=== PATIENT | female | born 1955 ===

== ENCOUNTER 2021-12-07 13:49 | Inpatient (IN) | payer MEDICARE ==
[2021-12-07] MEDS ORDERED: LORazepam 2 MG/ML VIAL ONE (14:16)
[2021-12-07] MEDS ORDERED: SODIUM CHLORIDE 0.9% 1000 ML 1,000 ML IV ONE (14:20)
[2021-12-07] MEDS ORDERED: LORazepam 2 MG/ML VIAL IV ONE (14:22)
--- NOTE | 2021-12-07 14:26 | Emergency Department Report ---
ED Altered Mental Status HPI - General Chief Complaint: Altered Mental Status Stated Complaint: AMS Time Seen by Provider: 12/07/21 14:20 Source: EMS Mode of arrival: Stretcher Limitations: Altered Mental Status - History of Present Illness Initial Comments: Patient is a 65-year-old female brought in from home by EMS for altered mental status. She was apparently found by family members. Last known well time was Saturday. On arrival patient is breathing heavily and not responsive. - Related Data Home Medications Medication Instructions Recorded Confirmed Last Taken AtorvaSTATin [Lipitor] 10 mg PO QHS 12/07/21 12/07/21 Unknown Furosemide [Lasix] 40 mg PO BID 12/07/21 12/07/21 Unknown Gabapentin [Neurontin] 300 mg PO BID 12/07/21 12/07/21 Unknown Loratadine 10 mg PO QDAY 12/07/21 12/07/21 Unknown Omeprazole 20 mg PO QDAY 12/07/21 12/07/21 Unknown PARoxetine [Paxil] 20 mg PO DAILY 12/07/21 12/07/21 Unknown Sitagliptin Phosphate [Januvia] 50 mg PO QDAY 12/07/21 12/07/21 Unknown amLODIPine [Norvasc] 10 mg PO DAILY 12/07/21 12/07/21 Unknown hydrALAZINE [Apresoline TAB] 100 mg PO TID 12/07/21 12/07/21 Unknown lisinopriL [Zestril TAB] 40 mg PO QDAY 12/07/21 12/07/21 Unknown Allergies Allergy/AdvReac Type Severity Reaction Status Date / Time No Known Allergies Allergy Verified 12/07/21 15:05 ED Review of Systems ROS: Stated complaint: AMS Other details as noted in HPI Comment: Unobtainable due to pts medical conditions ED Past Medical Hx - Past Medical History Previous Medical History?: Yes Hx Hypertension: Yes Hx Diabetes: Yes Hx Arthritis: Yes Hx Psychiatric Treatment: (DEPRESSION) Additional medical history: IRON DEFICIENCY - Medications Home Medications: Home Medications Medication Instructions Recorded Confirmed Last Taken Type AtorvaSTATin [Lipitor] 10 mg PO QHS 12/07/21 12/07/21 Unknown History Furosemide [Lasix] 40 mg PO BID 12/07/21 12/07/21 Unknown History Gabapentin [Neurontin] 300 mg PO BID 12/07/21 12/07/21 Unknown History Loratadine 10 mg PO QDAY 12/07/21 12/07/21 Unknown History Omeprazole 20 mg PO QDAY 12/07/21 12/07/21 Unknown History PARoxetine [Paxil] 20 mg PO DAILY 12/07/21 12/07/21 Unknown History Sitagliptin Phosphate [Januvia] 50 mg PO QDAY 12/07/21 12/07/21 Unknown History amLODIPine [Norvasc] 10 mg PO DAILY 12/07/21 12/07/21 Unknown History hydrALAZINE [Apresoline TAB] 100 mg PO TID 12/07/21 12/07/21 Unknown History lisinopriL [Zestril TAB] 40 mg PO QDAY 12/07/21 12/07/21 Unknown History ED Physical Exam - General Limitations: Altered Mental Status General appearance: obtunded - Head Head exam: Present: atraumatic, normocephalic - Eye Eye exam: Present: other (Eyes deviated to the right) - Respiratory Respiratory exam: Present: respiratory distress, accessory muscle use - Cardiovascular Cardiovascular Exam: Present: normal rhythm, tachycardia, normal heart sounds - GI/Abdominal GI/Abdominal exam: Present: soft. Absent: distended - Rectal Rectal exam: Present: deferred - Neurological Exam Neurological exam: Present: altered - Skin Skin exam: Present: warm, dry, intact, normal color ED Course Vital Signs 12/07/21 12/07/21 12/07/21 13:50 14:20 14:31 Temperature 98.2 F Pulse Rate 119 H 116 H Respiratory 19 26 H Rate Blood Pressure 184/86 Blood Pressure 166/93 [Left] O2 Sat by Pulse 100 100 100 Oximetry 12/07/21 12/07/21 12/07/21 14:45 15:16 15:30 Temperature Pulse Rate 124 H 128 H 119 H Respiratory 15 16 Rate Blood Pressure 175/85 192/103 168/87 Blood Pressure [Left] O2 Sat by Pulse 100 100 100 Oximetry 12/07/21 12/07/21 12/07/21 15:31 15:45 16:00 Temperature Pulse Rate 118 H 117 H 122 H Respiratory 16 16 16 Rate Blood Pressure 176/96 183/95 182/93 Blood Pressure [Left] O2 Sat by Pulse 100 100 98 Oximetry 12/07/21 12/07/21 12/07/21 16:15 16:31 16:45 Temperature Pulse Rate 120 H 118 H 115 H Respiratory 16 17 26 H Rate Blood Pressure 168/88 162/88 161/85 Blood Pressure [Left] O2 Sat by Pulse 97 96 95 Oximetry 12/07/21 12/07/21 12/07/21 17:01 17:15 17:24 Temperature Pulse Rate 116 H 113 H Respiratory 21 25 H Rate Blood Pressure 174/88 176/88 Blood Pressure [Left] O2 Sat by Pulse 93 97 96 Oximetry 12/07/21 12/07/21 12/07/21 17:31 17:45 18:01 Temperature Pulse Rate 113 H 116 H 115 H Respiratory 27 H 29 H 29 H Rate Blood Pressure 161/80 158/81 136/46 Blood Pressure [Left] O2 Sat by Pulse 97 97 97 Oximetry 12/07/21 12/07/21 12/07/21 18:15 18:31 18:45 Temperature Pulse Rate 115 H 109 H 110 H Respiratory 29 H 25 H 24 Rate Blood Pressure 137/77 127/75 122/71 Blood Pressure [Left] O2 Sat by Pulse 97 97 98 Oximetry - Lab Data Result diagrams: 12/07/21 15:55 12/07/21 15:55 Lab Results 12/07/21 12/07/21 12/07/21 Range/Units 14:21 15:55 15:55 WBC 16.9 H (4.5-11.0) K/mm3 RBC 5.04 H (3.65-5.03) M/mm3 Hgb 14.0 (10.1-14.3) gm/dl Hct 43.8 H (30.3-42.9) % MCV 87 (79-97) fl MCH 28 (28-32) pg MCHC 32 (30-34) % RDW 14.9 (13.2-15.2) % Plt Count 459 H (140-440) K/mm3 Lymph % (Auto) 9.3 L (13.4-35.0) % [place] % (Auto) 5.6 (0.0-7.3) % Eos % (Auto) 0.0 (0.0-4.3) % Baso % (Auto) 0.5 (0.0-1.8) % Lymph # (Auto) 1.6 (1.2-5.4) K/mm3 [place] # (Auto) 0.9 H (0.0-0.8) K/mm3 Eos # (Auto) 0.0 (0.0-0.4) K/mm3 Baso # (Auto) 0.1 (0.0-0.1) K/mm3 Seg Neutrophils % 84.6 H (40.0-70.0) % Seg Neutrophils # 14.3 H (1.8-7.7) K/mm3 ABG pH (7.350-7.450) pH Units ABG pCO2 mm Hg ABG pO2 (80.0-90.0) mm Hg ABG HCO3 (20.0-26.0) mmol/L ABG O2 Saturation (95.0-99.0) % ABG O2 Content (0.0-44) ABG Base Excess (-2.0-3.0) mmol/L ABG Hemoglobin (12.0-16.0) gm/dl ABG Carboxyhemoglobin (0.0-5.0) % ABG Methemoglobin (0.0-1.5) % Oxyhemoglobin (95.0-99.0) % FiO2 % Sodium 143 (137-145) mmol/L Potassium 4.9 (3.6-5.0) mmol/L Chloride 107.2 H (98-107) mmol/L Carbon Dioxide 18 L (22-30) mmol/L Anion Gap 23 mmol/L BUN 34 H (7-17) mg/dL Creatinine 1.7 H (0.6-1.2) mg/dL Estimated GFR 30 ml/min BUN/Creatinine Ratio 20 % Glucose 224 H (65-100) mg/dL POC Glucose 174 H (70-105) mg/dL Lactic Acid (0.7-2.0) mmol/L Calcium 10.0 (8.4-10.2) mg/dL Total Bilirubin 0.50 (0.1-1.2) mg/dL AST 30 (5-40) units/L ALT 13 (7-56) units/L Alkaline Phosphatase 98 (35-129) units/L Ammonia (25-60) umol/L Total Creatine Kinase (30-135) units/L Total Protein 8.0 (6.3-8.2) g/dL Albumin 4.4 (3.9-5) g/dL Albumin/Globulin Ratio 1.2 % 12/07/21 12/07/21 12/07/21 Range/Units 15:55 15:55 15:55 WBC (4.5-11.0) K/mm3 RBC (3.65-5.03) M/mm3 Hgb (10.1-14.3) gm/dl Hct (30.3-42.9) % MCV (79-97) fl MCH (28-32) pg MCHC (30-34) % RDW (13.2-15.2) % Plt Count (140-440) K/mm3 Lymph % (Auto) (13.4-35.0) % [place] % (Auto) (0.0-7.3) % Eos % (Auto) (0.0-4.3) % Baso % (Auto) (0.0-1.8) % Lymph # (Auto) (1.2-5.4) K/mm3 [place] # (Auto) (0.0-0.8) K/mm3 Eos # (Auto) (0.0-0.4) K/mm3 Baso # (Auto) (0.0-0.1) K/mm3 Seg Neutrophils % (40.0-70.0) % Seg Neutrophils # (1.8-7.7) K/mm3 ABG pH 7.260 L (7.350-7.450) pH Units ABG pCO2 45.1 mm Hg ABG pO2 229.7 H (80.0-90.0) mm Hg ABG HCO3 19.8 L (20.0-26.0) mmol/L ABG O2 Saturation 99.3 H (95.0-99.0) % ABG O2 Content 19.3 (0.0-44) ABG Base Excess -7.1 L (-2.0-3.0) mmol/L ABG Hemoglobin 13.7 (12.0-16.0) gm/dl ABG Carboxyhemoglobin 1.1 (0.0-5.0) % ABG Methemoglobin 0.7 (0.0-1.5) % Oxyhemoglobin 97.6 (95.0-99.0) % FiO2 100 % Sodium (137-145) mmol/L Potassium (3.6-5.0) mmol/L Chloride (98-107) mmol/L Carbon Dioxide (22-30) mmol/L Anion Gap mmol/L BUN (7-17) mg/dL Creatinine (0.6-1.2) mg/dL Estimated GFR ml/min BUN/Creatinine Ratio % Glucose (65-100) mg/dL POC Glucose (70-105) mg/dL Lactic Acid 1.70 (0.7-2.0) mmol/L Calcium (8.4-10.2) mg/dL Total Bilirubin (0.1-1.2) mg/dL AST (5-40) units/L ALT (7-56) units/L Alkaline Phosphatase (35-129) units/L Ammonia 23.0 L (25-60) umol/L Total Creatine Kinase (30-135) units/L Total Protein (6.3-8.2) g/dL Albumin (3.9-5) g/dL Albumin/Globulin Ratio % 12/07/21 Range/Units 15:55 WBC (4.5-11.0) K/mm3 RBC (3.65-5.03) M/mm3 Hgb (10.1-14.3) gm/dl Hct (30.3-42.9) % MCV (79-97) fl MCH (28-32) pg MCHC (30-34) % RDW (13.2-15.2) % Plt Count (140-440) K/mm3 Lymph % (Auto) (13.4-35.0) % [place] % (Auto) (0.0-7.3) % Eos % (Auto) (0.0-4.3) % Baso % (Auto) (0.0-1.8) % Lymph # (Auto) (1.2-5.4) K/mm3 [place] # (Auto) (0.0-0.8) K/mm3 Eos # (Auto) (0.0-0.4) K/mm3 Baso # (Auto) (0.0-0.1) K/mm3 Seg Neutrophils % (40.0-70.0) % Seg Neutrophils # (1.8-7.7) K/mm3 ABG pH (7.350-7.450) pH Units ABG pCO2 mm Hg ABG pO2 (80.0-90.0) mm Hg ABG HCO3 (20.0-26.0) mmol/L ABG O2 Saturation (95.0-99.0) % ABG O2 Content (0.0-44) ABG Base Excess (-2.0-3.0) mmol/L ABG Hemoglobin (12.0-16.0) gm/dl ABG Carboxyhemoglobin (0.0-5.0) % ABG Methemoglobin (0.0-1.5) % Oxyhemoglobin (95.0-99.0) % FiO2 % Sodium (137-145) mmol/L Potassium (3.6-5.0) mmol/L Chloride (98-107) mmol/L Carbon Dioxide (22-30) mmol/L Anion Gap mmol/L BUN (7-17) mg/dL Creatinine (0.6-1.2) mg/dL Estimated GFR ml/min BUN/Creatinine Ratio % Glucose (65-100) mg/dL POC Glucose (70-105) mg/dL Lactic Acid (0.7-2.0) mmol/L Calcium (8.4-10.2) mg/dL Total Bilirubin (0.1-1.2) mg/dL AST (5-40) units/L ALT (7-56) units/L Alkaline Phosphatase (35-129) units/L Ammonia (25-60) umol/L Total Creatine Kinase 498 H (30-135) units/L Total Protein (6.3-8.2) g/dL Albumin (3.9-5) g/dL Albumin/Globulin Ratio % - Medical Decision Making Patient brought in by EMS for altered mental status. Last known well time was several days ago. On arrival she is on a nonrebreather and minimally responsive to sternal rub. On examination rightward gaze noted along with foaming at the mouth. She was given 2 mg of IV Ativan with no real response. Decision was made to intubate due to GCS below 8. CT head was performed and was unremarkable. Leukocytosis present however patient was afebrile. CMP reveals mild MAYRA with creatinine of 1.7. Ammonia unremarkable. CK 498. Urinalysis pending. Discussed with Drs. Salcido and Clair. Will admit to ICU. Critical Care Time: Yes Critical care time in (mins) excluding proc time.: 60 Critical care attestation.: If time is entered above; I have spent that time in minutes in the direct care of this critically ill patient, excluding procedure time. ED Disposition Clinical Impression: Altered mental status, Acute respiratory failure Disposition: ADMITTED INPATIENT Is pt being admited?: Yes Condition: Fair
[2021-12-07] MEDS ORDERED: ETOMIDATE 20 MG/10 ML INJ IV ONE ×2 (14:31→22:30)
[2021-12-07] MEDS ORDERED: ROCURONIUM 50 MG/5 ML INJ IV ONE ×2 (14:31→22:30)
--- NOTE | 2021-12-07 15:23 | XRay Report ---
CHEST 1 VIEW 12/07/2021 2:59 PM INDICATION / CLINICAL INFORMATION: AMS. COMPARISON: None FINDINGS: SUPPORT DEVICES: The endotracheal tube terminates within 1 cm of the betito. Recommend retraction by 3 cm. The nasogastric tube is followed to the mid to distal stomach. HEART / MEDIASTINUM: Borderline heart size. LUNGS / PLEURA: There is ill-defined infiltration in the left suprahilar region which could represent an infiltrate or atelectatic changes. Otherwise the lungs are generally clear. No pneumothorax. ADDITIONAL FINDINGS: No significant additional findings. IMPRESSION: 1. Recommend retraction of the endotracheal tube as described. 2. Left suprahilar infiltration. Correlate for pneumonia. If no fever is present, consider CT chest. Signer Name: Jun Alaniz Jr, MD Signed: 12/07/2021 3:19 PM Workstation Name: [id number]
--- NOTE | 2021-12-07 15:38 | Cat Scan Report ---
CT BRAIN: 12/07/2021 INDICATION / CLINICAL INFORMATION: Altered Mental Status. COMPARISON: None available. FINDINGS: BRAIN/INTRACRANIAL STRUCTURES: Unenhanced CT images of the brain demonstrate no evidence of acute abn ormality. Ventricles and sulci are within normal limits of size and shape for a patient of this age. There is no evidence of hemorrhage or mass. There are no abnormal extra-axial fluid collections. EXTRACRANIAL STRUCTURES: Incidental note is made of an air-fluid level in the right maxillary sinus. There is complete occlusion of the nasal cavity and upper nasal pharynx. The appearance of the consumer affairs director image that the patient has an endotracheal tube in place. There is evidence of prior right ocular surgery. IMPRESSION: No significant abnormality. All CT scans at this location are performed using dose reduction to ALARA by means of automated expos ure control. Signer Name: Andriy Duran MD Signed: 12/07/2021 3:34 PM Workstation Name: [id number]
[2021-12-07 16:20] LABS: ABG Base Excess -7.1 mmol/L (-2.0-3.0); ABG HCO3 19.8 mmol/L (20.0-26.0); ABG Methemoglobin 0.7 % (0.0-1.5); ABG Oxygen Saturation 99.3 % (95.0-99.0); ABG PCO2 45.1 mm Hg; ABG PH 7.26 pH Units (7.350-7.450); ABG PO2 229.7 mm Hg (80.0-90.0)
[2021-12-07 16:42] LABS: Basophils # (Auto) 0.1 K/mm3 (0.0-0.1); Basophils % (Auto) 0.5 % (0.0-1.8); Hematocrit 43.8 % (30.3-42.9); Lymphocytes # (Auto) 1.6 K/mm3 (1.2-5.4); Lymphocytes % (Auto) 9.3 % (13.4-35.0); Mean Corpuscular HGB Conc 32 % (30-34); Mean Corpuscular Volume 87 fl (79-97); Monocytes # (Auto) 0.9 K/mm3 (0.0-0.8); Monocytes % (Auto) 5.6 % (0.0-7.3); Platelet Count 459 K/mm3 (140-440); Red Blood Count 5.04 M/mm3 (3.65-5.03); Red Cell Distribution Width 14.9 % (13.2-15.2)
[2021-12-07 17:23] LABS: Albumin 4.4 g/dL (3.9-5)
--- NOTE | 2021-12-07 19:12 | History and Physical Report ---
History of Present Illness Chief complaint: Unresponsive History of present illness: 65 YO Female with Obesity Hypoventilation Syndrome, HTN, DM complicated by Neuropathy, GERD, MDD, Iron Deficiency Anemia, HLD, CHF presents to ED for evaluation. Patient is intubated and on ventilatory support at time of evaluation and is unable to provide history. Patient history taken EMS staff, ED staff, as well as patient family was. As per family the patient was in her usual state of health 2 days ago. Patient was found down and unresponsive in her home. EMS was notified and upon arrival the patient was found to be in distress and subsequently transported to [facility] for further care and evaluation of the aforementioned symptoms. The patient was seen and evaluated in the emergency department. All lab and imaging studies reviewed. Chest x-ray revealed pneumonia complicated by sepsis and acute hypoxemic respiratory f ailure. Patient also found to have acidosis, toxic metabolic encephalopathy, rhabdomyolysis, and acute kidney injury. Patient mated to ICU due to increased risk of worsening symptoms and for medical stabilization. Patient initiated on sepsis protocol as well as pneumonia protocol. Critical care team consulted in ED. No reports of fever, chills, chest pain, palpitation, productive cough, skin rash, recent contact, known exposure to COVID-19. No additional history obtainable. No prior admission for review. All medication listed at time of admission has been reconciled. Past History Past Medical History: diabetes, GERD, heart failure, hypertension, hyperlipidemia Past Surgical History: No surgical history, Other (Reviewed) Social history: single. denies: smoking, alcohol abuse, prescription drug abuse Family history: diabetes, hypertension Medications and Allergies Allergies Allergy/AdvReac Type Severity Reaction Status Date / Time No Known Allergies Allergy Verified 12/07/21 15:05 Home Medications Medication Instructions Recorded Confirmed Last Taken Type AtorvaSTATin [Lipitor] 10 mg PO QHS 12/07/21 12/07/21 Unknown History Furosemide [Lasix] 40 mg PO BID 12/07/21 12/07/21 Unknown History Gabapentin [Neurontin] 300 mg PO BID 12/07/21 12/07/21 Unknown History Loratadine 10 mg PO QDAY 12/07/21 12/07/21 Unknown History Omeprazole 20 mg PO QDAY 12/07/21 12/07/21 Unknown History PARoxetine [Paxil] 20 mg PO DAILY 12/07/21 12/07/21 Unknown History Sitagliptin Phosphate [Januvia] 50 mg PO QDAY 12/07/21 12/07/21 Unknown History amLODIPine [Norvasc] 10 mg PO DAILY 12/07/21 12/07/21 Unknown History hydrALAZINE [Apresoline TAB] 100 mg PO TID 12/07/21 12/07/21 Unknown History lisinopriL [Zestril TAB] 40 mg PO QDAY 12/07/21 12/07/21 Unknown History Review of Systems ROS unobtainable: due to endotracheal tube, due to mental status Exam - Constitutional Vitals: Temp Pulse Resp BP Pulse Ox 98.2 F 110 H 24 122/71 98 12/07/21 13:50 12/07/21 18:45 12/07/21 18:45 12/07/21 18:45 12/07/21 18:45 General appearance: Present: severe distress - EENT Eyes: Present: miosis ENT: hearing decreased - Neck Neck: Present: supple, normal ROM - Respiratory Respiratory effort: labored, accessory muscle use Respiratory: bilateral: diminished, rhonchi - Cardiovascular Heart Sounds: Present: S1 & S2. Absent: rub, click - Extremities Extremity abnormal: edema Peripheral Pulses: abnormal (Capillary refill greater than 3.5 seconds) - Abdominal General gastrointestinal: Present: soft, non-tender, non-distended, normal bowel sounds Female genitourinary: Present: normal - Integumentary Integumentary: Present: dry, clammy, decreased turgor - Musculoskeletal Musculoskeletal: generalized weakness - Psychiatric Psychiatric: no appropriate mood/affect, no intact judgment & insight, no memory intact - Neurologic Neurologic: CNII-XII intact, no focal deficits, moves all extremities, no gait normal Results - Labs CBC & Chem 7: 12/07/21 15:55 12/07/21 15:55 Labs: Abnormal lab results 12/07/21 12/07/21 12/07/21 Range/Units 14:21 15:55 15:55 WBC 16.9 H (4.5-11.0) K/mm3 RBC 5.04 H (3.65-5.03) M/mm3 Hct 43.8 H (30.3-42.9) % Plt Count 459 H (140-440) K/mm3 Lymph % (Auto) 9.3 L (13.4-35.0) % [place] # (Auto) 0.9 H (0.0-0.8) K/mm3 Seg Neutrophils % 84.6 H (40.0-70.0) % Seg Neutrophils # 14.3 H (1.8-7.7) K/mm3 ABG pH (7.350-7.450) pH Units ABG pO2 (80.0-90.0) mm Hg ABG HCO3 (20.0-26.0) mmol/L ABG O2 Saturation (95.0-99.0) % ABG Base Excess (-2.0-3.0) mmol/L Chloride 107.2 H (98-107) mmol/L Carbon Dioxide 18 L (22-30) mmol/L BUN 34 H (7-17) mg/dL Creatinine 1.7 H (0.6-1.2) mg/dL Glucose 224 H (65-100) mg/dL POC Glucose 174 H (70-105) mg/dL Ammonia (25-60) umol/L Total Creatine Kinase (30-135) units/L 12/07/21 12/07/21 12/07/21 Range/Units 15:55 15:55 15:55 WBC (4.5-11.0) K/mm3 RBC (3.65-5.03) M/mm3 Hct (30.3-42.9) % Plt Count (140-440) K/mm3 Lymph % (Auto) (13.4-35.0) % [place] # (Auto) (0.0-0.8) K/mm3 Seg Neutrophils % (40.0-70.0) % Seg Neutrophils # (1.8-7.7) K/mm3 ABG pH 7.260 L (7.350-7.450) pH Units ABG pO2 229.7 H (80.0-90.0) mm Hg ABG HCO3 19.8 L (20.0-26.0) mmol/L ABG O2 Saturation 99.3 H (95.0-99.0) % ABG Base Excess -7.1 L (-2.0-3.0) mmol/L Chloride (98-107) mmol/L Carbon Dioxide (22-30) mmol/L BUN (7-17) mg/dL Creatinine (0.6-1.2) mg/dL Glucose (65-100) mg/dL POC Glucose (70-105) mg/dL Ammonia 23.0 L (25-60) umol/L Total Creatine Kinase 498 H (30-135) units/L Assessment and Plan - Patient Problems (1) Sepsis Current Visit: Yes Status: Acute Qualifiers: Severe sepsis acute organ dysfunction type: acute respiratory failure Plan to address problem: Sepsis protocol: CBC, CMP, chest x-ray, urinalysis, IV antibiotic therapy, IV fluid resuscitation therapy, maintain mean arterial pressure greater than equal 65, IV pressor support as clinically indicated, serial lactic acid level, monitor fluid balance, monitor urine output every shift, The high probability of a clinically significant, sudden or life threatening d eterioration of the [cardiac, pulmonary, renal, infectious disease] system(s) required my full and direct attention, intervention and personal management. The aggregate critical care time was [95] minutes. This time is in addition to time spent performing reported procedures but includes the following: [x] Data Review and interpretation [x] Patient assessment and monitoring of vital signs [x] Documentation [x] Medication orders and management (2) Acute hypoxemic respiratory failure Current Visit: Yes Status: Acute Plan to address problem: Critical care team consulted. Wean vent as tolerated, daily spontaneous breathing trial, sedation holiday daily, arterial blood gas daily, chest x-ray as clinically indicated, (3) Toxic metabolic encephalopathy Current Visit: Yes Status: Acute Plan to address problem: CT scan head, treat sepsis, supportive care. (4) Rhabdomyolysis Current Visit: Yes Status: Acute Qualifiers: Encounter type: initial encounter Plan to address problem: IV antibiotic therapy, BMP, CK level, repeat CK level in AM. Monitor urine output every shift, monitor fluid balance. (5) Metabolic acidosis Current Visit: Yes Status: Acute Plan to address problem: IV fluid resuscitation therapy, IV bicarbonate therapy. (6) Pneumonia Current Visit: Yes Status: Acute Plan to address problem: Pneumonia protocol: Chest x-ray, CBC, CMP, supplemental oxygen, pulse oximetry, nebulizer therapy, pulmonary toilet. IV antibiotic therapy. (7) Acute kidney injury (MAYRA) with acute tubular necrosis (ATN) Current Visit: Yes Status: Acute Plan to address problem: IV fluid resuscitation therapy, monitor urine output every shift, monitor fluid balance, BMP, repeat BMP in a.m. to monitor serum creatinine as well as GFR. (8) Diabetes Current Visit: Yes Status: Acute Plan to address problem: Consistent carbohydrate diet, Accu-Chek, insulin protocol, hypoglycemia protocol (9) Hyperlipidemia Current Visit: Yes Status: Acute Qualifiers: Hyperlipidemia type: mixed hyperlipidemia Qualified Code(s): E78.2 - Mixed hyperlipidemia Plan to address problem: Statin therapy as clinically indicated, supportive care. (10) Obesity hypoventilation syndrome Current Visit: Yes Status: Acute Plan to address problem: Balanced diet, increase physical activity discharge, outpatient pulmonary follow-up for sleep study. (11) Metabolic syndrome Current Visit: Yes Status: Acute Plan to address problem: Low-cholesterol diet, weight reduction, glucose control, risk factor reduction. (12) DVT prophylaxis Current Visit: Yes Status: Acute Plan to address problem: SCD to bilateral lower extremities while in bed, prophylactic anticoagulation. (13) Advance care planning Current Visit: Yes Status: Acute Plan to address problem: Disease education done, care plan discussed, diagnoses discussed, prognosis discussed, patient is full code. Patient family knowledges understanding agreement with care plan, +30 minutes. (14) Preventative health care Current Visit: Yes Status: Acute Plan to address problem: Patient family counseled regarding risk factor reduction, outpatient follow-up with primary care physician for all age and risk factor appropriate screening test. +30 minutes.
[2021-12-07] MEDS ORDERED: SODIUM CHLORIDE 0.9% 1000 ML IV SOLN IV ONE (19:13)
[2021-12-07] MEDS ORDERED: MORPHINE 2 MG/1 ML INJ IV PRN (19:13)
[2021-12-07] MEDS ORDERED: ACETAMINOPHEN 650 MG RECT SUPP PR PRN (19:13)
[2021-12-07] MEDS ORDERED: HYDROmorphone 0.5 MG/0.5 ML INJ IV PRN ×2 (19:13→19:17)
[2021-12-07] MEDS ORDERED: oxyCODONE /ACETAMINOPHEN 5-325MG TAB PO PRN (19:17)
[2021-12-07] MEDS ORDERED: ACETAMINOPHEN 325 MG TAB PO PRN (19:17)
--- NOTE | 2021-12-07 19:51 | Procedure Note ---
Date of procedure: 12/07/21 Pre-op diagnosis: Sepsis Post-op diagnosis: same Procedure: Right internal jugular vein central line catheter placement under ultrasound guidance The patient was prepped and draped in the usual sterile fashion. A timeout was taken with the patient's nurse at bedside to verify the correct patient, the correct procedure, and the correct operative site. Local anesthesia obtained with 1% lidocaine. The Seldinger technique was utilized under ultrasound g uidance to insert a seeker needle into the right internal jugular vein without difficulty. A guidewire is advanced via the seeker needle into the right internal jugular vein and the seeker needle subsequently removed. A scalpel was used to incise the skin at the insertion site. A dilator was then passed over the guidewire into the right internal jugular vein and subsequently removed. A preflush triple-lumen catheter was then advanced to the right internal jugular vein and the guidewire subsequently removed. All 3 ports flush and drawl with ease. 3-0 silk suture was utilized to secure the triple-lumen catheter in place. A Biopatch was placed at the insertion site. Postoperative chest x-ray revealed right internal jugular vein triple-lumen catheter in the expected position. Estimated blood loss minimal. Specimens none, complications none. Anesthesia: local Surgeon: BERTA BROWN Estimated blood loss: minimal Pathology: none Condition: critical Disposition: ICU
[2021-12-07] MEDS ORDERED: DEXTROSE 50% IN WATER (25GM) 50 ML SYRINGE IV PRN (19:55)
[2021-12-07] MEDS ORDERED: cefTRIAXone/NS 2 GM/100 ML 2 GM/100 ML BAG IV SCH (20:00)
[2021-12-07 20:15] LABS: Hyaline Casts,Urine 4 /LPF; Mucus,Urine FEW /HPF
[2021-12-07] MEDS ORDERED: SODIUM BICARB 8.4% 50 MEQ/50 ML SYRINGE IV ONE (20:17)
[2021-12-07 20:24] LABS: Color,Urine Yellow (Yellow)
[2021-12-07 20:25] LABS: Bilirubin,Urine Moderate (Negative); Blood,Urine Negative (Negative)
--- NOTE | 2021-12-07 20:28 | XRay Report ---
CHEST 1 VIEW 12/07/2021 7:04 PM INDICATION / CLINICAL INFORMATION: central line placement. COMPARISON: None available. FINDINGS: SUPPORT DEVICES: Endotracheal tube terminates partially 1.0 cm from the betito. Right IJ central veno us catheter terminates in the upper SVC. Enteric tube terminates distal to the field of view and belo w the diaphragm. HEART / MEDIASTINUM: Stable. LUNGS / PLEURA: Redemonstrated left suprahilar consolidation/mass. No pneumothorax. ADDITIONAL FINDINGS: No significant additional findings. IMPRESSION: 1. 100 and tubes as above, no pneumothorax. 2. Redemonstrated left suprahilar consolidation/mass. In the absence of the clinical findings of pneu monia a chest CT is recommended to exclude lung mass. Signer Name: Masoud Ball DO Signed: 12/07/2021 8:24 PM Workstation Name: [id number]
[2021-12-07 20:33] LABS: Ictotest,Urine Negative (Negative)
[2021-12-07] MEDS: AZITHROMYCIN/NS 500 MG/250 ML 500 MG/250 ML BAG IV SCH (21:07)
[2021-12-07] MEDS: ALBUTEROL 2.5 MG/3 ML NEBU IH PRN (21:35)
[2021-12-07 21:55] LABS: ABG Base Excess -5.5 mmol/L (-2.0-3.0); ABG HCO3 18.8 mmol/L (20.0-26.0); ABG Methemoglobin 0.6 % (0.0-1.5); ABG Oxygen Saturation 99.1 % (95.0-99.0); ABG PCO2 32.6 mm Hg; ABG PH 7.377 pH Units (7.350-7.450); ABG PO2 170.3 mm Hg (80.0-90.0)
[2021-12-07] MEDS ORDERED: GABAPENTIN 300 MG CAP PO SCH (22:00)
[2021-12-08 04:18] LABS: Hematocrit 37.4 % (30.3-42.9); Mean Corpuscular HGB Conc 32 % (30-34); Mean Corpuscular Volume 86 fl (79-97); Platelet Count 402 K/mm3 (140-440); Red Blood Count 4.36 M/mm3 (3.65-5.03)
[2021-12-08] MEDS: ALBUTEROL 2.5 MG/3 ML NEBU IH PRN (04:32)
[2021-12-08 04:37] LABS: Albumin 3.5 g/dL (3.9-5); Calcium 9.2 mg/dL (8.4-10.2)
[2021-12-08 04:43] LABS: ABG Base Excess -5.4 mmol/L (-2.0-3.0); ABG HCO3 17.6 mmol/L (20.0-26.0); ABG Methemoglobin 0.6 % (0.0-1.5); ABG Oxygen Saturation 94.5 % (95.0-99.0); ABG PCO2 27.6 mm Hg; ABG PH 7.423 pH Units (7.350-7.450); ABG PO2 65.1 mm Hg (80.0-90.0)
[2021-12-08 05:13] LABS: Total Cells Counted 100
[2021-12-08 05:14] LABS: Eosinophils % (Manual) 0 % (0.0-4.3); Platelet Estimate Consistent w Auto; RBC Morphology Normal
[2021-12-08] MEDS: INSULIN REGULAR, HUMAN 100 UNITS/1 ML SUB-Q SCH ×5 (07:46→15:55)
[2021-12-08] MEDS ORDERED: D5W/0.45% NACL 1,000 ML IV SCH (09:00)
[2021-12-08] MEDS ORDERED: INSULIN GLARGINE 100 UNITS/ML SUB-Q ONE (09:00)
[2021-12-08] MEDS: hydrALAZINE 100 MG TAB PO SCH ×2 (09:05→14:44)
[2021-12-08] MEDS: SODIUM CHLORIDE 0.45% 1000 ML 1,000 ML IV SCH ×2 (09:33→21:46)
[2021-12-08] MEDS: LANSOPRAZOLE 30 MG SOLUTAB FEEDTUBE SCH (09:33)
[2021-12-08] MEDS: SENNOSIDES/DOCUSATE SODIUM 8.6/50 MG TAB FEEDTUBE SCH ×2 (09:34→21:45)
--- NOTE | 2021-12-08 09:58 | Consultation ---
History of Present Illness - Reason for Consult Consult date: 12/08/21 acute renal failure - History of Present Illness The patient is a 65 YO female with history notable for Morbid Obesity, HTN, HLD, DM complicated by Neuropathy, GERD, MDD, Iron Deficiency Anemia and CHF who was brought to [facility] ED 12/07/21 after she was found down and unresponsive in her home. Patient was intubated and on ventilatory support at time of evaluation and is unable to provide history. Patient history taken EMS staff, ED staff, as well as patient family was. As per family the patient was in her usual state of health 2 days ago. Chest x-ray revealed pneumonia. Patient was admitted with PNA, sepsis, acute hypoxemic respiratory failure, MAYRA and toxic metabolic encephalopathy. Patient admitted to ICU and initiated on sepsis protocol as well as pneumonia protocol. Labs notable for Creat 1.7, BUN 34 and bocarb 18. Nephrology consulted for further evaluation and treatment of MAYRA. Past History Past Medical History: diabetes, GERD, heart failure, hypertension, hyp erlipidemia Past Surgical History: No surgical history, Other (Reviewed) Social history: single. denies: smoking, alcohol abuse, prescription drug abuse Family history: diabetes, hypertension Medications and Allergies Allergies Allergy/AdvReac Type Severity Reaction Status Date / Time No Known Allergies Allergy Verified 12/07/21 15:05 Home Medications Medication Instructions Recorded Confirmed Last Taken Type AtorvaSTATin [Lipitor] 10 mg PO QHS 12/07/21 12/07/21 Unknown History Furosemide [Lasix] 40 mg PO BID 12/07/21 12/07/21 Unknown History Gabapentin [Neurontin] 300 mg PO BID 12/07/21 12/07/21 Unknown History Loratadine 10 mg PO QDAY 12/07/21 12/07/21 Unknown History Omeprazole 20 mg PO QDAY 12/07/21 12/07/21 Unknown History PARoxetine [Paxil] 20 mg PO DAILY 12/07/21 12/07/21 Unknown History Sitagliptin Phosphate [Januvia] 50 mg PO QDAY 12/07/21 12/07/21 Unknown History amLODIPine [Norvasc] 10 mg PO DAILY 12/07/21 12/07/21 Unknown History hydrALAZINE [Apresoline TAB] 100 mg PO TID 12/07/21 12/07/21 Unknown History lisinopriL [Zestril TAB] 40 mg PO QDAY 12/07/21 12/07/21 Unknown History Active Meds: Active Medications Acetaminophen (Acetaminophen 650 Mg Rect Supp) 650 mg KS Q6H PRN PRN Reason: Pain MILD(1-3)/Fever >100.5/[place] Acetaminophen (Acetaminophen 325 Mg Tab) 650 mg PO Q6H PRN PRN Reason: Pain MILD(1-3)/Fever >100.5/[place] Albuterol (Albuterol 2.5 Mg/3 Ml Nebu) 2.5 mg IH Q3HRT PRN PRN Reason: Shortness Of Breath Last Admin: 12/08/21 04:32 Dose: 2.5 mg Amlodipine Besylate (Amlodipine 10 Mg Tab) 10 mg PO DAILY [place] Last Admin: 12/08/21 09:34 Dose: 10 mg Atorvastatin Calcium (Atorvastatin 10 Mg Tab) 10 mg PO QHS [place] Dextrose (Dextrose 50% In Water (25gm) 50 Ml Syringe) 0 ml IV Q30MIN PRN; Protocol PRN Reason: Hypoglycemia Gabapentin (Gabapentin 300 Mg Cap) 300 mg PO BID [place] Last Admin: 12/08/21 09:33 Dose: 300 mg Heparin Sodium (Porcine) (Heparin 5,000 Unit/1 Ml Vial) 5,000 unit SUB-Q Q8HR [place] Hydralazine HCl (Hydralazine 100 Mg Tab) 100 mg PO TID [place] Last Admin: 12/08/21 09:05 Dose: Not Given Hydrophilic Ointment (Lip Therapy Vaseline) 1 applic TP Q2HR PRN PRN Reason: Dry Lips Ceftriaxone Sodium (Rocephin/Ns 2 Gm/100 Ml) 2 gm in 100 mls @ 200 mls/hr IV Q24H [place]; Protocol Last Admin: 12/07/21 20:19 Dose: 200 mls/hr Azithromycin (Zithromax/Ns) 500 mg in 250 mls @ 250 mls/hr IV Q24H [place]; Protocol Last Admin: 12/07/21 21:07 Dose: 250 mls/hr Sodium Chloride (Nacl 0.45% 1000 Ml) 1,000 mls @ 100 mls/hr IV DIRECT [place] Stop: 12/09/21 18:59 Last Admin: 12/08/21 09:33 Dose: 100 mls/hr Insulin Human Regular (Insulin Regular, Human 100 Units/1 Ml) 0 units SUB-Q ACHS [place]; Protocol Last Admin: 12/08/21 07:46 Dose: 6 units Lansoprazole (Lansoprazole 30 Mg Solutab) 30 mg FEEDTUBE QDAY [facility] Last Admin: 12/08/21 09:33 Dose: 30 mg Lisinopril (Lisinopril 40 Mg Tab) 40 mg PO QDAY [facility] Last Admin: 12/08/21 09:33 Dose: 40 mg Morphine Sulfate (Morphine 2 Mg/1 Ml Inj) 2 mg IV Q8H PRN PRN Reason: Pain, Moderate (4-6) Multi-Ingred Cream/Lotion/Oil/Oint (Mineral Oil/Petrolatum, White Ophth Oint 3.5 Gm) 1 applic OU Q4HR PRN PRN Reason: Dry Eye(s) Oxycodone/Acetaminophen (Oxycodone /Acetaminophen 5-325mg Tab) 1 tab PO Q6H PRN PRN Reason: Pain, Moderate (4-6) Paroxetine HCl (Paroxetine 20 Mg Tab) 20 mg PO DAILY [facility] Senna/Docusate Sodium (Sennosides/Docusate Sodium 8.6/50 Mg Tab) 1 tab FEEDTUBE BID [facility] Last Admin: 12/08/21 09:34 Dose: 1 tab Sodium Chloride (Sodium Chloride 0.9% 10 Ml Flush Syringe) 10 ml IV BID [facility] Last Admin: 12/08/21 09:38 Dose: 10 ml Sodium Chloride (Sodium Chloride 0.9% 10 Ml Flush Syringe) 10 ml IV BID [facility] Last Admin: 12/08/21 09:38 Dose: 10 ml Sodium Chloride (Sodium Chloride 0.9% 10 Ml Flush Syringe) 10 ml IV PRN PRN PRN Reason: LINE FLUSH Review of Systems ROS unobtainable: due to endotracheal tube, due to mental status Exam - Vital Signs Vital signs: Vital Signs Temp Pulse Resp BP Pulse Ox 98.2 F 119 H 19 166/93 100 12/07/21 13:50 12/07/21 13:50 12/07/21 13:50 12/07/21 13:50 12/07/21 13:50 Results - Lab Results 12/10/21 05:49 12/10/21 06:03 Most recent lab results ABG pH 7.423 pH Units (7.350-7.450) 12/08/21 04:10 ABG pCO2 27.6 mm Hg 12/08/21 04:10 ABG pO2 65.1 mm Hg (80.0-90.0) L 12/08/21 04:10 ABG HCO3 17.6 mmol/L (20.0-26.0) L 12/08/21 04:10 ABG O2 Saturation 94.5 % (95.0-99.0) L 12/08/21 04:10 Calcium 9.2 mg/dL (8.4-10.2) 12/08/21 04:00 Assessment and Plan 1. Acute kidney injury: Likley vasomotor MAYRA in the setting of shock. ATN. Baseline renal function unknown. Urine studies and Renal US ordered. Patient has austin catheter. Monitor renal function. Avoid nephrotoxic agents. Meds dosage based on GFR. 2. FEN: Anion-gap metabolic acdosis, 2/2 MAYRA, IV fluids, monitor. Replete lytes as needed. Monitor lytes and volume status. 4. Acute Hypoxemic Respiratory Failure / CAP: CXR reveals left suprahilar infiltration. Intubated in the ED on 12/07. Abx. Monitor. 5. Sepsis: Likley 2/2 CAP. Covid negative. Abx. Monitor. 6. Acute Metabolic Encephalopathy: Monitor. 7. Type 2 Diabetes Mellitus with Hyperglycemia: SSI and Lantus. MOnitor. 8. Hypertension: Monitor BP. Adjust meds as needed. D/w ICU team. Subjective: Patient was seen and examined at the bedside. Examination: General appearance: well-developed, appears stated age, no distress, intubated, on vent HEENT: ATNC, no icterus Neck: trachea midline Respiratory: decreased breath sounds bilaterally Cardiology: regular, S1S2, no murmur Gastrointestinal: soft, normoactive bowel sounds, not tender Integumentary: no obvious rash Neurologic: not responding Ext: no edema : austin catheter
[2021-12-08] MEDS ORDERED: amLODIPine 10 MG TAB PO SCH (10:00)
[2021-12-08] MEDS ORDERED: PANTOPRAZOLE 20 MG TAB PO SCH (10:00)
[2021-12-08] MEDS ORDERED: LIP THERAPY VASELINE TP PRN (10:00)
[2021-12-08] MEDS ORDERED: PARoxetine 20 MG TAB PO SCH (10:00)
[2021-12-08] MEDS ORDERED: NON-FORMULARY EACH (Omeprazole [Omeprazole] 20 MG Capsule.Dr) PO SCH (10:00)
[2021-12-08] MEDS ORDERED: LISINOPRIL 40 MG TAB PO SCH (10:00)
[2021-12-08 10:03] LABS: C-Reactive Protein 6.2 mg/dL (0.00-1.30)
--- NOTE | 2021-12-08 10:04 | XRay Report ---
CHEST - 1 VIEW 0844 hours INDICATION: Respiratory Failure COMPARISON: Yesterday FINDINGS: Support devices: The endotracheal tube has been retracted and now terminates 4 cm superior to the ca benito. Right IJ venous catheter and nasogastric tube remain in good position. Heart: Stable cardiomediastinal silhouette. Lungs/pleura: Left lung opacities have resolved. The lungs are generally clear. No pleural effusion or pneumothorax. Additional findings: None. IMPRESSION: No acute process Signer Name: Jun Alaniz Jr, MD Signed: 12/08/2021 10:00 AM Workstation Name: [id number]
--- NOTE | 2021-12-08 10:28 | Progress Note ---
<JAMES NICOLE - Last Filed: 12/08/21 17:27> Assessment and Plan Assessment and plan: This is a 65-year-old female with known past medical history of obesity, HTN, DM complicated by neuropathy, GERD, MDD, iron deficiency anemia, and HLD admitted for acute hypoxic respiratory failure 2/2 pneumonia requiring ventilatory s upport. Hospital Course to Date: 12/08: Intubated and unresponsive, not on any sedation. Patient remains febrile with worsen leukocytosis this am, repeat CXR noted with significant improvement. COVID PCR and cultures pending, continue current epiric IV Abx, ID consulted. Co ntinue gentle IVF hydration for MAYRA and Nephro is consulted. SSI adjusted and Lantus added for hyperglycemia. #Acute Hypoxic Respiratory Failure #Community Acquied Pneumonia(CAP) - CXR reveals left suprahilar consolidation/mass. suspected PNA. see report for full detail - Intubated in the ED on 12/07 - Vent setting: PRVC-45%,6,16,450 - Repeat CXR this am with significant improvement - AM ABG noted - CCM consulted, appreciate recommendations - Continue IV Abx and Nebs per CCM - VAP bundle addressed - Aspiration precaution HOB above 30 - Daily ABG and CXR - Continue SPO2 monitoring for SPO2 goal above 92% #Sepsis #Community Acquied Pneumonia(CAP) #Leukocytosis - CXR reveals left suprahilar consolidation/mass. suspected PNA. see report for full detail - Febrile with worsen leukocytosis - COVID PCR and cultures pending - Continue current empiric IV Abx- Azithro and Rocephin - ID consulted - F/U on cultures - Daily CBC monitor #Acute Metabolic Encephalopathy - Found unresponsive at home - Probably secondary to infectious process - Currently intubated, remains unresponsive, not on any sedations - CT head/brain noted with no significant abnormality - Avoid sedative agents - PRN Analgesia for pain CPOT greater than 3 - Maintenance of sleep-wake cycle #Acute kidney injury (MAYRA) probably Vasomotor Nephropathy #Hypernatremia - probably due to dehydration - Baseline creatine is unknown, currently 1.9 - Nephrology on consult, appreciated recommendation - Strict intake and output - Avoid nephrotoxic medications; Renally dose medications - Marcelino in place - Continue IVF for now - Monitor and replace electrolytes as needed #Hypertension #Hyperlipidemia - BP stable this morning - Home meds resumed - Continue blood pressure monitor per protocol - Maintain MAP above 65 and SBP less than 160 #Type 2 Diabetes Mellitus with Hyperglycemia - BG in the 300s this am - SSI adjusted and Lantus added - Continue BG check Q6hs - While critically ill target blood glucose of 140-180 #GI/DVT Prophylaxis - PPI- Lansoprazole - Heparin SubQ - SCD to bilateral lower extremities while in bed #Advance Care Planning - Disease education data, care plan, diagnoses, and prognosis were discussed with patient's son via phone. Patient is full code. Patient family acknowledged understanding and agreement with current care plan. The high probability of a clinically significant, sudden or life threatening deterioration of the [multiple] system(s) required my full and direct attention, intervention and personal management. The aggregate critical care time was [60] minutes. This time is in addition to time spent performing reported procedures but includes the following: [x] Data Review and interpretation [x] Patient assessment and monitoring of vital signs [x] Documentation [x] Medication orders and management Disposition Plan: ICU Total Time Spent with Patient (Minutes): 60 History Interval history: Patient seen and examined at the bedside. Intubated and unresponsive, not on any sedation. Pupils are round and reactive with +gag/cough. SR to ST on the monitor, VSS. Hospitalist Physical - Constitutional Vitals: Temp Pulse Resp BP Pulse Ox 100.3 F H 110 H 24 135/66 99 12/08/21 07:11 12/08/21 09:34 12/08/21 08:00 12/08/21 09:34 12/08/21 08:00 General appearance: Present: no acute distress, obese, other (Intubated and unresponsive, not on any sedation) - EENT Eyes: Present: PERRL - Respiratory Respiratory effort: normal Respiratory: bilateral: rhonchi - Cardiovascular Rhythm: regular Heart Sounds: Present: S1 & S2 - Extremities Extremities: no ischemia, pulses intact, pulses symmetrical Extremity abnormal: edema - Peripheral Assessment Generalized Edema Type: Non-pitting Edema Degree: 1+ Capillary Refill: < 3 seconds Skin Temperature: Warm Peripheral Pulses: within normal limits - Abdominal General gastrointestinal: soft, non-distended, normal bowel sounds - Integumentary Integumentary: Present: warm, dry - Psychiatric Psychiatric: other (Intubated and unresponsive, not on any sedation) - Neurologic Neurologic: other (Intubated and unresponsive, not on any sedation. Pupils are reactive with +gag/cough) - Allied Health Allied health notes reviewed: nursing Results - Labs CBC & Chem 7: 12/08/21 04:00 12/08/21 04:00 Labs: Laboratory Last Values WBC 20.4 K/mm3 (4.5-11.0) H 12/08/21 04:00 RBC 4.36 M/mm3 (3.65-5.03) 12/08/21 04:00 Hgb 12.0 gm/dl (10.1-14.3) 12/08/21 04:00 Hct 37.4 % (30.3-42.9) D 12/08/21 04:00 MCV 86 fl (79-97) 12/08/21 04:00 MCH 28 pg (28-32) 12/08/21 04:00 MCHC 32 % (30-34) 12/08/21 04:00 RDW 15.0 % (13.2-15.2) 12/08/21 04:00 Plt Count 402 K/mm3 (140-440) 12/08/21 04:00 Lymph % (Auto) 9.3 % (13.4-35.0) L 12/07/21 15:55 [place] % (Auto) 5.6 % (0.0-7.3) 12/07/21 15:55 Eos % (Auto) 0.0 % (0.0-4.3) 12/07/21 15:55 Baso % (Auto) 0.5 % (0.0-1.8) 12/07/21 15:55 Lymph # (Auto) 1.6 K/mm3 (1.2-5.4) 12/07/21 15:55 [place] # (Auto) 0.9 K/mm3 (0.0-0.8) H 12/07/21 15:55 Eos # (Auto) 0.0 K/mm3 (0.0-0.4) 12/07/21 15:55 Baso # (Auto) 0.1 K/mm3 (0.0-0.1) 12/07/21 15:55 Add Manual Diff Complete 12/08/21 04:00 Total Counted 100 12/08/21 04:00 Seg Neutrophils % Arch Pad Cementer 12/08/21 04:00 Seg Neuts % (Manual) 92.0 % (40.0-70.0) H 12/08/21 04:00 Band Neutrophils % 0 % 12/08/21 04:00 Lymphocytes % (Manual) 1.0 % (13.4-35.0) L 12/08/21 04:00 Reactive Lymphs % (Man) 0 % 12/08/21 04:00 Monocytes % (Manual) 5.0 % (0.0-7.3) 12/08/21 04:00 Eosinophils % (Manual) 0 % (0.0-4.3) 12/08/21 04:00 Basophils % (Manual) 2.0 % (0.0-1.8) H 12/08/21 04:00 Metamyelocytes % 0 % 12/08/21 04:00 Myelocytes % 0 % 12/08/21 04:00 Promyelocytes % 0 % 12/08/21 04:00 Blast Cells % 0 % 12/08/21 04:00 Nucleated RBC % Not Reportable 12/08/21 04:00 Seg Neutrophils # 14.3 K/mm3 (1.8-7.7) H 12/07/21 15:55 Seg Neutrophils # Man 18.8 K/mm3 (1.8-7.7) H 12/08/21 04:00 Band Neutrophils # 0.0 K/mm3 12/08/21 04:00 Lymphocytes # (Manual) 0.2 K/mm3 (1.2-5.4) L 12/08/21 04:00 Abs React Lymphs (Man) 0.0 K/mm3 12/08/21 04:00 Monocytes # (Manual) 1.0 K/mm3 (0.0-0.8) H 12/08/21 04:00 Eosinophils # (Manual) 0.0 K/mm3 (0.0-0.4) 12/08/21 04:00 Basophils # (Manual) 0.4 K/mm3 (0.0-0.1) H 12/08/21 04:00 Metamyelocytes # 0.0 K/mm3 12/08/21 04:00 Myelocytes # 0.0 K/mm3 12/08/21 04:00 Promyelocytes # 0.0 K/mm3 12/08/21 04:00 Blast Cells # 0.0 K/mm3 12/08/21 04:00 WBC Morphology Not Reportable 12/08/21 04:00 Hypersegmented Neuts Not Reportable 12/08/21 04:00 Hyposegmented Neuts Not Reportable 12/08/21 04:00 Hypogranular Neuts Not Reportable 12/08/21 04:00 Smudge Cells Not Reportable 12/08/21 04:00 Toxic Granulation Not Reportable 12/08/21 04:00 Toxic Vacuolation Not Reportable 12/08/21 04:00 Dohle Bodies Not Reportable 12/08/21 04:00 Pelger-Huet Anomaly Not Reportable 12/08/21 04:00 Ulises Rods Not Reportable 12/08/21 04:00 Platelet Estimate Consistent w auto 12/08/21 04:00 Clumped Platelets Not Reportable 12/08/21 04:00 Plt Clumps, EDTA Not Reportable 12/08/21 04:00 Large Platelets Not Reportable 12/08/21 04:00 Giant Platelets Not Reportable 12/08/21 04:00 Platelet Satelliting Not Reportable 12/08/21 04:00 Plt Morphology Comment Not Reportable 12/08/21 04:00 RBC Morphology Normal 12/08/21 04:00 Dimorphic RBCs Not Reportable 12/08/21 04:00 Polychromasia Not Reportable 12/08/21 04:00 Hypochromasia Not Reportable 12/08/21 04:00 Poikilocytosis Not Reportable 12/08/21 04:00 Anisocytosis Not Reportable 12/08/21 04:00 Microcytosis Not Reportable 12/08/21 04:00 Macrocytosis Not Reportable 12/08/21 04:00 Spherocytes Not Reportable 12/08/21 04:00 Pappenheimer Bodies Not Reportable 12/08/21 04:00 Sickle Cells Not Reportable 12/08/21 04:00 Target Cells Not Reportable 12/08/21 04:00 Tear Drop Cells Not Reportable 12/08/21 04:00 Ovalocytes Not Reportable 12/08/21 04:00 Helmet Cells Not Reportable 12/08/21 04:00 Parker-Hilda Bodies Not Reportable 12/08/21 04:00 [place] Rings Not Reportable 12/08/21 04:00 Clemons Cells Not Reportable 12/08/21 04:00 Bite Cells Not Reportable 12/08/21 04:00 Crenated Cell Not Reportable 12/08/21 04:00 Elliptocytes Not Reportable 12/08/21 04:00 Acanthocytes (Spur) Not Reportable 12/08/21 04:00 Rouleaux Not Reportable 12/08/21 04:00 Hemoglobin C Crystals Not Reportable 12/08/21 04:00 Schistocytes Not Reportable 12/08/21 04:00 Malaria parasites Not Reportable 12/08/21 04:00 Frederick Bodies Not Reportable 12/08/21 04:00 Hem Pathologist Commnt No 12/08/21 04:00 D-Dimer 3277.12 ng/mlDDU (0-234) H 12/08/21 08:21 ABG pH 7.423 pH Units (7.350-7.450) 12/08/21 04:10 ABG pCO2 27.6 mm Hg 12/08/21 04:10 ABG pO2 65.1 mm Hg (80.0-90.0) L 12/08/21 04:10 ABG HCO3 17.6 mmol/L (20.0-26.0) L 12/08/21 04:10 ABG O2 Saturation 94.5 % (95.0-99.0) L 12/08/21 04:10 ABG O2 Content 16.2 (0.0-44) 12/08/21 04:10 ABG Base Excess -5.4 mmol/L (-2.0-3.0) L 12/08/21 04:10 ABG Hemoglobin 12.4 gm/dl (12.0-16.0) 12/08/21 04:10 ABG Carboxyhemoglobin 1.1 % (0.0-5.0) 12/08/21 04:10 ABG Methemoglobin 0.6 % (0.0-1.5) 12/08/21 04:10 Oxyhemoglobin 92.9 % (95.0-99.0) L 12/08/21 04:10 FiO2 45 % 12/08/21 04:10 Sodium 146 mmol/L (137-145) H 12/08/21 04:00 Potassium 4.4 mmol/L (3.6-5.0) 12/08/21 04:00 Chloride 112.2 mmol/L (98-107) H 12/08/21 04:00 Carbon Dioxide 17 mmol/L (22-30) L 12/08/21 04:00 Anion Gap 21 mmol/L 12/08/21 04:00 BUN 38 mg/dL (7-17) H 12/08/21 04:00 Creatinine 1.8 mg/dL (0.6-1.2) H 12/08/21 04:00 Estimated GFR 28 ml/min 12/08/21 04:00 BUN/Creatinine Ratio 21 % 12/08/21 04:00 Glucose 329 mg/dL (65-100) H 12/08/21 04:00 POC Glucose 330 mg/dL (70-105) H 12/08/21 07:29 Lactic Acid 1.70 mmol/L (0.7-2.0) 12/08/21 Unknown Calcium 9.2 mg/dL (8.4-10.2) 12/08/21 04:00 Ferritin 162.1 ng/mL (10.0-200.0) 12/08/21 08:21 Total Bilirubin 0.40 mg/dL (0.1-1.2) 12/08/21 04:00 AST 21 units/L (5-40) 12/08/21 04:00 ALT 11 units/L (7-56) 12/08/21 04:00 Alkaline Phosphatase 76 units/L (35-129) 12/08/21 04:00 Ammonia 23.0 umol/L (25-60) L 12/07/21 15:55 Lactate Dehydrogenase 129 units/L (91-180) 12/08/21 08:21 Total Creatine Kinase 287 units/L (30-135) H 12/08/21 04:00 C-Reactive Protein 6.20 mg/dL (0.00-1.30) H 12/08/21 08:21 Total Protein 7.1 g/dL (6.3-8.2) 12/08/21 04:00 Albumin 3.5 g/dL (3.9-5) L 12/08/21 04:00 Albumin/Globulin Ratio 1.0 % 12/08/21 04:00 Urine Color Yellow (Yellow) 12/07/21 17:21 Urine Turbidity Clear (Clear) 12/07/21 17:21 Urine pH 6.0 (5.0-7.0) 12/07/21 17:21 Ur Specific Unity 1.015 (1.003-1.030) 12/07/21 17:21 Urine Protein 30 mg/dl mg/dL (Negative) 12/07/21 17:21 Urine Glucose (UA) Negative mg/dL (Negative) 12/07/21 17:21 Urine Ketones 40 mg/dL (Negative) 12/07/21 17:21 Urine Blood Negative (Negative) 12/07/21 17:21 Urine Nitrite Negative (Negative) 12/07/21 17:21 Ur Reducing Substances Not Reportable 12/07/21 17:21 Urine Bilirubin Moderate (Negative) 12/07/21 17:21 Urine Ictotest Negative (Negative) 12/07/21 17:21 Urine Urobilinogen 0.0 mg/dL (<2.0) 12/07/21 17:21 Ur Leukocyte Esterase Negative (Negative) 12/07/21 17:21 Urine WBC (Auto) 1.0 /HPF (0.0-6.0) 12/07/21 17:21 Urine RBC (Auto) 1.0 /HPF (0.0-6.0) 12/07/21 17:21 U Epithel Cells (Auto) 4.0 /HPF (0-13.0) 12/07/21 17:21 Hyaline Casts 4 /LPF 12/07/21 17:21 Urine Mucus Few /HPF 12/07/21 17:21 Plasma/Serum Alcohol < 0.01 % (0-0.07) 12/07/21 19:03 Blood Type AB POSITIVE 12/07/21 22:45 Antibody Screen Negative 12/07/21 22:45 Microbiology: Microbiology 12/07/21 22:45 Peripheral/Venous Blood Culture - Preliminary Culture in Progress 12/07/21 22:45 Peripheral/Venous Blood Culture - Preliminary Culture in Progress Marcelino/IV: Voiding Method Indwelling Catheter Active Medications - Current Medications Current Medications: Generic Name Dose Route Start Last Admin Trade Name Freq PRN Reason Stop Dose Admin Acetaminophen 650 mg 12/07/21 19:13 Acetaminophen 650 Mg Rect Supp DE Q6H PRN Pain MILD(1-3)/Fever >100.5/COT[place] Acetaminophen 650 mg 07/07/22 19:17 Acetaminophen 325 Mg Tab PO Q6H PRN Pain MILD(1-3)/Fever >100.5/C[place] Albuterol 2.5 mg 12/07/21 19:13 12/08/21 04:32 Albuterol 2.5 Mg/3 Ml Nebu IH 2.5 mg Q3HRT PRN Administration Shortness Of Breath Amlodipine Besylate 10 mg 12/08/21 10:00 12/08/21 09:34 Amlodipine 10 Mg Tab PO 10 mg DAILY [place] Administration Atorvastatin Calcium 10 mg 12/07/21 22:00 Atorvastatin 10 Mg Tab PO QHS [place] Dextrose 0 ml 12/07/21 19:55 Dextrose 50% In Water (25gm) 50 Ml Syringe IV Q30MIN PRN Hypoglycemia Protocol Gabapentin 300 mg 12/07/21 22:00 12/08/21 09:33 Gabapentin 300 Mg Cap PO 300 mg BID [place] Administration Heparin Sodium (Porcine) 5,000 unit 12/08/21 14:00 Heparin 5,000 Unit/1 Ml Vial SUB-Q Q8HR [place] Hydralazine HCl 100 mg 12/07/21 20:00 12/08/21 09:05 Hydralazine 100 Mg Tab PO Not Given TID [place] Hydrophilic Ointment 1 applic 12/08/21 10:00 Lip Therapy Vaseline TP Q2HR PRN Dry Lips Ceftriaxone Sodium 2 gm in 100 mls @ 200 mls/hr 12/07/21 20:00 12/07/21 20:19 Rocephin/Ns 2 Gm/100 Ml IV 200 mls/hr Q24H [place] Administration Protocol Azithromycin 500 mg in 250 mls @ 250 mls/hr 12/07/21 20:00 12/07/21 21:07 Zithromax/Ns IV 250 mls/hr Q24H [place] Administration Protocol Sodium Chloride 1,000 mls @ 100 mls/hr 12/08/21 09:00 12/08/21 09:33 Nacl 0.45% 1000 Ml IV 12/09/21 18:59 100 mls/hr DIRECT [place] Administration Insulin Human Regular 0 units 12/07/21 22:00 12/08/21 07:46 Insulin Regular, Human 100 Units/1 Ml SUB-Q 6 units ACHS [place] Administration Protocol Lansoprazole 30 mg 12/08/21 10:00 12/08/21 09:33 Lansoprazole 30 Mg Solutab FEEDTUBE 30 mg QDAY [place] Administration Lisinopril 40 mg 12/08/21 10:00 12/08/21 09:33 Lisinopril 40 Mg Tab PO 40 mg QDAY [place] Administration Morphine Sulfate 2 mg 12/07/21 19:13 Morphine 2 Mg/1 Ml Inj IV Q8H PRN Pain, Moderate (4-6) Multi-Ingred Cream/Lotion/Oil/Oint 1 applic 12/08/21 10:00 Mineral Oil/Petrolatum, White Ophth Oint 3.5 Gm OU Q4HR PRN Dry Eye(s) Oxycodone/Acetaminophen 1 tab 12/07/21 19:17 Oxycodone /Acetaminophen 5-325mg Tab PO Q6H PRN Pain, Moderate (4-6) Paroxetine HCl 20 mg 12/08/21 10:00 Paroxetine 20 Mg Tab PO DAILY [place] Senna/Docusate Sodium 1 tab 12/08/21 10:00 12/08/21 09:34 Sennosides/Docusate Sodium 8.6/50 Mg Tab FEEDTUBE 1 tab BID [place] Administration Sodium Chloride 10 ml 12/07/21 22:00 12/08/21 09:38 Sodium Chloride 0.9% 10 Ml Flush Syringe IV 10 ml BID [place] Administration Sodium Chloride 10 ml 12/07/21 22:00 12/08/21 09:38 Sodium Chloride 0.9% 10 Ml Flush Syringe IV 10 ml BID [place] Administration Sodium Chloride 10 ml 12/07/21 19:17 Sodium Chloride 0.9% 10 Ml Flush Syringe IV PRN PRN LINE FLUSH <DENIS RAMÍREZ - Last Filed: 12/12/21 07:20> Assessment and Plan Assessment and plan: I saw and evaluated the patient. I agree with the findings and the plan of care as documented in the Nurse Practitioner's~note, with the following corrections and additions. Hospitalist Physical - Constitutional Vitals: Temp Pulse Resp BP Pulse Ox 99.1 F 88 19 143/65 99 12/12/21 07:14 12/12/21 07:00 12/12/21 07:00 12/12/21 07:00 12/12/21 07:00 Results - Labs CBC & Chem 7: 12/12/21 05:13 12/12/21 05:13 Labs: Laboratory Last Values WBC 10.1 K/mm3 (4.5-11.0) 12/12/21 05:13 RBC 3.56 M/mm3 (3.65-5.03) L 12/12/21 05:13 Hgb 10.0 gm/dl (10.1-14.3) L 12/12/21 05:13 Hct 30.6 % (30.3-42.9) 12/12/21 05:13 MCV 86 fl (79-97) 12/12/21 05:13 MCH 28 pg (28-32) 12/12/21 05:13 MCHC 33 % (30-34) 12/12/21 05:13 RDW 15.0 % (13.2-15.2) 12/12/21 05:13 Plt Count 282 K/mm3 (140-440) 12/12/21 05:13 Lymph % (Auto) 12.9 % (13.4-35.0) L 12/12/21 05:13 [place] % (Auto) 5.8 % (0.0-7.3) 12/12/21 05:13 Eos % (Auto) 7.9 % (0.0-4.3) H 12/12/21 05:13 Baso % (Auto) 0.7 % (0.0-1.8) 12/12/21 05:13 Lymph # (Auto) 1.3 K/mm3 (1.2-5.4) 12/12/21 05:13 [place] # (Auto) 0.6 K/mm3 (0.0-0.8) 12/12/21 05:13 Eos # (Auto) 0.8 K/mm3 (0.0-0.4) H 12/12/21 05:13 Baso # (Auto) 0.1 K/mm3 (0.0-0.1) 12/12/21 05:13 Add Manual Diff Complete 12/08/21 04:00 Total Counted 100 12/08/21 04:00 Seg Neutrophils % 72.7 % (40.0-70.0) H 12/12/21 05:13 Seg Neuts % (Manual) 92.0 % (40.0-70.0) H 12/08/21 04:00 Band Neutrophils % 0 % 12/08/21 04:00 Lymphocytes % (Manual) 1.0 % (13.4-35.0) L 12/08/21 04:00 Reactive Lymphs % (Man) 0 % 12/08/21 04:00 Monocytes % (Manual) 5.0 % (0.0-7.3) 12/08/21 04:00 Eosinophils % (Manual) 0 % (0.0-4.3) 12/08/21 04:00 Basophils % (Manual) 2.0 % (0.0-1.8) H 12/08/21 04:00 Metamyelocytes % 0 % 12/08/21 04:00 Myelocytes % 0 % 12/08/21 04:00 Promyelocytes % 0 % 12/08/21 04:00 Blast Cells % 0 % 12/08/21 04:00 Nucleated RBC % Not Reportable 12/08/21 04:00 Seg Neutrophils # 7.3 K/mm3 (1.8-7.7) 12/12/21 05:13 Seg Neutrophils # Man 18.8 K/mm3 (1.8-7.7) H 12/08/21 04:00 Band Neutrophils # 0.0 K/mm3 12/08/21 04:00 Lymphocytes # (Manual) 0.2 K/mm3 (1.2-5.4) L 12/08/21 04:00 Abs React Lymphs (Man) 0.0 K/mm3 12/08/21 04:00 Monocytes # (Manual) 1.0 K/mm3 (0.0-0.8) H 12/08/21 04:00 Eosinophils # (Manual) 0.0 K/mm3 (0.0-0.4) 12/08/21 04:00 Basophils # (Manual) 0.4 K/mm3 (0.0-0.1) H 12/08/21 04:00 Metamyelocytes # 0.0 K/mm3 12/08/21 04:00 Myelocytes # 0.0 K/mm3 12/08/21 04:00 Promyelocytes # 0.0 K/mm3 12/08/21 04:00 Blast Cells # 0.0 K/mm3 12/08/21 04:00 WBC Morphology Not Reportable 12/08/21 04:00 Hypersegmented Neuts Not Reportable 12/08/21 04:00 Hyposegmented Neuts Not Reportable 12/08/21 04:00 Hypogranular Neuts Not Reportable 12/08/21 04:00 Smudge Cells Not Reportable 12/08/21 04:00 Toxic Granulation Not Reportable 12/08/21 04:00 Toxic Vacuolation Not Reportable 12/08/21 04:00 Dohle Bodies Not Reportable 12/08/21 04:00 Pelger-Huet Anomaly Not Reportable 12/08/21 04:00 Ulises Rods Not Reportable 12/08/21 04:00 Platelet Estimate Consistent w auto 12/08/21 04:00 Clumped Platelets Not Reportable 12/08/21 04:00 Plt Clumps, EDTA Not Reportable 12/08/21 04:00 Large Platelets Not Reportable 12/08/21 04:00 Giant Platelets Not Reportable 12/08/21 04:00 Platelet Satelliting Not Reportable 12/08/21 04:00 Plt Morphology Comment Not Reportable 12/08/21 04:00 RBC Morphology Normal 12/08/21 04:00 Dimorphic RBCs Not Reportable 12/08/21 04:00 Polychromasia Not Reportable 12/08/21 04:00 Hypochromasia Not Reportable 12/08/21 04:00 Poikilocytosis Not Reportable 12/08/21 04:00 Anisocytosis Not Reportable 12/08/21 04:00 Microcytosis Not Reportable 12/08/21 04:00 Macrocytosis Not Reportable 12/08/21 04:00 Spherocytes Not Reportable 12/08/21 04:00 Pappenheimer Bodies Not Reportable 12/08/21 04:00 Sickle Cells Not Reportable 12/08/21 04:00 Target Cells Not Reportable 12/08/21 04:00 Tear Drop Cells Not Reportable 12/08/21 04:00 Ovalocytes Not Reportable 12/08/21 04:00 Helmet Cells Not Reportable 12/08/21 04:00 Parker-Hilda Bodies Not Reportable 12/08/21 04:00 [place] Rings Not Reportable 12/08/21 04:00 [place] Cells Not Reportable 12/08/21 04:00 Bite Cells Not Reportable 12/08/21 04:00 Crenated Cell Not Reportable 12/08/21 04:00 Elliptocytes Not Reportable 12/08/21 04:00 Acanthocytes (Spur) Not Reportable 12/08/21 04:00 Rouleaux Not Reportable 12/08/21 04:00 Hemoglobin C Crystals Not Reportable 12/08/21 04:00 Schistocytes Not Reportable 12/08/21 04:00 Malaria parasites Not Reportable 12/08/21 04:00 Frederick Bodies Not Reportable 12/08/21 04:00 Hem Pathologist Commnt No 12/08/21 04:00 PT 13.7 Sec. (12.2-14.9) 12/11/21 09:32 INR 0.95 (0.87-1.13) 12/11/21 09:32 D-Dimer 3277.12 ng/mlDDU (0-234) H 12/08/21 08:21 ABG pH 7.432 pH Units (7.350-7.450) 12/12/21 03:40 ABG pCO2 33.0 mm Hg 12/12/21 03:40 ABG pO2 134.8 mm Hg (80.0-90.0) H 12/12/21 03:40 ABG HCO3 21.5 mmol/L (20.0-26.0) 12/12/21 03:40 ABG O2 Saturation 98.7 % (95.0-99.0) 12/12/21 03:40 ABG O2 Content 13.4 (0.0-44) 12/12/21 03:40 ABG Base Excess -2.2 mmol/L (-2.0-3.0) L 12/12/21 03:40 ABG Hemoglobin 9.6 gm/dl (12.0-16.0) L 12/12/21 03:40 ABG Carboxyhemoglobin 0.9 % (0.0-5.0) 12/12/21 03:40 ABG Methemoglobin 0.6 % (0.0-1.5) 12/12/21 03:40 Oxyhemoglobin 97.2 % (95.0-99.0) 12/12/21 03:40 FiO2 25 % 12/12/21 03:40 Sodium 146 mmol/L (137-145) H 12/12/21 05:13 Potassium 4.5 mmol/L (3.6-5.0) 12/12/21 05:13 Chloride 113.9 mmol/L (98-107) H 12/12/21 05:13 Carbon Dioxide 21 mmol/L (22-30) L 12/12/21 05:13 Anion Gap 16 mmol/L 12/12/21 05:13 BUN 27 mg/dL (7-17) H 12/12/21 05:13 Creatinine 1.3 mg/dL (0.6-1.2) H 12/12/21 05:13 Estimated GFR 41 ml/min 12/12/21 05:13 BUN/Creatinine Ratio 21 % 12/12/21 05:13 Glucose 135 mg/dL (65-100) H 12/12/21 05:13 POC Glucose 150 mg/dL (70-105) H 12/11/21 23:46 Hemoglobin A1c 6.2 % (4-6) H 12/09/21 04:32 Lactic Acid 1.70 mmol/L (0.7-2.0) 12/08/21 Unknown Calcium 9.3 mg/dL (8.4-10.2) 12/12/21 05:13 Phosphorus 3.60 mg/dL (2.5-4.5) 12/12/21 05:13 Magnesium 2.30 mg/dL (1.7-2.3) 12/12/21 05:13 Ferritin 162.1 ng/mL (10.0-200.0) 12/08/21 08:21 Total Bilirubin < 0.20 mg/dL (0.1-1.2) 12/12/21 05:13 AST 16 units/L (5-40) 12/12/21 05:13 ALT 9 units/L (7-56) 12/12/21 05:13 Alkaline Phosphatase 69 units/L (35-129) 12/12/21 05:13 Ammonia 23.0 umol/L (25-60) L 12/07/21 15:55 Lactate Dehydrogenase 129 units/L (91-180) 12/08/21 08:21 Total Creatine Kinase 287 units/L (30-135) H 12/08/21 04:00 C-Reactive Protein 6.20 mg/dL (0.00-1.30) H 12/08/21 08:21 Total Protein 6.4 g/dL (6.3-8.2) 12/12/21 05:13 Albumin 2.9 g/dL (3.9-5) L 12/12/21 05:13 Albumin/Globulin Ratio 0.8 % 12/12/21 05:13 Procalcitonin 0.09 ng/mL (<0.15) 12/08/21 08:21 PTH Intact 41.40 pg/mL (15-65) 12/10/21 05:49 Urine Color Yellow (Yellow) 12/07/21 17:21 Urine Turbidity Clear (Clear) 12/07/21 17:21 Urine pH 6.0 (5.0-7.0) 12/07/21 17:21 Ur Specific Unity 1.015 (1.003-1.030) 12/07/21 17:21 Urine Protein 30 mg/dl mg/dL (Negative) 12/07/21 17:21 Urine Glucose (UA) Negative mg/dL (Negative) 12/07/21 17:21 Urine Ketones 40 mg/dL (Negative) 12/07/21 17:21 Urine Blood Negative (Negative) 12/07/21 17:21 Urine Nitrite Negative (Negative) 12/07/21 17:21 Ur Reducing Substances Not Reportable 12/07/21 17:21 Urine Bilirubin Moderate (Negative) 12/07/21 17:21 Urine Ictotest Negative (Negative) 12/07/21 17:21 Urine Urobilinogen 0.0 mg/dL (<2.0) 12/07/21 17:21 Ur Leukocyte Esterase Negative (Negative) 12/07/21 17:21 Urine WBC (Auto) 1.0 /HPF (0.0-6.0) 12/07/21 17:21 Urine RBC (Auto) 1.0 /HPF (0.0-6.0) 12/07/21 17:21 U Epithel Cells (Auto) 4.0 /HPF (0-13.0) 12/07/21 17:21 Hyaline Casts 4 /LPF 12/07/21 17:21 Urine Mucus Few /HPF 12/07/21 17:21 Urine Creatinine 167.0 mg/dL (0.1-20.0) H 12/09/21 Unknown Urine Sodium 10 mmol/L 12/09/21 Unknown CSF Appearance Clear 12/11/21 13:15 CSF Color Colorless 12/11/21 13:15 CSF WBC 0 /mm3 (1-10) 12/11/21 13:15 CSF RBC 98809 /mm3 (0-0) 12/11/21 13:15 CSF Seg Neutrophils Not Reportable 12/11/21 13:15 CSF Lymphocytes % Not Reportable 12/11/21 13:15 CSF Reactive Lymphs Not Reportable 12/11/21 13:15 CSF Monocytes % Not Reportable 12/11/21 13:15 CSF Eosinophils % Not Reportable 12/11/21 13:15 CSF Basophils Not Reportable 12/11/21 13:15 CSF Pathologist Review C 12/11/21 13:15 CSF Glucose 96 mg/dL 12/11/21 13:15 CSF Total Protein 33 mg/dL 12/11/21 13:15 Nasal Screen MRSA (PCR) Positive (Negative) 12/08/21 12:30 Vancomycin Trough 11.4 ug/mL (5.0-20.0) 12/10/21 05:49 Urine Opiates Screen Negative 12/09/21 Unknown Urine Methadone Screen Negative 12/09/21 Unknown Ur Barbiturates Screen Negative 12/09/21 Unknown Ur Phencyclidine Scrn Negative 12/09/21 Unknown Ur Amphetamines Screen Negative 12/09/21 Unknown U Benzodiazepines Scrn Negative 12/09/21 Unknown Urine Cocaine Screen Negative 12/09/21 Unknown U Marijuana (THC) Screen Negative 12/09/21 Unknown Drugs of Abuse Note Disclamer 12/09/21 Unknown Plasma/Serum Alcohol < 0.01 % (0-0.07) 12/07/21 19:03 Coronavirus (PCR) Negative (Negative) 12/08/21 08:11 Blood Type AB POSITIVE 12/07/21 22:45 Antibody Screen Negative 12/07/21 22:45 Microbiology: Microbiology 12/10/21 15:02 Peripheral/Venous Blood Culture - Preliminary NO GROWTH AFTER 24 HOURS 12/10/21 15:02 Peripheral/Venous Blood Culture - Preliminary NO GROWTH AFTER 24 HOURS 12/11/21 13:15 Cerebral Spinal Fluid CSF Culture - Preliminary Marcelino/IV: Voiding Method External Female Catheter Active Medications - Current Medications Current Medications: Generic Name Dose Route Start Last Admin Trade Name Freq PRN Reason Stop Dose Admin Acetaminophen 650 mg 12/07/21 19:17 Acetaminophen 325 Mg Tab PO Q6H PRN Pain MILD(1-3)/Fever >100.5/[place] Albuterol 2.5 mg 12/07/21 19:13 12/10/21 23:44 Albuterol 2.5 Mg/3 Ml Nebu IH 2.5 mg Q3HRT PRN Administration Shortness Of Breath Amlodipine Besylate 5 mg 12/08/21 15:16 12/11/21 09:01 Amlodipine 10 Mg Tab PO 5 mg DAILY [place] Administration Atorvastatin Calcium 10 mg 12/07/21 22:00 12/11/21 21:04 Atorvastatin 10 Mg Tab PO 10 mg QHS [place] Administration Dextrose 0 ml 12/07/21 19:55 Dextrose 50% In Water (25gm) 50 Ml Syringe IV Q30MIN PRN Hypoglycemia Protocol Heparin Sodium (Porcine) 5,000 unit 12/08/21 14:00 12/12/21 06:15 Heparin 5,000 Unit/1 Ml Vial SUB-Q 5,000 unit Q8HR [place] Administration Hydralazine HCl 50 mg 12/10/21 20:00 12/11/21 21:04 Hydralazine 100 Mg Tab PO 50 mg TID [place] Administration Hydrophilic Ointment 1 applic 12/08/21 10:00 Lip Therapy Vaseline TP Q2HR PRN Dry Lips Cefepime HCl 2 gm in 100 mls @ 200 mls/hr 12/08/21 12:00 12/11/21 21:45 Cefepime/Ns 2 Gm/100 Ml IV Infused Q12HR [place] Infusion Protocol Vancomycin HCl 1,250 mg/ 275 mls @ 166.667 mls/hr 12/10/21 12:00 12/11/21 19:00 Sodium Chloride IV Infused Q24H [place] Infusion Levetiracetam 500 mg/ Dextrose 105 mls @ 400 mls/hr 12/10/21 22:00 12/11/21 22:01 IV Infused Q12HR [place] Infusion Dextrose 1,000 mls @ 75 mls/hr 12/11/21 11:00 D5w IV DIRECT [place] Insulin Glargine 20 units 12/10/21 07:52 12/12/21 00:13 Insulin Glargine 100 Units/Ml SUB-Q 20 units QHS [place] Administration Insulin Human Regular 0 units 12/09/21 12:00 12/12/21 06:19 Insulin Regular, Human 100 Units/1 Ml SUB-Q Not Given Q6H COUNTS INCLUDE 234 BEDS AT THE [facility] Protocol Lansoprazole 30 mg 12/08/21 10:00 12/11/21 09:01 Lansoprazole 30 Mg Solutab FEEDTUBE 30 mg QDAY [place] Administration Multi-Ingred Cream/Lotion/Oil/Oint 1 applic 12/08/21 10:00 12/11/21 20:52 Mineral Oil/Petrolatum, White Ophth Oint 3.5 Gm OU 1 applic Q4HR PRN Administration Dry Eye(s) Senna/Docusate Sodium 1 tab 12/08/21 10:00 12/11/21 21:12 Sennosides/Docusate Sodium 8.6/50 Mg Tab FEEDTUBE Not Given BID [place] Sodium Chloride 10 ml 12/07/21 22:00 12/11/21 21:12 Sodium Chloride 0.9% 10 Ml Flush Syringe IV 10 ml BID [place] Administration Sodium Chloride 10 ml 12/07/21 22:00 12/11/21 21:12 Sodium Chloride 0.9% 10 Ml Flush Syringe IV 10 ml BID [place] Administration Sodium Chloride 10 ml 12/07/21 19:17 12/09/21 05:54 Sodium Chloride 0.9% 10 Ml Flush Syringe IV 10 ml PRN PRN Administration LINE FLUSH Nutrition/Malnutrition Assess - Dietary Evaluation Nutrition/Malnutrition Findings: Nutrition Notes Start: 12/08/21 11:03 Freq: Status: Active Protocol: Document 12/11/21 18:01 TUCKER (Rec: 12/11/21 18:04 [facility] [id number]) Nutrition Notes Initial or Follow up Reassessment Current Diagnosis Acute Kidney Injury,Diabetes, Sepsis,Hypertension,Heart Failure,Respiratory Failure, Hyperlipidemia Other Pertinent Diagnosis Pneu, toxic metabolic encephalopathy, rhabdomyolysis , GERD, MDD, anemia Current Diet Glucerna 1.2 at 45ml/hr Labs/Tests Na 148 BUN 34 BG 173 Pertinent Medications D5W at 75ml/hr Height 5 ft 2 in Weight 98.1 kg [place] Body Weight (kg) 50.00 BMI 39.5 Weight Status Obese Subjective/Other Information Observed TF infusing at goal rate. Pt remains on vent support. Percent of energy/protein needs met: 73% energy 100% pro Burn Absent Trauma Absent #1 Nutrition Diagnosis Inadequate oral intake Diagnosis Progress(for reassessment Continues documentation) Is patient on ventilator? Yes Is Patient Ambulatory and/or Out of Bed No REE-([place]-confined to bed) 1786.068 Kcal/Kg value to use for calculation 13 Approximate Energy Requirements Using 1275 kcal/Kg Calculation Used for Recommendations Kcal/kg Additional Notes Pro needs 0.8-1.2g/kg adjBW: 59-89g/day Fluid needs 1ml/kcal Nutrition Intervention Nutrition Support: Glucerna 1.2 at 45ml/hr with 150ml water flush q4h (per MD order). Kcal 1,296 Protein (gm) 65 Carbohydrates (gm) 124 Fat (gm) 65 Fluid (mL) 869 Fiber (gm) 17 Goal #1 TF tolerance Goal #2 TF to meet 65-70% of energy and at least 75% pro needs Follow-Up By: 12/18/21 Additional Comments F/U: stable TF, vent status, Na lab/water flush
[2021-12-08] MEDS ORDERED: VANCOMYCIN 1,500 MG in SODIUM CHLORIDE 0.9% 500 ML 500 ML IV ONE (11:01)
--- NOTE | 2021-12-08 11:03 | Consultation ---
History of Present Illness - Reason for Consult Consult date: 12/08/21 sepsis, pneumonia Requesting physician: JAMES NICOLE - History of Present Illness The patient is a 65-year-old female with morbid obesity, hypertension, diabetes, hyperlipidemia, CHF was brought into the emergency room in an unresponsive state. She was found down in her home. On arrival in the ED, she was on nonrebreather, subsequently intubated. CT head was unremarkable. Chest x-ray revealed pneumonia. Febrile up to 101.2 F. Labs showed significant leukocytosis, thrombocytosis, creatinine 1.7. UA without significant pyuria. Currently on the vent, unable to provide history. Review of Systems: intubated, unable to obtain ROS Past History Past Medical History: diabetes, GERD, heart failure, hypertension, hyperlipidemia Past Surgical History: No surgical history, Other (Reviewed) Social history: single. denies: smoking, alcohol abuse, prescription drug abuse Family history: diabetes, hypertension Medications and Allergies Allergies Allergy/AdvReac Type Severity Reaction Status Date / Time No Known Allergies Allergy Verified 12/07/21 15:05 Home Medications Medication Instructions Recorded Confirmed Last Taken Type AtorvaSTATin [Lipitor] 10 mg PO QHS 12/07/21 12/07/21 Unknown History Furosemide [Lasix] 40 mg PO BID 12/07/21 12/07/21 Unknown History Gabapentin [Neurontin] 300 mg PO BID 12/07/21 12/07/21 Unknown History Loratadine 10 mg PO QDAY 12/07/21 12/07/21 Unknown History Omeprazole 20 mg PO QDAY 12/07/21 12/07/21 Unknown History PARoxetine [Paxil] 20 mg PO DAILY 12/07/21 12/07/21 Unknown History Sitagliptin Phosphate [Januvia] 50 mg PO QDAY 12/07/21 12/07/21 Unknown History amLODIPine [Norvasc] 10 mg PO DAILY 12/07/21 12/07/21 Unknown History hydrALAZINE [Apresoline TAB] 100 mg PO TID 12/07/21 12/07/21 Unknown History lisinopriL [Zestril TAB] 40 mg PO QDAY 12/07/21 12/07/21 Unknown History Active Meds: Active Medications Acetaminophen (Acetaminophen 650 Mg Rect Supp) 650 mg AR Q6H PRN PRN Reason: Pain MILD(1-3)/Fever >100.5/[place] Acetaminophen (Acetaminophen 325 Mg Tab) 650 mg PO Q6H PRN PRN Reason: Pain MILD(1-3)/Fever >100.5/[place] Albuterol (Albuterol 2.5 Mg/3 Ml Nebu) 2.5 mg IH Q3HRT PRN PRN Reason: Shortness Of Breath Last Admin: 12/08/21 04:32 Dose: 2.5 mg Amlodipine Besylate (Amlodipine 10 Mg Tab) 10 mg PO DAILY [place] Last Admin: 12/08/21 09:34 Dose: 10 mg Atorvastatin Calcium (Atorvastatin 10 Mg Tab) 10 mg PO QHS [place] Dextrose (Dextrose 50% In Water (25gm) 50 Ml Syringe) 0 ml IV Q30MIN PRN; Protocol PRN Reason: Hypoglycemia Gabapentin (Gabapentin 300 Mg Cap) 300 mg PO BID [place] Last Admin: 12/08/21 09:33 Dose: 300 mg Heparin Sodium (Porcine) (Heparin 5,000 Unit/1 Ml Vial) 5,000 unit SUB-Q Q8HR [place] Hydralazine HCl (Hydralazine 100 Mg Tab) 100 mg PO TID [place] Last Admin: 12/08/21 09:05 Dose: Not Given Hydrophilic Ointment (Lip Therapy Vaseline) 1 applic TP Q2HR PRN PRN Reason: Dry Lips Azithromycin (Zithromax/Ns) 500 mg in 250 mls @ 250 mls/hr IV Q24H [place]; Protocol Last Admin: 12/07/21 21:07 Dose: 250 mls/hr Sodium Chloride (Nacl 0.45% 1000 Ml) 1,000 mls @ 100 mls/hr IV DIRECT [place] Stop: 12/09/21 18:59 Last Admin: 12/08/21 09:33 Dose: 100 mls/hr Cefepime HCl (Cefepime/Ns 2 Gm/100 Ml) 2 gm in 100 mls @ 200 mls/hr IV Q12HR [place]; Protocol Vancomycin HCl 1,500 mg/ (Sodium Chloride) 530 mls @ 333 mls/hr IV ONCE ONE; Protocol Stop: 12/08/21 12:31 Insulin Human Regular (Insulin Regular, Human 100 Units/1 Ml) 0 units SUB-Q ACHS [place]; Protocol Last Admin: 12/08/21 07:46 Dose: 6 units Lansoprazole (Lansoprazole 30 Mg Solutab) 30 mg FEEDTUBE QDAY [facility] Last Admin: 12/08/21 09:33 Dose: 30 mg Lisinopril (Lisinopril 40 Mg Tab) 40 mg PO QDAY [facility] Last Admin: 12/08/21 09:33 Dose: 40 mg Morphine Sulfate (Morphine 2 Mg/1 Ml Inj) 2 mg IV Q8H PRN PRN Reason: Pain, Moderate (4-6) Multi-Ingred Cream/Lotion/Oil/Oint (Mineral Oil/Petrolatum, White Ophth Oint 3.5 Gm) 1 applic OU Q4HR PRN PRN Reason: Dry Eye(s) Oxycodone/Acetaminophen (Oxycodone /Acetaminophen 5-325mg Tab) 1 tab PO Q6H PRN PRN Reason: Pain, Moderate (4-6) Paroxetine HCl (Paroxetine 20 Mg Tab) 20 mg PO DAILY [facility] Senna/Docusate Sodium (Sennosides/Docusate Sodium 8.6/50 Mg Tab) 1 tab FEEDTUBE BID [facility] Last Admin: 12/08/21 09:34 Dose: 1 tab Sodium Chloride (Sodium Chloride 0.9% 10 Ml Flush Syringe) 10 ml IV BID [facility] Last Admin: 12/08/21 09:38 Dose: 10 ml Sodium Chloride (Sodium Chloride 0.9% 10 Ml Flush Syringe) 10 ml IV BID [facility] Last Admin: 12/08/21 09:38 Dose: 10 ml Sodium Chloride (Sodium Chloride 0.9% 10 Ml Flush Syringe) 10 ml IV PRN PRN PRN Reason: LINE FLUSH Physical Examination - Physical Exam Narrative exam: Physical Exam: Constitutional: sedated, intubated, on the vent. Morbidly obese Head, Ears, Nose: Normocephalic, atraumatic. External ears, nose normal Eyes: Conjunctivae/corneas clear. No icterus. No ptosis. Neck: intubated Oral: intubated Cardiovascular: S1, S2 + Respiratory: AE fair bilaterally and equal GI: Soft, bowel sounds + Musculoskeletal: No pedal edema, no cyanosis. Morbidly obese Skin: No rash or abscess Hem/Lymphatic: No palpable cervical or supraclavicular nodes. No lymphangitis Psych: no agitation Neurological: sedated, intubated, on the vent, exam limited - Constitutional Vitals: Vital Signs Temp Pulse Resp BP Pulse Ox 100.3 F H 110 H 24 135/66 99 12/08/21 07:11 12/08/21 09:34 12/08/21 08:00 12/08/21 09:34 12/08/21 08:00 Temperature -Last 24 Hours Temperature 100.3 F Temperature 99.8 F Temperature 101.2 F Temperature 101.2 F Temperature 98.2 F Results - Labs CBC & Chem 7: 12/08/21 04:00 12/08/21 04:00 Labs: Abnormal lab results 12/07/21 12/07/21 12/07/21 Range/Units 14:21 15:55 15:55 WBC 16.9 H (4.5-11.0) K/mm3 RBC 5.04 H (3.65-5.03) M/mm3 Hct 43.8 H (30.3-42.9) % Plt Count 459 H (140-440) K/mm3 Lymph % (Auto) 9.3 L (13.4-35.0) % [place] # (Auto) 0.9 H (0.0-0.8) K/mm3 Seg Neutrophils % 84.6 H (40.0-70.0) % Seg Neuts % (Manual) (40.0-70.0) % Lymphocytes % (Manual) (13.4-35.0) % Basophils % (Manual) (0.0-1.8) % Seg Neutrophils # 14.3 H (1.8-7.7) K/mm3 Seg Neutrophils # Man (1.8-7.7) K/mm3 Lymphocytes # (Manual) (1.2-5.4) K/mm3 Monocytes # (Manual) (0.0-0.8) K/mm3 Basophils # (Manual) (0.0-0.1) K/mm3 D-Dimer (0-234) ng/mlDDU ABG pH (7.350-7.450) pH Units ABG pO2 (80.0-90.0) mm Hg ABG HCO3 (20.0-26.0) mmol/L ABG O2 Saturation (95.0-99.0) % ABG Base Excess (-2.0-3.0) mmol/L ABG Hemoglobin (12.0-16.0) gm/dl Oxyhemoglobin (95.0-99.0) % Sodium (137-145) mmol/L Chloride 107.2 H (98-107) mmol/L Carbon Dioxide 18 L (22-30) mmol/L BUN 34 H (7-17) mg/dL Creatinine 1.7 H (0.6-1.2) mg/dL Glucose 224 H (65-100) mg/dL POC Glucose 174 H (70-105) mg/dL Ammonia (25-60) umol/L Total Creatine Kinase (30-135) units/L C-Reactive Protein (0.00-1.30) mg/dL Albumin (3.9-5) g/dL 12/07/21 12/07/21 12/07/21 Range/Units 15:55 15:55 15:55 WBC (4.5-11.0) K/mm3 RBC (3.65-5.03) M/mm3 Hct (30.3-42.9) % Plt Count (140-440) K/mm3 Lymph % (Auto) (13.4-35.0) % [place] # (Auto) (0.0-0.8) K/mm3 Seg Neutrophils % (40.0-70.0) % Seg Neuts % (Manual) (40.0-70.0) % Lymphocytes % (Manual) (13.4-35.0) % Basophils % (Manual) (0.0-1.8) % Seg Neutrophils # (1.8-7.7) K/mm3 Seg Neutrophils # Man (1.8-7.7) K/mm3 Lymphocytes # (Manual) (1.2-5.4) K/mm3 Monocytes # (Manual) (0.0-0.8) K/mm3 Basophils # (Manual) (0.0-0.1) K/mm3 D-Dimer (0-234) ng/mlDDU ABG pH 7.260 L (7.350-7.450) pH Units ABG pO2 229.7 H (80.0-90.0) mm Hg ABG HCO3 19.8 L (20.0-26.0) mmol/L ABG O2 Saturation 99.3 H (95.0-99.0) % ABG Base Excess -7.1 L (-2.0-3.0) mmol/L ABG Hemoglobin (12.0-16.0) gm/dl Oxyhemoglobin (95.0-99.0) % Sodium (137-145) mmol/L Chloride (98-107) mmol/L Carbon Dioxide (22-30) mmol/L BUN (7-17) mg/dL Creatinine (0.6-1.2) mg/dL Glucose (65-100) mg/dL POC Glucose (70-105) mg/dL Ammonia 23.0 L (25-60) umol/L Total Creatine Kinase 498 H (30-135) units/L C-Reactive Protein (0.00-1.30) mg/dL Albumin (3.9-5) g/dL 12/07/21 12/08/21 12/08/21 Range/Units 21:45 00:18 04:00 WBC 20.4 H (4.5-11.0) K/mm3 RBC (3.65-5.03) M/mm3 Hct (30.3-42.9) % Plt Count (140-440) K/mm3 Lymph % (Auto) (13.4-35.0) % [place] # (Auto) (0.0-0.8) K/mm3 Seg Neutrophils % (40.0-70.0) % Seg Neuts % (Manual) 92.0 H (40.0-70.0) % Lymphocytes % (Manual) 1.0 L (13.4-35.0) % Basophils % (Manual) 2.0 H (0.0-1.8) % Seg Neutrophils # (1.8-7.7) K/mm3 Seg Neutrophils # Man 18.8 H (1.8-7.7) K/mm3 Lymphocytes # (Manual) 0.2 L (1.2-5.4) K/mm3 Monocytes # (Manual) 1.0 H (0.0-0.8) K/mm3 Basophils # (Manual) 0.4 H (0.0-0.1) K/mm3 D-Dimer (0-234) ng/mlDDU ABG pH (7.350-7.450) pH Units ABG pO2 170.3 H (80.0-90.0) mm Hg ABG HCO3 18.8 L (20.0-26.0) mmol/L ABG O2 Saturation 99.1 H (95.0-99.0) % ABG Base Excess -5.5 L (-2.0-3.0) mmol/L ABG Hemoglobin 11.9 L (12.0-16.0) gm/dl Oxyhemoglobin (95.0-99.0) % Sodium (137-145) mmol/L Chloride (98-107) mmol/L Carbon Dioxide (22-30) mmol/L BUN (7-17) mg/dL Creatinine (0.6-1.2) mg/dL Glucose (65-100) mg/dL POC Glucose 276 H (70-105) mg/dL Ammonia (25-60) umol/L Total Creatine Kinase (30-135) units/L C-Reactive Protein (0.00-1.30) mg/dL Albumin (3.9-5) g/dL 12/08/21 12/08/21 12/08/21 Range/Units 04:00 04:10 05:42 WBC (4.5-11.0) K/mm3 RBC (3.65-5.03) M/mm3 Hct (30.3-42.9) % Plt Count (140-440) K/mm3 Lymph % (Auto) (13.4-35.0) % [place] # (Auto) (0.0-0.8) K/mm3 Seg Neutrophils % (40.0-70.0) % Seg Neuts % (Manual) (40.0-70.0) % Lymphocytes % (Manual) (13.4-35.0) % Basophils % (Manual) (0.0-1.8) % Seg Neutrophils # (1.8-7.7) K/mm3 Seg Neutrophils # Man (1.8-7.7) K/mm3 Lymphocytes # (Manual) (1.2-5.4) K/mm3 Monocytes # (Manual) (0.0-0.8) K/mm3 Basophils # (Manual) (0.0-0.1) K/mm3 D-Dimer (0-234) ng/mlDDU ABG pH (7.350-7.450) pH Units ABG pO2 65.1 L (80.0-90.0) mm Hg ABG HCO3 17.6 L (20.0-26.0) mmol/L ABG O2 Saturation 94.5 L (95.0-99.0) % ABG Base Excess -5.4 L (-2.0-3.0) mmol/L ABG Hemoglobin (12.0-16.0) gm/dl Oxyhemoglobin 92.9 L (95.0-99.0) % Sodium 146 H (137-145) mmol/L Chloride 112.2 H (98-107) mmol/L Carbon Dioxide 17 L (22-30) mmol/L BUN 38 H (7-17) mg/dL Creatinine 1.8 H (0.6-1.2) mg/dL Glucose 329 H (65-100) mg/dL POC Glucose 315 H (70-105) mg/dL Ammonia (25-60) umol/L Total Creatine Kinase 287 H (30-135) units/L C-Reactive Protein (0.00-1.30) mg/dL Albumin 3.5 L (3.9-5) g/dL 12/08/21 12/08/21 12/08/21 Range/Units 07:29 08:21 08:21 WBC (4.5-11.0) K/mm3 RBC (3.65-5.03) M/mm3 Hct (30.3-42.9) % Plt Count (140-440) K/mm3 Lymph % (Auto) (13.4-35.0) % [place] # (Auto) (0.0-0.8) K/mm3 Seg Neutrophils % (40.0-70.0) % Seg Neuts % (Manual) (40.0-70.0) % Lymphocytes % (Manual) (13.4-35.0) % Basophils % (Manual) (0.0-1.8) % Seg Neutrophils # (1.8-7.7) K/mm3 Seg Neutrophils # Man (1.8-7.7) K/mm3 Lymphocytes # (Manual) (1.2-5.4) K/mm3 Monocytes # (Manual) (0.0-0.8) K/mm3 Basophils # (Manual) (0.0-0.1) K/mm3 D-Dimer 3277.12 H (0-234) ng/mlDDU ABG pH (7.350-7.450) pH Units ABG pO2 (80.0-90.0) mm Hg ABG HCO3 (20.0-26.0) mmol/L ABG O2 Saturation (95.0-99.0) % ABG Base Excess (-2.0-3.0) mmol/L ABG Hemoglobin (12.0-16.0) gm/dl Oxyhemoglobin (95.0-99.0) % Sodium (137-145) mmol/L Chloride (98-107) mmol/L Carbon Dioxide (22-30) mmol/L BUN (7-17) mg/dL Creatinine (0.6-1.2) mg/dL Glucose (65-100) mg/dL POC Glucose 330 H (70-105) mg/dL Ammonia (25-60) umol/L Total Creatine Kinase (30-135) units/L C-Reactive Protein 6.20 H (0.00-1.30) mg/dL Albumin (3.9-5) g/dL - Imaging and Cardiology Chest x-ray: report reviewed, image reviewed (ET tube +, post intubation, airspace disease better) Assessment and Plan Cultures: 12/07/2021 blood culture: In process COVID-19 PCR: Pending A/P: 65-year-old female with morbid obesity, hypertension, diabetes, hyperlipidemia, CHF was brought into the emergency room in an unresponsive state: #Severe sepsis, secondary to pneumonia: Follow-up COVID-19 PCR. Given severity, treat with broad-spectrum antibiotics. #Acute hypoxic respiratory failure: on the vent. #MAYRA: Renally adjust antibiotics #Diabetes mellitus #Morbid obesity Recs: -Follow-up blood cultures, respiratory cultures -Continue azithromycin x 5 days -Ceftriaxone switched to IV cefepime and vancomycin -If MRSA nasal PCR is negative, discontinue Vanco -Follow-up COVID-19 PCR, if positive, start Remdesivir and steroids. If creatinine worsens any further, would not start remdesivir D/W EMRE Rodriguez MD, FACP, [facility] ([facility] O: [phone] F: [phone] C: [phone]
--- NOTE | 2021-12-08 11:09 | Consultation ---
History of Present Illness Consult date: 12/08/21 Requesting physician: BERTA BROWN History of present illness: This is a 65-year-old female with known past medical history of obesity, HTN, DM complicated by neuropathy, GERD, MDD, iron deficiency anemia, and HLD admitted for acute encephalopathy , hypoxic respiratory failure 2/2 pneumonia requiring ventilatory support. History per medical records 65 YO Female with Obesity Hypoventilation Syndrome, HTN, DM complicated by Neuropathy, GERD, MDD, Iron Deficiency Anemia, HLD, CHF presents to ED for evaluation. Patient is intubated and on ventilatory support at time of evaluation and is unable to provide history. Patient history taken EMS staff, ED staff, as well as patient family was. As per family the patient was in her usual state of health 2 days ago. Patient was found down and unresponsive in her home. EMS was notified and upon arrival the patient was found to be in distress and subsequently transported to [facility] for further care and evaluation of the aforementioned symptoms. Intubated and unresponsive, not on any sedation. Patient remains febrile with worsen leukocytosis this am, repeat CXR noted with significant improvement. COVID PCR and cultures pending, continue current empiric IV Abx, ID consulted. Continue gentle IVF hydration for MAYRA and Nephro is consulted. SSI adjusted and Lantus added for hyperglycemia. Past History Past Medical History: diabetes, GERD, heart failure, hypertension, hyperlipidemia Past Surgical History: No surgical history, Other (Reviewed) Social history: single. denies: smoking, alcohol abuse, prescription drug abuse Family history: diabetes, hypertension Medications and Allergies Allergies Allergy/AdvReac Type Severity Reaction Status Date / Time No Known Allergies Allergy Verified 12/07/21 15:05 Home Medications Medication Instructions Recorded Confirmed Last Taken Type AtorvaSTATin [Lipitor] 10 mg PO QHS 12/07/21 12/07/21 Unknown History Furosemide [Lasix] 40 mg PO BID 12/07/21 12/07/21 Unknown History Gabapentin [Neurontin] 300 mg PO BID 12/07/21 12/07/21 Unknown History Loratadine 10 mg PO QDAY 12/07/21 12/07/21 Unknown History Omeprazole 20 mg PO QDAY 12/07/21 12/07/21 Unknown History PARoxetine [Paxil] 20 mg PO DAILY 12/07/21 12/07/21 Unknown History Sitagliptin Phosphate [Januvia] 50 mg PO QDAY 12/07/21 12/07/21 Unknown History amLODIPine [Norvasc] 10 mg PO DAILY 12/07/21 12/07/21 Unknown History hydrALAZINE [Apresoline TAB] 100 mg PO TID 12/07/21 12/07/21 Unknown History lisinopriL [Zestril TAB] 40 mg PO QDAY 12/07/21 12/07/21 Unknown History Active Meds: Active Medications Acetaminophen (Acetaminophen 650 Mg Rect Supp) 650 mg IA Q6H PRN PRN Reason: Pain MILD(1-3)/Fever >100.5/[place] Acetaminophen (Acetaminophen 325 Mg Tab) 650 mg PO Q6H PRN PRN Reason: Pain MILD(1-3)/Fever >100.5/[place] Albuterol (Albuterol 2.5 Mg/3 Ml Nebu) 2.5 mg IH Q3HRT PRN PRN Reason: Shortness Of Breath Last Admin: 12/08/21 04:32 Dose: 2.5 mg Amlodipine Besylate (Amlodipine 10 Mg Tab) 10 mg PO DAILY [facility] Last Admin: 12/08/21 09:34 Dose: 10 mg Atorvastatin Calcium (Atorvastatin 10 Mg Tab) 10 mg PO QHS [facility] Dextrose (Dextrose 50% In Water (25gm) 50 Ml Syringe) 0 ml IV Q30MIN PRN; Protocol PRN Reason: Hypoglycemia Gabapentin (Gabapentin 300 Mg Cap) 300 mg PO BID [facility] Last Admin: 12/08/21 09:33 Dose: 300 mg Heparin Sodium (Porcine) (Heparin 5,000 Unit/1 Ml Vial) 5,000 unit SUB-Q Q8HR [facility] Hydralazine HCl (Hydralazine 100 Mg Tab) 100 mg PO TID [facility] Last Admin: 12/08/21 09:05 Dose: Not Given Hydrophilic Ointment (Lip Therapy Vaseline) 1 applic TP Q2HR PRN PRN Reason: Dry Lips Azithromycin (Zithromax/Ns) 500 mg in 250 mls @ 250 mls/hr IV Q24H [facility]; Protocol Last Admin: 12/07/21 21:07 Dose: 250 mls/hr Sodium Chloride (Nacl 0.45% 1000 Ml) 1,000 mls @ 100 mls/hr IV DIRECT [place] Stop: 12/09/21 18:59 Last Admin: 12/08/21 09:33 Dose: 100 mls/hr Cefepime HCl (Cefepime/Ns 2 Gm/100 Ml) 2 gm in 100 mls @ 200 mls/hr IV Q12HR [facility]; Protocol Vancomycin HCl 1,500 mg/ (Sodium Chloride) 530 mls @ 333 mls/hr IV ONCE ONE; Protocol Stop: 12/08/21 12:31 Insulin Human Regular (Insulin Regular, Human 100 Units/1 Ml) 0 units SUB-Q ACHS [facility]; Protocol Last Admin: 12/08/21 07:46 Dose: 6 units Lansoprazole (Lansoprazole 30 Mg Solutab) 30 mg FEEDTUBE QDAY [facility] Last Admin: 12/08/21 09:33 Dose: 30 mg Lisinopril (Lisinopril 40 Mg Tab) 40 mg PO QDAY [facility] Last Admin: 12/08/21 09:33 Dose: 40 mg Morphine Sulfate (Morphine 2 Mg/1 Ml Inj) 2 mg IV Q8H PRN PRN Reason: Pain, Moderate (4-6) Multi-Ingred Cream/Lotion/Oil/Oint (Mineral Oil/Petrolatum, White Ophth Oint 3.5 Gm) 1 applic OU Q4HR PRN PRN Reason: Dry Eye(s) Oxycodone/Acetaminophen (Oxycodone /Acetaminophen 5-325mg Tab) 1 tab PO Q6H PRN PRN Reason: Pain, Moderate (4-6) Paroxetine HCl (Paroxetine 20 Mg Tab) 20 mg PO DAILY [facility] Senna/Docusate Sodium (Sennosides/Docusate Sodium 8.6/50 Mg Tab) 1 tab FEEDTUBE BID [facility] Last Admin: 12/08/21 09:34 Dose: 1 tab Sodium Chloride (Sodium Chloride 0.9% 10 Ml Flush Syringe) 10 ml IV BID [facility] Last Admin: 12/08/21 09:38 Dose: 10 ml Sodium Chloride (Sodium Chloride 0.9% 10 Ml Flush Syringe) 10 ml IV BID [facility] Last Admin: 12/08/21 09:38 Dose: 10 ml Sodium Chloride (Sodium Chloride 0.9% 10 Ml Flush Syringe) 10 ml IV PRN PRN PRN Reason: LINE FLUSH Review of Systems ROS unobtainable: due to endotracheal tube, due to mental status Physical Examination Vital signs: Vital Signs Temp Pulse Resp BP Pulse Ox 98.2 F 119 H 19 166/93 100 07/07/22 13:50 12/07/21 13:50 12/07/21 13:50 12/07/21 13:50 12/07/21 13:50 Vitals reviewed General appearance: Present: no acute distress, obese, other (Intubated and unresponsive, not on any sedation) - EENT Eyes: Present: PERRL - Respiratory Respiratory effort: normal Respiratory: bilateral: rhonchi - Cardiovascular Rhythm: regular Heart Sounds: Present: S1 & S2 - Extremities Extremities: no ischemia, pulses intact, pulses symmetrical Extremity abnormal: edema - Peripheral Assessment Generalized Edema Type: Non-pitting Edema Degree: 1+ Capillary Refill: < 3 seconds Skin Temperature: Warm Peripheral Pulses: within normal limits - Abdominal General gastrointestinal: soft, non-distended, normal bowel sounds - Integumentary Integumentary: Present: warm, dry - Psychiatric Psychiatric: other (Intubated and unresponsive, not on any sedation) - Neurologic Neurologic: other (Intubated and unresponsive, not on any sedation. Pupils are reactive with +gag/cough) Results - Laboratory Findings CBC and BMP: 12/10/21 05:49 12/10/21 06:03 ABG ABG pH 7.423 pH Units (7.350-7.450) 12/08/21 04:10 ABG pCO2 27.6 mm Hg 12/08/21 04:10 ABG pO2 65.1 mm Hg (80.0-90.0) L 12/08/21 04:10 ABG O2 Saturation 94.5 % (95.0-99.0) L 12/08/21 04:10 PT/INR, D-dimer D-Dimer 3277.12 ng/mlDDU (0-234) H 12/08/21 08:21 Abnormal lab findings: Abnormal Labs 12/07/21 12/07/21 12/07/21 14:21 15:55 15:55 WBC 16.9 H RBC 5.04 H Hct 43.8 H Plt Count 459 H Lymph % (Auto) 9.3 L [place] # (Auto) 0.9 H Seg Neutrophils % 84.6 H Seg Neuts % (Manual) Lymphocytes % (Manual) Basophils % (Manual) Seg Neutrophils # 14.3 H Seg Neutrophils # Man Lymphocytes # (Manual) Monocytes # (Manual) Basophils # (Manual) D-Dimer ABG pH ABG pO2 ABG HCO3 ABG O2 Saturation ABG Base Excess ABG Hemoglobin Oxyhemoglobin Sodium Chloride 107.2 H Carbon Dioxide 18 L BUN 34 H Creatinine 1.7 H Glucose 224 H POC Glucose 174 H Ammonia Total Creatine Kinase C-Reactive Protein Albumin 12/07/21 12/07/21 12/07/21 15:55 15:55 15:55 WBC RBC Hct Plt Count Lymph % (Auto) [place] # (Auto) Seg Neutrophils % Seg Neuts % (Manual) Lymphocytes % (Manual) Basophils % (Manual) Seg Neutrophils # Seg Neutrophils # Man Lymphocytes # (Manual) Monocytes # (Manual) Basophils # (Manual) D-Dimer ABG pH 7.260 L ABG pO2 229.7 H ABG HCO3 19.8 L ABG O2 Saturation 99.3 H ABG Base Excess -7.1 L ABG Hemoglobin Oxyhemoglobin Sodium Chloride Carbon Dioxide BUN Creatinine Glucose POC Glucose Ammonia 23.0 L Total Creatine Kinase 498 H C-Reactive Protein Albumin 12/07/21 12/08/21 12/08/21 21:45 00:18 04:00 WBC 20.4 H RBC Hct Plt Count Lymph % (Auto) [place] # (Auto) Seg Neutrophils % Seg Neuts % (Manual) 92.0 H Lymphocytes % (Manual) 1.0 L Basophils % (Manual) 2.0 H Seg Neutrophils # Seg Neutrophils # Man 18.8 H Lymphocytes # (Manual) 0.2 L Monocytes # (Manual) 1.0 H Basophils # (Manual) 0.4 H D-Dimer ABG pH ABG pO2 170.3 H ABG HCO3 18.8 L ABG O2 Saturation 99.1 H ABG Base Excess -5.5 L ABG Hemoglobin 11.9 L Oxyhemoglobin Sodium Chloride Carbon Dioxide BUN Creatinine Glucose POC Glucose 276 H Ammonia Total Creatine Kinase C-Reactive Protein Albumin 12/08/21 12/08/21 12/08/21 04:00 04:10 05:42 WBC RBC Hct Plt Count Lymph % (Auto) [place] # (Auto) Seg Neutrophils % Seg Neuts % (Manual) Lymphocytes % (Manual) Basophils % (Manual) Seg Neutrophils # Seg Neutrophils # Man Lymphocytes # (Manual) Monocytes # (Manual) Basophils # (Manual) D-Dimer ABG pH ABG pO2 65.1 L ABG HCO3 17.6 L ABG O2 Saturation 94.5 L ABG Base Excess -5.4 L ABG Hemoglobin Oxyhemoglobin 92.9 L Sodium 146 H Chloride 112.2 H Carbon Dioxide 17 L BUN 38 H Creatinine 1.8 H Glucose 329 H POC Glucose 315 H Ammonia Total Creatine Kinase 287 H C-Reactive Protein Albumin 3.5 L 12/08/21 12/08/21 12/08/21 07:29 08:21 08:21 WBC RBC Hct Plt Count Lymph % (Auto) [place] # (Auto) Seg Neutrophils % Seg Neuts % (Manual) Lymphocytes % (Manual) Basophils % (Manual) Seg Neutrophils # Seg Neutrophils # Man Lymphocytes # (Manual) Monocytes # (Manual) Basophils # (Manual) D-Dimer 3277.12 H ABG pH ABG pO2 ABG HCO3 ABG O2 Saturation ABG Base Excess ABG Hemoglobin Oxyhemoglobin Sodium Chloride Carbon Dioxide BUN Creatinine Glucose POC Glucose 330 H Ammonia Total Creatine Kinase C-Reactive Protein 6.20 H Albumin - Diagnostic Findings Chest x-ray: image reviewed Assessment and Plan Acute Hypoxic Respiratory Failure on MVS intubated 12/07 Community Acquied Pneumonia(CAP) Sepsis/Leukocytosis Acute Metabolic Encephalopathy Acute kidney injury (MAYRA) probably Vasomotor Nephropathy Hypernatremia h/o Hypertension h/o Hyperlipidemia h/o Type 2 Diabetes Mellitus with Hyperglycemia Patient remains unresponsive and is not waking up. CT head was negative. EEG and Neurology consult pending - Vent setting: PRVC-45%,6,16,450 -Titrate supplemental oxygen to keep SpO2 89-92% -Lung protective strategies -VAP bundle addressed, Aspiration precautions HOB >40 -CXR, ABG as clinically indicated -Daily assessment for readiness to wean. -Not on any sedation and yet remains unresponsive -Monitoring renal function, hemodynamics and electrolyte profile -Avoid nephrotoxins and renally dose all medications -Replete electrolytes as clinically indicated -Empiric antibiotics therapy for CAP -Accuchecks with glycemic control; target blood glucose 140-180 mg/dL. Avoid hypoglycemia -Confirm OGT position and initiate enteric nutritional support -VTE prophylaxis- Heparin -Stress ulcer prophylaxis- famotidine -Mobility, frequent turning, off loading per facility protocol to prevent pressure ulcers -Maintain sleep wake cycle -Limit delirium CONDITION:CRITICAL PROGNOSIS: GUARDED CODE STATUS; FULL CODE The high probability of a clinically significant, sudden or life threatening deterioration of the respiratory, cardiovascular, neurology system required my full and direct attention, intervention and personal management. The aggregate critical care time was [35] minutes. This time is in addition to time spent performing reported procedures but includes the following: [x] Data Review and interpretation [x] Patient assessment and monitoring of vital signs [x] Documentation [x] Medication orders and management
[2021-12-08] MEDS ORDERED: VANCOMYCIN PHARMACY TO DOSE IV SCH (12:00)
[2021-12-08] MEDS: CEFEPIME/NS 2 GM/100 ML 2 GM/100 ML BAG IV SCH ×2 (14:10→21:46)
[2021-12-08] MEDS: HEPARIN 5,000 UNIT/1 ML VIAL SUB-Q SCH ×2 (14:17→21:45)
[2021-12-08] MEDS ORDERED: VANCOMYCIN 2,000 MG in SODIUM CHLORIDE 0.9% 500 ML 500 ML IV ONE (16:00)
--- NOTE | 2021-12-08 17:51 | Electrocardiograph Report ---
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
[2021-12-08] MEDS: AZITHROMYCIN/NS 500 MG/250 ML 500 MG/250 ML BAG IV SCH (21:47)
[2021-12-09 04:49] LABS: ABG Base Excess -5.7 mmol/L (-2.0-3.0); ABG HCO3 18.7 mmol/L (20.0-26.0); ABG Methemoglobin 0.6 % (0.0-1.5); ABG Oxygen Saturation 98.6 % (95.0-99.0); ABG PH 7.371 pH Units (7.350-7.450); ABG PO2 136.8 mm Hg (80.0-90.0)
[2021-12-09] MEDS: INSULIN REGULAR, HUMAN 100 UNITS/1 ML SUB-Q SCH ×4 (05:15→17:37)
[2021-12-09 05:23] LABS: Hematocrit 33.1 % (30.3-42.9); Mean Corpuscular HGB Conc 33 % (30-34); Mean Corpuscular Volume 86 fl (79-97); Platelet Count 307 K/mm3 (140-440); Red Blood Count 3.86 M/mm3 (3.65-5.03); Red Cell Distribution Width 15.1 % (13.2-15.2)
[2021-12-09 05:41] LABS: Albumin 3.3 g/dL (3.9-5); Calcium 9.2 mg/dL (8.4-10.2)
[2021-12-09] MEDS: HEPARIN 5,000 UNIT/1 ML VIAL SUB-Q SCH ×3 (05:53→22:47)
--- NOTE | 2021-12-09 07:41 | Progress Note ---
Assessment and Plan 1. Acute kidney injury: Likley vasomotor MAYRA in the setting of shock. ATN. Baseline renal function unknown. Renal US negative. Patient has austin catheter. Monitor renal function. Creatinine leveled off. Avoid nephrotoxic agents. Meds dosage based on GFR. 2. FEN: Anion-gap metabolic acdosis, 2/ MAYRA, IV fluids, monitor. Mild hypernatremia, on 06/04 NS. Replete lytes as needed. Monitor lytes and volume status. 4. Acute Hypoxemic Respiratory Failure / CAP: CXR reveals left suprahilar infiltration. Intubated in the ED on 12/07. Abx. Monitor. 5. Sepsis: Likley 2/2 CAP. Covid negative. Abx. Monitor. 6. Acute Metabolic Encephalopathy: Monitor. 7. Type 2 Diabetes Mellitus with Hyperglycemia: SSI and Lantus. MOnitor. 8. Hypertension: Monitor BP. Adjust meds as needed. D/w ICU team. Subjective: Patient was seen and examined at the bedside. Examination: General appearance: well-developed, appears stated age, no distress, intubated, on vent HEENT: ATNC, no icterus Neck: trachea midline Respiratory: decreased breath sounds bilaterally Cardiology: regular, S1S2, no murmur Gastrointestinal: soft, normoactive bowel sounds, not tender Integumentary: no obvious rash Neurologic: not responding Ext: no edema : austin catheter Subjective Date of service: 12/09/21 Objective - Vital Signs Vital signs: Vital Signs - 12hr 12/08/21 12/08/21 12/08/21 19:51 20:00 20:11 Temperature Pulse Rate 94 H 92 H 93 H Pulse Rate [ 94 H From Monitor] Respiratory 17 16 16 Rate Blood Pressure 112/50 112/52 112/52 O2 Sat by Pulse 100 100 99 Oximetry 12/08/21 12/08/21 12/08/21 20:21 20:30 20:40 Temperature Pulse Rate 93 H 92 H 90 Pulse Rate [ From Monitor] Respiratory 16 16 16 Rate Blood Pressure 112/52 112/52 O2 Sat by Pulse 99 100 100 Oximetry 12/08/21 12/08/21 12/08/21 20:43 20:51 21:00 Temperature Pulse Rate 96 H 97 H 96 H Pulse Rate [ From Monitor] Respiratory 19 16 Rate Blood Pressure 112/52 112/52 124/54 O2 Sat by Pulse 99 99 99 Oximetry 12/08/21 12/08/21 12/08/21 21:10 21:21 21:31 Temperature Pulse Rate 95 H 93 H 89 Pulse Rate [ From Monitor] Respiratory 16 15 16 Rate Blood Pressure 124/54 124/54 124/54 O2 Sat by Pulse 99 99 99 Oximetry 12/08/21 12/08/21 12/08/21 21:41 21:51 22:00 Temperature Pulse Rate 92 H 92 H 87 Pulse Rate [ From Monitor] Respiratory 16 20 17 Rate Blood Pressure 124/54 124/54 115/65 O2 Sat by Pulse 99 99 100 Oximetry 12/08/21 12/08/21 12/08/21 22:10 22:20 22:31 Temperature Pulse Rate 89 88 84 Pulse Rate [ From Monitor] Respiratory 16 16 16 Rate Blood Pressure 115/65 115/65 115/65 O2 Sat by Pulse 99 99 100 Oximetry 12/08/21 12/08/21 12/08/21 22:41 22:51 23:00 Temperature Pulse Rate 88 82 84 Pulse Rate [ From Monitor] Respiratory 16 16 16 Rate Blood Pressure 115/65 115/65 97/57 O2 Sat by Pulse 100 99 99 Oximetry 12/08/21 12/08/21 12/08/21 23:10 23:20 23:21 Temperature Pulse Rate 84 87 87 Pulse Rate [ From Monitor] Respiratory 16 16 16 Rate Blood Pressure 97/57 97/57 97/57 O2 Sat by Pulse 100 100 100 Oximetry 12/08/21 12/08/21 12/08/21 23:31 23:34 23:41 Temperature Pulse Rate 90 91 H 94 H Pulse Rate [ From Monitor] Respiratory 17 17 21 Rate Blood Pressure 97/57 97/57 97/57 O2 Sat by Pulse 100 100 99 Oximetry 12/08/21 12/08/21 12/08/21 23:44 23:51 23:57 Temperature Pulse Rate 94 H 95 H 94 H Pulse Rate [ From Monitor] Respiratory 20 19 18 Rate Blood Pressure 97/57 97/57 97/57 O2 Sat by Pulse 99 100 99 Oximetry 12/09/21 12/09/21 12/09/21 00:00 00:11 00:21 Temperature 98.1 F Pulse Rate 96 H 94 H 90 Pulse Rate [ 94 H From Monitor] Respiratory 19 17 16 Rate Blood Pressure 130/70 130/70 130/70 O2 Sat by Pulse 99 99 99 Oximetry 12/09/21 12/09/21 12/09/21 00:30 00:40 00:41 Temperature Pulse Rate 82 93 H 97 H Pulse Rate [ From Monitor] Respiratory 16 25 H Rate Blood Pressure 130/70 130/70 130/70 O2 Sat by Pulse 99 98 98 Oximetry 12/09/21 12/09/21 12/09/21 00:51 01:00 01:11 Temperature Pulse Rate 93 H 91 H 84 Pulse Rate [ From Monitor] Respiratory 19 18 16 Rate Blood Pressure 130/70 130/64 130/64 O2 Sat by Pulse 97 99 100 Oximetry 12/09/21 12/09/21 12/09/21 01:21 01:31 01:41 Temperature Pulse Rate 80 82 80 Pulse Rate [ From Monitor] Respiratory 16 15 16 Rate Blood Pressure 130/64 130/64 130/64 O2 Sat by Pulse 98 99 99 Oximetry 12/09/21 12/09/21 12/09/21 01:51 02:00 02:11 Temperature Pulse Rate 83 85 86 Pulse Rate [ From Monitor] Respiratory 16 16 16 Rate Blood Pressure 130/64 113/62 113/62 O2 Sat by Pulse 100 99 99 Oximetry 12/09/21 12/09/21 12/09/21 02:21 02:31 02:41 Temperature Pulse Rate 87 88 89 Pulse Rate [ From Monitor] Respiratory 15 16 17 Rate Blood Pressure 113/62 113/62 113/62 O2 Sat by Pulse 98 100 100 Oximetry 12/09/21 12/09/21 12/09/21 02:51 03:00 03:11 Temperature Pulse Rate 92 H 91 H 91 H Pulse Rate [ From Monitor] Respiratory 17 18 17 Rate Blood Pressure 113/62 136/72 136/72 O2 Sat by Pulse 100 100 99 Oximetry 12/09/21 12/09/21 12/09/21 03:21 03:31 03:41 Temperature Pulse Rate 86 84 87 Pulse Rate [ From Monitor] Respiratory 16 16 19 Rate Blood Pressure 136/72 136/72 136/72 O2 Sat by Pulse 99 98 99 Oximetry 12/09/21 12/09/21 12/09/21 03:51 03:59 04:00 Temperature 97.5 F L Pulse Rate 84 83 Pulse Rate [ 89 From Monitor] Respiratory 15 16 Rate Blood Pressure 136/72 135/68 O2 Sat by Pulse 99 100 Oximetry 12/09/21 12/09/21 12/09/21 04:11 04:21 04:30 Temperature Pulse Rate 88 90 90 Pulse Rate [ From Monitor] Respiratory 16 17 Rate Blood Pressure 135/68 135/68 135/68 O2 Sat by Pulse 100 100 99 Oximetry 12/09/21 12/09/21 12/09/21 04:31 04:41 04:51 Temperature Pulse Rate 92 H 92 H 90 Pulse Rate [ From Monitor] Respiratory 20 18 18 Rate Blood Pressure 135/68 135/68 135/68 O2 Sat by Pulse 99 100 100 Oximetry 12/09/21 12/09/21 12/09/21 05:00 05:11 05:21 Temperature Pulse Rate 85 82 82 Pulse Rate [ From Monitor] Respiratory 15 16 16 Rate Blood Pressure 121/62 121/62 121/62 O2 Sat by Pulse 98 98 99 Oximetry 12/09/21 12/09/21 12/09/21 05:31 05:41 05:51 Temperature Pulse Rate 85 88 92 H Pulse Rate [ From Monitor] Respiratory 18 17 20 Rate Blood Pressure 121/62 121/62 121/62 O2 Sat by Pulse 100 82 L 100 Oximetry 12/09/21 12/09/21 12/09/21 06:01 06:11 06:21 Temperature Pulse Rate 87 93 H 88 Pulse Rate [ From Monitor] Respiratory 18 22 19 Rate Blood Pressure 114/46 114/46 114/46 O2 Sat by Pulse 100 100 99 Oximetry 12/09/21 12/09/21 12/09/21 06:31 06:41 06:51 Temperature Pulse Rate 87 88 90 Pulse Rate [ From Monitor] Respiratory 16 17 19 Rate Blood Pressure 114/46 114/46 114/46 O2 Sat by Pulse 100 99 100 Oximetry 12/09/21 12/09/21 07:00 07:11 Temperature Pulse Rate 88 87 Pulse Rate [ From Monitor] Respiratory 16 17 Rate Blood Pressure 115/55 115/55 O2 Sat by Pulse 99 100 Oximetry - Lab 12/10/21 05:49 12/10/21 06:03 Most recent lab results ABG pH 7.371 pH Units (7.350-7.450) 12/09/21 04:25 ABG pCO2 33.0 mm Hg 12/09/21 04:25 ABG pO2 136.8 mm Hg (80.0-90.0) H 12/09/21 04:25 ABG HCO3 18.7 mmol/L (20.0-26.0) L 12/09/21 04:25 ABG O2 Saturation 98.6 % (95.0-99.0) 12/09/21 04:25 Calcium 9.2 mg/dL (8.4-10.2) 12/09/21 04:32 Medications & Allergies - Medications Allergies/Adverse Reactions: Allergies No Known Allergies Allergy (Verified 12/07/21 15:05) Home Medications: Home Medications Medication Instructions Recorded Confirmed Last Taken Type AtorvaSTATin [Lipitor] 10 mg PO QHS 12/07/21 12/07/21 Unknown History Furosemide [Lasix] 40 mg PO BID 12/07/21 12/07/21 Unknown History Gabapentin [Neurontin] 300 mg PO BID 12/07/21 12/07/21 Unknown History Loratadine 10 mg PO QDAY 12/07/21 12/07/21 Unknown History Omeprazole 20 mg PO QDAY 12/07/21 12/07/21 Unknown History PARoxetine [Paxil] 20 mg PO DAILY 12/07/21 12/07/21 Unknown History Sitagliptin Phosphate [Januvia] 50 mg PO QDAY 12/07/21 12/07/21 Unknown History amLODIPine [Norvasc] 10 mg PO DAILY 12/07/21 12/07/21 Unknown History hydrALAZINE [Apresoline TAB] 100 mg PO TID 12/07/21 12/07/21 Unknown History lisinopriL [Zestril TAB] 40 mg PO QDAY 12/07/21 12/07/21 Unknown History Active Medications: Generic Name Dose Route Start Last Admin Trade Name Freq PRN Reason Stop Dose Admin Acetaminophen 650 mg 12/07/21 19:13 Acetaminophen 650 Mg Rect Supp MD Q6H PRN Pain MILD(1-3)/Fever >100.5/[place] Acetaminophen 650 mg 12/07/21 19:17 Acetaminophen 325 Mg Tab PO Q6H PRN Pain MILD(1-3)/Fever >100.5/[place] Albuterol 2.5 mg 12/07/21 19:13 12/08/21 04:32 Albuterol 2.5 Mg/3 Ml Nebu IH 2.5 mg Q3HRT PRN Administration Shortness Of Breath Amlodipine Besylate 5 mg 12/08/21 15:16 Amlodipine 10 Mg Tab PO DAILY [place] Atorvastatin Calcium 10 mg 12/07/21 22:00 12/08/21 21:45 Atorvastatin 10 Mg Tab PO 10 mg QHS [facility] Administration Dextrose 0 ml 12/07/21 19:55 Dextrose 50% In Water (25gm) 50 Ml Syringe IV Q30MIN PRN Hypoglycemia Protocol Heparin Sodium (Porcine) 5,000 unit 12/08/21 14:00 12/09/21 05:53 Heparin 5,000 Unit/1 Ml Vial SUB-Q 5,000 unit Q8HR [place] Administration Hydrophilic Ointment 1 applic 12/08/21 10:00 Lip Therapy Vaseline TP Q2HR PRN Dry Lips Azithromycin 500 mg in 250 mls @ 250 mls/hr 12/07/21 20:00 12/08/21 21:47 Zithromax/Ns IV 250 mls/hr Q24H [facility] Administration Protocol Sodium Chloride 1,000 mls @ 100 mls/hr 12/08/21 09:00 12/08/21 21:46 Nacl 0.45% 1000 Ml IV 12/09/21 18:59 100 mls/hr DIRECT [place] Administration Cefepime HCl 2 gm in 100 mls @ 200 mls/hr 12/08/21 12:00 12/08/21 21:46 Cefepime/Ns 2 Gm/100 Ml IV 200 mls/hr Q12HR [facility] Administration Protocol Vancomycin HCl 1,500 mg/ 530 mls @ 333.333 mls/hr 12/09/21 16:00 Sodium Chloride IV Q24HR [facility] Insulin Human Regular 0 units 12/07/21 22:00 12/09/21 05:15 Insulin Regular, Human 100 Units/1 Ml SUB-Q Not Given ACHS [place] Protocol Lansoprazole 30 mg 12/08/21 10:00 12/08/21 09:33 Lansoprazole 30 Mg Solutab FEEDTUBE 30 mg QDAY [facility] Administration Lisinopril 20 mg 12/08/21 15:16 Lisinopril 40 Mg Tab PO QDAY [facility] Morphine Sulfate 2 mg 12/07/21 19:13 Morphine 2 Mg/1 Ml Inj IV Q8H PRN Pain, Moderate (4-6) Multi-Ingred Cream/Lotion/Oil/Oint 1 applic 12/08/21 10:00 Mineral Oil/Petrolatum, White Ophth Oint 3.5 Gm OU Q4HR PRN Dry Eye(s) Oxycodone/Acetaminophen 1 tab 12/07/21 19:17 Oxycodone /Acetaminophen 5-325mg Tab PO Q6H PRN Pain, Moderate (4-6) Senna/Docusate Sodium 1 tab 12/08/21 10:00 12/08/21 21:45 Sennosides/Docusate Sodium 8.6/50 Mg Tab FEEDTUBE 1 tab BID [place] Administration Sodium Chloride 10 ml 12/07/21 22:00 12/09/21 05:54 Sodium Chloride 0.9% 10 Ml Flush Syringe IV 10 ml BID [place] Administration Sodium Chloride 10 ml 12/07/21 22:00 12/09/21 05:54 Sodium Chloride 0.9% 10 Ml Flush Syringe IV 10 ml BID [place] Administration Sodium Chloride 10 ml 12/07/21 19:17 12/09/21 05:54 Sodium Chloride 0.9% 10 Ml Flush Syringe IV 10 ml PRN PRN Administration LINE FLUSH
[2021-12-09] MEDS: CEFEPIME/NS 2 GM/100 ML 2 GM/100 ML BAG IV SCH ×2 (09:08→22:47)
[2021-12-09] MEDS: LISINOPRIL 40 MG TAB PO SCH (09:09)
[2021-12-09] MEDS: LANSOPRAZOLE 30 MG SOLUTAB FEEDTUBE SCH (09:10)
[2021-12-09] MEDS: amLODIPine 10 MG TAB PO SCH (09:10)
[2021-12-09] MEDS: SENNOSIDES/DOCUSATE SODIUM 8.6/50 MG TAB FEEDTUBE SCH ×2 (09:10→22:46)
[2021-12-09] MEDS: FREE WATER PO SCH ×3 (09:11→17:37)
[2021-12-09 10:51] LABS: Amphetamine Screen,Urine Negative; Benzodiazepines Screen,Urine Negative; Cannabinoid Screen,Urine Negative; Cocaine Screen,Urine Negative; Methadone Screen,Urine Negative; Opiate Screen,Urine Negative
--- NOTE | 2021-12-09 10:59 | Ultrasound Report ---
ULTRASOUND RENAL INDICATION: Acute renal failure.. COMPARISON: No relevant prior imaging study available. FINDINGS: RIGHT KIDNEY: Size: 9.1 x 4.3 cm. Echogenicity: Mildly increased. Parenchymal thickness: Mild thinning. Hydronephrosis: None. Cyst or mass: None. Stones: None. LEFT KIDNEY: Size: 9.0 x 5.4 cm. Echogenicity: Mildly increased. Parenchymal thickness: Mild thinning. Hydronephrosis: None. Cyst or mass: None. Stones: None. Urinary Bladder: Drained by a Marcelino catheter. Free Fluid: None. Additional Findings: None. IMPRESSION 1. Mildly increased bilateral renal cortical echotexture, consistent with the provided history of acu te renal failure. No other acute findings. 2. Additional findings as above. Signer Name: Mihai Burgess MD Signed: 12/09/2021 10:54 AM Workstation Name: [id number]
--- NOTE | 2021-12-09 11:53 | Progress Note ---
Assessment and Plan Assessment and plan: This is a 65-year-old female with known past medical history of obesity, HTN, DM complicated by neuropathy, GERD, MDD, iron deficiency anemia, and HLD admitted for acute hypoxic respiratory failure 2/2 pneumonia requiring ventilatory support. Hospital Course to Date: 12/08: Intubated and unresponsive, not on any sedation. Patient remains febrile with worsen leukocytosis this am, repeat CXR noted with significant improvement. COVID PCR and cultures pending, continue current epiric IV Abx, ID consulted. Continue gentle IVF hydration for MAYRA and Nephro is consulted. SSI adjusted and Lantus added for hyperglycemia. 12/09: Patient remains unresponsive on the vent. VSS. Will check a UDS and EEG. Neurology consulted. Remains with low grade fevers, Leukocytosis improvimg, B.cu ltures pending. Continue current IV Abx per ID, orders also placed for LP r/o meningitis, and Ampicillin added . FWF added for Hypernatremia, continue to monitor renal function, Nephrology is also following #Acute Hypoxic Respiratory Failure #Community Acquied Pneumonia(CAP) - CXR reveals left suprahilar consolidation/mass. suspected PNA. see report for full detail - Intubated in the ED on 12/07 - Vent setting: PRVC-30%,6,16,450 - Repeat CXR this am with significant improvement - AM ABG noted - CCM consulted, appreciate recommendations - Continue IV Abx and Nebs per CCM - VAP bundle addressed - Aspiration precaution HOB above 30 - Daily ABG and CXR - Continue SPO2 monitoring for SPO2 goal above 92% #Sepsis #Community Acquied Pneumonia(CAP) #Leukocytosis-improved - CXR reveals left suprahilar consolidation/mass. suspected PNA. see report for full detail - Remains with low grade temp, WBCs improved - COVID PCR negative and cultures pending - ID consulted, appreciated recommendations - Continue current empiric IV Abx per ID: Vanco, Cefepine, and Azithro - F/U on cultures - Daily CBC monitor #Acute Metabolic Encephalopathy - Found unresponsive at home - Probably secondary to infectious process - Remains unresponsive, not on any sedations - CT head/brain noted with no significant abnormality - Check UDS - Avoid sedative agents - PRN Analgesia for pain CPOT greater than 3 - Maintenance of sleep-wake cycle - Neurology consulted #Acute kidney injury (MAYRA) probably Vasomotor Nephropathy #Hypernatremia - probably due to dehydration - Baseline creatine is unknown - Nephrology on consult, appreciated recommendation - FWF added for hypernatremia - Strict intake and output - Avoid nephrotoxic medications; Renally dose medications - Marcelino in place - Monitor and replace electrolytes as needed #Hypertension #Hyperlipidemia - BP stable this morning - Home meds resumed - Continue blood pressure monitor per protocol - Maintain MAP above 65 and SBP less than 160 #Type 2 Diabetes Mellitus with Hyperglycemia - BG in the 300s this am - SSI adjusted and Lantus added - Continue BG check Q6hs - While critically ill target blood glucose of 140-180 #GI/DVT Prophylaxis - PPI- Lansoprazole - Heparin SubQ - SCD to bilateral lower extremities while in bed #Advance Care Planning - Disease education data, care plan, diagnoses, and prognosis were discussed with patient's son, Hira Garcia, at the bedside. All questions and concerns were addressed at this time. Patient is a FULL code. Patient's acknowledged understanding and agreement with current care plan. The high probability of a clinically significant, sudden or life threatening de terioration of the [multiple] system(s) required my full and direct attention, intervention and personal management. The aggregate critical care time was [60] minutes. This time is in addition to time spent performing reported procedures but includes the following: [x] Data Review and interpretation [x] Patient assessment and monitoring of vital signs [x] Documentation [x] Medication orders and management Disposition Plan: ICU Total Time Spent with Patient (Minutes): 60 History Interval history: Patient seen and examined at the bedside. Intubated and unresponsive, not on any sedation. Pupils are round and reactive with +gag/cough. VSS. JOLIE overnight Hospitalist Physical - Constitutional Vitals: Temp Pulse Resp BP Pulse Ox 99.5 F 96 H 18 137/78 99 12/09/21 08:00 12/09/21 11:11 12/09/21 11:11 12/09/21 11:11 12/09/21 11:11 General appearance: Present: no acute distress, obese, other (Intubated and unresponsive, not on any sedation) - EENT Eyes: Present: PERRL - Respiratory Respiratory effort: normal Respiratory: bilateral: rhonchi - Cardiovascular Rhythm: regular Heart Sounds: Present: S1 & S2 - Extremities Extremities: no ischemia, pulses intact, pulses symmetrical Extremity abnormal: edema - Peripheral Assessment Bilateral Upper Extremity Edema Type: Non-pitting Edema Degree: 2+ Capillary Refill: < 3 seconds Skin Temperature: Warm Generalized Edema Type: Non-pitting Edema Degree: 1+ Capillary Refill: < 3 seconds Skin Temperature: Warm Peripheral Pulses: within normal limits - Abdominal General gastrointestinal: soft, non-distended, normal bowel sounds - Integumentary Integumentary: Present: warm, dry - Psychiatric Psychiatric: other (Intubated and unresponsive, not on any sedation) - Neurologic Neurologic: other (Intubated and unresponsive, not on any sedation) - Allied Health Allied health notes reviewed: nursing, case management Results - Labs CBC & Chem 7: 12/10/21 05:49 12/10/21 06:03 Labs: Laboratory Last Values WBC 16.7 K/mm3 (4.5-11.0) H 12/09/21 04:32 RBC 3.86 M/mm3 (3.65-5.03) 12/09/21 04:32 Hgb 11.0 gm/dl (10.1-14.3) 12/09/21 04:32 Hct 33.1 % (30.3-42.9) 12/09/21 04:32 MCV 86 fl (79-97) 12/09/21 04:32 MCH 29 pg (28-32) 12/09/21 04:32 MCHC 33 % (30-34) 12/09/21 04:32 RDW 15.1 % (13.2-15.2) 12/09/21 04:32 Plt Count 307 K/mm3 (140-440) 12/09/21 04:32 Lymph % (Auto) 9.3 % (13.4-35.0) L 12/07/21 15:55 Forrest % (Auto) 5.6 % (0.0-7.3) 12/07/21 15:55 Eos % (Auto) 0.0 % (0.0-4.3) 12/07/21 15:55 Baso % (Auto) 0.5 % (0.0-1.8) 12/07/21 15:55 Lymph # (Auto) 1.6 K/mm3 (1.2-5.4) 12/07/21 15:55 Forrest # (Auto) 0.9 K/mm3 (0.0-0.8) H 12/07/21 15:55 Eos # (Auto) 0.0 K/mm3 (0.0-0.4) 12/07/21 15:55 Baso # (Auto) 0.1 K/mm3 (0.0-0.1) 12/07/21 15:55 Add Manual Diff Complete 12/08/21 04:00 Total Counted 100 12/08/21 04:00 Seg Neutrophils % Transfer Driver 12/08/21 04:00 Seg Neuts % (Manual) 92.0 % (40.0-70.0) H 12/08/21 04:00 Band Neutrophils % 0 % 12/08/21 04:00 Lymphocytes % (Manual) 1.0 % (13.4-35.0) L 12/08/21 04:00 Reactive Lymphs % (Man) 0 % 12/08/21 04:00 Monocytes % (Manual) 5.0 % (0.0-7.3) 12/08/21 04:00 Eosinophils % (Manual) 0 % (0.0-4.3) 12/08/21 04:00 Basophils % (Manual) 2.0 % (0.0-1.8) H 12/08/21 04:00 Metamyelocytes % 0 % 12/08/21 04:00 Myelocytes % 0 % 12/08/21 04:00 Promyelocytes % 0 % 12/08/21 04:00 Blast Cells % 0 % 12/08/21 04:00 Nucleated RBC % Not Reportable 12/08/21 04:00 Seg Neutrophils # 14.3 K/mm3 (1.8-7.7) H 12/07/21 15:55 Seg Neutrophils # Man 18.8 K/mm3 (1.8-7.7) H 12/08/21 04:00 Band Neutrophils # 0.0 K/mm3 12/08/21 04:00 Lymphocytes # (Manual) 0.2 K/mm3 (1.2-5.4) L 12/08/21 04:00 Abs React Lymphs (Man) 0.0 K/mm3 12/08/21 04:00 Monocytes # (Manual) 1.0 K/mm3 (0.0-0.8) H 12/08/21 04:00 Eosinophils # (Manual) 0.0 K/mm3 (0.0-0.4) 12/08/21 04:00 Basophils # (Manual) 0.4 K/mm3 (0.0-0.1) H 12/08/21 04:00 Metamyelocytes # 0.0 K/mm3 12/08/21 04:00 Myelocytes # 0.0 K/mm3 12/08/21 04:00 Promyelocytes # 0.0 K/mm3 12/08/21 04:00 Blast Cells # 0.0 K/mm3 12/08/21 04:00 WBC Morphology Not Reportable 12/08/21 04:00 Hypersegmented Neuts Not Reportable 12/08/21 04:00 Hyposegmented Neuts Not Reportable 12/08/21 04:00 Hypogranular Neuts Not Reportable 12/08/21 04:00 Smudge Cells Not Reportable 12/08/21 04:00 Toxic Granulation Not Reportable 12/08/21 04:00 Toxic Vacuolation Not Reportable 12/08/21 04:00 Dohle Bodies Not Reportable 12/08/21 04:00 Pelger-Huet Anomaly Not Reportable 12/08/21 04:00 Ulises Rods Not Reportable 12/08/21 04:00 Platelet Estimate Consistent w auto 12/08/21 04:00 Clumped Platelets Not Reportable 12/08/21 04:00 Plt Clumps, EDTA Not Reportable 12/08/21 04:00 Large Platelets Not Reportable 12/08/21 04:00 Giant Platelets Not Reportable 12/08/21 04:00 Platelet Satelliting Not Reportable 12/08/21 04:00 Plt Morphology Comment Not Reportable 12/08/21 04:00 RBC Morphology Normal 12/08/21 04:00 Dimorphic RBCs Not Reportable 12/08/21 04:00 Polychromasia Not Reportable 12/08/21 04:00 Hypochromasia Not Reportable 12/08/21 04:00 Poikilocytosis Not Reportable 12/08/21 04:00 Anisocytosis Not Reportable 12/08/21 04:00 Microcytosis Not Reportable 12/08/21 04:00 Macrocytosis Not Reportable 12/08/21 04:00 Spherocytes Not Reportable 12/08/21 04:00 Pappenheimer Bodies Not Reportable 12/08/21 04:00 Sickle Cells Not Reportable 12/08/21 04:00 Target Cells Not Reportable 12/08/21 04:00 Tear Drop Cells Not Reportable 12/08/21 04:00 Ovalocytes Not Reportable 12/08/21 04:00 Helmet Cells Not Reportable 12/08/21 04:00 [place] Bodies Not Reportable 12/08/21 04:00 [place] Rings Not Reportable 12/08/21 04:00 [place] Cells Not Reportable 12/08/21 04:00 Bite Cells Not Reportable 12/08/21 04:00 Crenated Cell Not Reportable 12/08/21 04:00 Elliptocytes Not Reportable 12/08/21 04:00 Acanthocytes (Spur) Not Reportable 12/08/21 04:00 Rouleaux Not Reportable 12/08/21 04:00 Hemoglobin C Crystals Not Reportable 12/08/21 04:00 Schistocytes Not Reportable 12/08/21 04:00 Malaria parasites Not Reportable 12/08/21 04:00 [place] Bodies Not Reportable 12/08/21 04:00 Hem Pathologist Commnt No 12/08/21 04:00 D-Dimer 3277.12 ng/mlDDU (0-234) H 12/08/21 08:21 ABG pH 7.371 pH Units (7.350-7.450) 12/09/21 04:25 ABG pCO2 33.0 mm Hg 12/09/21 04:25 ABG pO2 136.8 mm Hg (80.0-90.0) H 12/09/21 04:25 ABG HCO3 18.7 mmol/L (20.0-26.0) L 12/09/21 04:25 ABG O2 Saturation 98.6 % (95.0-99.0) 12/09/21 04:25 ABG O2 Content 15.6 (0.0-44) 12/09/21 04:25 ABG Base Excess -5.7 mmol/L (-2.0-3.0) L 12/09/21 04:25 ABG Hemoglobin 11.2 gm/dl (12.0-16.0) L 12/09/21 04:25 ABG Carboxyhemoglobin 0.8 % (0.0-5.0) 12/09/21 04:25 ABG Methemoglobin 0.6 % (0.0-1.5) 12/09/21 04:25 Oxyhemoglobin 97.2 % (95.0-99.0) 12/09/21 04:25 FiO2 35 % 12/09/21 04:25 Sodium 146 mmol/L (137-145) H 12/09/21 04:32 Potassium 4.1 mmol/L (3.6-5.0) 12/09/21 04:32 Chloride 116.8 mmol/L (98-107) H 12/09/21 04:32 Carbon Dioxide 18 mmol/L (22-30) L 12/09/21 04:32 Anion Gap 15 mmol/L 12/09/21 04:32 BUN 38 mg/dL (7-17) H 12/09/21 04:32 Creatinine 1.7 mg/dL (0.6-1.2) H 12/09/21 04:32 Estimated GFR 30 ml/min 12/09/21 04:32 BUN/Creatinine Ratio 22 % 12/09/21 04:32 Glucose 193 mg/dL (65-100) H 12/09/21 04:32 POC Glucose 122 mg/dL (70-105) H 12/08/21 21:04 Hemoglobin A1c 6.2 % (4-6) H 12/09/21 04:32 Lactic Acid 1.70 mmol/L (0.7-2.0) 12/08/21 Unknown Calcium 9.2 mg/dL (8.4-10.2) 12/09/21 04:32 Ferritin 162.1 ng/mL (10.0-200.0) 12/08/21 08:21 Total Bilirubin 0.20 mg/dL (0.1-1.2) 12/09/21 04:32 AST 18 units/L (5-40) 12/09/21 04:32 ALT 9 units/L (7-56) 12/09/21 04:32 Alkaline Phosphatase 69 units/L (35-129) 12/09/21 04:32 Ammonia 23.0 umol/L (25-60) L 12/07/21 15:55 Lactate Dehydrogenase 129 units/L (91-180) 12/08/21 08:21 Total Creatine Kinase 287 units/L (30-135) H 12/08/21 04:00 C-Reactive Protein 6.20 mg/dL (0.00-1.30) H 12/08/21 08:21 Total Protein 6.8 g/dL (6.3-8.2) 12/09/21 04:32 Albumin 3.3 g/dL (3.9-5) L 12/09/21 04:32 Albumin/Globulin Ratio 0.9 % 12/09/21 04:32 Urine Color Yellow (Yellow) 12/07/21 17:21 Urine Turbidity Clear (Clear) 12/07/21 17:21 Urine pH 6.0 (5.0-7.0) 12/07/21 17:21 Ur Specific [place] 1.015 (1.003-1.030) 12/07/21 17:21 Urine Protein 30 mg/dl mg/dL (Negative) 12/07/21 17:21 Urine Glucose (UA) Negative mg/dL (Negative) 12/07/21 17:21 Urine Ketones 40 mg/dL (Negative) 12/07/21 17:21 Urine Blood Negative (Negative) 12/07/21 17:21 Urine Nitrite Negative (Negative) 12/07/21 17:21 Ur Reducing Substances Not Reportable 12/07/21 17:21 Urine Bilirubin Moderate (Negative) 12/07/21 17:21 Urine Ictotest Negative (Negative) 12/07/21 17:21 Urine Urobilinogen 0.0 mg/dL (<2.0) 12/07/21 17:21 Ur Leukocyte Esterase Negative (Negative) 12/07/21 17:21 Urine WBC (Auto) 1.0 /HPF (0.0-6.0) 12/07/21 17:21 Urine RBC (Auto) 1.0 /HPF (0.0-6.0) 12/07/21 17:21 U Epithel Cells (Auto) 4.0 /HPF (0-13.0) 12/07/21 17:21 Hyaline Casts 4 /LPF 12/07/21 17:21 Urine Mucus Few /HPF 12/07/21 17:21 Urine Sodium 10 mmol/L 12/09/21 Unknown Nasal Screen MRSA (PCR) Positive (Negative) 12/08/21 12:30 Urine Opiates Screen Negative 12/09/21 Unknown Urine Methadone Screen Negative 12/09/21 Unknown Ur Barbiturates Screen Negative 12/09/21 Unknown Ur Phencyclidine Scrn Negative 12/09/21 Unknown Ur Amphetamines Screen Negative 12/09/21 Unknown U Benzodiazepines Scrn Negative 12/09/21 Unknown Urine Cocaine Screen Negative 12/09/21 Unknown U Marijuana (THC) Screen Negative 12/09/21 Unknown Drugs of Abuse Note Disclamer 12/09/21 Unknown Plasma/Serum Alcohol < 0.01 % (0-0.07) 12/07/21 19:03 Coronavirus (PCR) Negative (Negative) 12/08/21 08:11 Blood Type AB POSITIVE 12/07/21 22:45 Antibody Screen Negative 12/07/21 22:45 Microbiology: Microbiology 12/07/21 22:45 Peripheral/Venous Blood Culture - Preliminary NO GROWTH AFTER 24 HOURS 12/07/21 22:45 Peripheral/Venous Blood Culture - Preliminary Marcelino/IV: Voiding Method Indwelling Catheter Active Medications - Current Medications Current Medications: Generic Name Dose Route Start Last Admin Trade Name Freq PRN Reason Stop Dose Admin Acetaminophen 650 mg 12/07/21 19:13 Acetaminophen 650 Mg Rect Supp MI Q6H PRN Pain MILD(1-3)/Fever >100.5/[place] Acetaminophen 650 mg 12/07/21 19:17 Acetaminophen 325 Mg Tab PO Q6H PRN Pain MILD(1-3)/Fever >100.5/[place] Albuterol 2.5 mg 12/07/21 19:13 12/08/21 04:32 Albuterol 2.5 Mg/3 Ml Nebu IH 2.5 mg Q3HRT PRN Administration Shortness Of Breath Amlodipine Besylate 5 mg 12/08/21 15:16 12/09/21 09:10 Amlodipine 10 Mg Tab PO 5 mg DAILY [place] Administration Atorvastatin Calcium 10 mg 12/07/21 22:00 12/09/21 09:11 Atorvastatin 10 Mg Tab PO Not Given QHS [place] Dextrose 0 ml 12/07/21 19:55 Dextrose 50% In Water (25gm) 50 Ml Syringe IV Q30MIN PRN Hypoglycemia Protocol Heparin Sodium (Porcine) 5,000 unit 12/08/21 14:00 12/09/21 05:53 Heparin 5,000 Unit/1 Ml Vial SUB-Q 5,000 unit Q8HR [place] Administration Hydrophilic Ointment 1 applic 12/08/21 10:00 Lip Therapy Vaseline TP Q2HR PRN Dry Lips Azithromycin 500 mg in 250 mls @ 250 mls/hr 12/07/21 20:00 12/08/21 21:47 Zithromax/Ns IV 12/11/21 20:59 250 mls/hr Q24H [place] Administration Protocol Cefepime HCl 2 gm in 100 mls @ 200 mls/hr 12/08/21 12:00 12/09/21 09:40 Cefepime/Ns 2 Gm/100 Ml IV Infused Q12HR [place] Infusion Protocol Insulin Human Regular 0 units 12/09/21 12:00 Insulin Regular, Human 100 Units/1 Ml SUB-Q Q6H [facility] Protocol Lansoprazole 30 mg 12/08/21 10:00 12/09/21 09:10 Lansoprazole 30 Mg Solutab FEEDTUBE 30 mg QDAY [place] Administration Lisinopril 20 mg 12/08/21 15:16 12/09/21 09:09 Lisinopril 40 Mg Tab PO 20 mg QDAY [place] Administration Multi-Ingred Cream/Lotion/Oil/Oint 1 applic 12/08/21 10:00 Mineral Oil/Petrolatum, White Ophth Oint 3.5 Gm OU Q4HR PRN Dry Eye(s) Oxycodone/Acetaminophen 1 tab 12/07/21 19:17 Oxycodone /Acetaminophen 5-325mg Tab PO Q6H PRN Pain, Moderate (4-6) Senna/Docusate Sodium 1 tab 12/08/21 10:00 12/09/21 09:10 Sennosides/Docusate Sodium 8.6/50 Mg Tab FEEDTUBE 1 tab BID [place] Administration Sodium Chloride 10 ml 12/07/21 22:00 12/09/21 09:11 Sodium Chloride 0.9% 10 Ml Flush Syringe IV Not Given BID [place] Sodium Chloride 10 ml 12/07/21 22:00 12/09/21 09:11 Sodium Chloride 0.9% 10 Ml Flush Syringe IV 10 ml BID [place] Administration Sodium Chloride 10 ml 12/07/21 19:17 12/09/21 05:54 Sodium Chloride 0.9% 10 Ml Flush Syringe IV 10 ml PRN PRN Administration LINE FLUSH Nutrition/Malnutrition Assess - Dietary Evaluation Nutrition/Malnutrition Findings: Nutrition Notes Start: 12/08/21 11:03 Freq: Status: Active Protocol: Document 12/09/21 10:57 TUCKER (Rec: 12/09/21 10:59 TUCKER [id number]) Nutrition Notes Initial or Follow up Brief Note Current Diet Glucerna 1.2 at 45ml/hr Subjective/Other Information Per RN, TF infusing at 35ml/hr at this time and will be at goal rate by 15:00 today. Pt remains on vent support. Nutrition Intervention Follow-Up By: 12/11/21 Additional Comments F/U: TF goal rate/tolerance, vent status
[2021-12-09] MEDS ORDERED: VANCOMYCIN 1,500 MG in SODIUM CHLORIDE 0.9% 500 ML 500 ML IV SCH (16:00)
--- NOTE | 2021-12-09 19:30 | Progress Note ---
Assessment and Plan Acute Hypoxic Respiratory Failure on MVS intubated 12/07 Community Acquied Pneumonia(CAP) Sepsis/Leukocytosis Acute Metabolic Encephalopathy Acute kidney injury (MAYRA) probably Vasomotor Nephropathy Hypernatremia h/o Hypertension h/o Hyperlipidemia h/o Type 2 Diabetes Mellitus with Hyperglycemia Patient remains unresponsive and is not waking up. CT head was negative. EEG and Neurology consult pending Empirically added Ampicillin yesterday fro possible meningitis, LP ordered Start empiric treatment for seizures- possible non convulsive status Free water flushes for hypernatremia -Daily assessment for readiness to wean. -Vent setting: PRVC-45%,6,16,450 -Titrate supplemental oxygen to keep SpO2 89-92% -Lung protective strategies -VAP bundle addressed, Aspiration precautions HOB >40 -CXR, ABG as clinically indicated -Monitoring renal function, hemodynamics and electrolyte profile -Avoid nephrotoxins and renally dose all medications. Renal function slowly improving -Replete electrolytes as clinically indicated -Empiric antibiotics therapy per ID( Vanc, Cefepime) -Accuchecks with glycemic control; target blood glucose 140-180 mg/dL. Avoid hypoglycemia -Enteric nutritional support -VTE prophylaxis- Heparin -Stress ulcer prophylaxis- Lansoprazole -Mobility, frequent turning, off loading per facility protocol to prevent pressure ulcers -Maintain sleep wake cycle -Supportive transfusions as clinically indicated to keep HgB >7g/dL CONDITION:CRITICAL PROGNOSIS: GUARDED CODE STATUS: FULL CODE The high probability of a clinically significant, sudden or life threatening deterioration of the respiratory, cardiovascular, neurology system required my full and direct attention, intervention and personal management. The aggregate critical care time was [35] minutes. This time is in addition to time spent performing reported procedures but includes the following: [x] Data Review and interpretation [x] Patient assessment and monitoring of vital signs [x] Documentation [x] Medication orders and management Subjective Date of service: 12/09/21 Interval history: Seen and examined. Vitals, labs, medications, chart reviewed. Discussed with nursing and respiratory care staff. No adverse events reported overnight. No fevers, no diarrhea, no vomiting. Remains unresponsive. UDS negative. EEG and Neurology consult pending. Preliminary Blood culture result is positive GPC with clusters in 2 out 4 bottles. On MVS; PEEP +6/40% No drips Objective Vital Signs - 12hr 12/09/21 12/09/21 12/09/21 07:31 07:41 07:51 Temperature Pulse Rate 90 89 90 Pulse Rate [ From Monitor] Respiratory 18 18 17 Rate Blood Pressure 115/55 115/55 115/55 O2 Sat by Pulse 99 99 100 Oximetry 12/09/21 12/09/21 12/09/21 08:00 08:01 08:08 Temperature 99.5 F Pulse Rate 93 H 87 Pulse Rate [ From Monitor] Respiratory 19 Rate Blood Pressure 119/60 115/55 O2 Sat by Pulse 100 100 Oximetry 12/09/21 12/09/21 12/09/21 08:11 08:21 08:28 Temperature Pulse Rate 95 H 94 H 88 Pulse Rate [ 88 From Monitor] Respiratory 24 16 16 Rate Blood Pressure 119/60 119/60 O2 Sat by Pulse 99 100 99 Oximetry 12/09/21 12/09/21 12/09/21 08:31 08:41 08:51 Temperature Pulse Rate 99 H 96 H 94 H Pulse Rate [ From Monitor] Respiratory 15 20 19 Rate Blood Pressure 119/60 119/60 119/60 O2 Sat by Pulse 99 100 99 Oximetry 12/09/21 12/09/21 12/09/21 09:01 09:11 09:21 Temperature Pulse Rate 96 H 95 H 95 H Pulse Rate [ From Monitor] Respiratory 19 18 18 Rate Blood Pressure 142/76 142/76 119/60 O2 Sat by Pulse 100 100 100 Oximetry 12/09/21 12/09/21 12/09/21 09:31 09:41 09:51 Temperature Pulse Rate 83 84 92 H Pulse Rate [ From Monitor] Respiratory 16 16 18 Rate Blood Pressure 119/60 119/60 119/60 O2 Sat by Pulse 100 100 99 Oximetry 12/09/21 12/09/21 12/09/21 10:00 10:11 10:21 Temperature Pulse Rate 95 H 95 H 97 H Pulse Rate [ From Monitor] Respiratory 19 19 18 Rate Blood Pressure 151/81 151/81 151/81 O2 Sat by Pulse 100 100 100 Oximetry 12/09/21 12/09/21 12/09/21 10:31 10:41 10:51 Temperature Pulse Rate 100 H 96 H 95 H Pulse Rate [ From Monitor] Respiratory 15 19 19 Rate Blood Pressure 151/81 151/81 151/81 O2 Sat by Pulse 100 100 100 Oximetry 12/09/21 12/09/21 12/09/21 11:00 11:11 11:21 Temperature Pulse Rate 97 H 96 H 97 H Pulse Rate [ From Monitor] Respiratory 19 18 19 Rate Blood Pressure 137/78 137/78 137/78 O2 Sat by Pulse 100 99 100 Oximetry 12/09/21 12/09/21 12/09/21 11:31 11:41 11:51 Temperature Pulse Rate 97 H 96 H 95 H Pulse Rate [ From Monitor] Respiratory 19 19 17 Rate Blood Pressure 137/78 137/78 137/78 O2 Sat by Pulse 100 100 100 Oximetry 12/09/21 12/09/21 12/09/21 12:00 12:11 12:21 Temperature 99.9 F H Pulse Rate 96 H 96 H 96 H Pulse Rate [ 96 H From Monitor] Respiratory 19 17 18 Rate Blood Pressure 137/70 137/70 137/70 O2 Sat by Pulse 100 100 100 Oximetry 12/09/21 12/09/21 12/09/21 12:31 12:41 12:51 Temperature Pulse Rate 95 H 97 H 98 H Pulse Rate [ From Monitor] Respiratory 18 20 18 Rate Blood Pressure 137/70 137/70 137/70 O2 Sat by Pulse 100 100 100 Oximetry 12/09/21 12/09/21 12/09/21 13:00 13:11 13:21 Temperature Pulse Rate 98 H 96 H 100 H Pulse Rate [ From Monitor] Respiratory 20 17 16 Rate Blood Pressure 139/77 139/77 139/77 O2 Sat by Pulse 100 100 100 Oximetry 12/09/21 12/09/21 12/09/21 13:31 13:41 13:51 Temperature Pulse Rate 98 H 97 H 96 H Pulse Rate [ From Monitor] Respiratory 18 18 18 Rate Blood Pressure 139/77 139/77 139/77 O2 Sat by Pulse 100 100 100 Oximetry 12/09/21 12/09/21 12/09/21 14:00 14:11 14:21 Temperature Pulse Rate 97 H 97 H 98 H Pulse Rate [ From Monitor] Respiratory 19 18 20 Rate Blood Pressure 149/71 149/71 149/71 O2 Sat by Pulse 99 99 100 Oximetry 12/09/21 12/09/21 12/09/21 14:31 14:41 14:51 Temperature Pulse Rate 97 H 96 H 95 H Pulse Rate [ From Monitor] Respiratory 18 17 19 Rate Blood Pressure 149/71 149/71 149/71 O2 Sat by Pulse 99 99 99 Oximetry 12/09/21 12/09/21 12/09/21 15:00 15:11 15:21 Temperature Pulse Rate 98 H 93 H 97 H Pulse Rate [ From Monitor] Respiratory 19 17 23 Rate Blood Pressure 153/76 153/76 153/76 O2 Sat by Pulse 99 99 99 Oximetry 12/09/21 12/09/21 12/09/21 15:31 15:41 15:51 Temperature Pulse Rate 94 H 98 H 95 H Pulse Rate [ From Monitor] Respiratory 18 23 18 Rate Blood Pressure 153/76 153/76 153/76 O2 Sat by Pulse 99 99 99 Oximetry 12/09/21 12/09/21 12/09/21 16:00 16:11 16:21 Temperature 99.7 F H Pulse Rate 95 H 94 H 94 H Pulse Rate [ 95 H From Monitor] Respiratory 19 18 18 Rate Blood Pressure 155/74 155/74 155/74 O2 Sat by Pulse 99 99 99 Oximetry 12/09/21 12/09/21 12/09/21 16:22 16:31 16:41 Temperature Pulse Rate 100 H 94 H 93 H Pulse Rate [ From Monitor] Respiratory 18 19 Rate Blood Pressure 139/77 155/74 155/74 O2 Sat by Pulse 100 99 99 Oximetry 12/09/21 12/09/21 12/09/21 16:51 17:00 17:11 Temperature Pulse Rate 93 H 95 H 94 H Pulse Rate [ From Monitor] Respiratory 18 16 18 Rate Blood Pressure 155/74 142/71 142/71 O2 Sat by Pulse 98 99 99 Oximetry CBC and BMP: 12/10/21 05:49 12/10/21 06:03 ABG, PT/INR, D-dimer: ABG ABG pH 7.371 pH Units (7.350-7.450) 12/09/21 04:25 ABG pCO2 33.0 mm Hg 12/09/21 04:25 ABG pO2 136.8 mm Hg (80.0-90.0) H 12/09/21 04:25 ABG O2 Saturation 98.6 % (95.0-99.0) 12/09/21 04:25 PT/INR, D-dimer D-Dimer 3277.12 ng/mlDDU (0-234) H 12/08/21 08:21 Abnormal lab findings: Abnormal Labs 12/07/21 12/07/2122 14:21 15:55 15:55 WBC 16.9 H RBC 5.04 H Hct 43.8 H Plt Count 459 H Lymph % (Auto) 9.3 L Gordon # (Auto) 0.9 H Seg Neutrophils % 84.6 H Seg Neuts % (Manual) Lymphocytes % (Manual) Basophils % (Manual) Seg Neutrophils # 14.3 H Seg Neutrophils # Man Lymphocytes # (Manual) Monocytes # (Manual) Basophils # (Manual) D-Dimer ABG pH ABG pO2 ABG HCO3 ABG O2 Saturation ABG Base Excess ABG Hemoglobin Oxyhemoglobin Sodium Chloride 107.2 H Carbon Dioxide 18 L BUN 34 H Creatinine 1.7 H Glucose 224 H POC Glucose 174 H Hemoglobin A1c Ammonia Total Creatine Kinase C-Reactive Protein Albumin Urine Creatinine 12/07/21 12/07/21 12/07/21 15:55 15:55 15:55 WBC RBC Hct Plt Count Lymph % (Auto) Gordon # (Auto) Seg Neutrophils % Seg Neuts % (Manual) Lymphocytes % (Manual) Basophils % (Manual) Seg Neutrophils # Seg Neutrophils # Man Lymphocytes # (Manual) Monocytes # (Manual) Basophils # (Manual) D-Dimer ABG pH 7.260 L ABG pO2 229.7 H ABG HCO3 19.8 L ABG O2 Saturation 99.3 H ABG Base Excess -7.1 L ABG Hemoglobin Oxyhemoglobin Sodium Chloride Carbon Dioxide BUN Creatinine Glucose POC Glucose Hemoglobin A1c Ammonia 23.0 L Total Creatine Kinase 498 H C-Reactive Protein Albumin Urine Creatinine 12/07/21 12/08/21 12/08/21 21:45 00:18 04:00 WBC 20.4 H RBC Hct Plt Count Lymph % (Auto) Gordon # (Auto) Seg Neutrophils % Seg Neuts % (Manual) 92.0 H Lymphocytes % (Manual) 1.0 L Basophils % (Manual) 2.0 H Seg Neutrophils # Seg Neutrophils # Man 18.8 H Lymphocytes # (Manual) 0.2 L Monocytes # (Manual) 1.0 H Basophils # (Manual) 0.4 H D-Dimer ABG pH ABG pO2 170.3 H ABG HCO3 18.8 L ABG O2 Saturation 99.1 H ABG Base Excess -5.5 L ABG Hemoglobin 11.9 L Oxyhemoglobin Sodium Chloride Carbon Dioxide BUN Creatinine Glucose POC Glucose 276 H Hemoglobin A1c Ammonia Total Creatine Kinase C-Reactive Protein Albumin Urine Creatinine 12/08/21 12/08/21 12/08/21 04:00 04:10 05:42 WBC RBC Hct Plt Count Lymph % (Auto) Gordon # (Auto) Seg Neutrophils % Seg Neuts % (Manual) Lymphocytes % (Manual) Basophils % (Manual) Seg Neutrophils # Seg Neutrophils # Man Lymphocytes # (Manual) Monocytes # (Manual) Basophils # (Manual) D-Dimer ABG pH ABG pO2 65.1 L ABG HCO3 17.6 L ABG O2 Saturation 94.5 L ABG Base Excess -5.4 L ABG Hemoglobin Oxyhemoglobin 92.9 L Sodium 146 H Chloride 112.2 H Carbon Dioxide 17 L BUN 38 H Creatinine 1.8 H Glucose 329 H POC Glucose 315 H Hemoglobin A1c Ammonia Total Creatine Kinase 287 H C-Reactive Protein Albumin 3.5 L Urine Creatinine 12/08/21 12/08/21 12/08/21 07:29 08:21 08:21 WBC RBC Hct Plt Count Lymph % (Auto) Gordon # (Auto) Seg Neutrophils % Seg Neuts % (Manual) Lymphocytes % (Manual) Basophils % (Manual) Seg Neutrophils # Seg Neutrophils # Man Lymphocytes # (Manual) Monocytes # (Manual) Basophils # (Manual) D-Dimer 3277.12 H ABG pH ABG pO2 ABG HCO3 ABG O2 Saturation ABG Base Excess ABG Hemoglobin Oxyhemoglobin Sodium Chloride Carbon Dioxide BUN Creatinine Glucose POC Glucose 330 H Hemoglobin A1c Ammonia Total Creatine Kinase C-Reactive Protein 6.20 H Albumin Urine Creatinine 12/08/21 12/08/21 12/09/21 11:15 21:04 04:25 WBC RBC Hct Plt Count Lymph % (Auto) Gordon # (Auto) Seg Neutrophils % Seg Neuts % (Manual) Lymphocytes % (Manual) Basophils % (Manual) Seg Neutrophils # Seg Neutrophils # Man Lymphocytes # (Manual) Monocytes # (Manual) Basophils # (Manual) D-Dimer ABG pH ABG pO2 136.8 H ABG HCO3 18.7 L ABG O2 Saturation ABG Base Excess -5.7 L ABG Hemoglobin 11.2 L Oxyhemoglobin Sodium Chloride Carbon Dioxide BUN Creatinine Glucose POC Glucose 302 H 122 H Hemoglobin A1c Ammonia Total Creatine Kinase C-Reactive Protein Albumin Urine Creatinine 12/09/21 12/09/21 12/09/21 04:32 04:32 04:32 WBC 16.7 H RBC Hct Plt Count Lymph % (Auto) Gordon # (Auto) Seg Neutrophils % Seg Neuts % (Manual) Lymphocytes % (Manual) Basophils % (Manual) Seg Neutrophils # Seg Neutrophils # Man Lymphocytes # (Manual) Monocytes # (Manual) Basophils # (Manual) D-Dimer ABG pH ABG pO2 ABG HCO3 ABG O2 Saturation ABG Base Excess ABG Hemoglobin Oxyhemoglobin Sodium 146 H Chloride 116.8 H Carbon Dioxide 18 L BUN 38 H Creatinine 1.7 H Glucose 193 H POC Glucose Hemoglobin A1c 6.2 H Ammonia Total Creatine Kinase C-Reactive Protein Albumin 3.3 L Urine Creatinine 12/09/21 Unknown WBC RBC Hct Plt Count Lymph % (Auto) Gordon # (Auto) Seg Neutrophils % Seg Neuts % (Manual) Lymphocytes % (Manual) Basophils % (Manual) Seg Neutrophils # Seg Neutrophils # Man Lymphocytes # (Manual) Monocytes # (Manual) Basophils # (Manual) D-Dimer ABG pH ABG pO2 ABG HCO3 ABG O2 Saturation ABG Base Excess ABG Hemoglobin Oxyhemoglobin Sodium Chloride Carbon Dioxide BUN Creatinine Glucose POC Glucose Hemoglobin A1c Ammonia Total Creatine Kinase C-Reactive Protein Albumin Urine Creatinine 167.0 H
[2021-12-09] MEDS ORDERED: INSULIN GLARGINE 100 UNITS/ML SUB-Q SCH (22:00)
--- NOTE | 2021-12-09 22:06 | Cat Scan Report ---
CT CHEST WITHOUT CONTRAST INDICATION / CLINICAL INFORMATION: Evaluate lung parenchyma, suprahilar mass. TECHNIQUE: Axial CT images were obtained through the chest without contrast. All CT scans at this [facility] ation are performed using CT dose reduction for ALARA by means of automated exposure control. COMPARISON: One view of the chest performed today. FINDINGS: HEART: No significant abnormality. CORONARY ARTERY CALCIFICATION: Present -- Mild. THORACIC AORTA: No significant abnormality. MEDIASTINUM / MEJIA: There is expected positioning of a right internal jugular CVL, ET tube and esopha gogastric tube. No mass or significant adenopathy. PLEURA: No significant pleural effusion. No pneumothorax. LUNGS: No acute air space or interstitial disease. Mild atelectasis/scarring is seen along the right middle lobe and lingula. The lungs are otherwise clear. ADDITIONAL FINDINGS: None. UPPER ABDOMEN: No significant abnormality. SKELETAL SYSTEM: No acute findings. There is mild spondylosis. IMPRESSION: 1. No suprahilar mass or other acute findings. 2. Additional findings as above. Signer Name: Mihai Burgess MD Signed: 12/09/2021 10:02 PM Workstation Name: [id number]
[2021-12-09] MEDS: AMPICILLIN/NS 2 GM/100 ML 2 GM/100 ML BAG IV SCH (22:47)
[2021-12-09] MEDS: AZITHROMYCIN/NS 500 MG/250 ML 500 MG/250 ML BAG IV SCH (22:48)
[2021-12-10] MEDS: AMPICILLIN/NS 2 GM/100 ML 2 GM/100 ML BAG IV SCH ×5 (03:37→20:56)
[2021-12-10] MEDS: INSULIN REGULAR, HUMAN 100 UNITS/1 ML SUB-Q SCH ×4 (03:38→18:41)
--- NOTE | 2021-12-10 04:34 | XRay Report ---
CHEST 1 VIEW 12/10/2021 2:16 AM INDICATION / CLINICAL INFORMATION: follow up respiratory failure. COMPARISON: Previous day. FINDINGS: SUPPORT DEVICES: Unchanged. HEART / MEDIASTINUM: No significant abnormality. LUNGS / PLEURA: Interval improvement in lung volumes. No significant infiltrate. No pneumothorax. ADDITIONAL FINDINGS: No significant additional findings. IMPRESSION: Interval improvement in lung volumes. Signer Name: Gus Almodovar MD Signed: 12/10/2021 4:30 AM Workstation Name: [id number]
[2021-12-10 04:42] LABS: ABG Base Excess -4.7 mmol/L (-2.0-3.0); ABG HCO3 19.3 mmol/L (20.0-26.0); ABG Methemoglobin 0.6 % (0.0-1.5); ABG Oxygen Saturation 98.7 % (95.0-99.0); ABG PCO2 31.4 mm Hg; ABG PH 7.405 pH Units (7.350-7.450); ABG PO2 136.4 mm Hg (80.0-90.0)
[2021-12-10] MEDS: HEPARIN 5,000 UNIT/1 ML VIAL SUB-Q SCH ×3 (07:03→21:11)
[2021-12-10 07:08] LABS: Hematocrit 32.5 % (30.3-42.9); Hemoglobin 10.4 gm/dl (10.1-14.3); Mean Corpuscular HGB Conc 32 % (30-34); Mean Corpuscular Volume 87 fl (79-97); Platelet Count 267 K/mm3 (140-440); Red Blood Count 3.73 M/mm3 (3.65-5.03); Red Cell Distribution Width 15.1 % (13.2-15.2)
[2021-12-10 07:37] LABS: Calcium 8.8 mg/dL (8.4-10.2)
[2021-12-10] MEDS: FREE WATER PO SCH ×4 (10:00→21:57)
--- NOTE | 2021-12-10 10:52 | Progress Note ---
Assessment and Plan 1. Acute kidney injury: Likley vasomotor MAYRA in the setting of shock. ATN. Baseline renal function unknown. Renal US negative. Patient has austin catheter. Monitor renal function. Creatinine level improving. Avoid nephrotoxic agents. Meds dosage based on GFR. 2. FEN: Anion-gap metabolic acdosis, 2/2 MAYRA, IV fluids, monitor. Mild hypernatremia, on 06/04 NS. Replete lytes as needed. Monitor lytes and volume status. 4. Acute Hypoxemic Respiratory Failure / CAP: CXR reveals left suprahilar infiltration. Intubated in the ED on 12/07. Abx. Monitor. 5. Sepsis: Likley 2/2 CAP. Covid negative. Abx. Monitor. 6. Acute Metabolic Encephalopathy: Monitor. 7. Type 2 Diabetes Mellitus with Hyperglycemia: SSI and Lantus. Monitor. 8. Hypertension: Monitor BP. Adjust meds as needed. D/w ICU team. Subjective: Patient was seen and examined at the bedside. Examination: General appearance: well-developed, appears stated age, no distress, intubated, on vent HEENT: ATNC, no icterus Neck: trachea midline Respiratory: decreased breath sounds bilaterally Cardiology: regular, S1S2, no murmur Gastrointestinal: soft, normoactive bowel sounds, not tender Integumentary: no obvious rash Neurologic: not responding Ext: no edema : austin catheter Subjective Date of service: 12/10/21 Objective - Vital Signs Vital signs: Vital Signs - 12hr 12/09/21 12/09/21 12/09/21 23:00 23:11 23:21 Temperature Pulse Rate 90 90 89 Pulse Rate [ From Monitor] Respiratory 21 20 20 Rate Blood Pressure 140/68 140/68 140/68 O2 Sat by Pulse 100 100 100 Oximetry 12/09/21 12/09/21 12/09/21 23:31 23:41 23:51 Temperature Pulse Rate 88 86 85 Pulse Rate [ From Monitor] Respiratory 18 19 17 Rate Blood Pressure 140/68 140/68 140/68 O2 Sat by Pulse 100 100 100 Oximetry 12/10/21 12/10/21 12/10/21 00:00 00:01 00:11 Temperature 99.0 F Pulse Rate 89 80 78 Pulse Rate [ 89 From Monitor] Respiratory 20 16 16 Rate Blood Pressure 124/52 140/68 O2 Sat by Pulse 100 100 100 Oximetry 12/10/21 12/10/21 12/10/21 00:21 00:26 00:31 Temperature Pulse Rate 85 90 89 Pulse Rate [ From Monitor] Respiratory 13 20 Rate Blood Pressure 140/68 124/52 140/68 O2 Sat by Pulse 100 100 100 Oximetry 12/10/21 12/10/21 12/10/21 00:41 00:51 01:00 Temperature Pulse Rate 89 90 90 Pulse Rate [ From Monitor] Respiratory 19 18 19 Rate Blood Pressure 140/68 140/68 147/57 O2 Sat by Pulse 100 100 100 Oximetry 12/10/21 12/10/21 12/10/21 01:11 01:21 01:31 Temperature Pulse Rate 90 89 87 Pulse Rate [ From Monitor] Respiratory 17 17 17 Rate Blood Pressure 147/57 147/57 147/57 O2 Sat by Pulse 100 100 100 Oximetry 12/10/21 12/10/21 12/10/21 01:41 01:51 02:00 Temperature Pulse Rate 81 80 82 Pulse Rate [ From Monitor] Respiratory 16 16 16 Rate Blood Pressure 147/57 147/57 139/57 O2 Sat by Pulse 100 100 99 Oximetry 12/10/21 12/10/21 12/10/21 02:11 02:21 02:31 Temperature Pulse Rate 85 80 77 Pulse Rate [ From Monitor] Respiratory 14 16 16 Rate Blood Pressure 139/57 139/57 139/57 O2 Sat by Pulse 100 100 100 Oximetry 12/10/21 12/10/21 12/10/21 02:41 02:51 03:01 Temperature Pulse Rate 75 73 71 Pulse Rate [ From Monitor] Respiratory 16 16 16 Rate Blood Pressure 139/57 139/57 101/46 O2 Sat by Pulse 100 100 100 Oximetry 12/10/21 12/10/21 12/10/21 03:11 03:21 03:31 Temperature Pulse Rate 71 70 66 Pulse Rate [ From Monitor] Respiratory 16 16 16 Rate Blood Pressure 101/46 101/46 101/46 O2 Sat by Pulse 100 100 100 Oximetry 12/10/21 12/10/21 12/10/21 03:41 03:51 04:00 Temperature 99.0 F Pulse Rate 75 82 84 Pulse Rate [ 83 From Monitor] Respiratory 16 16 17 Rate Blood Pressure 101/46 101/46 138/54 O2 Sat by Pulse 99 100 100 Oximetry 12/10/21 12/10/21 12/10/21 04:11 04:20 04:21 Temperature Pulse Rate 84 83 89 Pulse Rate [ From Monitor] Respiratory 16 27 H Rate Blood Pressure 138/54 122/52 138/54 O2 Sat by Pulse 100 100 99 Oximetry 12/10/21 12/10/21 12/10/21 04:31 04:41 04:51 Temperature Pulse Rate 87 85 86 Pulse Rate [ From Monitor] Respiratory 19 15 16 Rate Blood Pressure 138/54 138/54 138/54 O2 Sat by Pulse 99 99 100 Oximetry 12/10/21 12/10/21 12/10/21 05:00 05:11 05:21 Temperature Pulse Rate 86 80 86 Pulse Rate [ From Monitor] Respiratory 16 16 16 Rate Blood Pressure 122/52 122/52 122/52 O2 Sat by Pulse 99 99 99 Oximetry 12/10/21 12/10/21 12/10/21 05:31 05:41 05:51 Temperature Pulse Rate 87 90 88 Pulse Rate [ From Monitor] Respiratory 18 18 17 Rate Blood Pressure 122/52 122/52 122/52 O2 Sat by Pulse 100 100 100 Oximetry 12/10/21 12/10/21 12/10/21 06:00 06:11 06:21 Temperature Pulse Rate 87 86 87 Pulse Rate [ From Monitor] Respiratory 17 17 20 Rate Blood Pressure 139/59 139/59 139/59 O2 Sat by Pulse 100 100 100 Oximetry 12/10/21 12/10/21 12/10/21 06:31 06:41 06:51 Temperature Pulse Rate 80 76 82 Pulse Rate [ From Monitor] Respiratory 16 16 14 Rate Blood Pressure 139/59 139/59 139/59 O2 Sat by Pulse 100 100 100 Oximetry 12/10/21 12/10/21 12/10/21 07:00 07:09 07:11 Temperature 98.7 F Pulse Rate 82 84 Pulse Rate [ From Monitor] Respiratory 14 16 Rate Blood Pressure 131/59 131/59 O2 Sat by Pulse 100 100 Oximetry 12/10/21 12/10/21 12/10/21 07:20 07:31 07:41 Temperature Pulse Rate 84 85 85 Pulse Rate [ From Monitor] Respiratory 17 17 18 Rate Blood Pressure 131/59 131/59 O2 Sat by Pulse 100 100 100 Oximetry 12/10/21 12/10/21 12/10/21 07:51 08:00 08:03 Temperature Pulse Rate 83 85 101 H Pulse Rate [ 101 H From Monitor] Respiratory 17 17 14 Rate Blood Pressure 131/59 146/62 O2 Sat by Pulse 100 100 99 Oximetry 12/10/21 12/10/21 12/10/21 08:11 08:21 08:31 Temperature Pulse Rate 91 H 86 87 Pulse Rate [ From Monitor] Respiratory 24 19 17 Rate Blood Pressure 146/62 146/62 146/62 O2 Sat by Pulse 100 100 100 Oximetry 12/10/21 12/10/21 12/10/21 08:41 08:51 09:01 Temperature Pulse Rate 87 88 84 Pulse Rate [ From Monitor] Respiratory 18 20 18 Rate Blood Pressure 146/62 146/62 141/74 O2 Sat by Pulse 100 100 100 Oximetry 12/10/21 12/10/21 12/10/21 09:11 09:21 09:27 Temperature Pulse Rate 84 84 82 Pulse Rate [ From Monitor] Respiratory 17 16 Rate Blood Pressure 141/74 141/74 141/74 O2 Sat by Pulse 100 100 100 Oximetry 12/10/21 09:31 Temperature Pulse Rate 86 Pulse Rate [ From Monitor] Respiratory 21 Rate Blood Pressure 141/74 O2 Sat by Pulse 100 Oximetry - Lab 12/10/21 05:49 12/10/21 06:03 Most recent lab results ABG pH 7.405 pH Units (7.350-7.450) 12/10/21 04:20 ABG pCO2 31.4 mm Hg 12/10/21 04:20 ABG pO2 136.4 mm Hg (80.0-90.0) H 12/10/21 04:20 ABG HCO3 19.3 mmol/L (20.0-26.0) L 12/10/21 04:20 ABG O2 Saturation 98.7 % (95.0-99.0) 12/10/21 04:20 Calcium 8.8 mg/dL (8.4-10.2) 12/10/21 06:03 Urine Creatinine 167.0 mg/dL (0.1-20.0) H 12/09/21 Unknown Urine Sodium 10 mmol/L 12/09/21 Unknown Medications & Allergies - Medications Allergies/Adverse Reactions: Allergies No Known Allergies Allergy (Verified 12/07/21 15:05) Home Medications: Home Medications Medication Instructions Recorded Confirmed Last Taken Type AtorvaSTATin [Lipitor] 10 mg PO QHS 12/07/21 12/07/21 Unknown History Furosemide [Lasix] 40 mg PO BID 12/07/21 12/07/21 Unknown History Gabapentin [Neurontin] 300 mg PO BID 12/07/21 12/07/21 Unknown History Loratadine 10 mg PO QDAY 12/07/21 12/07/21 Unknown History Omeprazole 20 mg PO QDAY 12/07/21 12/07/21 Unknown History PARoxetine [Paxil] 20 mg PO DAILY 12/07/21 12/07/21 Unknown History Sitagliptin Phosphate [Januvia] 50 mg PO QDAY 12/07/21 12/07/21 Unknown History amLODIPine [Norvasc] 10 mg PO DAILY 12/07/21 12/07/21 Unknown History hydrALAZINE [Apresoline TAB] 100 mg PO TID 12/07/21 12/07/21 Unknown History lisinopriL [Zestril TAB] 40 mg PO QDAY 12/07/21 12/07/21 Unknown History Active Medications: Generic Name Dose Route Start Last Admin Trade Name Freq PRN Reason Stop Dose Admin Acetaminophen 650 mg 12/07/21 19:13 Acetaminophen 650 Mg Rect Supp LA Q6H PRN Pain MILD(1-3)/Fever >100.5/[place] Acetaminophen 650 mg 12/07/21 19:17 Acetaminophen 325 Mg Tab PO Q6H PRN Pain MILD(1-3)/Fever >100.5/[place] Albuterol 2.5 mg 12/07/21 19:13 12/08/21 04:32 Albuterol 2.5 Mg/3 Ml Nebu IH 2.5 mg Q3HRT PRN Administration Shortness Of Breath Amlodipine Besylate 5 mg 12/08/21 15:16 12/09/21 09:10 Amlodipine 10 Mg Tab PO 5 mg DAILY [place] Administration Atorvastatin Calcium 10 mg 12/07/21 22:00 12/09/21 22:46 Atorvastatin 10 Mg Tab PO 10 mg QHS [place] Administration Dextrose 0 ml 12/07/21 19:55 Dextrose 50% In Water (25gm) 50 Ml Syringe IV Q30MIN PRN Hypoglycemia Protocol Heparin Sodium (Porcine) 5,000 unit 12/08/21 14:00 12/10/21 07:03 Heparin 5,000 Unit/1 Ml Vial SUB-Q 5,000 unit Q8HR [place] Administration Hydrophilic Ointment 1 applic 12/08/21 10:00 Lip Therapy Vaseline TP Q2HR PRN Dry Lips Azithromycin 500 mg in 250 mls @ 250 mls/hr 12/07/21 20:00 12/09/21 22:48 Zithromax/Ns IV 12/11/21 20:59 250 mls/hr Q24H [place] Administration Protocol Cefepime HCl 2 gm in 100 mls @ 200 mls/hr 12/08/21 12:00 12/09/21 22:47 Cefepime/Ns 2 Gm/100 Ml IV 100 mls/hr Q12HR [place] Administration Protocol Ampicillin Sodium 2 gm in 100 mls @ 100 mls/hr 12/09/21 21:00 12/10/21 03:37 Ampicillin/Ns 2 Gm/100 Ml IV 12/11/21 15:59 100 mls/hr Q6H [place] Administration Protocol Insulin Glargine 20 units 12/10/21 07:52 Insulin Glargine 100 Units/Ml SUB-Q QHS [place] Insulin Human Regular 0 units 12/09/21 12:00 12/10/21 07:03 Insulin Regular, Human 100 Units/1 Ml SUB-Q 4 units Q6H [place] Administration Protocol Lansoprazole 30 mg 12/08/21 10:00 12/09/21 09:10 Lansoprazole 30 Mg Solutab FEEDTUBE 30 mg QDAY [place] Administration Lisinopril 20 mg 12/08/21 15:16 12/09/21 09:09 Lisinopril 40 Mg Tab PO 20 mg QDAY [place] Administration Multi-Ingred Cream/Lotion/Oil/Oint 1 applic 12/08/21 10:00 Mineral Oil/Petrolatum, White Ophth Oint 3.5 Gm OU Q4HR PRN Dry Eye(s) Oxycodone/Acetaminophen 1 tab 12/07/21 19:17 Oxycodone /Acetaminophen 5-325mg Tab PO Q6H PRN Pain, Moderate (4-6) Senna/Docusate Sodium 1 tab 12/08/21 10:00 12/09/21 22:46 Sennosides/Docusate Sodium 8.6/50 Mg Tab FEEDTUBE 1 tab BID [place] Administration Sodium Chloride 10 ml 12/07/21 22:00 12/09/21 09:11 Sodium Chloride 0.9% 10 Ml Flush Syringe IV Not Given BID [place] Sodium Chloride 10 ml 12/07/21 22:00 12/09/21 09:11 Sodium Chloride 0.9% 10 Ml Flush Syringe IV 10 ml BID [place] Administration Sodium Chloride 10 ml 12/07/21 19:17 12/09/21 05:54 Sodium Chloride 0.9% 10 Ml Flush Syringe IV 10 ml PRN PRN Administration LINE FLUSH
--- NOTE | 2021-12-10 11:20 | Progress Note ---
Assessment and Plan Assessment and plan: This is a 65-year-old female with known past medical history of obesity, HTN, DM complicated by neuropathy, GERD, MDD, iron deficiency anemia, and HLD admitted for acute hypoxic respiratory failure 2/2 pneumonia requiring ventilatory support. Hospital Course to Date: 12/08: Intubated and unresponsive, not on any sedation. Patient remains febrile with worsen leukocytosis this am, repeat CXR noted with significant improvement. COVID PCR and cultures pending, continue current epiric IV Abx, ID consulted. Continue gentle IVF hydration for MAYRA and Nephro is consulted. SSI adjusted and Lantus added for hyperglycemia. 12/09: Patient remains unresponsive on the vent. VSS. Will check a UDS and EEG. Neurology consulted. Remains with low grade fevers, Leukocytosis improvimg, B.cu ltures pending. Continue current IV Abx per ID, orders also placed for LP r/o meningitis, and Ampicillin added . FWF added for Hypernatremia, continue to monitor renal function, Nephrology is also following 12/10: Remains unresponsive. UDS negative. EEG and Neurology consult pending. D/w CCM, prophylaxis treatment for seizures initiated- IV Ativan and IV Keppra. Preliminary Blood culture result is positive GPC with clusters in 2 out 4 bottles. 2D echo noted with no evidence of vegetation. Repeat B.cultures ordered, continue current IV ABx. ID is also following. Possible LP tomorrow. FWF increased for hypernatremia. Continue to monitor electrolytes. #Acute Hypoxic Respiratory Failure #Community Acquied Pneumonia(CAP) - CXR reveals left suprahilar consolidation/mass. suspected PNA. see report for full detail - Intubated in the ED on 12/07 - Vent setting: PRVC-28%,6,16,450 - Repeat CXR this am with significant improvement - AM ABG noted - CCM consulted, appreciate recommendations - Continue IV Abx and Nebs per CCM - VAP bundle addressed - Aspiration precaution HOB above 30 - Daily ABG and CXR - Continue SPO2 monitoring for SPO2 goal above 92% #Sepsis #Bacteremia #Community Acquied Pneumonia(CAP) #Leukocytosis-improved - CXR reveals left suprahilar consolidation/mass. suspected PNA. see report for full detail - afebrile today, WBCs improved - COVID PCR negative - Preliminary Blood culture result is positive GPC with clusters in 2 out 4 bottles. - 2D echo noted with no evidence of vegetation. - Repeat B.cultures ordered - ID consulted, appreciated recommendations - Continue current empiric IV Abx per ID: Vanco, Cefepine, and Azithro - LP to r/o meningitis pending. Ampicillin added - F/U on cultures - Daily CBC monitor #Acute Metabolic Encephalopathy - Found unresponsive at home - Etiology unknown. Probably secondary to infectious process - Remains unresponsive, not on any sedations - CT head/brain noted with no significant abnormality - UDS negative - EEG and Neurology consulted pending - LP to r/o meningitis pending - D/w CCM, prophylaxis treatment for seizures initiated- IV Ativan and IV Keppra. - Avoid sedative agents - PRN Analgesia for pain CPOT greater than 3 #Acute kidney injury (MAYRA) probably Vasomotor Nephropathy #Hypernatremia - probably due to dehydration - Baseline creatine is unknown - Renal function is improving post IVF hydration - Nephrology on consult, appreciated recommendation - FWF added for hypernatremia - Strict intake and output - Avoid nephrotoxic medications; Renally dose medications - Marcelino in place - Monitor and replace electrolytes as needed #Hypertension #Hyperlipidemia - BP stable this morning - Home meds resumed - Continue blood pressure monitor per protocol - Maintain SBP less than 160 #Type 2 Diabetes Mellitus with Hyperglycemia - Presented with a BG in the 300s - Hgb 6.2 - Continue BG and SSI Q6hrs - Lantus adjusted - While critically ill target blood glucose of 140-180 #GI/DVT Prophylaxis - PPI- Lansoprazole - Heparin SubQ - SCD to bilateral lower extremities while in bed #Advance Care Planning - Disease education data, care plan, diagnoses, and prognosis were discussed with patient's son, Hira Garcia, at the bedside. All questions and concerns were addressed at this time. Patient is a FULL code. Patient's acknowledged understanding and agreement with current care plan. The high probability of a clinically significant, sudden or life threatening deterioration of the [multiple] system(s) required my full and direct attention, intervention and personal management. The aggregate critical care time was [60] minutes. This time is in addition to time spent performing reported procedures but includes the following: [x] Data Review and interpretation [x] Patient assessment and monitoring of vital signs [x] Documentation [x] Medication orders and management Disposition Plan: ICU Total Time Spent with Patient (Minutes): 60 History Interval history: Patient seen and examined at the bedside. Remains on the vent and unresponsive, not on any sedation. Pupils are round and reactive with +gag/cough. VSS. JOLIE overnight Hospitalist Physical - Physical exam Narrative exam: General appearance: Present: no acute distress, obese, other (Intubated and unresponsive, not on any sedation) - EENT Eyes: Present: PERRL - Respiratory Respiratory effort: normal Respiratory: bilateral: rhonchi - Cardiovascular Rhythm: regular Heart Sounds: Present: S1 & S2 - Extremities Extremities: no ischemia, pulses intact, pulses symmetrical Extremity abnormal: edema - Peripheral Assessment Bilateral Upper Extremity Edema Type: Non-pitting Edema Degree: 2+ Capillary Refill: < 3 seconds Skin Temperature: Warm Generalized Edema Type: Non-pitting Edema Degree: 1+ Capillary Refill: < 3 seconds Skin Temperature: Warm Peripheral Pulses: within normal limits - Abdominal General gastrointestinal: soft, non-distended, normal bowel sounds - Integumentary Integumentary: Present: warm, dry - Psychiatric Psychiatric: other (Intubated and unresponsive, not on any sedation) - Neurologic Neurologic: other (Intubated and unresponsive, not on any sedation) - Allied Health Allied health notes reviewed: nursing, case management - Constitutional Vitals: Temp Pulse Resp BP Pulse Ox 98.7 F 86 21 141/74 100 12/10/21 07:09 12/10/21 09:31 12/10/21 09:31 12/10/21 09:31 12/10/21 09:31 Results - Labs CBC & Chem 7: 12/10/21 05:49 12/10/21 06:03 Labs: Laboratory Last Values WBC 13.0 K/mm3 (4.5-11.0) H 12/10/21 05:49 RBC 3.73 M/mm3 (3.65-5.03) 12/10/21 05:49 Hgb 10.4 gm/dl (10.1-14.3) 12/10/21 05:49 Hct 32.5 % (30.3-42.9) 12/10/21 05:49 MCV 87 fl (79-97) 12/10/21 05:49 MCH 28 pg (28-32) 12/10/21 05:49 MCHC 32 % (30-34) 12/10/21 05:49 RDW 15.1 % (13.2-15.2) 12/10/21 05:49 Plt Count 267 K/mm3 (140-440) 12/10/21 05:49 Lymph % (Auto) 9.3 % (13.4-35.0) L 12/07/21 15:55 [place] % (Auto) 5.6 % (0.0-7.3) 12/07/21 15:55 Eos % (Auto) 0.0 % (0.0-4.3) 12/07/21 15:55 Baso % (Auto) 0.5 % (0.0-1.8) 12/07/21 15:55 Lymph # (Auto) 1.6 K/mm3 (1.2-5.4) 12/07/21 15:55 [place] # (Auto) 0.9 K/mm3 (0.0-0.8) H 12/07/21 15:55 Eos # (Auto) 0.0 K/mm3 (0.0-0.4) 12/07/21 15:55 Baso # (Auto) 0.1 K/mm3 (0.0-0.1) 12/07/21 15:55 Add Manual Diff Complete 12/08/21 04:00 Total Counted 100 12/08/21 04:00 Seg Neutrophils % Video Surveillance Technician 12/08/21 04:00 Seg Neuts % (Manual) 92.0 % (40.0-70.0) H 12/08/21 04:00 Band Neutrophils % 0 % 12/08/21 04:00 Lymphocytes % (Manual) 1.0 % (13.4-35.0) L 12/08/21 04:00 Reactive Lymphs % (Man) 0 % 12/08/21 04:00 Monocytes % (Manual) 5.0 % (0.0-7.3) 12/08/21 04:00 Eosinophils % (Manual) 0 % (0.0-4.3) 12/08/21 04:00 Basophils % (Manual) 2.0 % (0.0-1.8) H 12/08/21 04:00 Metamyelocytes % 0 % 12/08/21 04:00 Myelocytes % 0 % 12/08/21 04:00 Promyelocytes % 0 % 12/08/21 04:00 Blast Cells % 0 % 12/08/21 04:00 Nucleated RBC % Not Reportable 12/08/21 04:00 Seg Neutrophils # 14.3 K/mm3 (1.8-7.7) H 12/07/21 15:55 Seg Neutrophils # Man 18.8 K/mm3 (1.8-7.7) H 12/08/21 04:00 Band Neutrophils # 0.0 K/mm3 12/08/21 04:00 Lymphocytes # (Manual) 0.2 K/mm3 (1.2-5.4) L 12/08/21 04:00 Abs React Lymphs (Man) 0.0 K/mm3 12/08/21 04:00 Monocytes # (Manual) 1.0 K/mm3 (0.0-0.8) H 12/08/21 04:00 Eosinophils # (Manual) 0.0 K/mm3 (0.0-0.4) 12/08/21 04:00 Basophils # (Manual) 0.4 K/mm3 (0.0-0.1) H 12/08/21 04:00 Metamyelocytes # 0.0 K/mm3 12/08/21 04:00 Myelocytes # 0.0 K/mm3 12/08/21 04:00 Promyelocytes # 0.0 K/mm3 12/08/21 04:00 Blast Cells # 0.0 K/mm3 12/08/21 04:00 WBC Morphology Not Reportable 12/08/21 04:00 Hypersegmented Neuts Not Reportable 12/08/21 04:00 Hyposegmented Neuts Not Reportable 12/08/21 04:00 Hypogranular Neuts Not Reportable 12/08/21 04:00 Smudge Cells Not Reportable 12/08/21 04:00 Toxic Granulation Not Reportable 12/08/21 04:00 Toxic Vacuolation Not Reportable 12/08/21 04:00 Dohle Bodies Not Reportable 12/08/21 04:00 Pelger-Huet Anomaly Not Reportable 12/08/21 04:00 Ulises Rods Not Reportable 12/08/21 04:00 Platelet Estimate Consistent w auto 12/08/21 04:00 Clumped Platelets Not Reportable 12/08/21 04:00 Plt Clumps, EDTA Not Reportable 12/08/21 04:00 Large Platelets Not Reportable 12/08/21 04:00 Giant Platelets Not Reportable 12/08/21 04:00 Platelet Satelliting Not Reportable 12/08/21 04:00 Plt Morphology Comment Not Reportable 12/08/21 04:00 RBC Morphology Normal 12/08/21 04:00 Dimorphic RBCs Not Reportable 12/08/21 04:00 Polychromasia Not Reportable 12/08/21 04:00 Hypochromasia Not Reportable 12/08/21 04:00 Poikilocytosis Not Reportable 12/08/21 04:00 Anisocytosis Not Reportable 12/08/21 04:00 Microcytosis Not Reportable 12/08/21 04:00 Macrocytosis Not Reportable 12/08/21 04:00 Spherocytes Not Reportable 12/08/21 04:00 Pappenheimer Bodies Not Reportable 12/08/21 04:00 Sickle Cells Not Reportable 12/08/21 04:00 Target Cells Not Reportable 12/08/21 04:00 Tear Drop Cells Not Reportable 12/08/21 04:00 Ovalocytes Not Reportable 12/08/21 04:00 Helmet Cells Not Reportable 12/08/21 04:00 [place] Bodies Not Reportable 12/08/21 04:00 Acme Rings Not Reportable 12/08/21 04:00 Violette Cells Not Reportable 12/08/21 04:00 Bite Cells Not Reportable 12/08/21 04:00 Crenated Cell Not Reportable 12/08/21 04:00 Elliptocytes Not Reportable 12/08/21 04:00 Acanthocytes (Spur) Not Reportable 12/08/21 04:00 Rouleaux Not Reportable 12/08/21 04:00 Hemoglobin C Crystals Not Reportable 12/08/21 04:00 Schistocytes Not Reportable 12/08/21 04:00 Malaria parasites Not Reportable 12/08/21 04:00 [place] Bodies Not Reportable 12/08/21 04:00 Hem Pathologist Commnt No 12/08/21 04:00 D-Dimer 3277.12 ng/mlDDU (0-234) H 12/08/21 08:21 ABG pH 7.405 pH Units (7.350-7.450) 12/10/21 04:20 ABG pCO2 31.4 mm Hg 12/10/21 04:20 ABG pO2 136.4 mm Hg (80.0-90.0) H 12/10/21 04:20 ABG HCO3 19.3 mmol/L (20.0-26.0) L 12/10/21 04:20 ABG O2 Saturation 98.7 % (95.0-99.0) 12/10/21 04:20 ABG O2 Content 14.0 (0.0-44) 12/10/21 04:20 ABG Base Excess -4.7 mmol/L (-2.0-3.0) L 12/10/21 04:20 ABG Hemoglobin 10.1 gm/dl (12.0-16.0) L 12/10/21 04:20 ABG Carboxyhemoglobin 1.0 % (0.0-5.0) 12/10/21 04:20 ABG Methemoglobin 0.6 % (0.0-1.5) 12/10/21 04:20 Oxyhemoglobin 97.2 % (95.0-99.0) 12/10/21 04:20 FiO2 28 % 12/10/21 04:20 Sodium 147 mmol/L (137-145) H 12/10/21 06:03 Potassium 4.8 mmol/L (3.6-5.0) 12/10/21 06:03 Chloride 118.1 mmol/L (98-107) H 12/10/21 06:03 Carbon Dioxide 18 mmol/L (22-30) L 12/10/21 06:03 Anion Gap 16 mmol/L 12/10/21 06:03 BUN 37 mg/dL (7-17) H 12/10/21 06:03 Creatinine 1.5 mg/dL (0.6-1.2) H 12/10/21 06:03 Estimated GFR 35 ml/min 12/10/21 06:03 BUN/Creatinine Ratio 25 % 12/10/21 06:03 Glucose 229 mg/dL (65-100) H 12/10/21 06:03 POC Glucose 186 mg/dL (70-105) H 12/10/21 00:18 Hemoglobin A1c 6.2 % (4-6) H 12/09/21 04:32 Lactic Acid 1.70 mmol/L (0.7-2.0) 12/08/21 Unknown Calcium 8.8 mg/dL (8.4-10.2) 12/10/21 06:03 Ferritin 162.1 ng/mL (10.0-200.0) 12/08/21 08:21 Total Bilirubin 0.20 mg/dL (0.1-1.2) 12/09/21 04:32 AST 18 units/L (5-40) 12/09/21 04:32 ALT 9 units/L (7-56) 12/09/21 04:32 Alkaline Phosphatase 69 units/L (35-129) 12/09/21 04:32 Ammonia 23.0 umol/L (25-60) L 12/07/21 15:55 Lactate Dehydrogenase 129 units/L (91-180) 12/08/21 08:21 Total Creatine Kinase 287 units/L (30-135) H 12/08/21 04:00 C-Reactive Protein 6.20 mg/dL (0.00-1.30) H 12/08/21 08:21 Total Protein 6.8 g/dL (6.3-8.2) 12/09/21 04:32 Albumin 3.3 g/dL (3.9-5) L 12/09/21 04:32 Albumin/Globulin Ratio 0.9 % 12/09/21 04:32 PTH Intact 41.40 pg/mL (15-65) 12/10/21 05:49 Urine Color Yellow (Yellow) 12/07/21 17:21 Urine Turbidity Clear (Clear) 12/07/21 17:21 Urine pH 6.0 (5.0-7.0) 12/07/21 17:21 Ur Specific [place] 1.015 (1.003-1.030) 12/07/21 17:21 Urine Protein 30 mg/dl mg/dL (Negative) 12/07/21 17:21 Urine Glucose (UA) Negative mg/dL (Negative) 12/07/21 17:21 Urine Ketones 40 mg/dL (Negative) 12/07/21 17:21 Urine Blood Negative (Negative) 12/07/21 17:21 Urine Nitrite Negative (Negative) 12/07/21 17:21 Ur Reducing Substances Not Reportable 12/07/21 17:21 Urine Bilirubin Moderate (Negative) 12/07/21 17:21 Urine Ictotest Negative (Negative) 12/07/21 17:21 Urine Urobilinogen 0.0 mg/dL (<2.0) 12/07/21 17:21 Ur Leukocyte Esterase Negative (Negative) 12/07/21 17:21 Urine WBC (Auto) 1.0 /HPF (0.0-6.0) 12/07/21 17:21 Urine RBC (Auto) 1.0 /HPF (0.0-6.0) 12/07/21 17:21 U Epithel Cells (Auto) 4.0 /HPF (0-13.0) 12/07/21 17:21 Hyaline Casts 4 /LPF 12/07/21 17:21 Urine Mucus Few /HPF 12/07/21 17:21 Urine Creatinine 167.0 mg/dL (0.1-20.0) H 12/09/21 Unknown Urine Sodium 10 mmol/L 12/09/21 Unknown Nasal Screen MRSA (PCR) Positive (Negative) 12/08/21 12:30 Vancomycin Trough 11.4 ug/mL (5.0-20.0) 12/10/21 05:49 Urine Opiates Screen Negative 12/09/21 Unknown Urine Methadone Screen Negative 12/09/21 Unknown Ur Barbiturates Screen Negative 12/09/21 Unknown Ur Phencyclidine Scrn Negative 12/09/21 Unknown Ur Amphetamines Screen Negative 12/09/21 Unknown U Benzodiazepines Scrn Negative 12/09/21 Unknown Urine Cocaine Screen Negative 12/09/21 Unknown U Marijuana (THC) Screen Negative 12/09/21 Unknown Drugs of Abuse Note Disclamer 12/09/21 Unknown Plasma/Serum Alcohol < 0.01 % (0-0.07) 12/07/21 19:03 Coronavirus (PCR) Negative (Negative) 12/08/21 08:11 Blood Type AB POSITIVE 12/07/21 22:45 Antibody Screen Negative 12/07/21 22:45 Microbiology: Microbiology 12/07/21 22:45 Peripheral/Venous Blood Culture - Preliminary Marcelino/IV: Voiding Method Indwelling Catheter Active Medications - Current Medications Current Medications: Generic Name Dose Route Start Last Admin Trade Name Freq PRN Reason Stop Dose Admin Acetaminophen 650 mg 12/07/21 19:13 Acetaminophen 650 Mg Rect Supp WA Q6H PRN Pain MILD(1-3)/Fever >100.5/COTTON Acetaminophen 650 mg 12/07/21 19:17 Acetaminophen 325 Mg Tab PO Q6H PRN Pain MILD(1-3)/Fever >100.5/COTTON Albuterol 2.5 mg 12/07/21 19:13 12/08/21 04:32 Albuterol 2.5 Mg/3 Ml Nebu IH 2.5 mg Q3HRT PRN Administration Shortness Of Breath Amlodipine Besylate 5 mg 12/08/21 15:16 12/09/21 09:10 Amlodipine 10 Mg Tab PO 5 mg DAILY [place]STER Administration Atorvastatin Calcium 10 mg 12/07/21 22:00 12/09/21 22:46 Atorvastatin 10 Mg Tab PO 10 mg QHS CHE[place] Administration Dextrose 0 ml 12/07/21 19:55 Dextrose 50% In Water (25gm) 50 Ml Syringe IV Q30MIN PRN Hypoglycemia Protocol Heparin Sodium (Porcine) 5,000 unit 12/08/21 14:00 12/10/21 07:03 Heparin 5,000 Unit/1 Ml Vial SUB-Q 5,000 unit Q8HR CHESTER Administration Hydrophilic Ointment 1 applic 12/08/21 10:00 Lip Therapy Vaseline TP Q2HR PRN Dry Lips Azithromycin 500 mg in 250 mls @ 250 mls/hr 12/07/21 20:00 12/09/21 22:48 Zithromax/Ns IV 12/11/21 20:59 250 mls/hr Q24H [place] Administration Protocol Cefepime HCl 2 gm in 100 mls @ 200 mls/hr 12/08/21 12:00 12/09/21 22:47 Cefepime/Ns 2 Gm/100 Ml IV 100 mls/hr Q12HR [place] Administration Protocol Ampicillin Sodium 2 gm in 100 mls @ 100 mls/hr 12/09/21 21:00 12/10/21 03:37 Ampicillin/Ns 2 Gm/100 Ml IV 12/11/21 15:59 100 mls/hr Q6H [place] Administration Protocol Vancomycin HCl 1,250 mg/ 275 mls @ 166.667 mls/hr 12/10/21 12:00 Sodium Chloride IV Q24H [facility] Insulin Glargine 20 units 12/10/21 07:52 Insulin Glargine 100 Units/Ml SUB-Q QHS [facility] Insulin Human Regular 0 units 12/09/21 12:00 12/10/21 07:03 Insulin Regular, Human 100 Units/1 Ml SUB-Q 4 units Q6H [place] Administration Protocol Lansoprazole 30 mg 12/08/21 10:00 12/09/21 09:10 Lansoprazole 30 Mg Solutab FEEDTUBE 30 mg QDAY [place] Administration Lisinopril 20 mg 12/08/21 15:16 12/09/21 09:09 Lisinopril 40 Mg Tab PO 20 mg QDAY [place] Administration Multi-Ingred Cream/Lotion/Oil/Oint 1 applic 12/08/21 10:00 Mineral Oil/Petrolatum, White Ophth Oint 3.5 Gm OU Q4HR PRN Dry Eye(s) Oxycodone/Acetaminophen 1 tab 12/07/21 19:17 Oxycodone /Acetaminophen 5-325mg Tab PO Q6H PRN Pain, Moderate (4-6) Senna/Docusate Sodium 1 tab 12/08/21 10:00 12/09/21 22:46 Sennosides/Docusate Sodium 8.6/50 Mg Tab FEEDTUBE 1 tab BID CHESTER Administration Sodium Chloride 10 ml 12/07/21 22:00 12/09/21 09:11 Sodium Chloride 0.9% 10 Ml Flush Syringe IV Not Given BID [place] Sodium Chloride 10 ml 12/07/21 22:00 12/09/21 09:11 Sodium Chloride 0.9% 10 Ml Flush Syringe IV 10 ml BID [place] Administration Sodium Chloride 10 ml 12/07/21 19:17 12/09/21 05:54 Sodium Chloride 0.9% 10 Ml Flush Syringe IV 10 ml PRN PRN Administration LINE FLUSH Nutrition/Malnutrition Assess - Dietary Evaluation Nutrition/Malnutrition Findings: Nutrition Notes Start: 12/08/21 11:03 Freq: Status: Active Protocol: Document 12/09/21 10:57 TUCKER (Rec: 12/09/21 10:59 TUCKER [id number]) Nutrition Notes Initial or Follow up Brief Note Current Diet Glucerna 1.2 at 45ml/hr Subjective/Other Information Per RN, TF infusing at 35ml/hr at this time and will be at goal rate by 15:00 today. Pt remains on vent support. Nutrition Intervention Follow-Up By: 12/11/21 Additional Comments F/U: TF goal rate/tolerance, vent status
[2021-12-10] MEDS: VANCOMYCIN 1,250 MG in SODIUM CHLORIDE 0.9% 250ML 250 ML IV SCH (12:45)
[2021-12-10] MEDS ORDERED: LORazepam 2 MG/ML VIAL IV ONE (14:29)
[2021-12-10] MEDS ORDERED: levETIRAcetam 1,000 MG in DEXTROSE 5% IN WATER 100 ML IV ONE (14:34)
[2021-12-10] MEDS: SENNOSIDES/DOCUSATE SODIUM 8.6/50 MG TAB FEEDTUBE SCH ×2 (15:19→21:11)
[2021-12-10] MEDS: CEFEPIME/NS 2 GM/100 ML 2 GM/100 ML BAG IV SCH ×2 (15:23→22:33)
[2021-12-10] MEDS: amLODIPine 10 MG TAB PO SCH (15:24)
[2021-12-10] MEDS: LANSOPRAZOLE 30 MG SOLUTAB FEEDTUBE SCH (15:24)
[2021-12-10] MEDS: LISINOPRIL 40 MG TAB PO SCH (15:27)
[2021-12-10] MEDS: ALBUTEROL 2.5 MG/3 ML NEBU IH PRN ×2 (15:56→23:44)
--- NOTE | 2021-12-10 17:39 | Progress Note ---
Assessment and Plan Acute Hypoxic Respiratory Failure on MVS intubated 12/07 Community Acquied Pneumonia(CAP) Sepsis/Leukocytosis Acute Metabolic Encephalopathy Acute kidney injury (MAYRA) probably Vasomotor Nephropathy Hypernatremia h/o Hypertension h/o Hyperlipidemia h/o Type 2 Diabetes Mellitus with Hyperglycemia Patient remains unresponsive and is not waking up. CT head was negative. EEG and Neurology consult pending Empirically added Ampicillin yesterday fro possible meningitis, LP ordered Start empiric treatment for seizures- possible non convulsive status Free water flushes for hypernatremia -Daily assessment for readiness to wean. -Vent setting: PRVC-45%,6,16,450 -Titrate supplemental oxygen to keep SpO2 89-92% -Lung protective strategies -VAP bundle addressed, Aspiration precautions HOB >40 -CXR, ABG as clinically indicated -Monitoring renal function, hemodynamics and electrolyte profile -Avoid nephrotoxins and renally dose all medications. Renal function slowly improving -Replete electrolytes as clinically indicated -Empiric antibiotics therapy per ID( Vanc, Cefepime) -Accuchecks with glycemic control; target blood glucose 140-180 mg/dL. Avoid hypoglycemia -Enteric nutritional support -VTE prophylaxis- Heparin -Stress ulcer prophylaxis- Lansoprazole -Mobility, frequent turning, off loading per facility protocol to prevent pressure ulcers -Maintain sleep wake cycle -Supportive transfusions as clinically indicated to keep HgB >7g/dL CONDITION:CRITICAL PROGNOSIS: GUARDED CODE STATUS: FULL CODE The high probability of a clinically significant, sudden or life threatening deterioration of the respiratory, cardiovascular, neurology system required my full and direct attention, intervention and personal management. The aggregate critical care time was [35] minutes. This time is in addition to time spent performing reported procedures but includes the following: [x] Data Review and interpretation [x] Patient assessment and monitoring of vital signs [x] Documentation [x] Medication orders and management Subjective Date of service: 12/10/21 Interval history: Seen and examined. Vitals, labs, medications, chart reviewed. Discussed with nursing and respiratory care staff. No adverse events reported overnight. No fevers, no diarrhea, no vomiting. Remains unresponsive. UDS negative. EEG and Neurology consult pending. Preliminary Blood culture result is positive GPC with clusters in 2 out 4 bottles. On MVS; PEEP +6/40% No drips Objective - Exam Narrative Exam: General appearance: Present: no acute distress, obese, other (Intubated and unresponsive, not on any sedation) - EENT Eyes: Present: PERRL - Respiratory Respiratory effort: normal Respiratory: bilateral: rhonchi - Cardiovascular Rhythm: regular Heart Sounds: Present: S1 & S2 - Extremities Extremities: no ischemia, pulses intact, pulses symmetrical Extremity abnormal: edema - Peripheral Assessment Bilateral Upper Extremity Edema Type: Non-pitting Edema Degree: 2+ Capillary Refill: < 3 seconds Skin Temperature: Warm Generalized Edema Type: Non-pitting Edema Degree: 1+ Capillary Refill: < 3 seconds Skin Temperature: Warm Peripheral Pulses: within normal limits - Abdominal General gastrointestinal: soft, non-distended, normal bowel sounds - Integumentary Integumentary: Present: warm, dry - Psychiatric Psychiatric: other (Intubated and unresponsive, not on any sedation) - Neurologic Neurologic: other (Intubated and unresponsive, not on any sedation) - Allied Health Allied health notes reviewed:respiratory care Vital Signs - 12hr 12/10/21 12/10/21 12/10/21 05:41 05:51 06:00 Temperature Pulse Rate 90 88 87 Pulse Rate [ Anterior Bilateral] Pulse Rate [ From Monitor] Respiratory 18 17 17 Rate Respiratory Rate [Anterior Bilateral] Blood Pressure 122/52 122/52 139/59 O2 Sat by Pulse 100 100 100 Oximetry 12/10/21 12/10/21 12/10/21 06:11 06:21 06:31 Temperature Pulse Rate 86 87 80 Pulse Rate [ Anterior Bilateral] Pulse Rate [ From Monitor] Respiratory 17 20 16 Rate Respiratory Rate [Anterior Bilateral] Blood Pressure 139/59 139/59 139/59 O2 Sat by Pulse 100 100 100 Oximetry 12/10/21 12/10/21 12/10/21 06:41 06:51 07:00 Temperature Pulse Rate 76 82 82 Pulse Rate [ Anterior Bilateral] Pulse Rate [ From Monitor] Respiratory 16 14 14 Rate Respiratory Rate [Anterior Bilateral] Blood Pressure 139/59 139/59 131/59 O2 Sat by Pulse 100 100 100 Oximetry 12/10/21 12/10/21 12/10/21 07:09 07:11 07:20 Temperature 98.7 F Pulse Rate 84 84 Pulse Rate [ Anterior Bilateral] Pulse Rate [ From Monitor] Respiratory 16 17 Rate Respiratory Rate [Anterior Bilateral] Blood Pressure 131/59 131/59 O2 Sat by Pulse 100 100 Oximetry 12/10/21 12/10/2122 07:31 07:41 07:51 Temperature Pulse Rate 85 85 83 Pulse Rate [ Anterior Bilateral] Pulse Rate [ From Monitor] Respiratory 17 18 17 Rate Respiratory Rate [Anterior Bilateral] Blood Pressure 131/59 131/59 O2 Sat by Pulse 100 100 100 Oximetry 12/10/21 12/10/21 12/10/21 08:00 08:03 08:11 Temperature Pulse Rate 85 101 H 91 H Pulse Rate [ Anterior Bilateral] Pulse Rate [ 101 H From Monitor] Respiratory 17 14 24 Rate Respiratory Rate [Anterior Bilateral] Blood Pressure 146/62 146/62 O2 Sat by Pulse 100 99 100 Oximetry 12/10/21 12/10/21 12/10/21 08:21 08:31 08:41 Temperature Pulse Rate 86 87 87 Pulse Rate [ Anterior Bilateral] Pulse Rate [ From Monitor] Respiratory 19 17 18 Rate Respiratory Rate [Anterior Bilateral] Blood Pressure 146/62 146/62 146/62 O2 Sat by Pulse 100 100 100 Oximetry 12/10/21 12/10/21 12/10/21 08:51 09:01 09:11 Temperature Pulse Rate 88 84 84 Pulse Rate [ Anterior Bilateral] Pulse Rate [ From Monitor] Respiratory 20 18 17 Rate Respiratory Rate [Anterior Bilateral] Blood Pressure 146/62 141/74 141/74 O2 Sat by Pulse 100 100 100 Oximetry 12/10/21 12/10/21 12/10/21 09:21 09:27 09:31 Temperature Pulse Rate 84 82 86 Pulse Rate [ Anterior Bilateral] Pulse Rate [ From Monitor] Respiratory 16 21 Rate Respiratory Rate [Anterior Bilateral] Blood Pressure 141/74 141/74 141/74 O2 Sat by Pulse 100 100 100 Oximetry 12/10/21 12/10/21 12/10/21 09:41 09:51 10:00 Temperature Pulse Rate 84 85 85 Pulse Rate [ Anterior Bilateral] Pulse Rate [ From Monitor] Respiratory 17 18 17 Rate Respiratory Rate [Anterior Bilateral] Blood Pressure 141/74 141/74 148/65 O2 Sat by Pulse 100 100 100 Oximetry 12/10/21 12/10/21 12/10/21 10:11 10:21 10:31 Temperature Pulse Rate 87 87 86 Pulse Rate [ Anterior Bilateral] Pulse Rate [ From Monitor] Respiratory 17 19 18 Rate Respiratory Rate [Anterior Bilateral] Blood Pressure 148/65 141/74 141/74 O2 Sat by Pulse 100 100 100 Oximetry 12/10/21 12/10/21 12/10/21 10:41 10:51 11:00 Temperature Pulse Rate 87 86 84 Pulse Rate [ Anterior Bilateral] Pulse Rate [ From Monitor] Respiratory 18 17 16 Rate Respiratory Rate [Anterior Bilateral] Blood Pressure 141/74 141/74 150/64 O2 Sat by Pulse 100 100 100 Oximetry 12/10/21 12/10/21 12/10/21 11:11 11:21 11:31 Temperature Pulse Rate 84 85 88 Pulse Rate [ Anterior Bilateral] Pulse Rate [ From Monitor] Respiratory 19 16 21 Rate Respiratory Rate [Anterior Bilateral] Blood Pressure 150/64 148/65 148/65 O2 Sat by Pulse 100 100 100 Oximetry 12/10/21 12/10/21 12/10/21 11:41 11:51 11:55 Temperature Pulse Rate 89 88 87 Pulse Rate [ Anterior Bilateral] Pulse Rate [ From Monitor] Respiratory 14 18 Rate Respiratory Rate [Anterior Bilateral] Blood Pressure 148/65 148/65 151/62 O2 Sat by Pulse 100 100 100 Oximetry 12/10/21 12/10/21 12/10/21 12:00 12:11 12:20 Temperature 99.1 F Pulse Rate 89 88 Pulse Rate [ Anterior Bilateral] Pulse Rate [ From Monitor] Respiratory 18 16 Rate Respiratory Rate [Anterior Bilateral] Blood Pressure 151/62 151/62 O2 Sat by Pulse 100 100 Oximetry 12/10/21 12/10/21 12/10/21 12:21 12:31 12:41 Temperature Pulse Rate 87 87 87 Pulse Rate [ Anterior Bilateral] Pulse Rate [ From Monitor] Respiratory 21 16 16 Rate Respiratory Rate [Anterior Bilateral] Blood Pressure 151/62 151/62 151/62 O2 Sat by Pulse 100 100 100 Oximetry 12/10/21 12/10/21 12/10/21 12:51 13:00 13:11 Temperature Pulse Rate 87 90 88 Pulse Rate [ Anterior Bilateral] Pulse Rate [ From Monitor] Respiratory 17 17 17 Rate Respiratory Rate [Anterior Bilateral] Blood Pressure 151/62 160/63 160/63 O2 Sat by Pulse 100 100 100 Oximetry 12/10/21 12/10/21 12/10/21 13:21 13:31 13:41 Temperature Pulse Rate 88 87 88 Pulse Rate [ Anterior Bilateral] Pulse Rate [ From Monitor] Respiratory 16 18 18 Rate Respiratory Rate [Anterior Bilateral] Blood Pressure 160/63 160/63 160/63 O2 Sat by Pulse 100 100 100 Oximetry 12/10/21 12/10/21 12/10/21 13:51 14:00 14:11 Temperature Pulse Rate 88 89 90 Pulse Rate [ Anterior Bilateral] Pulse Rate [ From Monitor] Respiratory 18 17 18 Rate Respiratory Rate [Anterior Bilateral] Blood Pressure 160/63 164/67 164/67 O2 Sat by Pulse 100 100 100 Oximetry 12/10/21 12/10/21 12/10/21 14:20 14:31 14:41 Temperature Pulse Rate 92 H 91 H 89 Pulse Rate [ Anterior Bilateral] Pulse Rate [ From Monitor] Respiratory 21 18 18 Rate Respiratory Rate [Anterior Bilateral] Blood Pressure 164/67 164/67 164/67 O2 Sat by Pulse 100 100 100 Oximetry 12/10/21 12/10/21 12/10/21 14:51 15:00 15:11 Temperature Pulse Rate 90 88 88 Pulse Rate [ Anterior Bilateral] Pulse Rate [ From Monitor] Respiratory 25 H 17 17 Rate Respiratory Rate [Anterior Bilateral] Blood Pressure 164/67 152/66 152/66 O2 Sat by Pulse 100 100 100 Oximetry 12/10/21 12/10/21 12/10/21 15:21 15:31 15:41 Temperature Pulse Rate 88 89 91 H Pulse Rate [ Anterior Bilateral] Pulse Rate [ From Monitor] Respiratory 17 17 18 Rate Respiratory Rate [Anterior Bilateral] Blood Pressure 152/66 152/66 152/66 O2 Sat by Pulse 100 100 100 Oximetry 12/10/21 12/10/21 12/10/21 15:51 16:00 16:05 Temperature 99.9 F H Pulse Rate 98 H 92 H 94 H Pulse Rate [ 91 H Anterior Bilateral] Pulse Rate [ From Monitor] Respiratory 16 19 Rate Respiratory 18 Rate [Anterior Bilateral] Blood Pressure 152/66 161/65 144/60 O2 Sat by Pulse 100 100 99 Oximetry 12/10/21 12/10/21 12/10/21 16:11 16:21 16:31 Temperature Pulse Rate 91 H 96 H 101 H Pulse Rate [ Anterior Bilateral] Pulse Rate [ From Monitor] Respiratory 17 27 H 25 H Rate Respiratory Rate [Anterior Bilateral] Blood Pressure 161/65 161/65 161/65 O2 Sat by Pulse 100 100 100 Oximetry CBC and BMP: 12/10/21 05:49 12/10/21 06:03 ABG, PT/INR, D-dimer: ABG ABG pH 7.405 pH Units (7.350-7.450) 12/10/21 04:20 ABG pCO2 31.4 mm Hg 12/10/21 04:20 ABG pO2 136.4 mm Hg (80.0-90.0) H 12/10/21 04:20 ABG O2 Saturation 98.7 % (95.0-99.0) 12/10/21 04:20 PT/INR, D-dimer D-Dimer 3277.12 ng/mlDDU (0-234) H 12/08/21 08:21 Abnormal lab findings: Abnormal Labs 12/07/21 12/07/21 12/07/21 14:21 15:55 15:55 WBC 16.9 H RBC 5.04 H Hct 43.8 H Plt Count 459 H Lymph % (Auto) 9.3 L Grand # (Auto) 0.9 H Seg Neutrophils % 84.6 H Seg Neuts % (Manual) Lymphocytes % (Manual) Basophils % (Manual) Seg Neutrophils # 14.3 H Seg Neutrophils # Man Lymphocytes # (Manual) Monocytes # (Manual) Basophils # (Manual) D-Dimer ABG pH ABG pO2 ABG HCO3 ABG O2 Saturation ABG Base Excess ABG Hemoglobin Oxyhemoglobin Sodium Chloride 107.2 H Carbon Dioxide 18 L BUN 34 H Creatinine 1.7 H Glucose 224 H POC Glucose 174 H Hemoglobin A1c Ammonia Total Creatine Kinase C-Reactive Protein Albumin Urine Creatinine 12/07/21 12/07/21 12/07/21 15:55 15:55 15:55 WBC RBC Hct Plt Count Lymph % (Auto) Grand # (Auto) Seg Neutrophils % Seg Neuts % (Manual) Lymphocytes % (Manual) Basophils % (Manual) Seg Neutrophils # Seg Neutrophils # Man Lymphocytes # (Manual) Monocytes # (Manual) Basophils # (Manual) D-Dimer ABG pH 7.260 L ABG pO2 229.7 H ABG HCO3 19.8 L ABG O2 Saturation 99.3 H ABG Base Excess -7.1 L ABG Hemoglobin Oxyhemoglobin Sodium Chloride Carbon Dioxide BUN Creatinine Glucose POC Glucose Hemoglobin A1c Ammonia 23.0 L Total Creatine Kinase 498 H C-Reactive Protein Albumin Urine Creatinine 12/07/21 12/08/21 12/08/21 21:45 00:18 04:00 WBC 20.4 H RBC Hct Plt Count Lymph % (Auto) Grand # (Auto) Seg Neutrophils % Seg Neuts % (Manual) 92.0 H Lymphocytes % (Manual) 1.0 L Basophils % (Manual) 2.0 H Seg Neutrophils # Seg Neutrophils # Man 18.8 H Lymphocytes # (Manual) 0.2 L Monocytes # (Manual) 1.0 H Basophils # (Manual) 0.4 H D-Dimer ABG pH ABG pO2 170.3 H ABG HCO3 18.8 L ABG O2 Saturation 99.1 H ABG Base Excess -5.5 L ABG Hemoglobin 11.9 L Oxyhemoglobin Sodium Chloride Carbon Dioxide BUN Creatinine Glucose POC Glucose 276 H Hemoglobin A1c Ammonia Total Creatine Kinase C-Reactive Protein Albumin Urine Creatinine 12/08/21 12/08/21 12/08/21 04:00 04:10 05:42 WBC RBC Hct Plt Count Lymph % (Auto) Grand # (Auto) Seg Neutrophils % Seg Neuts % (Manual) Lymphocytes % (Manual) Basophils % (Manual) Seg Neutrophils # Seg Neutrophils # Man Lymphocytes # (Manual) Monocytes # (Manual) Basophils # (Manual) D-Dimer ABG pH ABG pO2 65.1 L ABG HCO3 17.6 L ABG O2 Saturation 94.5 L ABG Base Excess -5.4 L ABG Hemoglobin Oxyhemoglobin 92.9 L Sodium 146 H Chloride 112.2 H Carbon Dioxide 17 L BUN 38 H Creatinine 1.8 H Glucose 329 H POC Glucose 315 H Hemoglobin A1c Ammonia Total Creatine Kinase 287 H C-Reactive Protein Albumin 3.5 L Urine Creatinine 12/08/21 12/08/21 12/08/21 07:29 08:21 08:21 WBC RBC Hct Plt Count Lymph % (Auto) Grand # (Auto) Seg Neutrophils % Seg Neuts % (Manual) Lymphocytes % (Manual) Basophils % (Manual) Seg Neutrophils # Seg Neutrophils # Man Lymphocytes # (Manual) Monocytes # (Manual) Basophils # (Manual) D-Dimer 3277.12 H ABG pH ABG pO2 ABG HCO3 ABG O2 Saturation ABG Base Excess ABG Hemoglobin Oxyhemoglobin Sodium Chloride Carbon Dioxide BUN Creatinine Glucose POC Glucose 330 H Hemoglobin A1c Ammonia Total Creatine Kinase C-Reactive Protein 6.20 H Albumin Urine Creatinine 12/08/21 12/08/21 12/09/21 11:15 21:04 04:25 WBC RBC Hct Plt Count Lymph % (Auto) Grand # (Auto) Seg Neutrophils % Seg Neuts % (Manual) Lymphocytes % (Manual) Basophils % (Manual) Seg Neutrophils # Seg Neutrophils # Man Lymphocytes # (Manual) Monocytes # (Manual) Basophils # (Manual) D-Dimer ABG pH ABG pO2 136.8 H ABG HCO3 18.7 L ABG O2 Saturation ABG Base Excess -5.7 L ABG Hemoglobin 11.2 L Oxyhemoglobin Sodium Chloride Carbon Dioxide BUN Creatinine Glucose POC Glucose 302 H 122 H Hemoglobin A1c Ammonia Total Creatine Kinase C-Reactive Protein Albumin Urine Creatinine 12/09/21 12/09/21 12/09/21 04:32 04:32 04:32 WBC 16.7 H RBC Hct Plt Count Lymph % (Auto) Grand # (Auto) Seg Neutrophils % Seg Neuts % (Manual) Lymphocytes % (Manual) Basophils % (Manual) Seg Neutrophils # Seg Neutrophils # Man Lymphocytes # (Manual) Monocytes # (Manual) Basophils # (Manual) D-Dimer ABG pH ABG pO2 ABG HCO3 ABG O2 Saturation ABG Base Excess ABG Hemoglobin Oxyhemoglobin Sodium 146 H Chloride 116.8 H Carbon Dioxide 18 L BUN 38 H Creatinine 1.7 H Glucose 193 H POC Glucose Hemoglobin A1c 6.2 H Ammonia Total Creatine Kinase C-Reactive Protein Albumin 3.3 L Urine Creatinine 12/09/21 12/10/21 12/10/21 Unknown 00:18 04:20 WBC RBC Hct Plt Count Lymph % (Auto) Grand # (Auto) Seg Neutrophils % Seg Neuts % (Manual) Lymphocytes % (Manual) Basophils % (Manual) Seg Neutrophils # Seg Neutrophils # Man Lymphocytes # (Manual) Monocytes # (Manual) Basophils # (Manual) D-Dimer ABG pH ABG pO2 136.4 H ABG HCO3 19.3 L ABG O2 Saturation ABG Base Excess -4.7 L ABG Hemoglobin 10.1 L Oxyhemoglobin Sodium Chloride Carbon Dioxide BUN Creatinine Glucose POC Glucose 186 H Hemoglobin A1c Ammonia Total Creatine Kinase C-Reactive Protein Albumin Urine Creatinine 167.0 H 12/10/21 12/10/21 12/10/21 05:49 06:03 12:11 WBC 13.0 H RBC Hct Plt Count Lymph % (Auto) Grand # (Auto) Seg Neutrophils % Seg Neuts % (Manual) Lymphocytes % (Manual) Basophils % (Manual) Seg Neutrophils # Seg Neutrophils # Man Lymphocytes # (Manual) Monocytes # (Manual) Basophils # (Manual) D-Dimer ABG pH ABG pO2 ABG HCO3 ABG O2 Saturation ABG Base Excess ABG Hemoglobin Oxyhemoglobin Sodium 147 H Chloride 118.1 H Carbon Dioxide 18 L BUN 37 H Creatinine 1.5 H Glucose 229 H POC Glucose 195 H Hemoglobin A1c Ammonia Total Creatine Kinase C-Reactive Protein Albumin Urine Creatinine 12/10/21 16:36 WBC RBC Hct Plt Count Lymph % (Auto) Grand # (Auto) Seg Neutrophils % Seg Neuts % (Manual) Lymphocytes % (Manual) Basophils % (Manual) Seg Neutrophils # Seg Neutrophils # Man Lymphocytes # (Manual) Monocytes # (Manual) Basophils # (Manual) D-Dimer ABG pH ABG pO2 ABG HCO3 ABG O2 Saturation ABG Base Excess ABG Hemoglobin Oxyhemoglobin Sodium Chloride Carbon Dioxide BUN Creatinine Glucose POC Glucose 180 H Hemoglobin A1c Ammonia Total Creatine Kinase C-Reactive Protein Albumin Urine Creatinine Chest x-ray: image reviewed Allied health notes reviewed: RT
[2021-12-10] MEDS: AZITHROMYCIN/NS 500 MG/250 ML 500 MG/250 ML BAG IV SCH (20:54)
[2021-12-10] MEDS ORDERED: SODIUM CHLORIDE 0.9% 500 ML 500 ML ONE (20:58)
[2021-12-10] MEDS: hydrALAZINE 100 MG TAB PO SCH (21:11)
[2021-12-10] MEDS: MINERAL OIL/PETROLATUM, WHITE OPHTH OINT 3.5 GM OU PRN (21:12)
[2021-12-10] MEDS: levETIRAcetam 500 MG in DEXTROSE 5% IN WATER 100 ML IV SCH (22:32)
[2021-12-10] MEDS ORDERED: SODIUM CHLORIDE 0.9% 500 ML 500 ML IV SCH (23:45)
[2021-12-11] MEDS: INSULIN REGULAR, HUMAN 100 UNITS/1 ML SUB-Q SCH ×4 (00:06→17:34)
[2021-12-11] MEDS: INSULIN GLARGINE 100 UNITS/ML SUB-Q SCH (00:07)
[2021-12-11] MEDS: FREE WATER PO SCH ×6 (02:00→21:13)
[2021-12-11] MEDS: AMPICILLIN/NS 2 GM/100 ML 2 GM/100 ML BAG IV SCH ×2 (02:20→09:05)
--- NOTE | 2021-12-11 03:36 | XRay Report ---
CHEST 1 VIEW 12/11/2021 2:27 AM INDICATION / CLINICAL INFORMATION: follow up respiratory failure. COMPARISON: Previous day. FINDINGS: SUPPORT DEVICES: Unchanged. HEART / MEDIASTINUM: No significant abnormality. LUNGS / PLEURA: Mild decrease in lung volumes with mild increasing vascular fashion. No significant i nfiltrate. No pneumothorax. ADDITIONAL FINDINGS: No significant additional findings. IMPRESSION: 1. Mild decrease in lung volumes. 2. Mildly increasing vascular congestion. Signer Name: Gus Almodovar MD Signed: 12/11/2021 3:32 AM Workstation Name: [id number]
[2021-12-11 04:53] LABS: ABG Base Excess -3.9 mmol/L (-2.0-3.0); ABG HCO3 20.6 mmol/L (20.0-26.0); ABG Methemoglobin 0.6 % (0.0-1.5); ABG Oxygen Saturation 98.2 % (95.0-99.0); ABG PCO2 35.3 mm Hg; ABG PH 7.384 pH Units (7.350-7.450); ABG PO2 117.4 mm Hg (80.0-90.0)
[2021-12-11] MEDS: HEPARIN 5,000 UNIT/1 ML VIAL SUB-Q SCH ×3 (05:06→21:04)
[2021-12-11 05:23] LABS: Hematocrit 29.2 % (30.3-42.9); Hemoglobin 9.6 gm/dl (10.1-14.3); Mean Corpuscular HGB Conc 33 % (30-34); Mean Corpuscular Volume 86 fl (79-97); Platelet Count 266 K/mm3 (140-440); Red Cell Distribution Width 14.9 % (13.2-15.2)
--- NOTE | 2021-12-11 08:48 | Progress Note ---
Assessment and Plan Acute Hypoxic Respiratory Failure on MVS intubated 12/07 Community Acquied Pneumonia(CAP) Sepsis/Leukocytosis Acute Metabolic Encephalopathy Acute kidney injury (MAYRA) probably Vasomotor Nephropathy Hypernatremia h/o Hypertension h/o Hyperlipidemia h/o Type 2 Diabetes Mellitus with Hyperglycemia Patient remains unresponsive and is not waking up. CT head was negative. EEG and Neurology consult pending LP ordered, plan for today Free water flushes for hypernatremia SBT today Await further neurology recommendations Goals of care discussions will be dependant on repeat CTscan of the brain,and neurology recommendations Discussed in Interdisciplinary rounds Can discontinue Marcelino catheter -Vent setting: PRVC-45%,6,16,450 -Titrate supplemental oxygen to keep SpO2 89-92% -Lung protective strategies -VAP bundle addressed, Aspiration precautions HOB >40 -CXR, ABG as clinically indicated -Monitoring renal function, hemodynamics and electrolyte profile -Avoid nephrotoxins and renally dose all medications. Renal function slowly improving -Replete electrolytes as clinically indicated -Empiric antibiotics therapy per ID( Vanc, Cefepime, Ampicillin) -Accuchecks with glycemic control; target blood glucose 140-180 mg/dL. Avoid hypoglycemia -Enteric nutritional support -VTE prophylaxis- Heparin -Stress ulcer prophylaxis- Lansoprazole -Mobility, frequent turning, off loading per facility protocol to prevent pressure ulcers -Maintain sleep wake cycle -Supportive transfusions as clinically indicated to keep HgB >7g/dL CONDITION:CRITICAL PROGNOSIS: GUARDED CODE STATUS: FULL CODE The high probability of a clinically significant, sudden or life threatening deterioration of the respiratory, cardiovascular, neurology system required my full and direct attention, intervention and personal management. The aggregate critical care time was [35] minutes. This time is in addition to time spent performing reported procedures but includes the following: [x] Data Review and interpretation [x] Patient assessment and monitoring of vital signs [x] Documentation [x] Medication orders and management Subjective Date of service: 12/11/21 Interval history: Seen and examined. Vitals, labs, medications, chart reviewed. Discussed with nursing and respiratory care staff. No adverse events reported overnight. No fevers, no diarrhea, no vomiting. Remains unresponsive. UDS negative. EEG and Neurology consult pending. Preliminary Blood culture result is positive GPC with clusters in 2 out 4 bottles. On MVS; PEEP +6/40% No drips. Mental status changes persist Objective - Exam Narrative Exam: - Exam Narrative Exam: General appearance: Present: no acute distress, obese, other (Intubated and unresponsive, not on any sedation) - EENT Eyes: Present: PERRL - Respiratory Respiratory effort: normal Respiratory: bilateral: rhonchi - Cardiovascular Rhythm: regular Heart Sounds: Present: S1 & S2 - Extremities Extremities: no ischemia, pulses intact, pulses symmetrical Extremity abnormal: edema - Peripheral Assessment Bilateral Upper Extremity Edema Type: Non-pitting Edema Degree: 2+ Capillary Refill: < 3 seconds Skin Temperature: Warm Generalized Edema Type: Non-pitting Edema Degree: 1+ Capillary Refill: < 3 seconds Skin Temperature: Warm Peripheral Pulses: within normal limits - Abdominal General gastrointestinal: soft, non-distended, normal bowel sounds - Integumentary Integumentary: Present: warm, dry - Psychiatric Psychiatric: other (Intubated and unresponsive, not on any sedation) - Neurologic Neurologic: other (Intubated and unresponsive, not on any sedation) - Allied Health Allied health notes reviewed:respiratory care Vital Signs - 12hr 12/10/21 12/10/21 12/10/21 21:01 21:53 22:00 Temperature Pulse Rate 77 88 83 Pulse Rate [ Anterior Bilateral] Pulse Rate [ From Monitor] Respiratory 17 20 17 Rate Respiratory Rate [Anterior Bilateral] Blood Pressure 119/62 119/62 114/57 O2 Sat by Pulse 100 100 100 Oximetry 12/10/21 12/10/21 12/10/21 23:00 23:45 23:47 Temperature Pulse Rate 65 88 Pulse Rate [ 83 Anterior Bilateral] Pulse Rate [ From Monitor] Respiratory 16 Rate Respiratory 18 Rate [Anterior Bilateral] Blood Pressure 98/48 98/48 O2 Sat by Pulse 100 100 Oximetry 12/11/21 12/11/21 12/11/21 00:00 00:01 01:01 Temperature 98.2 F Pulse Rate 90 91 H 90 Pulse Rate [ Anterior Bilateral] Pulse Rate [ 91 H From Monitor] Respiratory 20 25 H 21 Rate Respiratory Rate [Anterior Bilateral] Blood Pressure 117/77 117/77 O2 Sat by Pulse 99 100 100 Oximetry 12/11/21 12/11/21 12/11/21 02:01 03:00 04:00 Temperature 97.7 F Pulse Rate 85 76 70 Pulse Rate [ Anterior Bilateral] Pulse Rate [ 91 H From Monitor] Respiratory 20 16 16 Rate Respiratory Rate [Anterior Bilateral] Blood Pressure 124/84 101/45 107/49 O2 Sat by Pulse 99 100 100 Oximetry 12/11/21 12/11/21 12/11/21 04:48 05:01 06:00 Temperature Pulse Rate 76 84 90 Pulse Rate [ Anterior Bilateral] Pulse Rate [ From Monitor] Respiratory 23 25 H Rate Respiratory Rate [Anterior Bilateral] Blood Pressure 107/49 132/60 136/58 O2 Sat by Pulse 100 99 100 Oximetry 12/11/21 12/11/21 12/11/21 07:00 07:14 07:25 Temperature 98.3 F Pulse Rate 87 81 Pulse Rate [ Anterior Bilateral] Pulse Rate [ From Monitor] Respiratory 22 Rate Respiratory Rate [Anterior Bilateral] Blood Pressure 121/52 121/52 O2 Sat by Pulse 100 100 Oximetry 12/11/21 08:00 Temperature Pulse Rate 85 Pulse Rate [ Anterior Bilateral] Pulse Rate [ From Monitor] Respiratory 18 Rate Respiratory Rate [Anterior Bilateral] Blood Pressure 123/59 O2 Sat by Pulse 100 Oximetry CBC and BMP: 12/12/21 05:13 12/12/21 05:13 ABG, PT/INR, D-dimer: ABG ABG pH 7.384 pH Units (7.350-7.450) 12/11/21 04:10 ABG pCO2 35.3 mm Hg 12/11/21 04:10 ABG pO2 117.4 mm Hg (80.0-90.0) H 12/11/21 04:10 ABG O2 Saturation 98.2 % (95.0-99.0) 12/11/21 04:10 PT/INR, D-dimer D-Dimer 3277.12 ng/mlDDU (0-234) H 12/08/21 08:21 Abnormal lab findings: Abnormal Labs 12/07/21 12/07/21 12/07/21 14:21 15:55 15:55 WBC 16.9 H RBC 5.04 H Hgb Hct 43.8 H Plt Count 459 H Lymph % (Auto) 9.3 L [place] # (Auto) 0.9 H Seg Neutrophils % 84.6 H Seg Neuts % (Manual) Lymphocytes % (Manual) Basophils % (Manual) Seg Neutrophils # 14.3 H Seg Neutrophils # Man Lymphocytes # (Manual) Monocytes # (Manual) Basophils # (Manual) D-Dimer ABG pH ABG pO2 ABG HCO3 ABG O2 Saturation ABG Base Excess ABG Hemoglobin Oxyhemoglobin Sodium Chloride 107.2 H Carbon Dioxide 18 L BUN 34 H Creatinine 1.7 H Glucose 224 H POC Glucose 174 H Hemoglobin A1c Ammonia Total Creatine Kinase C-Reactive Protein Albumin Urine Creatinine 12/07/21 12/07/21 12/07/21 15:55 15:55 15:55 WBC RBC Hgb Hct Plt Count Lymph % (Auto) [place] # (Auto) Seg Neutrophils % Seg Neuts % (Manual) Lymphocytes % (Manual) Basophils % (Manual) Seg Neutrophils # Seg Neutrophils # Man Lymphocytes # (Manual) Monocytes # (Manual) Basophils # (Manual) D-Dimer ABG pH 7.260 L ABG pO2 229.7 H ABG HCO3 19.8 L ABG O2 Saturation 99.3 H ABG Base Excess -7.1 L ABG Hemoglobin Oxyhemoglobin Sodium Chloride Carbon Dioxide BUN Creatinine Glucose POC Glucose Hemoglobin A1c Ammonia 23.0 L Total Creatine Kinase 498 H C-Reactive Protein Albumin Urine Creatinine 12/07/21 12/08/21 12/08/21 21:45 00:18 04:00 WBC 20.4 H RBC Hgb Hct Plt Count Lymph % (Auto) [place] # (Auto) Seg Neutrophils % Seg Neuts % (Manual) 92.0 H Lymphocytes % (Manual) 1.0 L Basophils % (Manual) 2.0 H Seg Neutrophils # Seg Neutrophils # Man 18.8 H Lymphocytes # (Manual) 0.2 L Monocytes # (Manual) 1.0 H Basophils # (Manual) 0.4 H D-Dimer ABG pH ABG pO2 170.3 H ABG HCO3 18.8 L ABG O2 Saturation 99.1 H ABG Base Excess -5.5 L ABG Hemoglobin 11.9 L Oxyhemoglobin Sodium Chloride Carbon Dioxide BUN Creatinine Glucose POC Glucose 276 H Hemoglobin A1c Ammonia Total Creatine Kinase C-Reactive Protein Albumin Urine Creatinine 12/08/21 12/08/21 12/08/21 04:00 04:10 05:42 WBC RBC Hgb Hct Plt Count Lymph % (Auto) [place] # (Auto) Seg Neutrophils % Seg Neuts % (Manual) Lymphocytes % (Manual) Basophils % (Manual) Seg Neutrophils # Seg Neutrophils # Man Lymphocytes # (Manual) Monocytes # (Manual) Basophils # (Manual) D-Dimer ABG pH ABG pO2 65.1 L ABG HCO3 17.6 L ABG O2 Saturation 94.5 L ABG Base Excess -5.4 L ABG Hemoglobin Oxyhemoglobin 92.9 L Sodium 146 H Chloride 112.2 H Carbon Dioxide 17 L BUN 38 H Creatinine 1.8 H Glucose 329 H POC Glucose 315 H Hemoglobin A1c Ammonia Total Creatine Kinase 287 H C-Reactive Protein Albumin 3.5 L Urine Creatinine 12/08/21 12/08/21 12/08/21 07:29 08:21 08:21 WBC RBC Hgb Hct Plt Count Lymph % (Auto) [place] # (Auto) Seg Neutrophils % Seg Neuts % (Manual) Lymphocytes % (Manual) Basophils % (Manual) Seg Neutrophils # Seg Neutrophils # Man Lymphocytes # (Manual) Monocytes # (Manual) Basophils # (Manual) D-Dimer 3277.12 H ABG pH ABG pO2 ABG HCO3 ABG O2 Saturation ABG Base Excess ABG Hemoglobin Oxyhemoglobin Sodium Chloride Carbon Dioxide BUN Creatinine Glucose POC Glucose 330 H Hemoglobin A1c Ammonia Total Creatine Kinase C-Reactive Protein 6.20 H Albumin Urine Creatinine 12/08/21 12/08/21 12/09/21 11:15 21:04 04:25 WBC RBC Hgb Hct Plt Count Lymph % (Auto) [place] # (Auto) Seg Neutrophils % Seg Neuts % (Manual) Lymphocytes % (Manual) Basophils % (Manual) Seg Neutrophils # Seg Neutrophils # Man Lymphocytes # (Manual) Monocytes # (Manual) Basophils # (Manual) D-Dimer ABG pH ABG pO2 136.8 H ABG HCO3 18.7 L ABG O2 Saturation ABG Base Excess -5.7 L ABG Hemoglobin 11.2 L Oxyhemoglobin Sodium Chloride Carbon Dioxide BUN Creatinine Glucose POC Glucose 302 H 122 H Hemoglobin A1c Ammonia Total Creatine Kinase C-Reactive Protein Albumin Urine Creatinine 12/09/21 12/09/21 12/09/21 04:32 04:32 04:32 WBC 16.7 H RBC Hgb Hct Plt Count Lymph % (Auto) [place] # (Auto) Seg Neutrophils % Seg Neuts % (Manual) Lymphocytes % (Manual) Basophils % (Manual) Seg Neutrophils # Seg Neutrophils # Man Lymphocytes # (Manual) Monocytes # (Manual) Basophils # (Manual) D-Dimer ABG pH ABG pO2 ABG HCO3 ABG O2 Saturation ABG Base Excess ABG Hemoglobin Oxyhemoglobin Sodium 146 H Chloride 116.8 H Carbon Dioxide 18 L BUN 38 H Creatinine 1.7 H Glucose 193 H POC Glucose Hemoglobin A1c 6.2 H Ammonia Total Creatine Kinase C-Reactive Protein Albumin 3.3 L Urine Creatinine 12/09/21 12/10/21 12/10/21 Unknown 00:18 04:20 WBC RBC Hgb Hct Plt Count Lymph % (Auto) [place] # (Auto) Seg Neutrophils % Seg Neuts % (Manual) Lymphocytes % (Manual) Basophils % (Manual) Seg Neutrophils # Seg Neutrophils # Man Lymphocytes # (Manual) Monocytes # (Manual) Basophils # (Manual) D-Dimer ABG pH ABG pO2 136.4 H ABG HCO3 19.3 L ABG O2 Saturation ABG Base Excess -4.7 L ABG Hemoglobin 10.1 L Oxyhemoglobin Sodium Chloride Carbon Dioxide BUN Creatinine Glucose POC Glucose 186 H Hemoglobin A1c Ammonia Total Creatine Kinase C-Reactive Protein Albumin Urine Creatinine 167.0 H 12/10/21 12/10/21 12/10/21 05:49 06:03 12:11 WBC 13.0 H RBC Hgb Hct Plt Count Lymph % (Auto) [place] # (Auto) Seg Neutrophils % Seg Neuts % (Manual) Lymphocytes % (Manual) Basophils % (Manual) Seg Neutrophils # Seg Neutrophils # Man Lymphocytes # (Manual) Monocytes # (Manual) Basophils # (Manual) D-Dimer ABG pH ABG pO2 ABG HCO3 ABG O2 Saturation ABG Base Excess ABG Hemoglobin Oxyhemoglobin Sodium 147 H Chloride 118.1 H Carbon Dioxide 18 L BUN 37 H Creatinine 1.5 H Glucose 229 H POC Glucose 195 H Hemoglobin A1c Ammonia Total Creatine Kinase C-Reactive Protein Albumin Urine Creatinine 12/10/21 12/11/21 12/11/21 16:36 04:00 04:00 WBC RBC 3.40 L Hgb 9.6 L Hct 29.2 L Plt Count Lymph % (Auto) [place] # (Auto) Seg Neutrophils % Seg Neuts % (Manual) Lymphocytes % (Manual) Basophils % (Manual) Seg Neutrophils # Seg Neutrophils # Man Lymphocytes # (Manual) Monocytes # (Manual) Basophils # (Manual) D-Dimer ABG pH ABG pO2 ABG HCO3 ABG O2 Saturation ABG Base Excess ABG Hemoglobin Oxyhemoglobin Sodium 148 H Chloride 117.5 H Carbon Dioxide BUN 34 H Creatinine Glucose 173 H POC Glucose 180 H Hemoglobin A1c Ammonia Total Creatine Kinase C-Reactive Protein Albumin Urine Creatinine 12/11/21 04:10 WBC RBC Hgb Hct Plt Count Lymph % (Auto) [place] # (Auto) Seg Neutrophils % Seg Neuts % (Manual) Lymphocytes % (Manual) Basophils % (Manual) Seg Neutrophils # Seg Neutrophils # Man Lymphocytes # (Manual) Monocytes # (Manual) Basophils # (Manual) D-Dimer ABG pH ABG pO2 117.4 H ABG HCO3 ABG O2 Saturation ABG Base Excess -3.9 L ABG Hemoglobin 9.0 L Oxyhemoglobin Sodium Chloride Carbon Dioxide BUN Creatinine Glucose POC Glucose Hemoglobin A1c Ammonia Total Creatine Kinase C-Reactive Protein Albumin Urine Creatinine Allied health notes reviewed: RT
[2021-12-11] MEDS: hydrALAZINE 100 MG TAB PO SCH ×3 (08:59→21:04)
[2021-12-11] MEDS: LANSOPRAZOLE 30 MG SOLUTAB FEEDTUBE SCH (09:01)
[2021-12-11] MEDS: amLODIPine 10 MG TAB PO SCH (09:01)
[2021-12-11] MEDS: CEFEPIME/NS 2 GM/100 ML 2 GM/100 ML BAG IV SCH ×2 (09:01→21:04)
[2021-12-11] MEDS: SENNOSIDES/DOCUSATE SODIUM 8.6/50 MG TAB FEEDTUBE SCH ×2 (09:03→21:12)
--- NOTE | 2021-12-11 09:07 | Progress Note ---
Hospitalist Physical - Constitutional Vitals: Temp Pulse Resp BP Pulse Ox 98.3 F 85 18 145/60 100 12/11/21 07:14 12/11/21 08:00 12/11/21 08:00 12/11/21 09:01 12/11/21 08:00 General appearance: Present: no acute distress, obese, other (Intubated and unresponsive, not on any sedation) Results - Labs CBC & Chem 7: 12/11/21 04:00 12/11/21 04:00 Labs: Laboratory Last Values WBC 10.5 K/mm3 (4.5-11.0) 12/11/21 04:00 RBC 3.40 M/mm3 (3.65-5.03) L 12/11/21 04:00 Hgb 9.6 gm/dl (10.1-14.3) L 12/11/21 04:00 Hct 29.2 % (30.3-42.9) L 12/11/21 04:00 MCV 86 fl (79-97) 12/11/21 04:00 MCH 28 pg (28-32) 12/11/21 04:00 MCHC 33 % (30-34) 12/11/21 04:00 RDW 14.9 % (13.2-15.2) 12/11/21 04:00 Plt Count 266 K/mm3 (140-440) 12/11/21 04:00 Lymph % (Auto) 9.3 % (13.4-35.0) L 12/07/21 15:55 Carter % (Auto) 5.6 % (0.0-7.3) 12/07/21 15:55 Eos % (Auto) 0.0 % (0.0-4.3) 12/07/21 15:55 Baso % (Auto) 0.5 % (0.0-1.8) 12/07/21 15:55 Lymph # (Auto) 1.6 K/mm3 (1.2-5.4) 12/07/21 15:55 Carter # (Auto) 0.9 K/mm3 (0.0-0.8) H 12/07/21 15:55 Eos # (Auto) 0.0 K/mm3 (0.0-0.4) 12/07/21 15:55 Baso # (Auto) 0.1 K/mm3 (0.0-0.1) 12/07/21 15:55 Add Manual Diff Complete 12/08/21 04:00 Total Counted 100 12/08/21 04:00 Seg Neutrophils % Sprinkler Helper 12/08/21 04:00 Seg Neuts % (Manual) 92.0 % (40.0-70.0) H 12/08/21 04:00 Band Neutrophils % 0 % 12/08/21 04:00 Lymphocytes % (Manual) 1.0 % (13.4-35.0) L 12/08/21 04:00 Reactive Lymphs % (Man) 0 % 12/08/21 04:00 Monocytes % (Manual) 5.0 % (0.0-7.3) 12/08/21 04:00 Eosinophils % (Manual) 0 % (0.0-4.3) 12/08/21 04:00 Basophils % (Manual) 2.0 % (0.0-1.8) H 12/08/21 04:00 Metamyelocytes % 0 % 12/08/21 04:00 Myelocytes % 0 % 12/08/21 04:00 Promyelocytes % 0 % 12/08/21 04:00 Blast Cells % 0 % 12/08/21 04:00 Nucleated RBC % Not Reportable 12/08/21 04:00 Seg Neutrophils # 14.3 K/mm3 (1.8-7.7) H 12/07/21 15:55 Seg Neutrophils # Man 18.8 K/mm3 (1.8-7.7) H 12/08/21 04:00 Band Neutrophils # 0.0 K/mm3 12/08/21 04:00 Lymphocytes # (Manual) 0.2 K/mm3 (1.2-5.4) L 12/08/21 04:00 Abs React Lymphs (Man) 0.0 K/mm3 12/08/21 04:00 Monocytes # (Manual) 1.0 K/mm3 (0.0-0.8) H 12/08/21 04:00 Eosinophils # (Manual) 0.0 K/mm3 (0.0-0.4) 12/08/21 04:00 Basophils # (Manual) 0.4 K/mm3 (0.0-0.1) H 12/08/21 04:00 Metamyelocytes # 0.0 K/mm3 12/08/21 04:00 Myelocytes # 0.0 K/mm3 12/08/21 04:00 Promyelocytes # 0.0 K/mm3 12/08/21 04:00 Blast Cells # 0.0 K/mm3 12/08/21 04:00 WBC Morphology Not Reportable 12/08/21 04:00 Hypersegmented Neuts Not Reportable 12/08/21 04:00 Hyposegmented Neuts Not Reportable 12/08/21 04:00 Hypogranular Neuts Not Reportable 12/08/21 04:00 Smudge Cells Not Reportable 12/08/21 04:00 Toxic Granulation Not Reportable 12/08/21 04:00 Toxic Vacuolation Not Reportable 12/08/21 04:00 Dohle Bodies Not Reportable 12/08/21 04:00 Pelger-Huet Anomaly Not Reportable 12/08/21 04:00 Ulises Rods Not Reportable 12/08/21 04:00 Platelet Estimate Consistent w auto 12/08/21 04:00 Clumped Platelets Not Reportable 12/08/21 04:00 Plt Clumps, EDTA Not Reportable 12/08/21 04:00 Large Platelets Not Reportable 12/08/21 04:00 Giant Platelets Not Reportable 12/08/21 04:00 Platelet Satelliting Not Reportable 12/08/21 04:00 Plt Morphology Comment Not Reportable 12/08/21 04:00 RBC Morphology Normal 12/08/21 04:00 Dimorphic RBCs Not Reportable 12/08/21 04:00 Polychromasia Not Reportable 12/08/21 04:00 Hypochromasia Not Reportable 12/08/21 04:00 Poikilocytosis Not Reportable 12/08/21 04:00 Anisocytosis Not Reportable 12/08/21 04:00 Microcytosis Not Reportable 12/08/21 04:00 Macrocytosis Not Reportable 12/08/21 04:00 Spherocytes Not Reportable 12/08/21 04:00 Pappenheimer Bodies Not Reportable 12/08/21 04:00 Sickle Cells Not Reportable 12/08/21 04:00 Target Cells Not Reportable 12/08/21 04:00 Tear Drop Cells Not Reportable 12/08/21 04:00 Ovalocytes Not Reportable 12/08/21 04:00 Helmet Cells Not Reportable 12/08/21 04:00 Parker-Manly Bodies Not Reportable 12/08/21 04:00 [place] Rings Not Reportable 12/08/21 04:00 Waldo Cells Not Reportable 12/08/21 04:00 Bite Cells Not Reportable 12/08/21 04:00 Crenated Cell Not Reportable 12/08/21 04:00 Elliptocytes Not Reportable 12/08/21 04:00 Acanthocytes (Spur) Not Reportable 12/08/21 04:00 Rouleaux Not Reportable 12/08/21 04:00 Hemoglobin C Crystals Not Reportable 12/08/21 04:00 Schistocytes Not Reportable 12/08/21 04:00 Malaria parasites Not Reportable 12/08/21 04:00 Frederick Bodies Not Reportable 12/08/21 04:00 Hem Pathologist Commnt No 12/08/21 04:00 D-Dimer 3277.12 ng/mlDDU (0-234) H 12/08/21 08:21 ABG pH 7.384 pH Units (7.350-7.450) 12/11/21 04:10 ABG pCO2 35.3 mm Hg 12/11/21 04:10 ABG pO2 117.4 mm Hg (80.0-90.0) H 12/11/21 04:10 ABG HCO3 20.6 mmol/L (20.0-26.0) 12/11/21 04:10 ABG O2 Saturation 98.2 % (95.0-99.0) 12/11/21 04:10 ABG O2 Content 12.5 (0.0-44) 12/11/21 04:10 ABG Base Excess -3.9 mmol/L (-2.0-3.0) L 12/11/21 04:10 ABG Hemoglobin 9.0 gm/dl (12.0-16.0) L 12/11/21 04:10 ABG Carboxyhemoglobin 1.0 % (0.0-5.0) 12/11/21 04:10 ABG Methemoglobin 0.6 % (0.0-1.5) 12/11/21 04:10 Oxyhemoglobin 96.6 % (95.0-99.0) 12/11/21 04:10 FiO2 28 % 12/11/21 04:10 Sodium 148 mmol/L (137-145) H 12/11/21 04:00 Potassium 4.6 mmol/L (3.6-5.0) 12/11/21 04:00 Chloride 117.5 mmol/L (98-107) H 12/11/21 04:00 Carbon Dioxide 22 mmol/L (22-30) 12/11/21 04:00 Anion Gap 13 mmol/L 12/11/21 04:00 BUN 34 mg/dL (7-17) H 12/11/21 04:00 Creatinine 1.2 mg/dL (0.6-1.2) 12/11/21 04:00 Estimated GFR 45 ml/min 12/11/21 04:00 BUN/Creatinine Ratio 28 % 12/11/21 04:00 Glucose 173 mg/dL (65-100) H 12/11/21 04:00 POC Glucose 180 mg/dL (70-105) H 12/10/21 16:36 Hemoglobin A1c 6.2 % (4-6) H 12/09/21 04:32 Lactic Acid 1.70 mmol/L (0.7-2.0) 12/08/21 Unknown Calcium 9.0 mg/dL (8.4-10.2) 12/11/21 04:00 Ferritin 162.1 ng/mL (10.0-200.0) 12/08/21 08:21 Total Bilirubin 0.20 mg/dL (0.1-1.2) 12/09/21 04:32 AST 18 units/L (5-40) 12/09/21 04:32 ALT 9 units/L (7-56) 12/09/21 04:32 Alkaline Phosphatase 69 units/L (35-129) 12/09/21 04:32 Ammonia 23.0 umol/L (25-60) L 12/07/21 15:55 Lactate Dehydrogenase 129 units/L (91-180) 12/08/21 08:21 Total Creatine Kinase 287 units/L (30-135) H 12/08/21 04:00 C-Reactive Protein 6.20 mg/dL (0.00-1.30) H 12/08/21 08:21 Total Protein 6.8 g/dL (6.3-8.2) 12/09/21 04:32 Albumin 3.3 g/dL (3.9-5) L 12/09/21 04:32 Albumin/Globulin Ratio 0.9 % 12/09/21 04:32 Procalcitonin 0.09 ng/mL (<0.15) 12/08/21 08:21 PTH Intact 41.40 pg/mL (15-65) 12/10/21 05:49 Urine Color Yellow (Yellow) 12/07/21 17:21 Urine Turbidity Clear (Clear) 12/07/21 17:21 Urine pH 6.0 (5.0-7.0) 12/07/21 17:21 Ur Specific [place] 1.015 (1.003-1.030) 12/07/21 17:21 Urine Protein 30 mg/dl mg/dL (Negative) 12/07/21 17:21 Urine Glucose (UA) Negative mg/dL (Negative) 12/07/21 17:21 Urine Ketones 40 mg/dL (Negative) 12/07/21 17:21 Urine Blood Negative (Negative) 12/07/21 17:21 Urine Nitrite Negative (Negative) 12/07/21 17:21 Ur Reducing Substances Not Reportable 12/07/21 17:21 Urine Bilirubin Moderate (Negative) 12/07/21 17:21 Urine Ictotest Negative (Negative) 12/07/21 17:21 Urine Urobilinogen 0.0 mg/dL (<2.0) 12/07/21 17:21 Ur Leukocyte Esterase Negative (Negative) 12/07/21 17:21 Urine WBC (Auto) 1.0 /HPF (0.0-6.0) 12/07/21 17:21 Urine RBC (Auto) 1.0 /HPF (0.0-6.0) 12/07/21 17:21 U Epithel Cells (Auto) 4.0 /HPF (0-13.0) 12/07/21 17:21 Hyaline Casts 4 /LPF 12/07/21 17:21 Urine Mucus Few /HPF 12/07/21 17:21 Urine Creatinine 167.0 mg/dL (0.1-20.0) H 12/09/21 Unknown Urine Sodium 10 mmol/L 12/09/21 Unknown Nasal Screen MRSA (PCR) Positive (Negative) 12/08/21 12:30 Vancomycin Trough 11.4 ug/mL (5.0-20.0) 12/10/21 05:49 Urine Opiates Screen Negative 12/09/21 Unknown Urine Methadone Screen Negative 12/09/21 Unknown Ur Barbiturates Screen Negative 12/09/21 Unknown Ur Phencyclidine Scrn Negative 12/09/21 Unknown Ur Amphetamines Screen Negative 12/09/21 Unknown U Benzodiazepines Scrn Negative 12/09/21 Unknown Urine Cocaine Screen Negative 12/09/21 Unknown U Marijuana (THC) Screen Negative 12/09/21 Unknown Drugs of Abuse Note Disclamer 12/09/21 Unknown Plasma/Serum Alcohol < 0.01 % (0-0.07) 12/07/21 19:03 Coronavirus (PCR) Negative (Negative) 12/08/21 08:11 Blood Type AB POSITIVE 12/07/21 22:45 Antibody Screen Negative 12/07/21 22:45 Microbiology: Microbiology 12/10/21 15:02 Peripheral/Venous Blood Culture - Preliminary Culture in Progress 12/10/21 15:02 Peripheral/Venous Blood Culture - Preliminary Culture in Progress Marcelino/IV: Voiding Method Indwelling Catheter Active Medications - Current Medications Current Medications: Generic Name Dose Route Start Last Admin Trade Name Freq PRN Reason Stop Dose Admin Acetaminophen 650 mg 12/07/21 19:13 Acetaminophen 650 Mg Rect Supp SC Q6H PRN Pain MILD(1-3)/Fever >100.5/COTTON Acetaminophen 650 mg 12/07/21 19:17 Acetaminophen 325 Mg Tab PO Q6H PRN Pain MILD(1-3)/Fever >100.5/COTTON Albuterol 2.5 mg 12/07/21 19:13 12/10/21 23:44 Albuterol 2.5 Mg/3 Ml Nebu IH 2.5 mg Q3HRT PRN Administration Shortness Of Breath Amlodipine Besylate 5 mg 12/08/21 15:16 12/11/21 09:01 Amlodipine 10 Mg Tab PO 5 mg DAILY [place] Administration Atorvastatin Calcium 10 mg 12/07/21 22:00 12/10/21 21:11 Atorvastatin 10 Mg Tab PO 10 mg QHS [place] Administration Dextrose 0 ml 12/07/21 19:55 Dextrose 50% In Water (25gm) 50 Ml Syringe IV Q30MIN PRN Hypoglycemia Protocol Heparin Sodium (Porcine) 5,000 unit 12/08/21 14:00 12/11/21 05:06 Heparin 5,000 Unit/1 Ml Vial SUB-Q 5,000 unit Q8HR [place] Administration Hydralazine HCl 50 mg 12/10/21 20:00 12/11/21 08:59 Hydralazine 100 Mg Tab PO 50 mg TID [place] Administration Hydrophilic Ointment 1 applic 12/08/21 10:00 Lip Therapy Vaseline TP Q2HR PRN Dry Lips Azithromycin 500 mg in 250 mls @ 250 mls/hr 12/07/21 20:00 12/10/21 21:54 Zithromax/Ns IV 12/11/21 20:59 Infused Q24H [place] Infusion Protocol Cefepime HCl 2 gm in 100 mls @ 200 mls/hr 12/08/21 12:00 12/11/21 09:01 Cefepime/Ns 2 Gm/100 Ml IV 200 mls/hr Q12HR [place] Administration Protocol Ampicillin Sodium 2 gm in 100 mls @ 100 mls/hr 12/09/21 21:00 12/11/21 09:05 Ampicillin/Ns 2 Gm/100 Ml IV 12/11/21 15:59 100 mls/hr Q6H [place] Administration Protocol Vancomycin HCl 1,250 mg/ 275 mls @ 166.667 mls/hr 12/10/21 12:00 12/10/21 14:24 Sodium Chloride IV Infused Q24H [place] Infusion Levetiracetam 500 mg/ Dextrose 105 mls @ 400 mls/hr 12/10/21 22:00 12/10/21 23:32 IV Infused Q12HR [place] Infusion Sodium Chloride 500 mls @ 5 mls/hr 12/10/21 23:45 Nacl 0.9% 500 Ml IV DIRECT [facility] Insulin Glargine 20 units 12/10/21 07:52 12/11/21 00:07 Insulin Glargine 100 Units/Ml SUB-Q 20 units QHS [place] Administration Insulin Human Regular 0 units 12/09/21 12:00 12/11/21 06:05 Insulin Regular, Human 100 Units/1 Ml SUB-Q 3 units Q6H [place] Administration Protocol Lansoprazole 30 mg 12/08/21 10:00 12/11/21 09:01 Lansoprazole 30 Mg Solutab FEEDTUBE 30 mg QDAY [place] Administration Multi-Ingred Cream/Lotion/Oil/Oint 1 applic 12/08/21 10:00 12/10/21 21:12 Mineral Oil/Petrolatum, White Ophth Oint 3.5 Gm OU 1 applic Q4HR PRN Administration Dry Eye(s) Oxycodone/Acetaminophen 1 tab 12/07/21 19:17 Oxycodone /Acetaminophen 5-325mg Tab PO Q6H PRN Pain, Moderate (4-6) Senna/Docusate Sodium 1 tab 12/08/21 10:00 12/11/21 09:03 Sennosides/Docusate Sodium 8.6/50 Mg Tab FEEDTUBE Not Given BID [place] Sodium Chloride 10 ml 12/07/21 22:00 12/11/21 09:02 Sodium Chloride 0.9% 10 Ml Flush Syringe IV 10 ml BID [place] Administration Sodium Chloride 10 ml 12/07/21 22:00 12/11/21 09:03 Sodium Chloride 0.9% 10 Ml Flush Syringe IV 10 ml BID [place] Administration Sodium Chloride 10 ml 12/07/21 19:17 12/09/21 05:54 Sodium Chloride 0.9% 10 Ml Flush Syringe IV 10 ml PRN PRN Administration LINE FLUSH Nutrition/Malnutrition Assess - Dietary Evaluation Nutrition/Malnutrition Findings: Nutrition Notes Start: 12/08/21 11:03 Freq: Status: Active Protocol: Document 12/09/21 10:57 [facility] (Rec: 12/09/21 10:59 [facility] [id number]) Nutrition Notes Initial or Follow up Brief Note Current Diet Glucerna 1.2 at 45ml/hr Subjective/Other Information Per RN, TF infusing at 35ml/hr at this time and will be at goal rate by 15:00 today. Pt remains on vent support. Nutrition Intervention Follow-Up By: 12/11/21 Additional Comments F/U: TF goal rate/tolerance, vent status
--- NOTE | 2021-12-11 09:32 | XRay Report ---
CHEST 1 VIEW INDICATION / CLINICAL INFORMATION: follow up respiratory failure. COMPARISON: December 08, 2021 FINDINGS: SUPPORT DEVICES: ET tube and NG tube and right jugular line is satisfactory HEART / MEDIASTINUM: No significant abnormality. LUNGS / PLEURA: Mild increased pulmonary vascularity No pneumothorax. Signer Name: Dickson Escalona MD Signed: 12/11/2021 9:28 AM Workstation Name: [email or web address]
[2021-12-11] MEDS: levETIRAcetam 500 MG in DEXTROSE 5% IN WATER 100 ML IV SCH ×2 (09:56→21:45)
[2021-12-11 09:57] LABS: INR 0.95 (0.87-1.13)
--- NOTE | 2021-12-11 10:25 | Progress Note ---
Assessment and Plan MAYRA - F/u resolving BUN/Cr on IVF Vitals - Stable, f/u on meds Lytes - Continue free water flushes. Change IVF NS to low rate D5w & optimize Insulin coverage Resp Failure - Mx per Pulm Subjective Date of service: 12/11/21 Interval history: Sedated, on vent Objective - Vital Signs Vital signs: Vital Signs - 12hr 12/10/21 12/10/21 12/10/21 23:00 23:45 23:47 Temperature Pulse Rate 65 88 Pulse Rate [ 83 Anterior Bilateral] Pulse Rate [ From Monitor] Respiratory 16 Rate Respiratory 18 Rate [Anterior Bilateral] Blood Pressure 98/48 98/48 O2 Sat by Pulse 100 100 Oximetry 12/11/21 12/11/21 12/11/21 00:00 00:01 01:01 Temperature 98.2 F Pulse Rate 90 91 H 90 Pulse Rate [ Anterior Bilateral] Pulse Rate [ 91 H From Monitor] Respiratory 20 25 H 21 Rate Respiratory Rate [Anterior Bilateral] Blood Pressure 117/77 117/77 O2 Sat by Pulse 99 100 100 Oximetry 12/11/21 12/11/21 12/11/21 02:01 03:00 04:00 Temperature 97.7 F Pulse Rate 85 76 70 Pulse Rate [ Anterior Bilateral] Pulse Rate [ 91 H From Monitor] Respiratory 20 16 16 Rate Respiratory Rate [Anterior Bilateral] Blood Pressure 124/84 101/45 107/49 O2 Sat by Pulse 99 100 100 Oximetry 12/11/21 12/11/21 12/11/21 04:48 05:01 06:00 Temperature Pulse Rate 76 84 90 Pulse Rate [ Anterior Bilateral] Pulse Rate [ From Monitor] Respiratory 23 25 H Rate Respiratory Rate [Anterior Bilateral] Blood Pressure 107/49 132/60 136/58 O2 Sat by Pulse 100 99 100 Oximetry 12/11/21 12/11/21 12/11/21 07:00 07:14 07:25 Temperature 98.3 F Pulse Rate 87 81 Pulse Rate [ Anterior Bilateral] Pulse Rate [ From Monitor] Respiratory 22 Rate Respiratory Rate [Anterior Bilateral] Blood Pressure 121/52 121/52 O2 Sat by Pulse 100 100 Oximetry 12/11/21 12/11/21 12/11/21 08:00 09:00 09:01 Temperature Pulse Rate 85 85 Pulse Rate [ Anterior Bilateral] Pulse Rate [ From Monitor] Respiratory 18 20 Rate Respiratory Rate [Anterior Bilateral] Blood Pressure 123/59 145/60 145/60 O2 Sat by Pulse 100 100 Oximetry - General Appearance General appearance: sedated on ventilator, intubated Neck: no JVD Respiratory: Present: Other (Air entry per vent) Cardiology: regular, S1S2 Gastrointestinal: other (Soft) Integumentary: warm and dry Neurologic: other (Sedated) - Lab 12/11/21 04:00 12/11/21 04:00 Most recent lab results ABG pH 7.384 pH Units (7.350-7.450) 12/11/21 04:10 ABG pCO2 35.3 mm Hg 12/11/21 04:10 ABG pO2 117.4 mm Hg (80.0-90.0) H 12/11/21 04:10 ABG HCO3 20.6 mmol/L (20.0-26.0) 12/11/21 04:10 ABG O2 Saturation 98.2 % (95.0-99.0) 12/11/21 04:10 Calcium 9.0 mg/dL (8.4-10.2) 12/11/21 04:00 Urine Creatinine 167.0 mg/dL (0.1-20.0) H 12/09/21 Unknown Urine Sodium 10 mmol/L 12/09/21 Unknown Medications & Allergies - Medications Allergies/Adverse Reactions: Allergies No Known Allergies Allergy (Verified 12/07/21 15:05) Home Medications: Home Medications Medication Instructions Recorded Confirmed Last Taken Type AtorvaSTATin [Lipitor] 10 mg PO QHS 12/07/21 12/07/21 Unknown History Furosemide [Lasix] 40 mg PO BID 12/07/21 12/07/21 Unknown History Gabapentin [Neurontin] 300 mg PO BID 12/07/21 12/07/21 Unknown History Loratadine 10 mg PO QDAY 12/07/21 12/07/21 Unknown History Omeprazole 20 mg PO QDAY 12/07/21 12/07/21 Unknown History PARoxetine [Paxil] 20 mg PO DAILY 12/07/21 12/07/21 Unknown History Sitagliptin Phosphate [Januvia] 50 mg PO QDAY 12/07/21 12/07/21 Unknown History amLODIPine [Norvasc] 10 mg PO DAILY 12/07/21 12/07/21 Unknown History hydrALAZINE [Apresoline TAB] 100 mg PO TID 12/07/21 12/07/21 Unknown History lisinopriL [Zestril TAB] 40 mg PO QDAY 12/07/21 12/07/21 Unknown History Active Medications: Generic Name Dose Route Start Last Admin Trade Name Freq PRN Reason Stop Dose Admin Acetaminophen 650 mg 12/07/21 19:13 Acetaminophen 650 Mg Rect Supp MS Q6H PRN Pain MILD(1-3)/Fever >100.5/COTTON Acetaminophen 650 mg 12/07/21 19:17 Acetaminophen 325 Mg Tab PO Q6H PRN Pain MILD(1-3)/Fever >100.5/COTTON Albuterol 2.5 mg 12/07/21 19:13 12/10/21 23:44 Albuterol 2.5 Mg/3 Ml Nebu IH 2.5 mg Q3HRT PRN Administration Shortness Of Breath Amlodipine Besylate 5 mg 12/08/21 15:16 12/11/21 09:01 Amlodipine 10 Mg Tab PO 5 mg DAILY [place] Administration Atorvastatin Calcium 10 mg 12/07/21 22:00 12/10/21 21:11 Atorvastatin 10 Mg Tab PO 10 mg QHS [place] Administration Dextrose 0 ml 12/07/21 19:55 Dextrose 50% In Water (25gm) 50 Ml Syringe IV Q30MIN PRN Hypoglycemia Protocol Heparin Sodium (Porcine) 5,000 unit 12/08/21 14:00 12/11/21 05:06 Heparin 5,000 Unit/1 Ml Vial SUB-Q 5,000 unit Q8HR [place] Administration Hydralazine HCl 50 mg 12/10/21 20:00 12/11/21 08:59 Hydralazine 100 Mg Tab PO 50 mg TID [place] Administration Hydrophilic Ointment 1 applic 12/08/21 10:00 Lip Therapy Vaseline TP Q2HR PRN Dry Lips Azithromycin 500 mg in 250 mls @ 250 mls/hr 12/07/21 20:00 12/10/21 21:54 Zithromax/Ns IV 12/11/21 20:59 Infused Q24H [place] Infusion Protocol Cefepime HCl 2 gm in 100 mls @ 200 mls/hr 12/08/21 12:00 12/11/21 09:01 Cefepime/Ns 2 Gm/100 Ml IV 200 mls/hr Q12HR [place] Administration Protocol Ampicillin Sodium 2 gm in 100 mls @ 100 mls/hr 12/09/21 21:00 12/11/21 09:05 Ampicillin/Ns 2 Gm/100 Ml IV 100 mls/hr Q6H [place] Administration Protocol Vancomycin HCl 1,250 mg/ 275 mls @ 166.667 mls/hr 12/10/21 12:00 12/10/21 14:24 Sodium Chloride IV Infused Q24H [place] Infusion Levetiracetam 500 mg/ Dextrose 105 mls @ 400 mls/hr 12/10/21 22:00 12/11/21 09:56 IV 400 mls/hr Q12HR [place] Administration Sodium Chloride 500 mls @ 5 mls/hr 12/10/21 23:45 Nacl 0.9% 500 Ml IV DIRECT [place] Insulin Glargine 20 units 12/10/21 07:52 12/11/21 00:07 Insulin Glargine 100 Units/Ml SUB-Q 20 units QHS [place] Administration Insulin Human Regular 0 units 12/09/21 12:00 12/11/21 06:05 Insulin Regular, Human 100 Units/1 Ml SUB-Q 3 units Q6H [place] Administration Protocol Lansoprazole 30 mg 12/08/21 10:00 12/11/21 09:01 Lansoprazole 30 Mg Solutab FEEDTUBE 30 mg QDAY [place] Administration Multi-Ingred Cream/Lotion/Oil/Oint 1 applic 12/08/21 10:00 12/10/21 21:12 Mineral Oil/Petrolatum, White Ophth Oint 3.5 Gm OU 1 applic Q4HR PRN Administration Dry Eye(s) Oxycodone/Acetaminophen 1 tab 12/07/21 19:17 Oxycodone /Acetaminophen 5-325mg Tab PO Q6H PRN Pain, Moderate (4-6) Senna/Docusate Sodium 1 tab 12/08/21 10:00 12/11/21 09:03 Sennosides/Docusate Sodium 8.6/50 Mg Tab FEEDTUBE Not Given BID [place] Sodium Chloride 10 ml 12/07/21 22:00 12/11/21 09:02 Sodium Chloride 0.9% 10 Ml Flush Syringe IV 10 ml BID [place] Administration Sodium Chloride 10 ml 12/07/21 22:00 12/11/21 09:03 Sodium Chloride 0.9% 10 Ml Flush Syringe IV 10 ml BID [place] Administration Sodium Chloride 10 ml 12/07/21 19:17 12/09/21 05:54 Sodium Chloride 0.9% 10 Ml Flush Syringe IV 10 ml PRN PRN Administration LINE FLUSH
[2021-12-11] MEDS ORDERED: DEXTROSE 5% IN WATER 1,000 ML IV SCH (11:00)
--- NOTE | 2021-12-11 13:18 | Cat Scan Report ---
CT head/brain wo con INDICATION / CLINICAL INFORMATION: 65 years Female; AMS- interval CT; please do today. TECHNIQUE: Routine CT head without contrast. All CT scans at this location are performed using CT dos e reduction for ALARA by means of automated exposure control. COMPARISON: 12/07/2021 FINDINGS: BRAIN / INTRACRANIAL CONTENTS: No acute hemorrhage, mass effect, midline shift, hydrocephalus, or acu te, large territorial infarct. Mild cerebral atrophy. Mild degree of hippocampal atrophy suggested bilaterally. There are mild areas of decreased attenuation in the white matter of the cerebral hemispheres. These are nonspecific findings and may be related to microangiopathy (hypertension, diabetes, atheroscleros is), given the patient's age. It might be difficult to evaluate for small areas of ischemia without d iffusion imaging by MRI. CRANIOCERVICAL JUNCTION: No significant abnormality. ORBITS: Scleral banding noted on the right. Orbits are otherwise grossly normal in appearance. SINUSES / MASTOIDS: Mucous tension cyst/polyp seen in the left maxillary antrum. There is near comple te opacification of the ethmoids and sphenoid sinuses, where small air-fluid levels are noted. Mild m ucosal thickening seen in the right maxillary antrum. There is also mild mucosal thickening in the ma stoids. Note, the patient is intubated. ADDITIONAL FINDINGS: Atherosclerotic disease is seen in the anterior and posterior circulation. IMPRESSION: 1. No focal mass, hemorrhage, hydrocephalus, or acute, large territorial infarct. Signer Name: Osmany Santo MD, III Signed: 12/11/2021 1:14 PM Workstation Name: [email or web address]
--- NOTE | 2021-12-11 13:26 | Progress Note ---
Assessment and Plan Cultures: 12/07/2021 blood culture: GPC in both sets 12/10/2021 blood culture: In process COVID-19 PCR: negative A/P: 65-year-old female with morbid obesity, hypertension, diabetes, hyperlipidemia, CHF was brought into the emergency room in an unresponsive state: #Severe sepsis, probably secondary to pneumonia: CXR with improvement. CT chest without any mass. #GPC bacteremia: Source unclear. TTE without any obvious valvular vegetations but technically difficult study. #Acute encephalopathy: CT head with no acute findings. F/U LP. #Acute hypoxic respiratory failure: on the vent. #MAYRA: better #Diabetes mellitus #Morbid obesity Recs: -Ampicillin not needed, discontinued, d/w pharmacy -Follow-up blood culture identification -continue with IV cefepime and vancomycin -f/u LP results Laura Ruiz MD, FACP, [facility] ([facility] O: [phone] F: [phone] C: [phone] Subjective Date of service: 12/11/21 Interval history: Afebrile. Has had some low-grade temperatures. Remains unresponsive, off sedation. Just came back from LP. Remains on the vent. Objective - Exam Narrative Exam: Physical Exam: Constitutional: unresponsive, intubated, on the vent. Morbidly obese Head, Ears, Nose: Normocephalic, atraumatic. External ears, nose normal Eyes: Conjunctivae/corneas clear. No icterus. No ptosis. Neck: intubated Oral: intubated Cardiovascular: S1, S2 + Respiratory: AE fair bilaterally and equal GI: Soft, bowel sounds + Musculoskeletal: No pedal edema, no cyanosis. Morbidly obese Skin: No rash or abscess Hem/Lymphatic: No palpable cervical or supraclavicular nodes. No lymphangitis Psych: no agitation Neurological: unresponsive, intubated, on the vent, exam limited - Constitutional Vitals: Vital Signs Temp Pulse Resp BP Pulse Ox 98.3 F 90 21 130/61 100 12/11/21 07:14 12/11/21 13:10 12/11/21 10:00 12/11/21 13:10 12/11/21 13:10 Temperature -Last 24 Hours Temperature 98.3 F Temperature 97.7 F Temperature 98.2 F Temperature 98.4 F Temperature 99.9 F - Labs CBC & Chem 7: 12/11/21 04:00 12/11/21 04:00 Labs: Abnormal lab results 12/10/21 12/11/21 12/11/21 Range/Units 16:36 04:00 04:00 RBC 3.40 L (3.65-5.03) M/mm3 Hgb 9.6 L (10.1-14.3) gm/dl Hct 29.2 L (30.3-42.9) % ABG pO2 (80.0-90.0) mm Hg ABG Base Excess (-2.0-3.0) mmol/L ABG Hemoglobin (12.0-16.0) gm/dl Sodium 148 H (137-145) mmol/L Chloride 117.5 H (98-107) mmol/L BUN 34 H (7-17) mg/dL Glucose 173 H (65-100) mg/dL POC Glucose 180 H (70-105) mg/dL 12/11/21 Range/Units 04:10 RBC (3.65-5.03) M/mm3 Hgb (10.1-14.3) gm/dl Hct (30.3-42.9) % ABG pO2 117.4 H (80.0-90.0) mm Hg ABG Base Excess -3.9 L (-2.0-3.0) mmol/L ABG Hemoglobin 9.0 L (12.0-16.0) gm/dl Sodium (137-145) mmol/L Chloride (98-107) mmol/L BUN (7-17) mg/dL Glucose (65-100) mg/dL POC Glucose (70-105) mg/dL
[2021-12-11] MEDS: VANCOMYCIN 1,250 MG in SODIUM CHLORIDE 0.9% 250ML 250 ML IV SCH (13:35)
[2021-12-11 13:54] LABS: Appearance,CSF Clear
[2021-12-11 14:42] LABS: White Blood Cell,CSF 0 /mm3 (1-10)
[2021-12-11 14:48] LABS: Glucose,CSF 96 mg/dL
[2021-12-11 14:52] LABS: Red Blood Cell,CSF 12100 /mm3 (0-0)
--- NOTE | 2021-12-11 14:57 | Consultation ---
History of Present Illness Consult date: 12/11/21 Reason for Consult: AMS Chief complaint: AMS History of present illness: 65 yo female with htn, dm, hld, chf, obesity, hypoventilation syndrome, who presents to the ED after being found down and unresponsive; emergently intubated; noted with pneumonia w/ sepsis protocol initiated. Noted with continued encephalopathy during hospitalization w/o any clinical seizure activity. NCHCT was unrevealing. Per RN, the patient has been unresponsive "the whole day". Past History Past Medical History: diabetes, GERD, heart failure, hypertension, hyperlipidemia Past Surgical History: No surgical history, Other (Reviewed) Social history: single. denies: smoking, alcohol abuse, prescription drug abuse Family history: diabetes, hypertension Medications and Allergies Allergies Allergy/AdvReac Type Severity Reaction Status Date / Time No Known Allergies Allergy Verified 12/07/21 15:05 Home Medications Medication Instructions Recorded Confirmed Last Taken Type AtorvaSTATin [Lipitor] 10 mg PO QHS 12/07/21 12/07/21 Unknown History Furosemide [Lasix] 40 mg PO BID 12/07/21 12/07/21 Unknown History Gabapentin [Neurontin] 300 mg PO BID 12/07/21 12/07/21 Unknown History Loratadine 10 mg PO QDAY 12/07/21 12/07/21 Unknown History Omeprazole 20 mg PO QDAY 12/07/21 12/07/21 Unknown History PARoxetine [Paxil] 20 mg PO DAILY 12/07/21 12/07/21 Unknown History Sitagliptin Phosphate [Januvia] 50 mg PO QDAY 12/07/21 12/07/21 Unknown History amLODIPine [Norvasc] 10 mg PO DAILY 12/07/21 12/07/21 Unknown History hydrALAZINE [Apresoline TAB] 100 mg PO TID 12/07/21 12/07/21 Unknown History lisinopriL [Zestril TAB] 40 mg PO QDAY 12/07/21 12/07/21 Unknown History Active Meds: Active Medications Acetaminophen (Acetaminophen 325 Mg Tab) 650 mg PO Q6H PRN PRN Reason: Pain MILD(1-3)/Fever >100.5/[place] Albuterol (Albuterol 2.5 Mg/3 Ml Nebu) 2.5 mg IH Q3HRT PRN PRN Reason: Shortness Of Breath Last Admin: 12/10/21 23:44 Dose: 2.5 mg Amlodipine Besylate (Amlodipine 10 Mg Tab) 5 mg PO DAILY [place] Last Admin: 12/11/21 09:01 Dose: 5 mg Atorvastatin Calcium (Atorvastatin 10 Mg Tab) 10 mg PO QHS [place] Last Admin: 12/10/21 21:11 Dose: 10 mg Dextrose (Dextrose 50% In Water (25gm) 50 Ml Syringe) 0 ml IV Q30MIN PRN; Protocol PRN Reason: Hypoglycemia Heparin Sodium (Porcine) (Heparin 5,000 Unit/1 Ml Vial) 5,000 unit SUB-Q Q8HR [place] Last Admin: 12/11/21 13:36 Dose: 5,000 unit Hydralazine HCl (Hydralazine 100 Mg Tab) 50 mg PO TID [facility] Last Admin: 12/11/21 13:36 Dose: 50 mg Hydrophilic Ointment (Lip Therapy Vaseline) 1 applic TP Q2HR PRN PRN Reason: Dry Lips Azithromycin (Zithromax/Ns) 500 mg in 250 mls @ 250 mls/hr IV Q24H [place]; Protocol Stop: 12/11/21 20:59 Last Infusion: 12/10/21 21:54 Dose: Infused Cefepime HCl (Cefepime/Ns 2 Gm/100 Ml) 2 gm in 100 mls @ 200 mls/hr IV Q12HR [facility]; Protocol Last Admin: 12/11/21 09:01 Dose: 200 mls/hr Vancomycin HCl 1,250 mg/ (Sodium Chloride) 275 mls @ 166.667 mls/hr IV Q24H [place] Last Admin: 12/11/21 13:35 Dose: 166.67 mls/hr Levetiracetam 500 mg/ Dextrose 105 mls @ 400 mls/hr IV Q12HR [place] Last Admin: 12/11/21 09:56 Dose: 400 mls/hr Dextrose (D5w) 1,000 mls @ 75 mls/hr IV DIRECT [place] Insulin Glargine (Insulin Glargine 100 Units/Ml) 20 units SUB-Q QHS [facility] Last Admin: 12/11/21 00:07 Dose: 20 units Insulin Human Regular (Insulin Regular, Human 100 Units/1 Ml) 0 units SUB-Q Q6H [place]; Protocol Last Admin: 12/11/21 13:35 Dose: Not Given Lansoprazole (Lansoprazole 30 Mg Solutab) 30 mg FEEDTUBE QDAY [facility] Last Admin: 12/11/21 09:01 Dose: 30 mg Multi-Ingred Cream/Lotion/Oil/Oint (Mineral Oil/Petrolatum, White Ophth Oint 3.5 Gm) 1 applic OU Q4HR PRN PRN Reason: Dry Eye(s) Last Admin: 12/10/21 21:12 Dose: 1 applic Oxycodone/Acetaminophen (Oxycodone /Acetaminophen 5-325mg Tab) 1 tab PO Q6H PRN PRN Reason: Pain, Moderate (4-6) Senna/Docusate Sodium (Sennosides/Docusate Sodium 8.6/50 Mg Tab) 1 tab FEEDTUBE BID [facility] Last Admin: 12/11/21 09:03 Dose: Not Given Sodium Chloride (Sodium Chloride 0.9% 10 Ml Flush Syringe) 10 ml IV BID [facility] Last Admin: 12/11/21 09:02 Dose: 10 ml Sodium Chloride (Sodium Chloride 0.9% 10 Ml Flush Syringe) 10 ml IV BID [facility] Last Admin: 12/11/21 09:03 Dose: 10 ml Sodium Chloride (Sodium Chloride 0.9% 10 Ml Flush Syringe) 10 ml IV PRN PRN PRN Reason: LINE FLUSH Last Admin: 12/09/21 05:54 Dose: 10 ml Review of Systems ROS unobtainable: due to mental status All systems: negative Physical Examination - Vital Signs Vital Signs: Vital Signs Temp Pulse Resp BP Pulse Ox 98.2 F 119 H 19 166/93 100 12/07/21 13:50 12/07/21 13:50 12/07/21 13:50 12/07/21 13:50 12/07/21 13:50 - Physical Exam Narrative exam: Gen: nad, well-nourished, intubated; Head: normocephalic; Eyes: no gaze deviation; ENT: +ETT; CVS: warm and well-perfused; Pulm: no respiratory distress; GI: appears non-distended; Ext: no cyanosis appreciated at distal extremities; Skin: no acute rash appreciated at distal extremities; Heme: no pathologic ecchymosis appreciated at distal extremities; Neuro: obtunded, intubated, CN 2 - sluggish reactive pupils, CN 3, 4, 6 - oculocephalic absent, CN 5/7 - corneal reflex intact, CN 9/10 - cough noted, CN 11/12 - pt cannot cooperate secondary to LOC; Motor/Sensory - reflexive 1/5 movement at all exts to tactile stimuli; Cerebellar/Gait - pt cannot cooperate secondary to LOC; Results - Laboratory Findings CBC and BMP: 12/11/21 04:00 12/11/21 04:00 Abnormal Lab Findings: Abnormal Labs 12/07/21 12/07/21 12/07/21 14:21 15:55 15:55 WBC 16.9 H RBC 5.04 H Hgb Hct 43.8 H Plt Count 459 H Lymph % (Auto) 9.3 L [place] # (Auto) 0.9 H Seg Neutrophils % 84.6 H Seg Neuts % (Manual) Lymphocytes % (Manual) Basophils % (Manual) Seg Neutrophils # 14.3 H Seg Neutrophils # Man Lymphocytes # (Manual) Monocytes # (Manual) Basophils # (Manual) D-Dimer ABG pH ABG pO2 ABG HCO3 ABG O2 Saturation ABG Base Excess ABG Hemoglobin Oxyhemoglobin Sodium Chloride 107.2 H Carbon Dioxide 18 L BUN 34 H Creatinine 1.7 H Glucose 224 H POC Glucose 174 H Hemoglobin A1c Ammonia Total Creatine Kinase C-Reactive Protein Albumin Urine Creatinine 12/07/21 12/07/21 12/07/21 15:55 15:55 15:55 WBC RBC Hgb Hct Plt Count Lymph % (Auto) [place] # (Auto) Seg Neutrophils % Seg Neuts % (Manual) Lymphocytes % (Manual) Basophils % (Manual) Seg Neutrophils # Seg Neutrophils # Man Lymphocytes # (Manual) Monocytes # (Manual) Basophils # (Manual) D-Dimer ABG pH 7.260 L ABG pO2 229.7 H ABG HCO3 19.8 L ABG O2 Saturation 99.3 H ABG Base Excess -7.1 L ABG Hemoglobin Oxyhemoglobin Sodium Chloride Carbon Dioxide BUN Creatinine Glucose POC Glucose Hemoglobin A1c Ammonia 23.0 L Total Creatine Kinase 498 H C-Reactive Protein Albumin Urine Creatinine 12/07/21 12/08/21 12/08/21 21:45 00:18 04:00 WBC 20.4 H RBC Hgb Hct Plt Count Lymph % (Auto) [place] # (Auto) Seg Neutrophils % Seg Neuts % (Manual) 92.0 H Lymphocytes % (Manual) 1.0 L Basophils % (Manual) 2.0 H Seg Neutrophils # Seg Neutrophils # Man 18.8 H Lymphocytes # (Manual) 0.2 L Monocytes # (Manual) 1.0 H Basophils # (Manual) 0.4 H D-Dimer ABG pH ABG pO2 170.3 H ABG HCO3 18.8 L ABG O2 Saturation 99.1 H ABG Base Excess -5.5 L ABG Hemoglobin 11.9 L Oxyhemoglobin Sodium Chloride Carbon Dioxide BUN Creatinine Glucose POC Glucose 276 H Hemoglobin A1c Ammonia Total Creatine Kinase C-Reactive Protein Albumin Urine Creatinine 12/08/21 12/08/21 12/08/21 04:00 04:10 05:42 WBC RBC Hgb Hct Plt Count Lymph % (Auto) [place] # (Auto) Seg Neutrophils % Seg Neuts % (Manual) Lymphocytes % (Manual) Basophils % (Manual) Seg Neutrophils # Seg Neutrophils # Man Lymphocytes # (Manual) Monocytes # (Manual) Basophils # (Manual) D-Dimer ABG pH ABG pO2 65.1 L ABG HCO3 17.6 L ABG O2 Saturation 94.5 L ABG Base Excess -5.4 L ABG Hemoglobin Oxyhemoglobin 92.9 L Sodium 146 H Chloride 112.2 H Carbon Dioxide 17 L BUN 38 H Creatinine 1.8 H Glucose 329 H POC Glucose 315 H Hemoglobin A1c Ammonia Total Creatine Kinase 287 H C-Reactive Protein Albumin 3.5 L Urine Creatinine 12/08/21 12/08/21 12/08/21 07:29 08:21 08:21 WBC RBC Hgb Hct Plt Count Lymph % (Auto) [place] # (Auto) Seg Neutrophils % Seg Neuts % (Manual) Lymphocytes % (Manual) Basophils % (Manual) Seg Neutrophils # Seg Neutrophils # Man Lymphocytes # (Manual) Monocytes # (Manual) Basophils # (Manual) D-Dimer 3277.12 H ABG pH ABG pO2 ABG HCO3 ABG O2 Saturation ABG Base Excess ABG Hemoglobin Oxyhemoglobin Sodium Chloride Carbon Dioxide BUN Creatinine Glucose POC Glucose 330 H Hemoglobin A1c Ammonia Total Creatine Kinase C-Reactive Protein 6.20 H Albumin Urine Creatinine 12/08/21 12/08/21 12/09/21 11:15 21:04 04:25 WBC RBC Hgb Hct Plt Count Lymph % (Auto) [place] # (Auto) Seg Neutrophils % Seg Neuts % (Manual) Lymphocytes % (Manual) Basophils % (Manual) Seg Neutrophils # Seg Neutrophils # Man Lymphocytes # (Manual) Monocytes # (Manual) Basophils # (Manual) D-Dimer ABG pH ABG pO2 136.8 H ABG HCO3 18.7 L ABG O2 Saturation ABG Base Excess -5.7 L ABG Hemoglobin 11.2 L Oxyhemoglobin Sodium Chloride Carbon Dioxide BUN Creatinine Glucose POC Glucose 302 H 122 H Hemoglobin A1c Ammonia Total Creatine Kinase C-Reactive Protein Albumin Urine Creatinine 12/09/21 12/09/21 12/09/21 04:32 04:32 04:32 WBC 16.7 H RBC Hgb Hct Plt Count Lymph % (Auto) [place] # (Auto) Seg Neutrophils % Seg Neuts % (Manual) Lymphocytes % (Manual) Basophils % (Manual) Seg Neutrophils # Seg Neutrophils # Man Lymphocytes # (Manual) Monocytes # (Manual) Basophils # (Manual) D-Dimer ABG pH ABG pO2 ABG HCO3 ABG O2 Saturation ABG Base Excess ABG Hemoglobin Oxyhemoglobin Sodium 146 H Chloride 116.8 H Carbon Dioxide 18 L BUN 38 H Creatinine 1.7 H Glucose 193 H POC Glucose Hemoglobin A1c 6.2 H Ammonia Total Creatine Kinase C-Reactive Protein Albumin 3.3 L Urine Creatinine 12/09/21 12/10/21 12/10/21 Unknown 00:18 04:20 WBC RBC Hgb Hct Plt Count Lymph % (Auto) [place] # (Auto) Seg Neutrophils % Seg Neuts % (Manual) Lymphocytes % (Manual) Basophils % (Manual) Seg Neutrophils # Seg Neutrophils # Man Lymphocytes # (Manual) Monocytes # (Manual) Basophils # (Manual) D-Dimer ABG pH ABG pO2 136.4 H ABG HCO3 19.3 L ABG O2 Saturation ABG Base Excess -4.7 L ABG Hemoglobin 10.1 L Oxyhemoglobin Sodium Chloride Carbon Dioxide BUN Creatinine Glucose POC Glucose 186 H Hemoglobin A1c Ammonia Total Creatine Kinase C-Reactive Protein Albumin Urine Creatinine 167.0 H 12/10/21 12/10/21 12/10/21 05:49 06:03 12:11 WBC 13.0 H RBC Hgb Hct Plt Count Lymph % (Auto) [place] # (Auto) Seg Neutrophils % Seg Neuts % (Manual) Lymphocytes % (Manual) Basophils % (Manual) Seg Neutrophils # Seg Neutrophils # Man Lymphocytes # (Manual) Monocytes # (Manual) Basophils # (Manual) D-Dimer ABG pH ABG pO2 ABG HCO3 ABG O2 Saturation ABG Base Excess ABG Hemoglobin Oxyhemoglobin Sodium 147 H Chloride 118.1 H Carbon Dioxide 18 L BUN 37 H Creatinine 1.5 H Glucose 229 H POC Glucose 195 H Hemoglobin A1c Ammonia Total Creatine Kinase C-Reactive Protein Albumin Urine Creatinine 12/10/21 12/11/21 12/11/21 16:36 04:00 04:00 WBC RBC 3.40 L Hgb 9.6 L Hct 29.2 L Plt Count Lymph % (Auto) [place] # (Auto) Seg Neutrophils % Seg Neuts % (Manual) Lymphocytes % (Manual) Basophils % (Manual) Seg Neutrophils # Seg Neutrophils # Man Lymphocytes # (Manual) Monocytes # (Manual) Basophils # (Manual) D-Dimer ABG pH ABG pO2 ABG HCO3 ABG O2 Saturation ABG Base Excess ABG Hemoglobin Oxyhemoglobin Sodium 148 H Chloride 117.5 H Carbon Dioxide BUN 34 H Creatinine Glucose 173 H POC Glucose 180 H Hemoglobin A1c Ammonia Total Creatine Kinase C-Reactive Protein Albumin Urine Creatinine 12/11/21 12/11/21 04:10 13:29 WBC RBC Hgb Hct Plt Count Lymph % (Auto) [place] # (Auto) Seg Neutrophils % Seg Neuts % (Manual) Lymphocytes % (Manual) Basophils % (Manual) Seg Neutrophils # Seg Neutrophils # Man Lymphocytes # (Manual) Monocytes # (Manual) Basophils # (Manual) D-Dimer ABG pH ABG pO2 117.4 H ABG HCO3 ABG O2 Saturation ABG Base Excess -3.9 L ABG Hemoglobin 9.0 L Oxyhemoglobin Sodium Chloride Carbon Dioxide BUN Creatinine Glucose POC Glucose 124 H Hemoglobin A1c Ammonia Total Creatine Kinase C-Reactive Protein Albumin Urine Creatinine Assessment and Plan 65 yo female with htn, dm, hld, chf, obesity, hypoventilation syndrome, who presents to the ED after being found down and unresponsive; emergently intubated; noted with pneumonia w/ sepsis protocol initiated. Noted with continued encephalopathy during hospitalization w/o any clinical seizure activity. 1. Hypoxic Encephalopathy - unclear to me how long the patient was "down"; concern is raised based on bedside exam; mri brain w/ wo contrast when clinically stable. 2. Seizure / Status Epilepticus - EEG results pending; if positive; load with Keppra 4 grams IV x 1 dose then 1500 mg iv q12; valproate 2 grams IV x 1 dose and then transfer to a facility with long-term eeg monitoring. 3. Acute Metabolic Encephalopathy - in the setting of underlying infection; workup per primary team. 4. Fall - unclear if patient fell vs slumped down; ct cervical spine wo contra st. 5. Hypertension - permissive htn until mri brain findings. 6. DM - maintain euglycemia. Robbie Hedrick MD Neurology [id number]
--- NOTE | 2021-12-11 14:58 | Progress Note ---
Assessment and Plan Assessment and plan: NEURO: AMS pos cough/gag no movement noted on exam; to even noxious stimuli UDS neg keppra neuro consult EEG pending CT head to be repeated today eventual MRI LP today cultures sent need goals of care with family CV- htn; hld SR no pressors norvasc and hydral tolerating well statin Resp- acute hypoxic resp failure vent PRVC AC [id number] PS trial today see chart trend ABG and chest xray ABG in AM GI- prot leilani malnutrition PPI TF nutrition following stooling - hyperNa; MAYRA- improving austin to be dc bladder scan QS intake output follow and replace electrolytes pos 537 ml over 24 hours FWF for NA AM labs ordered Heme- nap VTE SCD and CHESTER hgb stable ID- bacteria BC x 2 pos covid neg trend WBC and temp curve dc RIJ given bacteremia use PIV on azithro/cefepime and vanc narrow when clinically appropriate ampicillin dc by ID azithro to complete this kaitlin continue to follow culture data and narrow as appropriate sp LP today cultures pending ENdo - DM; obesity BG control SSI avoid hypoglycemia Disposition Plan: CONTINUE ICU CARE Total Time Spent with Patient (Minutes): 60 MIN CRITICAL CARE History Interval history: NO ACUTE VENTS OVERNIGHT Hospitalist Physical - Constitutional Vitals: Temp Pulse Resp BP Pulse Ox 98.3 F 94 H 21 141/65 100 12/11/21 07:14 12/11/21 14:00 12/11/21 14:00 12/11/21 14:00 12/11/21 14:00 General appearance: Present: no acute distress, obese, other (Intubated and unresponsive, not on any sedation) - EENT Eyes: Present: PERRL ENT: clear oral mucosa - Neck Neck: Present: supple, normal ROM - Respiratory Respiratory effort: normal - Cardiovascular Rhythm: regular - Extremities Extremities: no ischemia - Abdominal General gastrointestinal: soft - Integumentary Integumentary: Present: clear, warm, dry Results - Labs CBC & Chem 7: 12/11/21 04:00 12/11/21 04:00 Labs: Laboratory Last Values WBC 10.5 K/mm3 (4.5-11.0) 12/11/21 04:00 RBC 3.40 M/mm3 (3.65-5.03) L 12/11/21 04:00 Hgb 9.6 gm/dl (10.1-14.3) L 12/11/21 04:00 Hct 29.2 % (30.3-42.9) L 12/11/21 04:00 MCV 86 fl (79-97) 12/11/21 04:00 MCH 28 pg (28-32) 12/11/21 04:00 MCHC 33 % (30-34) 12/11/21 04:00 RDW 14.9 % (13.2-15.2) 12/11/21 04:00 Plt Count 266 K/mm3 (140-440) 12/11/21 04:00 Lymph % (Auto) 9.3 % (13.4-35.0) L 12/07/21 15:55 Zavala % (Auto) 5.6 % (0.0-7.3) 12/07/21 15:55 Eos % (Auto) 0.0 % (0.0-4.3) 12/07/21 15:55 Baso % (Auto) 0.5 % (0.0-1.8) 12/07/21 15:55 Lymph # (Auto) 1.6 K/mm3 (1.2-5.4) 12/07/21 15:55 Zavala # (Auto) 0.9 K/mm3 (0.0-0.8) H 12/07/21 15:55 Eos # (Auto) 0.0 K/mm3 (0.0-0.4) 12/07/21 15:55 Baso # (Auto) 0.1 K/mm3 (0.0-0.1) 12/07/21 15:55 Add Manual Diff Complete 12/08/21 04:00 Total Counted 100 12/08/21 04:00 Seg Neutrophils % Insurance Broker 12/08/21 04:00 Seg Neuts % (Manual) 92.0 % (40.0-70.0) H 12/08/21 04:00 Band Neutrophils % 0 % 12/08/21 04:00 Lymphocytes % (Manual) 1.0 % (13.4-35.0) L 12/08/21 04:00 Reactive Lymphs % (Man) 0 % 12/08/21 04:00 Monocytes % (Manual) 5.0 % (0.0-7.3) 12/08/21 04:00 Eosinophils % (Manual) 0 % (0.0-4.3) 12/08/21 04:00 Basophils % (Manual) 2.0 % (0.0-1.8) H 12/08/21 04:00 Metamyelocytes % 0 % 12/08/21 04:00 Myelocytes % 0 % 12/08/21 04:00 Promyelocytes % 0 % 12/08/21 04:00 Blast Cells % 0 % 12/08/21 04:00 Nucleated RBC % Not Reportable 12/08/21 04:00 Seg Neutrophils # 14.3 K/mm3 (1.8-7.7) H 12/07/21 15:55 Seg Neutrophils # Man 18.8 K/mm3 (1.8-7.7) H 12/08/21 04:00 Band Neutrophils # 0.0 K/mm3 12/08/21 04:00 Lymphocytes # (Manual) 0.2 K/mm3 (1.2-5.4) L 12/08/21 04:00 Abs React Lymphs (Man) 0.0 K/mm3 12/08/21 04:00 Monocytes # (Manual) 1.0 K/mm3 (0.0-0.8) H 12/08/21 04:00 Eosinophils # (Manual) 0.0 K/mm3 (0.0-0.4) 12/08/21 04:00 Basophils # (Manual) 0.4 K/mm3 (0.0-0.1) H 12/08/21 04:00 Metamyelocytes # 0.0 K/mm3 12/08/21 04:00 Myelocytes # 0.0 K/mm3 12/08/21 04:00 Promyelocytes # 0.0 K/mm3 12/08/21 04:00 Blast Cells # 0.0 K/mm3 12/08/21 04:00 WBC Morphology Not Reportable 12/08/21 04:00 Hypersegmented Neuts Not Reportable 12/08/21 04:00 Hyposegmented Neuts Not Reportable 12/08/21 04:00 Hypogranular Neuts Not Reportable 12/08/21 04:00 Smudge Cells Not Reportable 12/08/21 04:00 Toxic Granulation Not Reportable 12/08/21 04:00 Toxic Vacuolation Not Reportable 12/08/21 04:00 Dohle Bodies Not Reportable 12/08/21 04:00 Pelger-Huet Anomaly Not Reportable 12/08/21 04:00 Ulises Rods Not Reportable 12/08/21 04:00 Platelet Estimate Consistent w auto 12/08/21 04:00 Clumped Platelets Not Reportable 12/08/21 04:00 Plt Clumps, EDTA Not Reportable 12/08/21 04:00 Large Platelets Not Reportable 12/08/21 04:00 Giant Platelets Not Reportable 12/08/21 04:00 Platelet Satelliting Not Reportable 12/08/21 04:00 Plt Morphology Comment Not Reportable 12/08/21 04:00 RBC Morphology Normal 12/08/21 04:00 Dimorphic RBCs Not Reportable 12/08/21 04:00 Polychromasia Not Reportable 12/08/21 04:00 Hypochromasia Not Reportable 12/08/21 04:00 Poikilocytosis Not Reportable 12/08/21 04:00 Anisocytosis Not Reportable 12/08/21 04:00 Microcytosis Not Reportable 12/08/21 04:00 Macrocytosis Not Reportable 12/08/21 04:00 Spherocytes Not Reportable 12/08/21 04:00 Pappenheimer Bodies Not Reportable 12/08/21 04:00 Sickle Cells Not Reportable 12/08/21 04:00 Target Cells Not Reportable 12/08/21 04:00 Tear Drop Cells Not Reportable 12/08/21 04:00 Ovalocytes Not Reportable 12/08/21 04:00 Helmet Cells Not Reportable 12/08/21 04:00 [place] Bodies Not Reportable 12/08/21 04:00 [place] Rings Not Reportable 12/08/21 04:00 Violette Cells Not Reportable 12/08/21 04:00 Bite Cells Not Reportable 12/08/21 04:00 Crenated Cell Not Reportable 12/08/21 04:00 Elliptocytes Not Reportable 12/08/21 04:00 Acanthocytes (Spur) Not Reportable 12/08/21 04:00 Rouleaux Not Reportable 12/08/21 04:00 Hemoglobin C Crystals Not Reportable 12/08/21 04:00 Schistocytes Not Reportable 12/08/21 04:00 Malaria parasites Not Reportable 12/08/21 04:00 Frederick Bodies Not Reportable 12/08/21 04:00 Hem Pathologist Commnt No 12/08/21 04:00 PT 13.7 Sec. (12.2-14.9) 12/11/21 09:32 INR 0.95 (0.87-1.13) 12/11/21 09:32 D-Dimer 3277.12 ng/mlDDU (0-234) H 12/08/21 08:21 ABG pH 7.384 pH Units (7.350-7.450) 12/11/21 04:10 ABG pCO2 35.3 mm Hg 12/11/21 04:10 ABG pO2 117.4 mm Hg (80.0-90.0) H 12/11/21 04:10 ABG HCO3 20.6 mmol/L (20.0-26.0) 12/11/21 04:10 ABG O2 Saturation 98.2 % (95.0-99.0) 12/11/21 04:10 ABG O2 Content 12.5 (0.0-44) 12/11/21 04:10 ABG Base Excess -3.9 mmol/L (-2.0-3.0) L 12/11/21 04:10 ABG Hemoglobin 9.0 gm/dl (12.0-16.0) L 12/11/21 04:10 ABG Carboxyhemoglobin 1.0 % (0.0-5.0) 12/11/21 04:10 ABG Methemoglobin 0.6 % (0.0-1.5) 12/11/21 04:10 Oxyhemoglobin 96.6 % (95.0-99.0) 12/11/21 04:10 FiO2 28 % 12/11/21 04:10 Sodium 148 mmol/L (137-145) H 12/11/21 04:00 Potassium 4.6 mmol/L (3.6-5.0) 12/11/21 04:00 Chloride 117.5 mmol/L (98-107) H 12/11/21 04:00 Carbon Dioxide 22 mmol/L (22-30) 12/11/21 04:00 Anion Gap 13 mmol/L 12/11/21 04:00 BUN 34 mg/dL (7-17) H 12/11/21 04:00 Creatinine 1.2 mg/dL (0.6-1.2) 12/11/21 04:00 Estimated GFR 45 ml/min 12/11/21 04:00 BUN/Creatinine Ratio 28 % 12/11/21 04:00 Glucose 173 mg/dL (65-100) H 12/11/21 04:00 POC Glucose 124 mg/dL (70-105) H 12/11/21 13:29 Hemoglobin A1c 6.2 % (4-6) H 12/09/21 04:32 Lactic Acid 1.70 mmol/L (0.7-2.0) 12/08/21 Unknown Calcium 9.0 mg/dL (8.4-10.2) 12/11/21 04:00 Ferritin 162.1 ng/mL (10.0-200.0) 12/08/21 08:21 Total Bilirubin 0.20 mg/dL (0.1-1.2) 12/09/21 04:32 AST 18 units/L (5-40) 12/09/21 04:32 ALT 9 units/L (7-56) 12/09/21 04:32 Alkaline Phosphatase 69 units/L (35-129) 12/09/21 04:32 Ammonia 23.0 umol/L (25-60) L 12/07/21 15:55 Lactate Dehydrogenase 129 units/L (91-180) 12/08/21 08:21 Total Creatine Kinase 287 units/L (30-135) H 12/08/21 04:00 C-Reactive Protein 6.20 mg/dL (0.00-1.30) H 12/08/21 08:21 Total Protein 6.8 g/dL (6.3-8.2) 12/09/21 04:32 Albumin 3.3 g/dL (3.9-5) L 12/09/21 04:32 Albumin/Globulin Ratio 0.9 % 12/09/21 04:32 Procalcitonin 0.09 ng/mL (<0.15) 12/08/21 08:21 PTH Intact 41.40 pg/mL (15-65) 12/10/21 05:49 Urine Color Yellow (Yellow) 12/07/21 17:21 Urine Turbidity Clear (Clear) 12/07/21 17:21 Urine pH 6.0 (5.0-7.0) 12/07/21 17:21 Ur Specific Pax 1.015 (1.003-1.030) 12/07/21 17:21 Urine Protein 30 mg/dl mg/dL (Negative) 12/07/21 17:21 Urine Glucose (UA) Negative mg/dL (Negative) 12/07/21 17:21 Urine Ketones 40 mg/dL (Negative) 12/07/21 17:21 Urine Blood Negative (Negative) 12/07/21 17:21 Urine Nitrite Negative (Negative) 12/07/21 17:21 Ur Reducing Substances Not Reportable 12/07/21 17:21 Urine Bilirubin Moderate (Negative) 12/07/21 17:21 Urine Ictotest Negative (Negative) 12/07/21 17:21 Urine Urobilinogen 0.0 mg/dL (<2.0) 12/07/21 17:21 Ur Leukocyte Esterase Negative (Negative) 12/07/21 17:21 Urine WBC (Auto) 1.0 /HPF (0.0-6.0) 12/07/21 17:21 Urine RBC (Auto) 1.0 /HPF (0.0-6.0) 12/07/21 17:21 U Epithel Cells (Auto) 4.0 /HPF (0-13.0) 12/07/21 17:21 Hyaline Casts 4 /LPF 12/07/21 17:21 Urine Mucus Few /HPF 12/07/21 17:21 Urine Creatinine 167.0 mg/dL (0.1-20.0) H 12/09/21 Unknown Urine Sodium 10 mmol/L 12/09/21 Unknown CSF Appearance Clear 12/11/21 13:15 CSF Color Colorless 12/11/21 13:15 CSF WBC 0 /mm3 (1-10) 12/11/21 13:15 CSF RBC 52694 /mm3 (0-0) 12/11/21 13:15 CSF Glucose 96 mg/dL 12/11/21 13:15 CSF Total Protein 33 mg/dL 12/11/21 13:15 Nasal Screen MRSA (PCR) Positive (Negative) 12/08/21 12:30 Vancomycin Trough 11.4 ug/mL (5.0-20.0) 12/10/21 05:49 Urine Opiates Screen Negative 12/09/21 Unknown Urine Methadone Screen Negative 12/09/21 Unknown Ur Barbiturates Screen Negative 12/09/21 Unknown Ur Phencyclidine Scrn Negative 12/09/21 Unknown Ur Amphetamines Screen Negative 12/09/21 Unknown U Benzodiazepines Scrn Negative 12/09/21 Unknown Urine Cocaine Screen Negative 12/09/21 Unknown U Marijuana (THC) Screen Negative 12/09/21 Unknown Drugs of Abuse Note Disclamer 12/09/21 Unknown Plasma/Serum Alcohol < 0.01 % (0-0.07) 12/07/21 19:03 Coronavirus (PCR) Negative (Negative) 12/08/21 08:11 Blood Type AB POSITIVE 12/07/21 22:45 Antibody Screen Negative 12/07/21 22:45 Microbiology: Microbiology 12/10/21 15:02 Peripheral/Venous Blood Culture - Preliminary Culture in Progress 12/10/21 15:02 Peripheral/Venous Blood Culture - Preliminary Culture in Progress [place]/IV: Voiding Method Indwelling Catheter Active Medications - Current Medications Current Medications: Generic Name Dose Route Start Last Admin Trade Name Freq PRN Reason Stop Dose Admin Acetaminophen 650 mg 12/07/21 19:17 Acetaminophen 325 Mg Tab PO Q6H PRN Pain MILD(1-3)/Fever >100.5/COTTON Albuterol 2.5 mg 12/07/21 19:13 12/10/21 23:44 Albuterol 2.5 Mg/3 Ml Nebu IH 2.5 mg Q3HRT PRN Administration Shortness Of Breath Amlodipine Besylate 5 mg 12/08/21 15:16 12/11/21 09:01 Amlodipine 10 Mg Tab PO 5 mg DAILY CHESTER Administration Atorvastatin Calcium 10 mg 12/07/21 22:00 12/10/21 21:11 Atorvastatin 10 Mg Tab PO 10 mg QHS CHESTER Administration Dextrose 0 ml 12/07/21 19:55 Dextrose 50% In Water (25gm) 50 Ml Syringe IV Q30MIN PRN Hypoglycemia Protocol Heparin Sodium (Porcine) 5,000 unit 12/08/21 14:00 12/11/21 13:36 Heparin 5,000 Unit/1 Ml Vial SUB-Q 5,000 unit Q8HR CHESTER Administration Hydralazine HCl 50 mg 12/10/21 20:00 12/11/21 13:36 Hydralazine 100 Mg Tab PO 50 mg TID CHESTER Administration Hydrophilic Ointment 1 applic 12/08/21 10:00 Lip Therapy Vaseline TP Q2HR PRN Dry Lips Azithromycin 500 mg in 250 mls @ 250 mls/hr 12/07/21 20:00 12/10/21 21:54 Zithromax/Ns IV 12/11/21 20:59 Infused Q24H CHESTER Infusion Protocol Cefepime HCl 2 gm in 100 mls @ 200 mls/hr 12/08/21 12:00 12/11/21 09:01 Cefepime/Ns 2 Gm/100 Ml IV 200 mls/hr Q12HR CHESTER Administration Protocol Vancomycin HCl 1,250 mg/ 275 mls @ 166.667 mls/hr 12/10/21 12:00 12/11/21 13:35 Sodium Chloride IV 166.67 mls/hr Q24H CHE[place] Administration Levetiracetam 500 mg/ Dextrose 105 mls @ 400 mls/hr 12/10/21 22:00 12/11/21 09:56 IV 400 mls/hr Q12HR [place] Administration Dextrose 1,000 mls @ 75 mls/hr 12/11/21 11:00 D5w IV DIRECT CHESTER Insulin Glargine 20 units 12/10/21 07:52 12/11/21 00:07 Insulin Glargine 100 Units/Ml SUB-Q 20 units QHS CHE[place] Administration Insulin Human Regular 0 units 12/09/21 12:00 12/11/21 13:35 Insulin Regular, Human 100 Units/1 Ml SUB-Q Not Given Q6H [place] Protocol Lansoprazole 30 mg 12/08/21 10:00 12/11/21 09:01 Lansoprazole 30 Mg Solutab FEEDTUBE 30 mg QDAY [place] Administration Multi-Ingred Cream/Lotion/Oil/Oint 1 applic 12/08/21 10:00 12/10/21 21:12 Mineral Oil/Petrolatum, White Ophth Oint 3.5 Gm OU 1 applic Q4HR PRN Administration Dry Eye(s) Oxycodone/Acetaminophen 1 tab 12/07/21 19:17 Oxycodone /Acetaminophen 5-325mg Tab PO Q6H PRN Pain, Moderate (4-6) Senna/Docusate Sodium 1 tab 12/08/21 10:00 12/11/21 09:03 Sennosides/Docusate Sodium 8.6/50 Mg Tab FEEDTUBE Not Given BID CHESTER Sodium Chloride 10 ml 12/07/21 22:00 12/11/21 09:02 Sodium Chloride 0.9% 10 Ml Flush Syringe IV 10 ml BID [place] Administration Sodium Chloride 10 ml 12/07/21 22:00 12/11/21 09:03 Sodium Chloride 0.9% 10 Ml Flush Syringe IV 10 ml BID [place] Administration Sodium Chloride 10 ml 12/07/21 19:17 12/09/21 05:54 Sodium Chloride 0.9% 10 Ml Flush Syringe IV 10 ml PRN PRN Administration LINE FLUSH Nutrition/Malnutrition Assess - Dietary Evaluation Nutrition/Malnutrition Findings: Nutrition Notes Start: 12/08/21 11:03 Freq: Status: Active Protocol: Document 12/09/21 10:57 TUCKER (Rec: 12/09/21 10:59 TUCKER [id number]) Nutrition Notes Initial or Follow up Brief Note Current Diet Glucerna 1.2 at 45ml/hr Subjective/Other Information Per RN, TF infusing at 35ml/hr at this time and will be at goal rate by 15:00 today. Pt remains on vent support. Nutrition Intervention Follow-Up By: 12/11/21 Additional Comments F/U: TF goal rate/tolerance, vent status - Malnutrition Assessment Minimum of two criteria: Yes - Attestation Statement I have reviewed and agreed w/ Malnutrition eval & tx plan: Yes
--- NOTE | 2021-12-11 15:53 | Procedure Note ---
Date of procedure: 12/11/21 Pre-op diagnosis: sepsis, encephalopathy Post-op diagnosis: same Procedure: flouro guided lumbar puncture Findings: none Anesthesia: local Surgeon: PAT LEWIS Estimated blood loss: none Pathology: list (4 csf tubes...1cc each) Specimen disposition: to lab Condition: stable Disposition: floor
--- NOTE | 2021-12-11 15:59 | Fluoroscopy Report ---
LUMBAR PUNCTURE INDICATION : Encephalopathy, sepsis PROCEDURE: The risks (including but not limited to bleeding, infection, and spinal headache) and erick efits were explained to the family member and informed consent was obtained. The patient was incompet ent and on a ventilator. A time out procedure was performed. The procedure site was prepped and drap ed in the usual sterile fashion and lidocaine was used for local anesthesia. Difficult exam on a sedated patient. Under fluoroscopic guidance, a 22-gauge spinal needle was advanc ed into the L1-2 interlaminar space. The opening pressure was 90 mm H2O. . 4 separate collection tube s were used to obtain 1 cc of CSF each. Samples were sent to the lab per the ordering physician speci fications for further evaluation. The patient tolerated the procedure well with no complications. IMPRESSION: Successful lumbar puncture as outlined above. Opening pressure was 90 mm H20. Fluoroscopic time: 2.9 Number of fluoroscopic images: 7 Signer Name: Jun Alaniz Jr, MD Signed: 12/11/2021 3:54 PM Workstation Name: [id number]
[2021-12-11] MEDS: AZITHROMYCIN/NS 500 MG/250 ML 500 MG/250 ML BAG IV SCH (20:45)
[2021-12-11] MEDS: MINERAL OIL/PETROLATUM, WHITE OPHTH OINT 3.5 GM OU PRN (20:52)
[2021-12-12] MEDS: INSULIN REGULAR, HUMAN 100 UNITS/1 ML SUB-Q SCH ×4 (00:12→17:01)
[2021-12-12] MEDS: INSULIN GLARGINE 100 UNITS/ML SUB-Q SCH ×2 (00:13→21:29)
[2021-12-12] MEDS: FREE WATER PO SCH ×2 (02:36→06:11)
[2021-12-12 04:10] LABS: ABG Base Excess -2.2 mmol/L (-2.0-3.0); ABG HCO3 21.5 mmol/L (20.0-26.0); ABG Methemoglobin 0.6 % (0.0-1.5); ABG Oxygen Saturation 98.7 % (95.0-99.0); ABG PH 7.432 pH Units (7.350-7.450); ABG PO2 134.8 mm Hg (80.0-90.0)
--- NOTE | 2021-12-12 04:42 | Cat Scan Report ---
CT cervical spine wo con INDICATION: post fall; r/o fracture / stenosis. TECHNIQUE: All CT scans at this location are performed using the following dose modulation technique: Automated exposure control. CONTRAST: None. COMPARISON: None available. FINDINGS: Satisfactory alignment without vertebral compression. Mild degenerative disc disease C5-C6 and C6-C7. Small posterior osteophytes. No significant stenosis. No soft tissue injury. Fluid/thickening within the imaged paranasal sinuses.. IMPRESSION: 1. Mild degenerative disc disease C5-C7. 2. No bony or soft tissue injury. 3. Sinus disease. Signer Name: Gus Almodovar MD Signed: 12/12/2021 4:37 AM Workstation Name: [id number]
[2021-12-12 05:28] LABS: Basophils # (Auto) 0.1 K/mm3 (0.0-0.1); Basophils % (Auto) 0.7 % (0.0-1.8); Eosinophils # (Auto) 0.8 K/mm3 (0.0-0.4); Eosinophils % (Auto) 7.9 % (0.0-4.3); Hematocrit 30.6 % (30.3-42.9); Lymphocytes # (Auto) 1.3 K/mm3 (1.2-5.4); Lymphocytes % (Auto) 12.9 % (13.4-35.0); Mean Corpuscular HGB Conc 33 % (30-34); Mean Corpuscular Volume 86 fl (79-97); Monocytes # (Auto) 0.6 K/mm3 (0.0-0.8); Monocytes % (Auto) 5.8 % (0.0-7.3); Platelet Count 282 K/mm3 (140-440); Red Blood Count 3.56 M/mm3 (3.65-5.03)
[2021-12-12 05:49] LABS: Alanine Aminotransferase 9 units/L (7-56); Albumin 2.9 g/dL (3.9-5); BUN/Creatinine Ratio 21; Blood Urea Nitrogen 27 mg/dL (7-17); Calcium 9.3 mg/dL (8.4-10.2); Hemolysis Index 6
--- NOTE | 2021-12-12 06:05 | XRay Report ---
CHEST 1 VIEW 12/12/2021 4:56 AM INDICATION / CLINICAL INFORMATION: follow up respiratory failure. COMPARISON: Previous day. FINDINGS: SUPPORT DEVICES: Unchanged. HEART / MEDIASTINUM: Stable. LUNGS / PLEURA: No significant pulmonary or pleural abnormality. No pneumothorax. ADDITIONAL FINDINGS: No significant additional findings. IMPRESSION: Resolution of vascular congestion. No localized infiltrate. Signer Name: Gus Almodovar MD Signed: 12/12/2021 6:00 AM Workstation Name: [id number]
[2021-12-12] MEDS: HEPARIN 5,000 UNIT/1 ML VIAL SUB-Q SCH ×3 (06:15→21:26)
[2021-12-12] MEDS: levETIRAcetam 500 MG in DEXTROSE 5% IN WATER 100 ML IV SCH ×2 (09:08→21:26)
[2021-12-12] MEDS: CEFEPIME/NS 2 GM/100 ML 2 GM/100 ML BAG IV SCH (09:08)
[2021-12-12] MEDS: LANSOPRAZOLE 30 MG SOLUTAB FEEDTUBE SCH (09:09)
[2021-12-12] MEDS: SENNOSIDES/DOCUSATE SODIUM 8.6/50 MG TAB FEEDTUBE SCH ×2 (09:09→21:39)
[2021-12-12] MEDS: hydrALAZINE 100 MG TAB FEEDTUBE SCH ×3 (09:09→20:12)
[2021-12-12] MEDS ORDERED: amLODIPine 5 MG TAB FEEDTUBE SCH (10:00)
[2021-12-12] MEDS: VANCOMYCIN 1,250 MG in SODIUM CHLORIDE 0.9% 250ML 250 ML IV SCH (11:18)
--- NOTE | 2021-12-12 11:37 | Progress Note ---
Assessment and Plan Assessment and plan: This is a 65-year-old female with known past medical history of obesity, HTN, DM complicated by neuropathy, GERD, MDD, iron deficiency anemia, and HLD admitted for acute hypoxic respiratory failure 2/2 pneumonia requiring ventilatory support. 12/08: Intubated and unresponsive, not on any sedation. Patient remains febrile with worsen leukocytosis this am, repeat CXR noted with significant improvement. COVID PCR and cultures pending, continue current epiric IV Abx, ID consulted. Continue gentle IVF hydration for MAYRA and Nephro is consulted. SSI adjusted and Lantus added for hyperglycemia. 12/09: Patient remains unresponsive on the vent. VSS. Will check a UDS and EEG. Neurology consulted. Remains with low grade fevers, Leukocytosis improvimg, B.cultures pending. Continue current IV Abx per ID, orders also placed for LP r/o meningitis, and Ampicillin added . FWF added for Hypernatremia, continue to monitor renal function, Nephrology is also following 12/10: Remains unresponsive. UDS negative. EEG and Neurology consult pending. D/w CCM, prophylaxis treatment for seizures initiated- IV Ativan and IV Keppra. Preliminary Blood culture result is positive GPC with clusters in 2 out 4 bottles. 2D echo noted with no evidence of vegetation. Repeat B.cultures ordered, continue current IV ABx. ID is also following. Possible LP tomorrow. FWF increased for hypernatremia. Continue to monitor electrolytes. 12-11 CT and LP 12-12 MRI and EEG completed NEURO: AMS; metabolic encephalopathy pos cough/gag no movement noted on exam; to even noxious stimuli UDS neg keppra neuro consult EEG report pending CT head 12-11- see report LP 12-11 follow culture data MRI today - report pending I had a discussion with Hira, son, this AM -- he states his mom would not want life support, he did realize she was on life support; we discussed DNR/CPR and he states his mom would not want this He is going to discuss with other children and is suppose to get back with us on DNR status CV- htn; hld SR no pressors norvasc and hydral tolerating well PRN hydral added for HTN statin Resp- acute hypoxic resp failure vent PRVC AC [id number] PS trials today see EMR for weaning/tolerance AM ABG and xray chest noted GI- prot leilani malnutrition PPI TF per nutrition nutrition following stooling - hyperNa; MAYRA- improving [place] dc 7-11 bladder scan QS intake output follow and replace electrolytes pos 864 ml over 24 hours FWF for NA AM labs ordered Heme- nap VTE SCD and CHESTER hgb stable ID- bacteremia covid neg trend WBC and temp curve ID following narrowed to just vanc today continue to follow culture data and narrow as appropriate ENdo - DM; obesity BG control SSI avoid hypoglycemia Disposition Plan: ICU Total Time Spent with Patient (Minutes): 60 min icu History Interval history: NO ACUTE VENTS OVERNIGHT Hospitalist Physical - Constitutional Vitals: Temp Pulse Resp BP Pulse Ox 98.4 F 93 H 27 H 150/71 99 12/12/21 11:31 12/12/21 11:26 12/12/21 11:26 12/12/21 11:26 12/12/21 11:26 General appearance: Present: no acute distress, obese, other (Intubated and unresponsive, not on any sedation) - EENT ENT: clear oral mucosa - Neck Neck: Present: supple, normal ROM - Respiratory Respiratory effort: normal - Cardiovascular Rhythm: regular - Extremities Extremity abnormal: edema Peripheral Pulses: within normal limits - Abdominal General gastrointestinal: soft - Integumentary Integumentary: Present: clear, warm, dry - Neurologic Neurologic: other Results - Labs CBC & Chem 7: 12/12/21 05:13 12/12/21 05:13 Labs: Laboratory Last Values WBC 10.1 K/mm3 (4.5-11.0) 12/12/21 05:13 RBC 3.56 M/mm3 (3.65-5.03) L 12/12/21 05:13 Hgb 10.0 gm/dl (10.1-14.3) L 12/12/21 05:13 Hct 30.6 % (30.3-42.9) 12/12/21 05:13 MCV 86 fl (79-97) 12/12/21 05:13 MCH 28 pg (28-32) 12/12/21 05:13 MCHC 33 % (30-34) 12/12/21 05:13 RDW 15.0 % (13.2-15.2) 12/12/21 05:13 Plt Count 282 K/mm3 (140-440) 12/12/21 05:13 Lymph % (Auto) 12.9 % (13.4-35.0) L 12/12/21 05:13 [place] % (Auto) 5.8 % (0.0-7.3) 12/12/21 05:13 Eos % (Auto) 7.9 % (0.0-4.3) H 12/12/21 05:13 Baso % (Auto) 0.7 % (0.0-1.8) 12/12/21 05:13 Lymph # (Auto) 1.3 K/mm3 (1.2-5.4) 12/12/21 05:13 [place] # (Auto) 0.6 K/mm3 (0.0-0.8) 12/12/21 05:13 Eos # (Auto) 0.8 K/mm3 (0.0-0.4) H 12/12/21 05:13 Baso # (Auto) 0.1 K/mm3 (0.0-0.1) 12/12/21 05:13 Add Manual Diff Complete 12/08/21 04:00 Total Counted 100 12/08/21 04:00 Seg Neutrophils % 72.7 % (40.0-70.0) H 12/12/21 05:13 Seg Neuts % (Manual) 92.0 % (40.0-70.0) H 12/08/21 04:00 Band Neutrophils % 0 % 12/08/21 04:00 Lymphocytes % (Manual) 1.0 % (13.4-35.0) L 12/08/21 04:00 Reactive Lymphs % (Man) 0 % 12/08/21 04:00 Monocytes % (Manual) 5.0 % (0.0-7.3) 12/08/21 04:00 Eosinophils % (Manual) 0 % (0.0-4.3) 12/08/21 04:00 Basophils % (Manual) 2.0 % (0.0-1.8) H 12/08/21 04:00 Metamyelocytes % 0 % 12/08/21 04:00 Myelocytes % 0 % 12/08/21 04:00 Promyelocytes % 0 % 12/08/21 04:00 Blast Cells % 0 % 12/08/21 04:00 Nucleated RBC % Not Reportable 12/08/21 04:00 Seg Neutrophils # 7.3 K/mm3 (1.8-7.7) 12/12/21 05:13 Seg Neutrophils # Man 18.8 K/mm3 (1.8-7.7) H 12/08/21 04:00 Band Neutrophils # 0.0 K/mm3 12/08/21 04:00 Lymphocytes # (Manual) 0.2 K/mm3 (1.2-5.4) L 12/08/21 04:00 Abs React Lymphs (Man) 0.0 K/mm3 12/08/21 04:00 Monocytes # (Manual) 1.0 K/mm3 (0.0-0.8) H 12/08/21 04:00 Eosinophils # (Manual) 0.0 K/mm3 (0.0-0.4) 12/08/21 04:00 Basophils # (Manual) 0.4 K/mm3 (0.0-0.1) H 12/08/21 04:00 Metamyelocytes # 0.0 K/mm3 12/08/21 04:00 Myelocytes # 0.0 K/mm3 12/08/21 04:00 Promyelocytes # 0.0 K/mm3 12/08/21 04:00 Blast Cells # 0.0 K/mm3 12/08/21 04:00 WBC Morphology Not Reportable 12/08/21 04:00 Hypersegmented Neuts Not Reportable 12/08/21 04:00 Hyposegmented Neuts Not Reportable 12/08/21 04:00 Hypogranular Neuts Not Reportable 12/08/21 04:00 Smudge Cells Not Reportable 12/08/21 04:00 Toxic Granulation Not Reportable 12/08/21 04:00 Toxic Vacuolation Not Reportable 12/08/21 04:00 Dohle Bodies Not Reportable 12/08/21 04:00 Pelger-Huet Anomaly Not Reportable 12/08/21 04:00 Ulises Rods Not Reportable 12/08/21 04:00 Platelet Estimate Consistent w auto 12/08/21 04:00 Clumped Platelets Not Reportable 12/08/21 04:00 Plt Clumps, EDTA Not Reportable 12/08/21 04:00 Large Platelets Not Reportable 12/08/21 04:00 Giant Platelets Not Reportable 12/08/21 04:00 Platelet Satelliting Not Reportable 12/08/21 04:00 Plt Morphology Comment Not Reportable 12/08/21 04:00 RBC Morphology Normal 12/08/21 04:00 Dimorphic RBCs Not Reportable 12/08/21 04:00 Polychromasia Not Reportable 12/08/21 04:00 Hypochromasia Not Reportable 12/08/21 04:00 Poikilocytosis Not Reportable 12/08/21 04:00 Anisocytosis Not Reportable 12/08/21 04:00 Microcytosis Not Reportable 12/08/21 04:00 Macrocytosis Not Reportable 12/08/21 04:00 Spherocytes Not Reportable 12/08/21 04:00 Pappenheimer Bodies Not Reportable 12/08/21 04:00 Sickle Cells Not Reportable 12/08/21 04:00 Target Cells Not Reportable 12/08/21 04:00 Tear Drop Cells Not Reportable 12/08/21 04:00 Ovalocytes Not Reportable 12/08/21 04:00 Helmet Cells Not Reportable 12/08/21 04:00 [place] Bodies Not Reportable 12/08/21 04:00 [place] Rings Not Reportable 12/08/21 04:00 [place] Cells Not Reportable 12/08/21 04:00 Bite Cells Not Reportable 12/08/21 04:00 Crenated Cell Not Reportable 12/08/21 04:00 Elliptocytes Not Reportable 12/08/21 04:00 Acanthocytes (Spur) Not Reportable 12/08/21 04:00 Rouleaux Not Reportable 12/08/21 04:00 Hemoglobin C Crystals Not Reportable 12/08/21 04:00 Schistocytes Not Reportable 12/08/21 04:00 Malaria parasites Not Reportable 12/08/21 04:00 [place] Bodies Not Reportable 12/08/21 04:00 Hem Pathologist Commnt No 12/08/21 04:00 PT 13.7 Sec. (12.2-14.9) 12/11/21 09:32 INR 0.95 (0.87-1.13) 12/11/21 09:32 D-Dimer 3277.12 ng/mlDDU (0-234) H 12/08/21 08:21 ABG pH 7.432 pH Units (7.350-7.450) 12/12/21 03:40 ABG pCO2 33.0 mm Hg 12/12/21 03:40 ABG pO2 134.8 mm Hg (80.0-90.0) H 12/12/21 03:40 ABG HCO3 21.5 mmol/L (20.0-26.0) 12/12/21 03:40 ABG O2 Saturation 98.7 % (95.0-99.0) 12/12/21 03:40 ABG O2 Content 13.4 (0.0-44) 12/12/21 03:40 ABG Base Excess -2.2 mmol/L (-2.0-3.0) L 12/12/21 03:40 ABG Hemoglobin 9.6 gm/dl (12.0-16.0) L 12/12/21 03:40 ABG Carboxyhemoglobin 0.9 % (0.0-5.0) 12/12/21 03:40 ABG Methemoglobin 0.6 % (0.0-1.5) 12/12/21 03:40 Oxyhemoglobin 97.2 % (95.0-99.0) 12/12/21 03:40 FiO2 25 % 12/12/21 03:40 Sodium 146 mmol/L (137-145) H 12/12/21 05:13 Potassium 4.5 mmol/L (3.6-5.0) 12/12/21 05:13 Chloride 113.9 mmol/L (98-107) H 12/12/21 05:13 Carbon Dioxide 21 mmol/L (22-30) L 12/12/21 05:13 Anion Gap 16 mmol/L 12/12/21 05:13 BUN 27 mg/dL (7-17) H 12/12/21 05:13 Creatinine 1.3 mg/dL (0.6-1.2) H 12/12/21 05:13 Estimated GFR 41 ml/min 12/12/21 05:13 BUN/Creatinine Ratio 21 % 12/12/21 05:13 Glucose 135 mg/dL (65-100) H 12/12/21 05:13 POC Glucose 150 mg/dL (70-105) H 12/11/21 23:46 Hemoglobin A1c 6.2 % (4-6) H 12/09/21 04:32 Lactic Acid 1.70 mmol/L (0.7-2.0) 12/08/21 Unknown Calcium 9.3 mg/dL (8.4-10.2) 12/12/21 05:13 Phosphorus 3.60 mg/dL (2.5-4.5) 12/12/21 05:13 Magnesium 2.30 mg/dL (1.7-2.3) 12/12/21 05:13 Ferritin 162.1 ng/mL (10.0-200.0) 12/08/21 08:21 Total Bilirubin < 0.20 mg/dL (0.1-1.2) 12/12/21 05:13 AST 16 units/L (5-40) 12/12/21 05:13 ALT 9 units/L (7-56) 12/12/21 05:13 Alkaline Phosphatase 69 units/L (35-129) 12/12/21 05:13 Ammonia 23.0 umol/L (25-60) L 12/07/21 15:55 Lactate Dehydrogenase 129 units/L (91-180) 12/08/21 08:21 Total Creatine Kinase 287 units/L (30-135) H 12/08/21 04:00 C-Reactive Protein 6.20 mg/dL (0.00-1.30) H 12/08/21 08:21 Total Protein 6.4 g/dL (6.3-8.2) 12/12/21 05:13 Albumin 2.9 g/dL (3.9-5) L 12/12/21 05:13 Albumin/Globulin Ratio 0.8 % 12/12/21 05:13 Procalcitonin 0.09 ng/mL (<0.15) 12/08/21 08:21 PTH Intact 41.40 pg/mL (15-65) 12/10/21 05:49 Urine Color Yellow (Yellow) 12/07/21 17:21 Urine Turbidity Clear (Clear) 12/07/21 17:21 Urine pH 6.0 (5.0-7.0) 12/07/21 17:21 Ur Specific [place] 1.015 (1.003-1.030) 12/07/21 17:21 Urine Protein 30 mg/dl mg/dL (Negative) 12/07/21 17:21 Urine Glucose (UA) Negative mg/dL (Negative) 12/07/21 17:21 Urine Ketones 40 mg/dL (Negative) 12/07/21 17:21 Urine Blood Negative (Negative) 12/07/21 17:21 Urine Nitrite Negative (Negative) 12/07/21 17:21 Ur Reducing Substances Not Reportable 12/07/21 17:21 Urine Bilirubin Moderate (Negative) 12/07/21 17:21 Urine Ictotest Negative (Negative) 12/07/21 17:21 Urine Urobilinogen 0.0 mg/dL (<2.0) 12/07/21 17:21 Ur Leukocyte Esterase Negative (Negative) 12/07/21 17:21 Urine WBC (Auto) 1.0 /HPF (0.0-6.0) 12/07/21 17:21 Urine RBC (Auto) 1.0 /HPF (0.0-6.0) 12/07/21 17:21 U Epithel Cells (Auto) 4.0 /HPF (0-13.0) 12/07/21 17:21 Hyaline Casts 4 /LPF 12/07/21 17:21 Urine Mucus Few /HPF 12/07/21 17:21 Urine Creatinine 167.0 mg/dL (0.1-20.0) H 12/09/21 Unknown Urine Sodium 10 mmol/L 12/09/21 Unknown CSF Appearance Clear 12/11/21 13:15 CSF Color Colorless 12/11/21 13:15 CSF WBC 0 /mm3 (1-10) 12/11/21 13:15 CSF RBC 95373 /mm3 (0-0) 12/11/21 13:15 CSF Seg Neutrophils Not Reportable 12/11/21 13:15 CSF Lymphocytes % Not Reportable 12/11/21 13:15 CSF Reactive Lymphs Not Reportable 12/11/21 13:15 CSF Monocytes % Not Reportable 12/11/21 13:15 CSF Eosinophils % Not Reportable 12/11/21 13:15 CSF Basophils Not Reportable 12/11/21 13:15 CSF Pathologist Review C 12/11/21 13:15 CSF Glucose 96 mg/dL 12/11/21 13:15 CSF Total Protein 33 mg/dL 12/11/21 13:15 Nasal Screen MRSA (PCR) Positive (Negative) 12/08/21 12:30 Vancomycin Trough 11.4 ug/mL (5.0-20.0) 12/10/21 05:49 Urine Opiates Screen Negative 12/09/21 Unknown Urine Methadone Screen Negative 12/09/21 Unknown Ur Barbiturates Screen Negative 12/09/21 Unknown Ur Phencyclidine Scrn Negative 12/09/21 Unknown Ur Amphetamines Screen Negative 12/09/21 Unknown U Benzodiazepines Scrn Negative 12/09/21 Unknown Urine Cocaine Screen Negative 12/09/21 Unknown U Marijuana (THC) Screen Negative 12/09/21 Unknown Drugs of Abuse Note Disclamer 12/09/21 Unknown Plasma/Serum Alcohol < 0.01 % (0-0.07) 12/07/21 19:03 Coronavirus (PCR) Negative (Negative) 12/08/21 08:11 Blood Type AB POSITIVE 12/07/21 22:45 Antibody Screen Negative 12/07/21 22:45 Microbiology: Microbiology 12/10/21 15:02 Peripheral/Venous Blood Culture - Preliminary NO GROWTH AFTER 24 HOURS 12/10/21 15:02 Peripheral/Venous Blood Culture - Preliminary NO GROWTH AFTER 24 HOURS 12/11/21 13:15 Cerebral Spinal Fluid CSF Culture - Preliminary [place]/IV: Voiding Method External Female Catheter Active Medications - Current Medications Current Medications: Generic Name Dose Route Start Last Admin Trade Name Freq PRN Reason Stop Dose Admin Acetaminophen 650 mg 12/07/21 19:17 Acetaminophen 325 Mg Tab PO Q6H PRN Pain MILD(1-3)/Fever >100.5/[place]OT[place] Albuterol 2.5 mg 12/07/21 19:13 12/10/21 23:44 Albuterol 2.5 Mg/3 Ml Nebu IH 2.5 mg Q3HRT PRN Administration Shortness Of Breath Amlodipine Besylate 5 mg 12/12/21 10:00 12/12/21 09:10 Amlodipine 5 Mg Tab FEEDTUBE 5 mg DAILY [place] Administration Atorvastatin Calcium 10 mg 12/12/21 22:00 Atorvastatin 10 Mg Tab FEEDTUBE QHS [place] Dextrose 0 ml 12/07/21 19:55 Dextrose 50% In Water (25gm) 50 Ml Syringe IV Q30MIN PRN Hypoglycemia Protocol Heparin Sodium (Porcine) 5,000 unit 12/08/21 14:00 12/12/21 06:15 Heparin 5,000 Unit/1 Ml Vial SUB-Q 5,000 unit Q8HR [place] Administration Hydralazine HCl 50 mg 12/12/21 09:00 12/12/21 09:09 Hydralazine 100 Mg Tab FEEDTUBE 50 mg TID [place] Administration Hydrophilic Ointment 1 applic 12/08/21 10:00 Lip Therapy Vaseline TP Q2HR PRN Dry Lips Cefepime HCl 2 gm in 100 mls @ 200 mls/hr 12/08/21 12:00 12/12/21 09:40 Cefepime/Ns 2 Gm/100 Ml IV Infused Q12HR [place] Infusion Protocol Vancomycin HCl 1,250 mg/ 275 mls @ 166.667 mls/hr 12/10/21 12:00 12/12/21 11:18 Sodium Chloride IV 166.667 mls/hr Q24H [place] Administration Levetiracetam 500 mg/ Dextrose 105 mls @ 400 mls/hr 12/10/21 22:00 12/12/21 09:24 IV 12/12/21 23:59 Infused Q12HR [place] Infusion Dextrose 1,000 mls @ 75 mls/hr 12/11/21 11:00 D5w IV DIRECT [place] Insulin Glargine 20 units 12/10/21 07:52 12/12/21 00:13 Insulin Glargine 100 Units/Ml SUB-Q 20 units QHS [place] Administration Insulin Human Regular 0 units 12/09/21 12:00 12/12/21 06:19 Insulin Regular, Human 100 Units/1 Ml SUB-Q Not Given Q6H [facility] Protocol Lansoprazole 30 mg 12/08/21 10:00 12/12/21 09:09 Lansoprazole 30 Mg Solutab FEEDTUBE 30 mg QDAY [place] Administration Levetiracetam 500 mg 12/13/21 10:00 Levetiracetam 500 Mg/5 Ml Oral Liqd FEEDTUBE BID [place] Multi-Ingred Cream/Lotion/Oil/Oint 1 applic 12/08/21 10:00 12/11/21 20:52 Mineral Oil/Petrolatum, White Ophth Oint 3.5 Gm OU 1 applic Q4HR PRN Administration Dry Eye(s) Senna/Docusate Sodium 1 tab 12/08/21 10:00 12/12/21 09:09 Sennosides/Docusate Sodium 8.6/50 Mg Tab FEEDTUBE Not Given BID [place] Sodium Chloride 10 ml 12/07/21 22:00 12/12/21 09:10 Sodium Chloride 0.9% 10 Ml Flush Syringe IV 10 ml BID [place] Administration Sodium Chloride 10 ml 12/07/21 22:00 12/12/21 09:11 Sodium Chloride 0.9% 10 Ml Flush Syringe IV 10 ml BID [place] Administration Sodium Chloride 10 ml 12/07/21 19:17 12/09/21 05:54 Sodium Chloride 0.9% 10 Ml Flush Syringe IV 10 ml PRN PRN Administration LINE FLUSH Nutrition/Malnutrition Assess - Dietary Evaluation Nutrition/Malnutrition Findings: Nutrition Notes Start: 12/08/21 11:03 Freq: Status: Active Protocol: Document 12/11/21 18:01 TUCKER (Rec: 12/11/21 18:04 TUCKER [id number]) Nutrition Notes Initial or Follow up Reassessment Current Diagnosis Acute Kidney Injury,Diabetes, Sepsis,Hypertension,Heart Failure,Respiratory Failure, Hyperlipidemia Other Pertinent Diagnosis Pneu, toxic metabolic encephalopathy, rhabdomyolysis , GERD, MDD, anemia Current Diet Glucerna 1.2 at 45ml/hr Labs/Tests Na 148 BUN 34 BG 173 Pertinent Medications D5W at 75ml/hr Height 5 ft 2 in Weight 98.1 kg [place] Body Weight (kg) 50.00 BMI 39.5 Weight Status Obese Subjective/Other Information Observed TF infusing at goal rate. Pt remains on vent support. Percent of energy/protein needs met: 73% energy 100% pro Burn Absent Trauma Absent #1 Nutrition Diagnosis Inadequate oral intake Diagnosis Progress(for reassessment Continues documentation) Is patient on ventilator? Yes Is Patient Ambulatory and/or Out of Bed No REE-([facility]-confined to bed) 1786.068 Kcal/Kg value to use for calculation 13 Approximate Energy Requirements Using 1275 kcal/Kg Calculation Used for Recommendations Kcal/kg Additional Notes Pro needs 0.8-1.2g/kg adjBW: 59-89g/day Fluid needs 1ml/kcal Nutrition Intervention Nutrition Support: Glucerna 1.2 at 45ml/hr with 150ml water flush q4h (per MD order). Kcal 1,296 Protein (gm) 65 Carbohydrates (gm) 124 Fat (gm) 65 Fluid (mL) 869 Fiber (gm) 17 Goal #1 TF tolerance Goal #2 TF to meet 65-70% of energy and at least 75% pro needs Follow-Up By: 12/18/21 Additional Comments F/U: stable TF, vent status, Na lab/water flush
[2021-12-12 11:58] LABS: ABG Base Excess -2.6 mmol/L (-2.0-3.0); ABG HCO3 20.8 mmol/L (20.0-26.0); ABG Methemoglobin 0.5 % (0.0-1.5); ABG Oxygen Saturation 97.1 % (95.0-99.0); ABG PCO2 30.8 mm Hg; ABG PH 7.447 pH Units (7.350-7.450); ABG PO2 86.9 mm Hg (80.0-90.0)
--- NOTE | 2021-12-12 12:26 | Progress Note ---
Assessment and Plan Cultures: 12/07/2021 blood culture: GPC in both sets 12/10/2021 blood culture: no growth so far COVID-19 PCR: negative 12/11/2021 CSF: WBC 0, RBC 12,100, glucose 96, total protein 33 12/11/2021 CSF culture: No growth so far. Gram stain with no PMN, no organisms seen A/P: 65-year-old female with morbid obesity, hypertension, diabetes, hyperlipidemia, CHF was brought into the emergency room in an unresponsive state: #Severe sepsis, probably secondary to pneumonia: CXR with improvement. CT chest without any mass. #GPC bacteremia: Source unclear. TTE without any obvious valvular vegetations but technically difficult study. #Acute encephalopathy: CT head with no acute findings. LP not consistent with meningitis. #Acute hypoxic respiratory failure: on the vent. #MAYRA: better #Diabetes mellitus #Morbid obesity Recs: -cefepime discontinued -Follow-up blood culture identification -continue with IV vancomycin for now Laura Ruiz MD, FACP, [facility] ([facility] O: [phone] F: [phone] C: [phone] Subjective Date of service: 12/12/21 Interval history: Afebrile. Remains unresponsive, off sedation. Got LP yesterday. Remains on the vent. Objective - Exam Narrative Exam: Physical Exam: Constitutional: unresponsive, intubated, on the vent. Morbidly obese Head, Ears, Nose: Normocephalic, atraumatic. External ears, nose normal Eyes: Conjunctivae/corneas clear. No icterus. No ptosis. Neck: intubated Oral: intubated Cardiovascular: S1, S2 + Respiratory: AE fair bilaterally and equal GI: Soft, bowel sounds + Musculoskeletal: No pedal edema, no cyanosis. Morbidly obese Skin: No rash or abscess Hem/Lymphatic: No palpable cervical or supraclavicular nodes. No lymphangitis Psych: no agitation Neurological: unresponsive, intubated, on the vent, exam limited - Constitutional Vitals: Vital Signs Temp Pulse Resp BP Pulse Ox 98.4 F 111 H 29 H 158/107 98 12/12/21 11:31 12/12/21 12:00 12/12/21 12:00 12/12/21 12:00 12/12/21 12:00 Temperature -Last 24 Hours Temperature 98.4 F Temperature 99.1 F Temperature 98.6 F Temperature 98.4 F Temperature 98.2 F Temperature 98.8 F - Labs CBC & Chem 7: 12/12/21 05:13 12/12/21 05:13 Labs: Abnormal lab results 12/11/21 12/11/21 12/11/21 Range/Units 13:29 17:33 23:46 RBC (3.65-5.03) M/mm3 Hgb (10.1-14.3) gm/dl Lymph % (Auto) (13.4-35.0) % Eos % (Auto) (0.0-4.3) % Eos # (Auto) (0.0-0.4) K/mm3 Seg Neutrophils % (40.0-70.0) % ABG pO2 (80.0-90.0) mm Hg ABG Base Excess (-2.0-3.0) mmol/L ABG Hemoglobin (12.0-16.0) gm/dl Sodium (137-145) mmol/L Chloride (98-107) mmol/L Carbon Dioxide (22-30) mmol/L BUN (7-17) mg/dL Creatinine (0.6-1.2) mg/dL Glucose (65-100) mg/dL POC Glucose 124 H 163 H 150 H (70-105) mg/dL Albumin (3.9-5) g/dL 12/12/21 12/12/21 12/12/21 Range/Units 03:40 05:13 05:13 RBC 3.56 L (3.65-5.03) M/mm3 Hgb 10.0 L (10.1-14.3) gm/dl Lymph % (Auto) 12.9 L (13.4-35.0) % Eos % (Auto) 7.9 H (0.0-4.3) % Eos # (Auto) 0.8 H (0.0-0.4) K/mm3 Seg Neutrophils % 72.7 H (40.0-70.0) % ABG pO2 134.8 H (80.0-90.0) mm Hg ABG Base Excess -2.2 L (-2.0-3.0) mmol/L ABG Hemoglobin 9.6 L (12.0-16.0) gm/dl Sodium 146 H (137-145) mmol/L Chloride 113.9 H (98-107) mmol/L Carbon Dioxide 21 L (22-30) mmol/L BUN 27 H (7-17) mg/dL Creatinine 1.3 H (0.6-1.2) mg/dL Glucose 135 H (65-100) mg/dL POC Glucose (70-105) mg/dL Albumin 2.9 L (3.9-5) g/dL 12/12/21 Range/Units 11:45 RBC (3.65-5.03) M/mm3 Hgb (10.1-14.3) gm/dl Lymph % (Auto) (13.4-35.0) % Eos % (Auto) (0.0-4.3) % Eos # (Auto) (0.0-0.4) K/mm3 Seg Neutrophils % (40.0-70.0) % ABG pO2 (80.0-90.0) mm Hg ABG Base Excess -2.6 L (-2.0-3.0) mmol/L ABG Hemoglobin 9.8 L (12.0-16.0) gm/dl Sodium (137-145) mmol/L Chloride (98-107) mmol/L Carbon Dioxide (22-30) mmol/L BUN (7-17) mg/dL Creatinine (0.6-1.2) mg/dL Glucose (65-100) mg/dL POC Glucose (70-105) mg/dL Albumin (3.9-5) g/dL
[2021-12-12] MEDS ORDERED: hydrALAZINE 20 MG/1 ML INJ IV PRN (12:35)
--- NOTE | 2021-12-12 15:34 | Progress Note ---
Assessment and Plan MAYRA - F/u BUN/Cr on IVF Vitals - Optimize BP meds Lytes - Continue hypotonic volume replacement & f/u labs Resp Failure - Mx per Pulm Subjective Date of service: 12/12/21 Interval history: Sedated, on vent Objective - Vital Signs Vital signs: Vital Signs - 12hr 12/12/21 12/12/21 12/12/21 03:40 04:00 04:25 Temperature 98.6 F Pulse Rate 89 86 Pulse Rate [ 90 From Monitor] Respiratory 20 Rate Blood Pressure 144/69 122/60 O2 Sat by Pulse 99 100 Oximetry 12/12/21 12/12/21 12/12/21 05:00 06:00 07:00 Temperature Pulse Rate 88 90 88 Pulse Rate [ From Monitor] Respiratory 24 20 19 Rate Blood Pressure 144/69 146/65 143/65 O2 Sat by Pulse 98 99 Oximetry 12/12/21 12/12/21 12/12/21 07:14 08:00 08:26 Temperature 99.1 F Pulse Rate 90 94 H Pulse Rate [ 90 From Monitor] Respiratory 19 Rate Blood Pressure 149/67 149/67 O2 Sat by Pulse 99 100 Oximetry 12/12/21 12/12/21 12/12/21 08:34 09:00 09:10 Temperature Pulse Rate 93 H 92 H 93 H Pulse Rate [ From Monitor] Respiratory 27 H 27 H Rate Blood Pressure 149/67 145/67 145/67 O2 Sat by Pulse 99 98 Oximetry 12/12/21 12/12/21 12/12/21 10:00 11:00 11:26 Temperature Pulse Rate 92 H 92 H 93 H Pulse Rate [ From Monitor] Respiratory 26 H 28 H 27 H Rate Blood Pressure 154/66 162/75 150/71 O2 Sat by Pulse 98 99 99 Oximetry 12/12/21 12/12/21 12/12/21 11:31 12:00 13:00 Temperature 98.4 F Pulse Rate 111 H 94 H Pulse Rate [ 111 H From Monitor] Respiratory 21 26 H Rate Blood Pressure 158/107 143/70 O2 Sat by Pulse 92 97 Oximetry 12/12/21 12/12/21 12/12/21 13:05 13:11 13:15 Temperature Pulse Rate 94 H 97 H 97 H Pulse Rate [ From Monitor] Respiratory 25 H 20 24 Rate Blood Pressure 143/70 143/70 143/70 O2 Sat by Pulse 99 99 99 Oximetry 12/12/21 12/12/21 12/12/21 13:21 13:25 13:30 Temperature Pulse Rate 94 H 95 H 94 H Pulse Rate [ From Monitor] Respiratory 29 H 27 H 24 Rate Blood Pressure 143/70 143/70 163/81 O2 Sat by Pulse 99 98 Oximetry 12/12/21 12/12/21 12/12/21 13:35 13:41 13:45 Temperature Pulse Rate 96 H 96 H 94 H Pulse Rate [ From Monitor] Respiratory 25 H 24 27 H Rate Blood Pressure 163/81 163/81 163/81 O2 Sat by Pulse 99 99 99 Oximetry 12/12/21 12/12/21 12/12/21 13:51 13:55 14:00 Temperature Pulse Rate 95 H 94 H 95 H Pulse Rate [ From Monitor] Respiratory 28 H 22 25 H Rate Blood Pressure 163/81 163/81 158/77 O2 Sat by Pulse 99 99 Oximetry 12/12/21 12/12/21 12/12/21 14:30 15:15 15:21 Temperature Pulse Rate 94 H 101 H Pulse Rate [ From Monitor] Respiratory 28 H Rate Blood Pressure 143/70 180/113 157/79 O2 Sat by Pulse 97 100 100 Oximetry 12/12/21 15:25 Temperature Pulse Rate 102 H Pulse Rate [ From Monitor] Respiratory 30 H Rate Blood Pressure 157/79 O2 Sat by Pulse 99 Oximetry - General Appearance General appearance: sedated on ventilator, intubated Neck: no JVD Respiratory: Present: Other (Air entry per vent) Cardiology: regular, S1S2 Gastrointestinal: other (Soft) Neurologic: other (Sedated) - Lab 12/12/21 05:13 12/12/21 05:13 Most recent lab results ABG pH 7.447 pH Units (7.350-7.450) 12/12/21 11:45 ABG pCO2 30.8 mm Hg 12/12/21 11:45 ABG pO2 86.9 mm Hg (80.0-90.0) 12/12/21 11:45 ABG HCO3 20.8 mmol/L (20.0-26.0) 12/12/21 11:45 ABG O2 Saturation 97.1 % (95.0-99.0) 12/12/21 11:45 Calcium 9.3 mg/dL (8.4-10.2) 12/12/21 05:13 Phosphorus 3.60 mg/dL (2.5-4.5) 12/12/21 05:13 Magnesium 2.30 mg/dL (1.7-2.3) 12/12/21 05:13 Urine Creatinine 167.0 mg/dL (0.1-20.0) H 12/09/21 Unknown Urine Sodium 10 mmol/L 12/09/21 Unknown Medications & Allergies - Medications Allergies/Adverse Reactions: Allergies No Known Allergies Allergy (Verified 12/07/21 15:05) Home Medications: Home Medications Medication Instructions Recorded Confirmed Last Taken Type AtorvaSTATin [Lipitor] 10 mg PO QHS 12/07/21 12/07/21 Unknown History Furosemide [Lasix] 40 mg PO BID 12/07/21 12/07/21 Unknown History Gabapentin [Neurontin] 300 mg PO BID 12/07/21 12/07/21 Unknown History Loratadine 10 mg PO QDAY 12/07/21 12/07/21 Unknown History Omeprazole 20 mg PO QDAY 12/07/21 12/07/21 Unknown History PARoxetine [Paxil] 20 mg PO DAILY 12/07/21 12/07/21 Unknown History Sitagliptin Phosphate [Januvia] 50 mg PO QDAY 12/07/21 12/07/21 Unknown History amLODIPine [Norvasc] 10 mg PO DAILY 12/07/21 12/07/21 Unknown History hydrALAZINE [Apresoline TAB] 100 mg PO TID 12/07/21 12/07/21 Unknown History lisinopriL [Zestril TAB] 40 mg PO QDAY 12/07/21 12/07/21 Unknown History Active Medications: Generic Name Dose Route Start Last Admin Trade Name Freq PRN Reason Stop Dose Admin Acetaminophen 650 mg 12/07/21 19:17 Acetaminophen 325 Mg Tab PO Q6H PRN Pain MILD(1-3)/Fever >100.5/[place]OT[place] Albuterol 2.5 mg 12/07/21 19:13 12/10/21 23:44 Albuterol 2.5 Mg/3 Ml Nebu IH 2.5 mg Q3HRT PRN Administration Shortness Of Breath Amlodipine Besylate 5 mg 12/12/21 10:00 12/12/21 09:10 Amlodipine 5 Mg Tab FEEDTUBE 5 mg DAILY [place] Administration Atorvastatin Calcium 10 mg 12/12/21 22:00 Atorvastatin 10 Mg Tab FEEDTUBE QHS [place] Dextrose 0 ml 12/07/21 19:55 Dextrose 50% In Water (25gm) 50 Ml Syringe IV Q30MIN PRN Hypoglycemia Protocol Heparin Sodium (Porcine) 5,000 unit 12/08/21 14:00 12/12/21 13:03 Heparin 5,000 Unit/1 Ml Vial SUB-Q 5,000 unit Q8HR [place] Administration Hydralazine HCl 50 mg 12/12/21 09:00 12/12/21 13:04 Hydralazine 100 Mg Tab FEEDTUBE 50 mg TID [place] Administration Hydralazine HCl 20 mg 12/12/21 12:35 Hydralazine 20 Mg/1 Ml Inj IV 12/13/21 12:34 Q4H PRN Blood Pressure Hydrophilic Ointment 1 applic 12/08/21 10:00 Lip Therapy Vaseline TP Q2HR PRN Dry Lips Vancomycin HCl 1,250 mg/ 275 mls @ 166.667 mls/hr 12/10/21 12:00 12/12/21 11:18 Sodium Chloride IV 166.667 mls/hr Q24H [place] Administration Levetiracetam 500 mg/ Dextrose 105 mls @ 400 mls/hr 12/10/21 22:00 12/12/21 09:24 IV 12/12/21 23:59 Infused Q12HR [place] Infusion Dextrose 1,000 mls @ 75 mls/hr 12/11/21 11:00 D5w IV DIRECT [place] Insulin Glargine 20 units 12/10/21 07:52 12/12/21 00:13 Insulin Glargine 100 Units/Ml SUB-Q 20 units QHS [place] Administration Insulin Human Regular 0 units 12/09/21 12:00 12/12/21 13:03 Insulin Regular, Human 100 Units/1 Ml SUB-Q 3 units Q6H [place] Administration Protocol Lansoprazole 30 mg 12/08/21 10:00 12/12/21 09:09 Lansoprazole 30 Mg Solutab FEEDTUBE 30 mg QDAY [place] Administration Levetiracetam 500 mg 12/13/21 10:00 Levetiracetam 500 Mg/5 Ml Oral Liqd FEEDTUBE BID [facility] Multi-Ingred Cream/Lotion/Oil/Oint 1 applic 12/08/21 10:00 12/11/21 20:52 Mineral Oil/Petrolatum, White Ophth Oint 3.5 Gm OU 1 applic Q4HR PRN Administration Dry Eye(s) Senna/Docusate Sodium 1 tab 12/08/21 10:00 12/12/21 09:09 Sennosides/Docusate Sodium 8.6/50 Mg Tab FEEDTUBE Not Given BID [place] Sodium Chloride 10 ml 12/07/21 22:00 12/12/21 09:10 Sodium Chloride 0.9% 10 Ml Flush Syringe IV 10 ml BID [place] Administration Sodium Chloride 10 ml 12/07/21 22:00 12/12/21 09:11 Sodium Chloride 0.9% 10 Ml Flush Syringe IV 10 ml BID [place] Administration Sodium Chloride 10 ml 12/07/21 19:17 12/09/21 05:54 Sodium Chloride 0.9% 10 Ml Flush Syringe IV 10 ml PRN PRN Administration LINE FLUSH
--- NOTE | 2021-12-12 15:53 | Magnetic Resonance Report ---
MRI BRAIN WITHOUT AND WITH CONTRAST INDICATION / CLINICAL INFORMATION: AMS, PATIENT ON VENT PATIENT MOTION, BEST POSSIBLE EXAM. TECHNIQUE: Multiplanar, multisequence MR images of the brain were obtained. Contrast: MultiHance: 18 ml, administered intravenously. COMPARISON: None available. FINDINGS: BRAIN / INTRACRANIAL CONTENTS: Restricted diffusion is demonstrated and head of caudate nucleus and putamen bilaterally. In addition there is gyriform regions of restricted diffusion along the lateral aspect of both occipital lobes e xtending into the parietal regions. These findings indicate probable diffuse anoxic brain injury. Cor responding hyperintensities observed on FLAIR sequences. In addition there is increased signal intens ity involving medial temporal lobes bilaterally on FLAIR imaging. These findings are superimposed on a background of mild microvascular ischemic change. Ventricles and cortical sulci are normal in size and configuration. There is no mass effect. No evide nce of intracranial hemorrhage or extra-axial fluid collection is seen. The brainstem and cerebellum have an unremarkable appearance. MIDLINE STRUCTURES:No abnormalities are seen to involve the pituitary gland. Pineal region has an unr emarkable appearance. CRANIOCERVICAL JUNCTION: No abnormalities are identified at the craniocervical junction. VASCULAR FLOW-VOIDS: Normal flow-voids are present within the major intracranial vessels. ORBITS: Status post bilateral cataract surgery. No additional abnormality. SINUSES / MASTOIDS: Extensive inflammatory changes are present throughout the ethmoid air cells, sphe noid sinuses and maxillary sinuses. This may be a consequence of intubation. Fluid signal intensity i s present in the mastoid air cells bilaterally compatible with mastoid effusions versus mastoiditis. Postcontrast imaging is significantly degraded by patient motion artifact. No definite areas of abnor mal contrast enhancement are identified. IMPRESSION: 1. Findings on diffusion weighted and FLAIR imaging suggest presence of diffuse anoxic injury. Signer Name: Johnny Augustin MD Signed: 12/12/2021 3:48 PM Workstation Name: [id number]
--- NOTE | 2021-12-12 17:06 | Progress Note ---
Assessment and Plan Acute Hypoxic Respiratory Failure on MVS intubated 12/07 Community Acquied Pneumonia(CAP) Sepsis/Leukocytosis Acute Metabolic Encephalopathy Acute kidney injury (MAYRA) probably Vasomotor Nephropathy Hypernatremia h/o Hypertension h/o Hyperlipidemia h/o Type 2 Diabetes Mellitus with Hyperglycemia Patient remains unresponsive and is not waking up. CT head was negative. s/p Spinal tap Free water flushes for hypernatremia -Vent setting: PRVC-45%,6,16,450 -Titrate supplemental oxygen to keep SpO2 89-92% -Lung protective strategies -VAP bundle addressed, Aspiration precautions HOB >40 -CXR, ABG as clinically indicated -Monitoring renal function, hemodynamics and electrolyte profile -Avoid nephrotoxins and renally dose all medications. Renal function slowly improving -Replete electrolytes as clinically indicated -Empiric antibiotics therapy per ID( Vanc, Cefepime, Ampicillin) -Accuchecks with glycemic control; target blood glucose 140-180 mg/dL. Avoid hypoglycemia -Enteric nutritional support -VTE prophylaxis- Heparin -Stress ulcer prophylaxis- Lansoprazole -Mobility, frequent turning, off loading per facility protocol to prevent pressure ulcers -Maintain sleep wake cycle -Supportive transfusions as clinically indicated to keep HgB >7g/dL CONDITION:CRITICAL PROGNOSIS: GUARDED CODE STATUS: FULL CODE The high probability of a clinically significant, sudden or life threatening deterioration of the respiratory, cardiovascular, neurology system required my full and direct attention, intervention and personal management. The aggregate critical care time was [35] minutes. This time is in addition to time spent performing reported procedures but includes the following: [x] Data Review and interpretation [x] Patient assessment and monitoring of vital signs [x] Documentation [x] Medication orders and management Subjective Date of service: 12/12/21 Interval history: Seen and examined. Vitals, labs, medications, chart reviewed. Discussed with nursing and respiratory care staff. No adverse events reported overnight. No fevers, no diarrhea, no vomiting. Remains unresponsive. UDS negative. EEG and Neurology consult pending. Preliminary Blood culture result is positive GPC with clusters in 2 out 4 bottles. On MVS; PEEP +6/40%. Tolerating CPAP No drips. Mental status changes persist Objective - Exam Narrative Exam: Vitals reviewed - Exam General appearance: Present: no acute distress, obese, other (Intubated and unr esponsive, not on any sedation) - EENT Eyes: Present: PERRL - Respiratory Respiratory effort: normal Respiratory: bilateral: rhonchi - Cardiovascular Rhythm: regular Heart Sounds: Present: S1 & S2 - Extremities Extremities: no ischemia, pulses intact, pulses symmetrical Extremity abnormal: edema - Peripheral Assessment Bilateral Upper Extremity Edema Type: Non-pitting Edema Degree: 2+ Capillary Refill: < 3 seconds Skin Temperature: Warm Generalized Edema Type: Non-pitting Edema Degree: 1+ Capillary Refill: < 3 seconds Skin Temperature: Warm Peripheral Pulses: within normal limits - Abdominal General gastrointestinal: soft, non-distended, normal bowel sounds - Integumentary Integumentary: Present: warm, dry - Psychiatric Psychiatric: other (Intubated and unresponsive, not on any sedation) - Neurologic Neurologic: other (Intubated and unresponsive, not on any sedation) - Allied Health Allied health notes reviewed:respiratory care Vital Signs - 12hr 12/12/21 12/12/21 12/12/21 06:00 07:00 07:14 Temperature 99.1 F Pulse Rate 90 88 Pulse Rate [ From Monitor] Respiratory 20 19 Rate Blood Pressure 146/65 143/65 O2 Sat by Pulse 99 Oximetry 12/12/21 12/12/21 12/12/21 08:00 08:26 08:34 Temperature Pulse Rate 90 94 H 93 H Pulse Rate [ 90 From Monitor] Respiratory 19 27 H Rate Blood Pressure 149/67 149/67 149/67 O2 Sat by Pulse 99 100 99 Oximetry 12/12/21 12/12/21 12/12/21 09:00 09:10 10:00 Temperature Pulse Rate 92 H 93 H 92 H Pulse Rate [ From Monitor] Respiratory 27 H 26 H Rate Blood Pressure 145/67 145/67 154/66 O2 Sat by Pulse 98 98 Oximetry 12/12/21 12/12/21 12/12/21 11:00 11:26 11:31 Temperature 98.4 F Pulse Rate 92 H 93 H Pulse Rate [ From Monitor] Respiratory 28 H 27 H Rate Blood Pressure 162/75 150/71 O2 Sat by Pulse 99 99 Oximetry 12/12/21 12/12/21 12/12/21 12:00 13:00 13:05 Temperature Pulse Rate 111 H 94 H 94 H Pulse Rate [ 111 H From Monitor] Respiratory 21 26 H 25 H Rate Blood Pressure 158/107 143/70 143/70 O2 Sat by Pulse 92 97 99 Oximetry 12/12/21 12/12/21 12/12/21 13:11 13:15 13:21 Temperature Pulse Rate 97 H 97 H 94 H Pulse Rate [ From Monitor] Respiratory 20 24 29 H Rate Blood Pressure 143/70 143/70 143/70 O2 Sat by Pulse 99 99 99 Oximetry 12/12/21 12/12/21 12/12/21 13:25 13:30 13:35 Temperature Pulse Rate 95 H 94 H 96 H Pulse Rate [ From Monitor] Respiratory 27 H 24 25 H Rate Blood Pressure 143/70 163/81 163/81 O2 Sat by Pulse 98 99 Oximetry 12/12/21 12/12/21 12/12/21 13:41 13:45 13:51 Temperature Pulse Rate 96 H 94 H 95 H Pulse Rate [ From Monitor] Respiratory 24 27 H 28 H Rate Blood Pressure 163/81 163/81 163/81 O2 Sat by Pulse 99 99 99 Oximetry 12/12/21 12/12/21 12/12/21 13:55 14:00 15:15 Temperature Pulse Rate 94 H 95 H Pulse Rate [ From Monitor] Respiratory 22 25 H Rate Blood Pressure 163/81 158/77 180/113 O2 Sat by Pulse 99 97 100 Oximetry 12/12/21 12/12/21 12/12/21 15:21 15:25 15:29 Temperature Pulse Rate 101 H 102 H 102 H Pulse Rate [ From Monitor] Respiratory 28 H 30 H Rate Blood Pressure 157/79 157/79 157/79 O2 Sat by Pulse 100 99 99 Oximetry 12/12/21 12/12/21 12/12/21 15:30 15:45 16:00 Temperature Pulse Rate 102 H 100 H 99 H Pulse Rate [ 99 H From Monitor] Respiratory 22 21 20 Rate Blood Pressure 161/83 180/113 159/80 O2 Sat by Pulse 98 99 97 Oximetry 12/12/21 12/12/21 12/12/21 16:15 16:31 16:45 Temperature Pulse Rate 99 H 101 H 97 H Pulse Rate [ From Monitor] Respiratory 21 21 19 Rate Blood Pressure 159/80 159/80 159/80 O2 Sat by Pulse 99 99 99 Oximetry 12/12/21 12/12/21 16:56 17:00 Temperature 99.5 F Pulse Rate 98 H Pulse Rate [ From Monitor] Respiratory 19 Rate Blood Pressure 153/76 O2 Sat by Pulse 99 Oximetry CBC and BMP: 12/13/21 04:12 12/13/21 04:12 ABG, PT/INR, D-dimer: ABG ABG pH 7.447 pH Units (7.350-7.450) 12/12/21 11:45 ABG pCO2 30.8 mm Hg 12/12/21 11:45 ABG pO2 86.9 mm Hg (80.0-90.0) 12/12/21 11:45 ABG O2 Saturation 97.1 % (95.0-99.0) 12/12/21 11:45 PT/INR, D-dimer PT 13.7 Sec. (12.2-14.9) 12/11/21 09:32 INR 0.95 (0.87-1.13) 12/11/21 09:32 D-Dimer 3277.12 ng/mlDDU (0-234) H 12/08/21 08:21 Abnormal lab findings: Abnormal Labs 12/07/21 12/07/21 12/07/21 14:21 15:55 15:55 WBC 16.9 H RBC 5.04 H Hgb Hct 43.8 H Plt Count 459 H Lymph % (Auto) 9.3 L Eos % (Auto) Mineral # (Auto) 0.9 H Eos # (Auto) Seg Neutrophils % 84.6 H Seg Neuts % (Manual) Lymphocytes % (Manual) Basophils % (Manual) Seg Neutrophils # 14.3 H Seg Neutrophils # Man Lymphocytes # (Manual) Monocytes # (Manual) Basophils # (Manual) D-Dimer ABG pH ABG pO2 ABG HCO3 ABG O2 Saturation ABG Base Excess ABG Hemoglobin Oxyhemoglobin Sodium Chloride 107.2 H Carbon Dioxide 18 L BUN 34 H Creatinine 1.7 H Glucose 224 H POC Glucose 174 H Hemoglobin A1c Ammonia Total Creatine Kinase C-Reactive Protein Albumin Urine Creatinine 12/07/21 12/07/21 12/07/21 15:55 15:55 15:55 WBC RBC Hgb Hct Plt Count Lymph % (Auto) Eos % (Auto) Mineral # (Auto) Eos # (Auto) Seg Neutrophils % Seg Neuts % (Manual) Lymphocytes % (Manual) Basophils % (Manual) Seg Neutrophils # Seg Neutrophils # Man Lymphocytes # (Manual) Monocytes # (Manual) Basophils # (Manual) D-Dimer ABG pH 7.260 L ABG pO2 229.7 H ABG HCO3 19.8 L ABG O2 Saturation 99.3 H ABG Base Excess -7.1 L ABG Hemoglobin Oxyhemoglobin Sodium Chloride Carbon Dioxide BUN Creatinine Glucose POC Glucose Hemoglobin A1c Ammonia 23.0 L Total Creatine Kinase 498 H C-Reactive Protein Albumin Urine Creatinine 12/07/21 12/08/21 12/08/21 21:45 00:18 04:00 WBC 20.4 H RBC Hgb Hct Plt Count Lymph % (Auto) Eos % (Auto) Mineral # (Auto) Eos # (Auto) Seg Neutrophils % Seg Neuts % (Manual) 92.0 H Lymphocytes % (Manual) 1.0 L Basophils % (Manual) 2.0 H Seg Neutrophils # Seg Neutrophils # Man 18.8 H Lymphocytes # (Manual) 0.2 L Monocytes # (Manual) 1.0 H Basophils # (Manual) 0.4 H D-Dimer ABG pH ABG pO2 170.3 H ABG HCO3 18.8 L ABG O2 Saturation 99.1 H ABG Base Excess -5.5 L ABG Hemoglobin 11.9 L Oxyhemoglobin Sodium Chloride Carbon Dioxide BUN Creatinine Glucose POC Glucose 276 H Hemoglobin A1c Ammonia Total Creatine Kinase C-Reactive Protein Albumin Urine Creatinine 12/08/21 12/08/21 12/08/21 04:00 04:10 05:42 WBC RBC Hgb Hct Plt Count Lymph % (Auto) Eos % (Auto) Mineral # (Auto) Eos # (Auto) Seg Neutrophils % Seg Neuts % (Manual) Lymphocytes % (Manual) Basophils % (Manual) Seg Neutrophils # Seg Neutrophils # Man Lymphocytes # (Manual) Monocytes # (Manual) Basophils # (Manual) D-Dimer ABG pH ABG pO2 65.1 L ABG HCO3 17.6 L ABG O2 Saturation 94.5 L ABG Base Excess -5.4 L ABG Hemoglobin Oxyhemoglobin 92.9 L Sodium 146 H Chloride 112.2 H Carbon Dioxide 17 L BUN 38 H Creatinine 1.8 H Glucose 329 H POC Glucose 315 H Hemoglobin A1c Ammonia Total Creatine Kinase 287 H C-Reactive Protein Albumin 3.5 L Urine Creatinine 12/08/21 12/08/21 12/08/21 07:29 08:21 08:21 WBC RBC Hgb Hct Plt Count Lymph % (Auto) Eos % (Auto) Mineral # (Auto) Eos # (Auto) Seg Neutrophils % Seg Neuts % (Manual) Lymphocytes % (Manual) Basophils % (Manual) Seg Neutrophils # Seg Neutrophils # Man Lymphocytes # (Manual) Monocytes # (Manual) Basophils # (Manual) D-Dimer 3277.12 H ABG pH ABG pO2 ABG HCO3 ABG O2 Saturation ABG Base Excess ABG Hemoglobin Oxyhemoglobin Sodium Chloride Carbon Dioxide BUN Creatinine Glucose POC Glucose 330 H Hemoglobin A1c Ammonia Total Creatine Kinase C-Reactive Protein 6.20 H Albumin Urine Creatinine 12/08/21 12/08/21 12/09/21 11:15 21:04 04:25 WBC RBC Hgb Hct Plt Count Lymph % (Auto) Eos % (Auto) Mineral # (Auto) Eos # (Auto) Seg Neutrophils % Seg Neuts % (Manual) Lymphocytes % (Manual) Basophils % (Manual) Seg Neutrophils # Seg Neutrophils # Man Lymphocytes # (Manual) Monocytes # (Manual) Basophils # (Manual) D-Dimer ABG pH ABG pO2 136.8 H ABG HCO3 18.7 L ABG O2 Saturation ABG Base Excess -5.7 L ABG Hemoglobin 11.2 L Oxyhemoglobin Sodium Chloride Carbon Dioxide BUN Creatinine Glucose POC Glucose 302 H 122 H Hemoglobin A1c Ammonia Total Creatine Kinase C-Reactive Protein Albumin Urine Creatinine 12/09/21 12/09/21 12/09/21 04:32 04:32 04:32 WBC 16.7 H RBC Hgb Hct Plt Count Lymph % (Auto) Eos % (Auto) Mineral # (Auto) Eos # (Auto) Seg Neutrophils % Seg Neuts % (Manual) Lymphocytes % (Manual) Basophils % (Manual) Seg Neutrophils # Seg Neutrophils # Man Lymphocytes # (Manual) Monocytes # (Manual) Basophils # (Manual) D-Dimer ABG pH ABG pO2 ABG HCO3 ABG O2 Saturation ABG Base Excess ABG Hemoglobin Oxyhemoglobin Sodium 146 H Chloride 116.8 H Carbon Dioxide 18 L BUN 38 H Creatinine 1.7 H Glucose 193 H POC Glucose Hemoglobin A1c 6.2 H Ammonia Total Creatine Kinase C-Reactive Protein Albumin 3.3 L Urine Creatinine 12/09/21 12/10/21 12/10/21 Unknown 00:18 04:20 WBC RBC Hgb Hct Plt Count Lymph % (Auto) Eos % (Auto) Mineral # (Auto) Eos # (Auto) Seg Neutrophils % Seg Neuts % (Manual) Lymphocytes % (Manual) Basophils % (Manual) Seg Neutrophils # Seg Neutrophils # Man Lymphocytes # (Manual) Monocytes # (Manual) Basophils # (Manual) D-Dimer ABG pH ABG pO2 136.4 H ABG HCO3 19.3 L ABG O2 Saturation ABG Base Excess -4.7 L ABG Hemoglobin 10.1 L Oxyhemoglobin Sodium Chloride Carbon Dioxide BUN Creatinine Glucose POC Glucose 186 H Hemoglobin A1c Ammonia Total Creatine Kinase C-Reactive Protein Albumin Urine Creatinine 167.0 H 12/10/21 12/10/21 12/10/21 05:49 06:03 12:11 WBC 13.0 H RBC Hgb Hct Plt Count Lymph % (Auto) Eos % (Auto) Mineral # (Auto) Eos # (Auto) Seg Neutrophils % Seg Neuts % (Manual) Lymphocytes % (Manual) Basophils % (Manual) Seg Neutrophils # Seg Neutrophils # Man Lymphocytes # (Manual) Monocytes # (Manual) Basophils # (Manual) D-Dimer ABG pH ABG pO2 ABG HCO3 ABG O2 Saturation ABG Base Excess ABG Hemoglobin Oxyhemoglobin Sodium 147 H Chloride 118.1 H Carbon Dioxide 18 L BUN 37 H Creatinine 1.5 H Glucose 229 H POC Glucose 195 H Hemoglobin A1c Ammonia Total Creatine Kinase C-Reactive Protein Albumin Urine Creatinine 12/10/21 12/11/21 12/11/21 16:36 04:00 04:00 WBC RBC 3.40 L Hgb 9.6 L Hct 29.2 L Plt Count Lymph % (Auto) Eos % (Auto) Mineral # (Auto) Eos # (Auto) Seg Neutrophils % Seg Neuts % (Manual) Lymphocytes % (Manual) Basophils % (Manual) Seg Neutrophils # Seg Neutrophils # Man Lymphocytes # (Manual) Monocytes # (Manual) Basophils # (Manual) D-Dimer ABG pH ABG pO2 ABG HCO3 ABG O2 Saturation ABG Base Excess ABG Hemoglobin Oxyhemoglobin Sodium 148 H Chloride 117.5 H Carbon Dioxide BUN 34 H Creatinine Glucose 173 H POC Glucose 180 H Hemoglobin A1c Ammonia Total Creatine Kinase C-Reactive Protein Albumin Urine Creatinine 12/11/21 12/11/21 12/11/21 04:10 13:29 17:33 WBC RBC Hgb Hct Plt Count Lymph % (Auto) Eos % (Auto) Mineral # (Auto) Eos # (Auto) Seg Neutrophils % Seg Neuts % (Manual) Lymphocytes % (Manual) Basophils % (Manual) Seg Neutrophils # Seg Neutrophils # Man Lymphocytes # (Manual) Monocytes # (Manual) Basophils # (Manual) D-Dimer ABG pH ABG pO2 117.4 H ABG HCO3 ABG O2 Saturation ABG Base Excess -3.9 L ABG Hemoglobin 9.0 L Oxyhemoglobin Sodium Chloride Carbon Dioxide BUN Creatinine Glucose POC Glucose 124 H 163 H Hemoglobin A1c Ammonia Total Creatine Kinase C-Reactive Protein Albumin Urine Creatinine 12/11/21 12/12/21 12/12/21 23:46 03:40 05:13 WBC RBC 3.56 L Hgb 10.0 L Hct Plt Count Lymph % (Auto) 12.9 L Eos % (Auto) 7.9 H Mineral # (Auto) Eos # (Auto) 0.8 H Seg Neutrophils % 72.7 H Seg Neuts % (Manual) Lymphocytes % (Manual) Basophils % (Manual) Seg Neutrophils # Seg Neutrophils # Man Lymphocytes # (Manual) Monocytes # (Manual) Basophils # (Manual) D-Dimer ABG pH ABG pO2 134.8 H ABG HCO3 ABG O2 Saturation ABG Base Excess -2.2 L ABG Hemoglobin 9.6 L Oxyhemoglobin Sodium Chloride Carbon Dioxide BUN Creatinine Glucose POC Glucose 150 H Hemoglobin A1c Ammonia Total Creatine Kinase C-Reactive Protein Albumin Urine Creatinine 12/12/21 12/12/21 05:13 11:45 WBC RBC Hgb Hct Plt Count Lymph % (Auto) Eos % (Auto) Mineral # (Auto) Eos # (Auto) Seg Neutrophils % Seg Neuts % (Manual) Lymphocytes % (Manual) Basophils % (Manual) Seg Neutrophils # Seg Neutrophils # Man Lymphocytes # (Manual) Monocytes # (Manual) Basophils # (Manual) D-Dimer ABG pH ABG pO2 ABG HCO3 ABG O2 Saturation ABG Base Excess -2.6 L ABG Hemoglobin 9.8 L Oxyhemoglobin Sodium 146 H Chloride 113.9 H Carbon Dioxide 21 L BUN 27 H Creatinine 1.3 H Glucose 135 H POC Glucose Hemoglobin A1c Ammonia Total Creatine Kinase C-Reactive Protein Albumin 2.9 L Urine Creatinine Chest x-ray: image reviewed Allied health notes reviewed: RT
[2021-12-13 04:12] LABS: ABG Base Excess -3.1 mmol/L (-2.0-3.0); ABG HCO3 20.6 mmol/L (20.0-26.0); ABG Methemoglobin 0.5 % (0.0-1.5); ABG Oxygen Saturation 97.6 % (95.0-99.0); ABG PCO2 31.5 mm Hg; ABG PH 7.432 pH Units (7.350-7.450); ABG PO2 96.2 mm Hg (80.0-90.0)
[2021-12-13 04:42] LABS: Hematocrit 29.9 % (30.3-42.9); Hemoglobin 9.6 gm/dl (10.1-14.3); Mean Corpuscular HGB Conc 32 % (30-34); Mean Corpuscular Volume 86 fl (79-97); Platelet Count 282 K/mm3 (140-440); Red Blood Count 3.47 M/mm3 (3.65-5.03); Red Cell Distribution Width 15.1 % (13.2-15.2)
[2021-12-13 05:04] LABS: Albumin 2.9 g/dL (3.9-5); Calcium 9.1 mg/dL (8.4-10.2)
[2021-12-13] MEDS: INSULIN REGULAR, HUMAN 100 UNITS/1 ML SUB-Q SCH ×4 (05:14→17:34)
[2021-12-13] MEDS: HEPARIN 5,000 UNIT/1 ML VIAL SUB-Q SCH ×3 (07:54→22:15)
[2021-12-13] MEDS: amLODIPine 5 MG TAB FEEDTUBE SCH (09:12)
[2021-12-13] MEDS: LANSOPRAZOLE 30 MG SOLUTAB FEEDTUBE SCH (09:12)
[2021-12-13] MEDS: levETIRAcetam 500 MG/5 ML ORAL LIQD FEEDTUBE SCH ×2 (09:12→22:15)
[2021-12-13] MEDS: hydrALAZINE 100 MG TAB FEEDTUBE SCH ×3 (09:13→22:15)
[2021-12-13] MEDS: SENNOSIDES/DOCUSATE SODIUM 8.6/50 MG TAB FEEDTUBE SCH ×2 (09:13→22:16)
--- NOTE | 2021-12-13 11:12 | Progress Note ---
Assessment and Plan Cultures: 12/07/2021 blood culture: Coagulase-negative staph in 1 of 4 bottles, Staph aureus in 1 of 4 bottles. 12/10/2021 blood culture: no growth so far COVID-19 PCR: negative 12/11/2021 CSF: WBC 0, RBC 12,100, glucose 96, total protein 33 12/11/2021 CSF culture: No growth so far. Gram stain with no PMN, no organisms s een A/P: 65-year-old female with morbid obesity, hypertension, diabetes, hyperlipidemia, CHF was brought into the emergency room in an unresponsive state: #Severe sepsis, probably secondary to pneumonia: CXR with improvement. CT chest without any mass. #GPC bacteremia: Source unclear. TTE without any obvious valvular vegetations but technically difficult study. Coagulase-negative staph in 1 of 4 bottles, Staph aureus in 1 of 4 bottles. Possibility of contaminant exists but typically Staph aureus not considered a contaminant. #Acute encephalopathy: CT head with no acute findings. LP not consistent with meningitis. MRI revealed diffuse anoxic brain injury. #Acute hypoxic respiratory failure: on the vent. #MAYRA: better #Diabetes mellitus #Morbid obesity Recs: -continue with IV vancomycin for now -poor prognosis due to anoxic brain injury, if comfort care is opted for, d/c abx Laura Ruiz MD, FACP, [facility] ([facility]) O: [phone] F: [phone] C: [phone] Subjective Date of service: 12/13/21 Interval history: Afebrile. Remains unresponsive, off sedation. Remains on the vent. Objective - Exam Narrative Exam: Physical Exam: Constitutional: unresponsive, intubated, on the vent. Morbidly obese Head, Ears, Nose: Normocephalic, atraumatic. External ears, nose normal Eyes: Conjunctivae/corneas clear. No icterus. No ptosis. Neck: intubated Oral: intubated Cardiovascular: S1, S2 + Respiratory: AE fair bilaterally and equal GI: Soft, bowel sounds + Musculoskeletal: No pedal edema, no cyanosis. Morbidly obese Skin: No rash or abscess Hem/Lymphatic: No palpable cervical or supraclavicular nodes. No lymphangitis Psych: no agitation Neurological: unresponsive, intubated, on the vent, exam limited - Constitutional Vitals: Vital Signs Temp Pulse Resp BP Pulse Ox 99.8 F H 94 H 24 148/67 99 12/13/21 07:00 12/13/21 11:00 12/13/21 11:00 12/13/21 11:00 12/13/21 11:00 Temperature -Last 24 Hours Temperature 99.8 F Temperature 99.7 F Temperature 99.8 F Temperature 99.7 F Temperature 98.6 F Temperature 98.7 F Temperature 99.5 F Temperature 98.4 F - Labs CBC & Chem 7: 12/13/21 04:12 12/13/21 04:12 Labs: Abnormal lab results 12/12/21 12/12/21 12/12/21 Range/Units 11:45 21:28 23:13 WBC (4.5-11.0) K/mm3 RBC (3.65-5.03) M/mm3 Hgb (10.1-14.3) gm/dl Hct (30.3-42.9) % ABG pO2 (80.0-90.0) mm Hg ABG Base Excess -2.6 L (-2.0-3.0) mmol/L ABG Hemoglobin 9.8 L (12.0-16.0) gm/dl Chloride (98-107) mmol/L Carbon Dioxide (22-30) mmol/L BUN (7-17) mg/dL Glucose (65-100) mg/dL POC Glucose 132 H (70-105) mg/dL Ammonia 20.0 L (25-60) umol/L Total Protein (6.3-8.2) g/dL Albumin (3.9-5) g/dL 12/13/21 12/13/21 12/13/21 Range/Units 04:05 04:12 04:12 WBC 11.2 H (4.5-11.0) K/mm3 RBC 3.47 L (3.65-5.03) M/mm3 Hgb 9.6 L (10.1-14.3) gm/dl Hct 29.9 L (30.3-42.9) % ABG pO2 96.2 H (80.0-90.0) mm Hg ABG Base Excess -3.1 L (-2.0-3.0) mmol/L ABG Hemoglobin 9.7 L (12.0-16.0) gm/dl Chloride 108.8 H (98-107) mmol/L Carbon Dioxide 19 L (22-30) mmol/L BUN 26 H (7-17) mg/dL Glucose 169 H (65-100) mg/dL POC Glucose (70-105) mg/dL Ammonia (25-60) umol/L Total Protein 5.8 L (6.3-8.2) g/dL Albumin 2.9 L (3.9-5) g/dL
--- NOTE | 2021-12-13 11:32 | Progress Note ---
Assessment and Plan MAYRA - Resolved prerenal azotemia on IVF, f/u BUN/Cr Vitals - F/u on BP meds Lytes - Resolved HyperNa, mild Acidosis. Continue hypotonic volume replacement & f/u labs Resp Failure - Mx per Pulm Subjective Date of service: 12/13/21 Interval history: No change, on vent via ETT Objective - Vital Signs Vital signs: Vital Signs - 12hr 12/12/21 12/12/21 12/13/21 23:30 23:45 00:00 Temperature Pulse Rate 97 H 95 H 102 H Pulse Rate [ 94 H From Monitor] Respiratory 19 19 16 Rate Blood Pressure 135/64 135/64 145/64 O2 Sat by Pulse 97 100 100 Oximetry 12/13/21 12/13/21 12/13/21 00:01 00:15 00:30 Temperature Pulse Rate 106 H 100 H 96 H Pulse Rate [ From Monitor] Respiratory 22 20 22 Rate Blood Pressure 145/64 145/64 O2 Sat by Pulse 98 100 99 Oximetry 12/13/21 12/13/21 12/13/21 00:46 00:49 00:53 Temperature 99.7 F H 99.8 F H Pulse Rate 86 Pulse Rate [ From Monitor] Respiratory 16 Rate Blood Pressure 145/64 O2 Sat by Pulse 99 Oximetry 12/13/21 12/13/21 12/13/21 01:00 01:16 01:30 Temperature Pulse Rate 85 95 H 93 H Pulse Rate [ From Monitor] Respiratory 16 22 16 Rate Blood Pressure 103/51 103/51 115/58 O2 Sat by Pulse 98 100 100 Oximetry 12/13/21 12/13/21 12/13/21 01:46 02:00 02:16 Temperature Pulse Rate 90 86 89 Pulse Rate [ From Monitor] Respiratory 17 16 18 Rate Blood Pressure 115/58 111/52 111/52 O2 Sat by Pulse 100 98 100 Oximetry 12/13/21 12/13/21 12/13/21 02:30 02:46 03:00 Temperature Pulse Rate 92 H 82 75 Pulse Rate [ From Monitor] Respiratory 18 16 16 Rate Blood Pressure 97/61 97/61 100/49 O2 Sat by Pulse 98 100 99 Oximetry 12/13/21 12/13/21 12/13/21 03:16 03:30 03:46 Temperature Pulse Rate 81 88 96 H Pulse Rate [ From Monitor] Respiratory 15 22 19 Rate Blood Pressure 100/49 128/56 128/56 O2 Sat by Pulse 100 98 100 Oximetry 12/13/21 12/13/21 12/13/21 03:55 04:00 04:16 Temperature 99.7 F H Pulse Rate 90 82 Pulse Rate [ 86 From Monitor] Respiratory 21 16 Rate Blood Pressure 125/61 133/54 O2 Sat by Pulse 100 100 Oximetry 12/13/21 12/13/21 12/13/21 04:30 04:46 05:00 Temperature Pulse Rate 79 91 H 83 Pulse Rate [ From Monitor] Respiratory 16 19 14 Rate Blood Pressure 110/53 110/53 125/61 O2 Sat by Pulse 99 100 Oximetry 12/13/21 12/13/21 12/13/21 05:16 05:30 05:46 Temperature Pulse Rate 88 90 92 H Pulse Rate [ From Monitor] Respiratory 18 21 21 Rate Blood Pressure 125/61 141/69 141/69 O2 Sat by Pulse 100 99 99 Oximetry 12/13/21 12/13/21 12/13/21 06:00 06:16 06:30 Temperature Pulse Rate 94 H 94 H 86 Pulse Rate [ From Monitor] Respiratory 21 20 16 Rate Blood Pressure 139/66 139/66 115/56 O2 Sat by Pulse 99 99 98 Oximetry 12/13/21 12/13/21 12/13/21 06:46 07:00 07:16 Temperature 99.8 F H Pulse Rate 92 H 93 H 93 H Pulse Rate [ From Monitor] Respiratory 19 19 18 Rate Blood Pressure 115/56 132/69 132/69 O2 Sat by Pulse 100 98 99 Oximetry 12/13/21 12/13/21 12/13/21 07:30 07:46 07:47 Temperature Pulse Rate 85 93 H 96 H Pulse Rate [ From Monitor] Respiratory 16 20 Rate Blood Pressure 126/60 126/60 O2 Sat by Pulse 99 98 Oximetry 12/13/21 12/13/21 12/13/21 08:00 08:16 08:30 Temperature Pulse Rate 93 H 93 H 91 H Pulse Rate [ 92 H From Monitor] Respiratory 19 17 22 Rate Blood Pressure 148/67 148/67 141/68 O2 Sat by Pulse 99 99 98 Oximetry 12/13/21 12/13/21 12/13/21 08:33 08:46 09:00 Temperature Pulse Rate 89 91 H 90 Pulse Rate [ From Monitor] Respiratory 18 24 Rate Blood Pressure 148/67 141/68 142/64 O2 Sat by Pulse 99 98 98 Oximetry 12/13/21 12/13/21 12/13/21 09:12 09:16 09:30 Temperature Pulse Rate 96 H 94 H 95 H Pulse Rate [ From Monitor] Respiratory 27 H 25 H Rate Blood Pressure 142/64 142/64 146/66 O2 Sat by Pulse 99 98 Oximetry 12/13/21 12/13/21 12/13/21 09:46 10:00 10:16 Temperature Pulse Rate 93 H 96 H 98 H Pulse Rate [ From Monitor] Respiratory 27 H 28 H 28 H Rate Blood Pressure 146/66 149/63 149/63 O2 Sat by Pulse 99 99 98 Oximetry 12/13/21 12/13/21 12/13/21 10:30 10:46 11:00 Temperature Pulse Rate 97 H 95 H 94 H Pulse Rate [ From Monitor] Respiratory 24 24 24 Rate Blood Pressure 148/67 148/67 148/67 O2 Sat by Pulse 99 99 99 Oximetry 12/13/21 11:25 Temperature 99.5 F Pulse Rate Pulse Rate [ From Monitor] Respiratory Rate Blood Pressure O2 Sat by Pulse Oximetry - General Appearance General appearance: sedated on ventilator, intubated Neck: no JVD Respiratory: Present: Other (Air entry per vent) Cardiology: regular, S1S2 Gastrointestinal: normal Neurologic: other (Sedated) - Lab 12/13/21 04:12 12/13/21 04:12 Most recent lab results ABG pH 7.432 pH Units (7.350-7.450) 12/13/21 04:05 ABG pCO2 31.5 mm Hg 12/13/21 04:05 ABG pO2 96.2 mm Hg (80.0-90.0) H 12/13/21 04:05 ABG HCO3 20.6 mmol/L (20.0-26.0) 12/13/21 04:05 ABG O2 Saturation 97.6 % (95.0-99.0) 12/13/21 04:05 Calcium 9.1 mg/dL (8.4-10.2) 12/13/21 04:12 Phosphorus 3.60 mg/dL (2.5-4.5) 12/12/21 05:13 Magnesium 2.30 mg/dL (1.7-2.3) 12/12/21 05:13 Urine Creatinine 167.0 mg/dL (0.1-20.0) H 12/09/21 Unknown Urine Sodium 10 mmol/L 12/09/21 Unknown Medications & Allergies - Medications Allergies/Adverse Reactions: Allergies No Known Allergies Allergy (Verified 12/07/21 15:05) Home Medications: Home Medications Medication Instructions Recorded Confirmed Last Taken Type AtorvaSTATin [Lipitor] 10 mg PO QHS 12/07/21 12/07/21 Unknown History Furosemide [Lasix] 40 mg PO BID 12/07/21 12/07/21 Unknown History Gabapentin [Neurontin] 300 mg PO BID 12/07/21 12/07/21 Unknown History Loratadine 10 mg PO QDAY 12/07/21 12/07/21 Unknown History Omeprazole 20 mg PO QDAY 12/07/21 12/07/21 Unknown History PARoxetine [Paxil] 20 mg PO DAILY 12/07/21 12/07/21 Unknown History Sitagliptin Phosphate [Januvia] 50 mg PO QDAY 12/07/21 12/07/21 Unknown History amLODIPine [Norvasc] 10 mg PO DAILY 12/07/21 12/07/21 Unknown History hydrALAZINE [Apresoline TAB] 100 mg PO TID 12/07/21 12/07/21 Unknown History lisinopriL [Zestril TAB] 40 mg PO QDAY 12/07/21 12/07/21 Unknown History Active Medications: Generic Name Dose Route Start Last Admin Trade Name Freq PRN Reason Stop Dose Admin Acetaminophen 650 mg 12/07/21 19:17 Acetaminophen 325 Mg Tab PO Q6H PRN Pain MILD(1-3)/Fever >100.5/[place] Albuterol 2.5 mg 12/07/21 19:13 12/10/21 23:44 Albuterol 2.5 Mg/3 Ml Nebu IH 2.5 mg Q3HRT PRN Administration Shortness Of Breath Amlodipine Besylate 10 mg 12/12/21 15:33 12/13/21 09:12 Amlodipine 5 Mg Tab FEEDTUBE 10 mg DAILY [place] Administration Atorvastatin Calcium 10 mg 12/12/21 22:00 12/12/21 21:26 Atorvastatin 10 Mg Tab FEEDTUBE 10 mg QHS [place] Administration Dextrose 0 ml 12/07/21 19:55 Dextrose 50% In Water (25gm) 50 Ml Syringe IV Q30MIN PRN Hypoglycemia Protocol Heparin Sodium (Porcine) 5,000 unit 12/08/21 14:00 12/13/21 07:54 Heparin 5,000 Unit/1 Ml Vial SUB-Q Not Given Q8HR [place] Hydralazine HCl 50 mg 12/12/21 09:00 12/13/21 09:13 Hydralazine 100 Mg Tab FEEDTUBE 50 mg TID [place] Administration Hydralazine HCl 20 mg 12/12/21 12:35 12/12/21 19:46 Hydralazine 20 Mg/1 Ml Inj IV 12/13/21 12:34 20 mg Q4H PRN Administration Blood Pressure Hydrophilic Ointment 1 applic 12/08/21 10:00 Lip Therapy Vaseline TP Q2HR PRN Dry Lips Vancomycin HCl 1,250 mg/ 275 mls @ 166.667 mls/hr 12/10/21 12:00 12/12/21 11:18 Sodium Chloride IV 166.667 mls/hr Q24H [place] Administration Dextrose 1,000 mls @ 100 mls/hr 12/11/21 11:00 D5w IV DIRECT [place] Insulin Glargine 20 units 12/10/21 07:52 12/12/21 21:29 Insulin Glargine 100 Units/Ml SUB-Q 20 units QHS [place] Administration Insulin Human Regular 0 units 12/09/21 12:00 12/13/21 05:14 Insulin Regular, Human 100 Units/1 Ml SUB-Q 3 units Q6H [place] Administration Protocol Lansoprazole 30 mg 12/08/21 10:00 12/13/21 09:12 Lansoprazole 30 Mg Solutab FEEDTUBE 30 mg QDAY [place] Administration Levetiracetam 500 mg 12/13/21 10:00 12/13/21 09:12 Levetiracetam 500 Mg/5 Ml Oral Liqd FEEDTUBE 500 mg BID [place] Administration Multi-Ingred Cream/Lotion/Oil/Oint 1 applic 12/08/21 10:00 12/11/21 20:52 Mineral Oil/Petrolatum, White Ophth Oint 3.5 Gm OU 1 applic Q4HR PRN Administration Dry Eye(s) Senna/Docusate Sodium 1 tab 12/08/21 10:00 12/13/21 09:13 Sennosides/Docusate Sodium 8.6/50 Mg Tab FEEDTUBE 1 tab BID [place] Administration Sodium Chloride 10 ml 12/07/21 22:00 12/13/21 09:12 Sodium Chloride 0.9% 10 Ml Flush Syringe IV 10 ml BID [place] Administration Sodium Chloride 10 ml 12/07/21 19:17 12/09/21 05:54 Sodium Chloride 0.9% 10 Ml Flush Syringe IV 10 ml PRN PRN Administration LINE FLUSH
[2021-12-13] MEDS: VANCOMYCIN 1,250 MG in SODIUM CHLORIDE 0.9% 250ML 250 ML IV SCH (13:33)
--- NOTE | 2021-12-13 16:36 | Progress Note ---
Assessment and Plan Assessment and plan: This is a 65 year old female with OHS, HTN, DM c/b neuropathy, GERD, MDD, iron deficiency anemia and HLD admitted with acute hypoxic respiratory failure secondary to pneumonia Neuro: Diffuse anoxic brain injury, acute metabolic encephalopathy -Neurology consulted, appreciate recommendations -Reorientation as needed -Maintain sleep-wake cycle -UDS negative -Keppra -EEG completed, see report for details -12/07 CT head without significant abnormality -12/11 CT head shows no focal mass, hemorrhage, hydrocephalus or acute or large territorial infarct -12/11 LP completed, see chart for details -CT C-spine shows mild degenerative disc disease at C5-7, sinus disease -12/12 MRI brain shows findings suggest presence of diffuse anoxic brain injury Cardiac: h/o HTN, HLD -Blood pressure monitoring per protocol -Hypertensive regimen with Norvasc and hydralazine -As needed hydralazine for SBP greater than 160 -Continue home statin Respiratory: Acute hypoxic respiratory failure -[facility] consulted, appreciate recommendations -Intubated on 12/07 with 7.00 ETT at 23 at the lips -A.m. vent settings: CPAP 05/08 -See RT notes for titration -A.m. ABG and CXR noted -VAP bundle -SPO2 monitoring -12/09 CT chest with no superhilar mass or other acute findings GI: Moderate protein calorie malnutrition, h/o obesity -24 hours +864 Ml -PPI -NTR consulted for tube feedings -BR: Senokot S : Hypernatremia (resovled) , hyperchloremia metabolic acidosis acute kidney injury secondary to vasomotor nephropathy (improving) -Nephrology consulted, appreciate recommendations -Record intake and output -Marcelino catheter discontinued 12/11 -Bladder scan nightly -Renally dose medications -Avoid nephrotoxic medications -Trend BMP ID: Severe Sepsis possibly secondary to pneumonia, GPC Bacteremia -Infectious disease consulted, appreciate recommendation -Antibiotic therapy with vancomycin -COVID-19 PCR negative -f/u blood culture -12/07 blood cultures with Staph aureus 1/4 bottles, coag negative staphlococcus 1/4 bottles -TTE without any obvious valvular vegetations but technically difficult study -Monitor WBC and temperature curve Endo: h/o DM -Avoid hypoglycemia -SSI -Accu-Cheks q. 6 hr -Long-acting insulin, titrate as needed Heme: Leukocytosis -Trend CBC -Transfuse hemoglobin less than 7 -SCDs to BLE while in bed Advance care planning -12/08: - Disease education data, care plan, diagnoses, and prognosis were discussed with patient's son via phone. Patient is full code. Patient family ac knowledged understanding and agreement with current care plan. -12/09: - Disease education data, care plan, diagnoses, and prognosis were discussed with patient's son, Hira Garcia, at the bedside by EMRE Bañuelos. All questions and concerns were addressed at this time. Patient is a FULL code. Patient's acknowledged understanding and agreement with current care plan. -12/12: EMRE Gonzales had extenisve conversation with Hira son, this AM -- he states his mom would not want life support, he did realize she was on life support; we discussed DNR/CPR and he states his mom would not want this He is going to discuss with other children and is suppose to get back with us on DNR status -12/13: EMRE Donovan had extensive conversation with Hira son this afternoon regarding MRI results and next steps to care. He requested case management to discuss options. He did also state that his mother had wanted a DNR CODE STATUS however was unable to complete paperwork The high probability of a clinically significant, sudden or life threatening deterioration of the [multiple] system(s) required my full and direct attention, intervention and personal management. The aggregate critical care time was [90] minutes. This time is in addition to time spent performing reported procedures but includes the following: [x] Data Review and interpretation [x] Patient assessment and monitoring of vital signs [x] Documentation [x] Medication orders and management Disposition Plan: icu Total Time Spent with Patient (Minutes): 90 History Interval history: This is a 65-year-old female with OHS, HTN, DM complicated by neuropathy, GERD, MDD, iron deficiency anemia, HLD, CHF who presented to the emergency department on 12/07 after being found by family and unresponsive in her home via EMS. Last known well time was 12/05. Work-up in the emergency department clued a CXR which revealed pneumonia complicated by sepsis and acute hypoxic respiratory failure, lab work showed lactic acidosis, leukocytosis, metabolic acidosis, toxic metabolic encephalopathy, rhabdomyolysis and acute kidney injury. Patient was admitted to the hospital service with consults to CCM to the ICU and initiated sepsis and pneumonia protocol. Hospital course to date: 12/08: Intubated and unresponsive, not on any sedation. Patient remains febrile with worsen leukocytosis this am, repeat CXR noted with significant improvement. COVID PCR and cultures pending, continue current epiric IV Abx, ID consulted. Continue gentle IVF hydration for MAYRA and Nephro is consulted. SSI adjusted and Lantus added for hyperglycemia. 12/09: Patient remains unresponsive on the vent. VSS. Will check a UDS and EEG. Neurology consulted. Remains with low grade fevers, Leukocytosis improvimg, B.cultures pending. Continue current IV Abx per ID, orders also placed for LP r/o meningitis, and Ampicillin added . FWF added for Hypernatremia, continue to monitor renal function, Nephrology is also following 12/10: Remains unresponsive. UDS negative. EEG and Neurology consult pending. D/w CCM, prophylaxis treatment for seizures initiated- IV Ativan and IV Keppra. Preliminary Blood culture result is positive GPC with clusters in 2 out 4 bottles. 2D echo noted with no evidence of vegetation. Repeat B.cultures ordered, continue current IV ABx. ID is also following. Possible LP tomorrow. FWF increased for hypernatremia. Continue to monitor electrolytes. 12/11: CT and LP 12/12: MRI and EEG completed 12/13: Dr. Cabrales re MRI results, NM brain flow study ordered to tomorrow. I updated patient's son regarding MRI results. Patient son requested to speak to case management. Case management aware. Hospitalist Physical - Constitutional Vitals: Temp Pulse Resp BP Pulse Ox 98.8 F 98 H 29 H 149/71 98 12/13/21 15:59 12/13/21 16:06 12/13/21 16:06 12/13/21 16:06 12/13/21 16:06 General appearance: Present: no acute distress, obese, other (Intubated and unresponsive, not on any sedation) - EENT Eyes: Present: PERRL, EOM intact - Neck Neck: Absent: masses or JVD, cervical LAD - Respiratory Respiratory effort: normal Respiratory: bilateral: diminished - Cardiovascular Rhythm: regular Heart Sounds: Present: S1 & S2. Absent: systolic murmur, diastolic murmur - Extremities Extremities: no ischemia, pulses intact, pulses symmetrical, No edema, normal temperature, normal color Peripheral Pulses: within normal limits - Abdominal General gastrointestinal: soft, non-tender, non-distended, normal bowel sounds - Integumentary Integumentary: Present: warm, dry - Psychiatric Psychiatric: other - Neurologic Neurologic: other (Tach cough/gag, no response to painful stimuli, pupils equal round reactive) - Allied Health Allied health notes reviewed: nursing, RT, social work Results - Labs CBC & Chem 7: 12/13/21 04:12 12/13/21 04:12 Labs: Laboratory Last Values WBC 11.2 K/mm3 (4.5-11.0) H 12/13/21 04:12 RBC 3.47 M/mm3 (3.65-5.03) L 12/13/21 04:12 Hgb 9.6 gm/dl (10.1-14.3) L 12/13/21 04:12 Hct 29.9 % (30.3-42.9) L 12/13/21 04:12 MCV 86 fl (79-97) 12/13/21 04:12 MCH 28 pg (28-32) 12/13/21 04:12 MCHC 32 % (30-34) 12/13/21 04:12 RDW 15.1 % (13.2-15.2) 12/13/21 04:12 Plt Count 282 K/mm3 (140-440) 12/13/21 04:12 Lymph % (Auto) 12.9 % (13.4-35.0) L 12/12/21 05:13 [place] % (Auto) 5.8 % (0.0-7.3) 12/12/21 05:13 Eos % (Auto) 7.9 % (0.0-4.3) H 12/12/21 05:13 Baso % (Auto) 0.7 % (0.0-1.8) 12/12/21 05:13 Lymph # (Auto) 1.3 K/mm3 (1.2-5.4) 12/12/21 05:13 [place] # (Auto) 0.6 K/mm3 (0.0-0.8) 12/12/21 05:13 Eos # (Auto) 0.8 K/mm3 (0.0-0.4) H 12/12/21 05:13 Baso # (Auto) 0.1 K/mm3 (0.0-0.1) 12/12/21 05:13 Add Manual Diff Complete 12/08/21 04:00 Total Counted 100 12/08/21 04:00 Seg Neutrophils % 72.7 % (40.0-70.0) H 12/12/21 05:13 Seg Neuts % (Manual) 92.0 % (40.0-70.0) H 12/08/21 04:00 Band Neutrophils % 0 % 12/08/21 04:00 Lymphocytes % (Manual) 1.0 % (13.4-35.0) L 12/08/21 04:00 Reactive Lymphs % (Man) 0 % 12/08/21 04:00 Monocytes % (Manual) 5.0 % (0.0-7.3) 12/08/21 04:00 Eosinophils % (Manual) 0 % (0.0-4.3) 12/08/21 04:00 Basophils % (Manual) 2.0 % (0.0-1.8) H 12/08/21 04:00 Metamyelocytes % 0 % 12/08/21 04:00 Myelocytes % 0 % 12/08/21 04:00 Promyelocytes % 0 % 12/08/21 04:00 Blast Cells % 0 % 12/08/21 04:00 Nucleated RBC % Not Reportable 12/08/21 04:00 Seg Neutrophils # 7.3 K/mm3 (1.8-7.7) 12/12/21 05:13 Seg Neutrophils # Man 18.8 K/mm3 (1.8-7.7) H 12/08/21 04:00 Band Neutrophils # 0.0 K/mm3 12/08/21 04:00 Lymphocytes # (Manual) 0.2 K/mm3 (1.2-5.4) L 12/08/21 04:00 Abs React Lymphs (Man) 0.0 K/mm3 12/08/21 04:00 Monocytes # (Manual) 1.0 K/mm3 (0.0-0.8) H 12/08/21 04:00 Eosinophils # (Manual) 0.0 K/mm3 (0.0-0.4) 12/08/21 04:00 Basophils # (Manual) 0.4 K/mm3 (0.0-0.1) H 12/08/21 04:00 Metamyelocytes # 0.0 K/mm3 12/08/21 04:00 Myelocytes # 0.0 K/mm3 12/08/21 04:00 Promyelocytes # 0.0 K/mm3 12/08/21 04:00 Blast Cells # 0.0 K/mm3 12/08/21 04:00 WBC Morphology Not Reportable 12/08/21 04:00 Hypersegmented Neuts Not Reportable 12/08/21 04:00 Hyposegmented Neuts Not Reportable 12/08/21 04:00 Hypogranular Neuts Not Reportable 12/08/21 04:00 Smudge Cells Not Reportable 12/08/21 04:00 Toxic Granulation Not Reportable 12/08/21 04:00 Toxic Vacuolation Not Reportable 12/08/21 04:00 Dohle Bodies Not Reportable 12/08/21 04:00 Pelger-Huet Anomaly Not Reportable 12/08/21 04:00 Ulises Rods Not Reportable 12/08/21 04:00 Platelet Estimate Consistent w auto 12/08/21 04:00 Clumped Platelets Not Reportable 12/08/21 04:00 Plt Clumps, EDTA Not Reportable 12/08/21 04:00 Large Platelets Not Reportable 12/08/21 04:00 Giant Platelets Not Reportable 12/08/21 04:00 Platelet Satelliting Not Reportable 12/08/21 04:00 Plt Morphology Comment Not Reportable 12/08/21 04:00 RBC Morphology Normal 12/08/21 04:00 Dimorphic RBCs Not Reportable 12/08/21 04:00 Polychromasia Not Reportable 12/08/21 04:00 Hypochromasia Not Reportable 12/08/21 04:00 Poikilocytosis Not Reportable 12/08/21 04:00 Anisocytosis Not Reportable 12/08/21 04:00 Microcytosis Not Reportable 12/08/21 04:00 Macrocytosis Not Reportable 12/08/21 04:00 Spherocytes Not Reportable 12/08/21 04:00 Pappenheimer Bodies Not Reportable 12/08/21 04:00 Sickle Cells Not Reportable 12/08/21 04:00 Target Cells Not Reportable 12/08/21 04:00 Tear Drop Cells Not Reportable 12/08/21 04:00 Ovalocytes Not Reportable 12/08/21 04:00 Helmet Cells Not Reportable 12/08/21 04:00 Parker-T[place] Bodies Not Reportable 12/08/21 04:00 Farley Rings Not Reportable 12/08/21 04:00 [place] Cells Not Reportable 12/08/21 04:00 Bite Cells Not Reportable 12/08/21 04:00 Crenated Cell Not Reportable 12/08/21 04:00 Elliptocytes Not Reportable 12/08/21 04:00 Acanthocytes (Spur) Not Reportable 12/08/21 04:00 Rouleaux Not Reportable 12/08/21 04:00 Hemoglobin C Crystals Not Reportable 12/08/21 04:00 Schistocytes Not Reportable 12/08/21 04:00 Malaria parasites Not Reportable 12/08/21 04:00 Frederick Bodies Not Reportable 12/08/21 04:00 Hem Pathologist Commnt No 12/08/21 04:00 PT 13.7 Sec. (12.2-14.9) 12/11/21 09:32 INR 0.95 (0.87-1.13) 12/11/21 09:32 D-Dimer 3277.12 ng/mlDDU (0-234) H 12/08/21 08:21 ABG pH 7.432 pH Units (7.350-7.450) 12/13/21 04:05 ABG pCO2 31.5 mm Hg 12/13/21 04:05 ABG pO2 96.2 mm Hg (80.0-90.0) H 12/13/21 04:05 ABG HCO3 20.6 mmol/L (20.0-26.0) 12/13/21 04:05 ABG O2 Saturation 97.6 % (95.0-99.0) 12/13/21 04:05 ABG O2 Content 13.2 (0.0-44) 12/13/21 04:05 ABG Base Excess -3.1 mmol/L (-2.0-3.0) L 12/13/21 04:05 ABG Hemoglobin 9.7 gm/dl (12.0-16.0) L 12/13/21 04:05 ABG Carboxyhemoglobin 1.0 % (0.0-5.0) 12/13/21 04:05 ABG Methemoglobin 0.5 % (0.0-1.5) 12/13/21 04:05 Oxyhemoglobin 96.0 % (95.0-99.0) 12/13/21 04:05 FiO2 25 % 12/13/21 04:05 Sodium 140 mmol/L (137-145) 12/13/21 04:12 Potassium 4.7 mmol/L (3.6-5.0) 12/13/21 04:12 Chloride 108.8 mmol/L (98-107) H 12/13/21 04:12 Carbon Dioxide 19 mmol/L (22-30) L 12/13/21 04:12 Anion Gap 17 mmol/L 12/13/21 04:12 BUN 26 mg/dL (7-17) H 12/13/21 04:12 Creatinine 1.2 mg/dL (0.6-1.2) 12/13/21 04:12 Estimated GFR 45 ml/min 12/13/21 04:12 BUN/Creatinine Ratio 22 % 12/13/21 04:12 Glucose 169 mg/dL (65-100) H 12/13/21 04:12 POC Glucose 132 mg/dL (70-105) H 12/12/21 21:28 Hemoglobin A1c 6.2 % (4-6) H 12/09/21 04:32 Lactic Acid 1.70 mmol/L (0.7-2.0) 12/08/21 Unknown Calcium 9.1 mg/dL (8.4-10.2) 12/13/21 04:12 Phosphorus 3.60 mg/dL (2.5-4.5) 12/12/21 05:13 Magnesium 2.30 mg/dL (1.7-2.3) 12/12/21 05:13 Ferritin 162.1 ng/mL (10.0-200.0) 12/08/21 08:21 Total Bilirubin 0.20 mg/dL (0.1-1.2) 12/13/21 04:12 AST 20 units/L (5-40) 12/13/21 04:12 ALT 9 units/L (7-56) 12/13/21 04:12 Alkaline Phosphatase 72 units/L (35-129) 12/13/21 04:12 Ammonia 20.0 umol/L (25-60) L 12/12/21 23:13 Lactate Dehydrogenase 129 units/L (91-180) 12/08/21 08:21 Total Creatine Kinase 287 units/L (30-135) H 12/08/21 04:00 C-Reactive Protein 6.20 mg/dL (0.00-1.30) H 12/08/21 08:21 Total Protein 5.8 g/dL (6.3-8.2) L 12/13/21 04:12 Albumin 2.9 g/dL (3.9-5) L 12/13/21 04:12 Albumin/Globulin Ratio 1.0 % 12/13/21 04:12 Procalcitonin 0.09 ng/mL (<0.15) 12/08/21 08:21 PTH Intact 41.40 pg/mL (15-65) 12/10/21 05:49 Urine Color Yellow (Yellow) 12/07/21 17:21 Urine Turbidity Clear (Clear) 12/07/21 17:21 Urine pH 6.0 (5.0-7.0) 12/07/21 17:21 Ur Specific [place] 1.015 (1.003-1.030) 12/07/21 17:21 Urine Protein 30 mg/dl mg/dL (Negative) 12/07/21 17:21 Urine Glucose (UA) Negative mg/dL (Negative) 12/07/21 17:21 Urine Ketones 40 mg/dL (Negative) 12/07/21 17:21 Urine Blood Negative (Negative) 12/07/21 17:21 Urine Nitrite Negative (Negative) 12/07/21 17:21 Ur Reducing Substances Not Reportable 12/07/21 17:21 Urine Bilirubin Moderate (Negative) 12/07/21 17:21 Urine Ictotest Negative (Negative) 12/07/21 17:21 Urine Urobilinogen 0.0 mg/dL (<2.0) 12/07/21 17:21 Ur Leukocyte Esterase Negative (Negative) 12/07/21 17:21 Urine WBC (Auto) 1.0 /HPF (0.0-6.0) 12/07/21 17:21 Urine RBC (Auto) 1.0 /HPF (0.0-6.0) 12/07/21 17:21 U Epithel Cells (Auto) 4.0 /HPF (0-13.0) 12/07/21 17:21 Hyaline Casts 4 /LPF 12/07/21 17:21 Urine Mucus Few /HPF 12/07/21 17:21 Urine Creatinine 167.0 mg/dL (0.1-20.0) H 12/09/21 Unknown Urine Sodium 10 mmol/L 12/09/21 Unknown CSF Appearance Clear 12/11/21 13:15 CSF Color Colorless 12/11/21 13:15 CSF WBC 0 /mm3 (1-10) 12/11/21 13:15 CSF RBC 29959 /mm3 (0-0) 12/11/21 13:15 CSF Seg Neutrophils Not Reportable 12/11/21 13:15 CSF Lymphocytes % Not Reportable 12/11/21 13:15 CSF Reactive Lymphs Not Reportable 12/11/21 13:15 CSF Monocytes % Not Reportable 12/11/21 13:15 CSF Eosinophils % Not Reportable 12/11/21 13:15 CSF Basophils Not Reportable 12/11/21 13:15 CSF Pathologist Review C 12/11/21 13:15 CSF Glucose 96 mg/dL 12/11/21 13:15 CSF Total Protein 33 mg/dL 12/11/21 13:15 Nasal Screen MRSA (PCR) Positive (Negative) 12/08/21 12:30 Vancomycin Trough 11.4 ug/mL (5.0-20.0) 12/10/21 05:49 Urine Opiates Screen Negative 12/09/21 Unknown Urine Methadone Screen Negative 12/09/21 Unknown Ur Barbiturates Screen Negative 12/09/21 Unknown Ur Phencyclidine Scrn Negative 12/09/21 Unknown Ur Amphetamines Screen Negative 12/09/21 Unknown U Benzodiazepines Scrn Negative 12/09/21 Unknown Urine Cocaine Screen Negative 12/09/21 Unknown U Marijuana (THC) Screen Negative 12/09/21 Unknown Drugs of Abuse Note Disclamer 12/09/21 Unknown Plasma/Serum Alcohol < 0.01 % (0-0.07) 12/07/21 19:03 Coronavirus (PCR) Negative (Negative) 12/08/21 08:11 Blood Type AB POSITIVE 12/07/21 22:45 Antibody Screen Negative 12/07/21 22:45 Microbiology: Microbiology 12/10/21 15:02 Peripheral/Venous Blood Culture - Preliminary NO GROWTH AFTER 48 HOURS 12/10/21 15:02 Peripheral/Venous Blood Culture - Preliminary NO GROWTH AFTER 48 HOURS 12/11/21 13:15 Cerebral Spinal Fluid CSF Culture - Preliminary Marcelino/IV: Voiding Method External Female Catheter Active Medications - Current Medications Current Medications: Generic Name Dose Route Start Last Admin Trade Name Freq PRN Reason Stop Dose Admin Acetaminophen 650 mg 12/07/21 19:17 Acetaminophen 325 Mg Tab PO Q6H PRN Pain MILD(1-3)/Fever >100.5/COTTON Albuterol 2.5 mg 12/07/21 19:13 12/10/21 23:44 Albuterol 2.5 Mg/3 Ml Nebu IH 2.5 mg Q3HRT PRN Administration Shortness Of Breath Amlodipine Besylate 10 mg 12/12/21 15:33 12/13/21 09:12 Amlodipine 5 Mg Tab FEEDTUBE 10 mg DAILY CHESTER Administration Atorvastatin Calcium 10 mg 12/12/21 22:00 12/12/21 21:26 Atorvastatin 10 Mg Tab FEEDTUBE 10 mg QHS CHESTER Administration Dextrose 0 ml 12/07/21 19:55 Dextrose 50% In Water (25gm) 50 Ml Syringe IV Q30MIN PRN Hypoglycemia Protocol Heparin Sodium (Porcine) 5,000 unit 12/08/21 14:00 12/13/21 13:32 Heparin 5,000 Unit/1 Ml Vial SUB-Q 5,000 unit Q8HR CHESTER Administration Hydralazine HCl 50 mg 12/12/21 09:00 12/13/21 13:33 Hydralazine 100 Mg Tab FEEDTUBE 50 mg TID [place] Administration Hydrophilic Ointment 1 applic 12/08/21 10:00 Lip Therapy Vaseline TP Q2HR PRN Dry Lips Vancomycin HCl 1,250 mg/ 275 mls @ 166.667 mls/hr 12/10/21 12:00 12/13/21 13:33 Sodium Chloride IV 166.667 mls/hr Q24H CEHSTER Administration Dextrose 1,000 mls @ 100 mls/hr 12/11/21 11:00 D5w IV DIRECT CHESTER Insulin Glargine 20 units 12/10/21 07:52 12/12/21 21:29 Insulin Glargine 100 Units/Ml SUB-Q 20 units QHS [place] Administration Insulin Human Regular 0 units 12/09/21 12:00 12/13/21 11:30 Insulin Regular, Human 100 Units/1 Ml SUB-Q 3 units Q6H CHE[place] Administration Protocol Lansoprazole 30 mg 12/08/21 10:00 12/13/21 09:12 Lansoprazole 30 Mg Solutab FEEDTUBE 30 mg QDAY [place] Administration Levetiracetam 500 mg 12/13/21 10:00 12/13/21 09:12 Levetiracetam 500 Mg/5 Ml Oral Liqd FEEDTUBE 500 mg BID CHESTER Administration Multi-Ingred Cream/Lotion/Oil/Oint 1 applic 12/08/21 10:00 12/11/21 20:52 Mineral Oil/Petrolatum, White Ophth Oint 3.5 Gm OU 1 applic Q4HR PRN Administration Dry Eye(s) Senna/Docusate Sodium 1 tab 12/08/21 10:00 12/13/21 09:13 Sennosides/Docusate Sodium 8.6/50 Mg Tab FEEDTUBE 1 tab BID CHESTER Administration Sodium Chloride 10 ml 12/07/21 22:00 12/13/21 09:12 Sodium Chloride 0.9% 10 Ml Flush Syringe IV 10 ml BID [place]STER Administration Sodium Chloride 10 ml 12/07/21 19:17 12/09/21 05:54 Sodium Chloride 0.9% 10 Ml Flush Syringe IV 10 ml PRN PRN Administration LINE FLUSH Nutrition/Malnutrition Assess - Dietary Evaluation Nutrition/Malnutrition Findings: Nutrition Notes Start: 12/08/21 11:03 Freq: Status: Active Protocol: Document 12/11/21 18:01 TUCKER (Rec: 12/11/21 18:04 TUCKER [email or web address]) Nutrition Notes Initial or Follow up Reassessment Current Diagnosis Acute Kidney Injury,Diabetes, Sepsis,Hypertension,Heart Failure,Respiratory Failure, Hyperlipidemia Other Pertinent Diagnosis Pneu, toxic metabolic encephalopathy, rhabdomyolysis , GERD, MDD, anemia Current Diet Glucerna 1.2 at 45ml/hr Labs/Tests Na 148 BUN 34 BG 173 Pertinent Medications D5W at 75ml/hr Height 5 ft 2 in Weight 98.1 kg [place] Body Weight (kg) 50.00 BMI 39.5 Weight Status Obese Subjective/Other Information Observed TF infusing at goal rate. Pt remains on vent support. Percent of energy/protein needs met: 73% energy 100% pro Burn Absent Trauma Absent #1 Nutrition Diagnosis Inadequate oral intake Diagnosis Progress(for reassessment Continues documentation) Is patient on ventilator? Yes Is Patient Ambulatory and/or Out of Bed No REE-([facility]-confined to bed) 1786.068 Kcal/Kg value to use for calculation 13 Approximate Energy Requirements Using 1275 kcal/Kg Calculation Used for Recommendations Kcal/kg Additional Notes Pro needs 0.8-1.2g/kg adjBW: 59-89g/day Fluid needs 1ml/kcal Nutrition Intervention Nutrition Support: Glucerna 1.2 at 45ml/hr with 150ml water flush q4h (per MD order). Kcal 1,296 Protein (gm) 65 Carbohydrates (gm) 124 Fat (gm) 65 Fluid (mL) 869 Fiber (gm) 17 Goal #1 TF tolerance Goal #2 TF to meet 65-70% of energy and at least 75% pro needs Follow-Up By: 12/18/21 Additional Comments F/U: stable TF, vent status, Na lab/water flush
--- NOTE | 2021-12-13 18:31 | Progress Note ---
Subjective Date of service: 12/13/21 Objective Vital Signs - 12hr 12/13/21 12/13/21 12/13/21 06:46 07:00 07:16 Temperature 99.8 F H Pulse Rate 92 H 93 H 93 H Pulse Rate [ From Monitor] Respiratory 19 19 18 Rate Blood Pressure 115/56 132/69 132/69 O2 Sat by Pulse 100 98 99 Oximetry 12/13/21 12/13/21 12/13/21 07:30 07:46 07:47 Temperature Pulse Rate 85 93 H 96 H Pulse Rate [ From Monitor] Respiratory 16 20 Rate Blood Pressure 126/60 126/60 O2 Sat by Pulse 99 98 Oximetry 12/13/21 12/13/21 12/13/21 08:00 08:16 08:30 Temperature Pulse Rate 93 H 93 H 91 H Pulse Rate [ 92 H From Monitor] Respiratory 19 17 22 Rate Blood Pressure 148/67 148/67 141/68 O2 Sat by Pulse 99 99 98 Oximetry 12/13/21 12/13/21 12/13/21 08:33 08:46 09:00 Temperature Pulse Rate 89 91 H 90 Pulse Rate [ From Monitor] Respiratory 18 24 Rate Blood Pressure 148/67 141/68 142/64 O2 Sat by Pulse 99 98 98 Oximetry 12/13/21 12/13/21 12/13/21 09:12 09:16 09:30 Temperature Pulse Rate 96 H 94 H 95 H Pulse Rate [ From Monitor] Respiratory 27 H 25 H Rate Blood Pressure 142/64 142/64 146/66 O2 Sat by Pulse 99 98 Oximetry 12/13/21 12/13/21 12/13/21 09:46 10:00 10:16 Temperature Pulse Rate 93 H 96 H 98 H Pulse Rate [ From Monitor] Respiratory 27 H 28 H 28 H Rate Blood Pressure 146/66 149/63 149/63 O2 Sat by Pulse 99 99 98 Oximetry 12/13/21 12/13/21 12/13/21 10:30 10:46 11:00 Temperature Pulse Rate 97 H 95 H 94 H Pulse Rate [ From Monitor] Respiratory 24 24 24 Rate Blood Pressure 148/67 148/67 148/67 O2 Sat by Pulse 99 99 99 Oximetry 12/13/21 12/13/21 12/13/21 11:16 11:25 11:30 Temperature 99.5 F Pulse Rate 97 H 101 H Pulse Rate [ From Monitor] Respiratory 24 21 Rate Blood Pressure 148/67 144/66 O2 Sat by Pulse 99 99 Oximetry 12/13/21 12/13/21 12/13/21 11:46 12:00 12:16 Temperature Pulse Rate 96 H 99 H 100 H Pulse Rate [ 100 H From Monitor] Respiratory 22 25 H 28 H Rate Blood Pressure 148/67 133/59 133/59 O2 Sat by Pulse 99 99 99 Oximetry 12/13/21 12/13/21 12/13/21 12:30 12:46 13:00 Temperature Pulse Rate 100 H 97 H 98 H Pulse Rate [ From Monitor] Respiratory 27 H 26 H 30 H Rate Blood Pressure 135/55 135/55 138/59 O2 Sat by Pulse 97 98 99 Oximetry 12/13/21 12/13/21 12/13/21 13:16 13:30 13:46 Temperature Pulse Rate 97 H 94 H 95 H Pulse Rate [ From Monitor] Respiratory 28 H 22 30 H Rate Blood Pressure 138/59 119/51 119/51 O2 Sat by Pulse 98 97 98 Oximetry 12/13/21 12/13/21 12/13/21 14:00 14:16 14:30 Temperature Pulse Rate 96 H 98 H 101 H Pulse Rate [ From Monitor] Respiratory 26 H 31 H 28 H Rate Blood Pressure 131/59 131/59 143/60 O2 Sat by Pulse 98 98 97 Oximetry 12/13/21 12/13/21 12/13/21 14:46 15:00 15:16 Temperature Pulse Rate 98 H 98 H 98 H Pulse Rate [ From Monitor] Respiratory 27 H 27 H 27 H Rate Blood Pressure 143/60 129/62 129/62 O2 Sat by Pulse 97 98 98 Oximetry 12/13/21 12/13/21 12/13/21 15:30 15:46 15:59 Temperature 98.8 F Pulse Rate 95 H 99 H Pulse Rate [ From Monitor] Respiratory 24 29 H Rate Blood Pressure 127/58 127/58 O2 Sat by Pulse 98 Oximetry 12/13/21 12/13/21 12/13/21 16:00 16:06 16:16 Temperature Pulse Rate 98 H 98 H 96 H Pulse Rate [ 96 H From Monitor] Respiratory 32 H 29 H 24 Rate Blood Pressure 149/71 149/71 149/71 O2 Sat by Pulse 97 98 98 Oximetry 12/13/21 12/13/21 12/13/21 16:30 16:46 17:00 Temperature Pulse Rate 97 H 97 H 97 H Pulse Rate [ From Monitor] Respiratory 27 H 32 H 28 H Rate Blood Pressure 154/69 154/69 148/73 O2 Sat by Pulse 98 Oximetry 12/13/21 12/13/21 12/13/21 17:16 17:30 17:46 Temperature Pulse Rate 98 H 98 H 100 H Pulse Rate [ From Monitor] Respiratory 37 H 30 H 31 H Rate Blood Pressure 148/73 147/72 147/72 O2 Sat by Pulse 100 98 Oximetry 12/13/21 18:00 Temperature Pulse Rate 97 H Pulse Rate [ From Monitor] Respiratory 26 H Rate Blood Pressure 147/72 O2 Sat by Pulse 98 Oximetry CBC and BMP: 12/13/21 04:12 12/13/21 04:12 ABG, PT/INR, D-dimer: ABG ABG pH 7.432 pH Units (7.350-7.450) 12/13/21 04:05 ABG pCO2 31.5 mm Hg 12/13/21 04:05 ABG pO2 96.2 mm Hg (80.0-90.0) H 12/13/21 04:05 ABG O2 Saturation 97.6 % (95.0-99.0) 12/13/21 04:05 PT/INR, D-dimer PT 13.7 Sec. (12.2-14.9) 12/11/21 09:32 INR 0.95 (0.87-1.13) 12/11/21 09:32 D-Dimer 3277.12 ng/mlDDU (0-234) H 12/08/21 08:21 Abnormal lab findings: Abnormal Labs 12/07/21 12/07/21 12/07/21 14:21 15:55 15:55 WBC 16.9 H RBC 5.04 H Hgb Hct 43.8 H Plt Count 459 H Lymph % (Auto) 9.3 L Eos % (Auto) [place] # (Auto) 0.9 H Eos # (Auto) Seg Neutrophils % 84.6 H Seg Neuts % (Manual) Lymphocytes % (Manual) Basophils % (Manual) Seg Neutrophils # 14.3 H Seg Neutrophils # Man Lymphocytes # (Manual) Monocytes # (Manual) Basophils # (Manual) D-Dimer ABG pH ABG pO2 ABG HCO3 ABG O2 Saturation ABG Base Excess ABG Hemoglobin Oxyhemoglobin Sodium Chloride 107.2 H Carbon Dioxide 18 L BUN 34 H Creatinine 1.7 H Glucose 224 H POC Glucose 174 H Hemoglobin A1c Ammonia Total Creatine Kinase C-Reactive Protein Total Protein Albumin Urine Creatinine 12/07/21 12/07/21 12/07/21 15:55 15:55 15:55 WBC RBC Hgb Hct Plt Count Lymph % (Auto) Eos % (Auto) [place] # (Auto) Eos # (Auto) Seg Neutrophils % Seg Neuts % (Manual) Lymphocytes % (Manual) Basophils % (Manual) Seg Neutrophils # Seg Neutrophils # Man Lymphocytes # (Manual) Monocytes # (Manual) Basophils # (Manual) D-Dimer ABG pH 7.260 L ABG pO2 229.7 H ABG HCO3 19.8 L ABG O2 Saturation 99.3 H ABG Base Excess -7.1 L ABG Hemoglobin Oxyhemoglobin Sodium Chloride Carbon Dioxide BUN Creatinine Glucose POC Glucose Hemoglobin A1c Ammonia 23.0 L Total Creatine Kinase 498 H C-Reactive Protein Total Protein Albumin Urine Creatinine 12/07/21 12/08/21 12/08/21 21:45 00:18 04:00 WBC 20.4 H RBC Hgb Hct Plt Count Lymph % (Auto) Eos % (Auto) [place] # (Auto) Eos # (Auto) Seg Neutrophils % Seg Neuts % (Manual) 92.0 H Lymphocytes % (Manual) 1.0 L Basophils % (Manual) 2.0 H Seg Neutrophils # Seg Neutrophils # Man 18.8 H Lymphocytes # (Manual) 0.2 L Monocytes # (Manual) 1.0 H Basophils # (Manual) 0.4 H D-Dimer ABG pH ABG pO2 170.3 H ABG HCO3 18.8 L ABG O2 Saturation 99.1 H ABG Base Excess -5.5 L ABG Hemoglobin 11.9 L Oxyhemoglobin Sodium Chloride Carbon Dioxide BUN Creatinine Glucose POC Glucose 276 H Hemoglobin A1c Ammonia Total Creatine Kinase C-Reactive Protein Total Protein Albumin Urine Creatinine 12/08/21 12/08/21 12/08/21 04:00 04:10 05:42 WBC RBC Hgb Hct Plt Count Lymph % (Auto) Eos % (Auto) [place] # (Auto) Eos # (Auto) Seg Neutrophils % Seg Neuts % (Manual) Lymphocytes % (Manual) Basophils % (Manual) Seg Neutrophils # Seg Neutrophils # Man Lymphocytes # (Manual) Monocytes # (Manual) Basophils # (Manual) D-Dimer ABG pH ABG pO2 65.1 L ABG HCO3 17.6 L ABG O2 Saturation 94.5 L ABG Base Excess -5.4 L ABG Hemoglobin Oxyhemoglobin 92.9 L Sodium 146 H Chloride 112.2 H Carbon Dioxide 17 L BUN 38 H Creatinine 1.8 H Glucose 329 H POC Glucose 315 H Hemoglobin A1c Ammonia Total Creatine Kinase 287 H C-Reactive Protein Total Protein Albumin 3.5 L Urine Creatinine 12/08/21 12/08/21 12/08/21 07:29 08:21 08:21 WBC RBC Hgb Hct Plt Count Lymph % (Auto) Eos % (Auto) [place] # (Auto) Eos # (Auto) Seg Neutrophils % Seg Neuts % (Manual) Lymphocytes % (Manual) Basophils % (Manual) Seg Neutrophils # Seg Neutrophils # Man Lymphocytes # (Manual) Monocytes # (Manual) Basophils # (Manual) D-Dimer 3277.12 H ABG pH ABG pO2 ABG HCO3 ABG O2 Saturation ABG Base Excess ABG Hemoglobin Oxyhemoglobin Sodium Chloride Carbon Dioxide BUN Creatinine Glucose POC Glucose 330 H Hemoglobin A1c Ammonia Total Creatine Kinase C-Reactive Protein 6.20 H Total Protein Albumin Urine Creatinine 12/08/21 12/08/21 12/09/21 11:15 21:04 04:25 WBC RBC Hgb Hct Plt Count Lymph % (Auto) Eos % (Auto) [place] # (Auto) Eos # (Auto) Seg Neutrophils % Seg Neuts % (Manual) Lymphocytes % (Manual) Basophils % (Manual) Seg Neutrophils # Seg Neutrophils # Man Lymphocytes # (Manual) Monocytes # (Manual) Basophils # (Manual) D-Dimer ABG pH ABG pO2 136.8 H ABG HCO3 18.7 L ABG O2 Saturation ABG Base Excess -5.7 L ABG Hemoglobin 11.2 L Oxyhemoglobin Sodium Chloride Carbon Dioxide BUN Creatinine Glucose POC Glucose 302 H 122 H Hemoglobin A1c Ammonia Total Creatine Kinase C-Reactive Protein Total Protein Albumin Urine Creatinine 12/09/21 12/09/21 12/09/21 04:32 04:32 04:32 WBC 16.7 H RBC Hgb Hct Plt Count Lymph % (Auto) Eos % (Auto) [place] # (Auto) Eos # (Auto) Seg Neutrophils % Seg Neuts % (Manual) Lymphocytes % (Manual) Basophils % (Manual) Seg Neutrophils # Seg Neutrophils # Man Lymphocytes # (Manual) Monocytes # (Manual) Basophils # (Manual) D-Dimer ABG pH ABG pO2 ABG HCO3 ABG O2 Saturation ABG Base Excess ABG Hemoglobin Oxyhemoglobin Sodium 146 H Chloride 116.8 H Carbon Dioxide 18 L BUN 38 H Creatinine 1.7 H Glucose 193 H POC Glucose Hemoglobin A1c 6.2 H Ammonia Total Creatine Kinase C-Reactive Protein Total Protein Albumin 3.3 L Urine Creatinine 12/09/21 12/10/21 12/10/21 Unknown 00:18 04:20 WBC RBC Hgb Hct Plt Count Lymph % (Auto) Eos % (Auto) [place] # (Auto) Eos # (Auto) Seg Neutrophils % Seg Neuts % (Manual) Lymphocytes % (Manual) Basophils % (Manual) Seg Neutrophils # Seg Neutrophils # Man Lymphocytes # (Manual) Monocytes # (Manual) Basophils # (Manual) D-Dimer ABG pH ABG pO2 136.4 H ABG HCO3 19.3 L ABG O2 Saturation ABG Base Excess -4.7 L ABG Hemoglobin 10.1 L Oxyhemoglobin Sodium Chloride Carbon Dioxide BUN Creatinine Glucose POC Glucose 186 H Hemoglobin A1c Ammonia Total Creatine Kinase C-Reactive Protein Total Protein Albumin Urine Creatinine 167.0 H 12/10/21 12/10/21 12/10/21 05:49 06:03 12:11 WBC 13.0 H RBC Hgb Hct Plt Count Lymph % (Auto) Eos % (Auto) [place] # (Auto) Eos # (Auto) Seg Neutrophils % Seg Neuts % (Manual) Lymphocytes % (Manual) Basophils % (Manual) Seg Neutrophils # Seg Neutrophils # Man Lymphocytes # (Manual) Monocytes # (Manual) Basophils # (Manual) D-Dimer ABG pH ABG pO2 ABG HCO3 ABG O2 Saturation ABG Base Excess ABG Hemoglobin Oxyhemoglobin Sodium 147 H Chloride 118.1 H Carbon Dioxide 18 L BUN 37 H Creatinine 1.5 H Glucose 229 H POC Glucose 195 H Hemoglobin A1c Ammonia Total Creatine Kinase C-Reactive Protein Total Protein Albumin Urine Creatinine 12/10/21 12/11/21 12/11/21 16:36 04:00 04:00 WBC RBC 3.40 L Hgb 9.6 L Hct 29.2 L Plt Count Lymph % (Auto) Eos % (Auto) [place] # (Auto) Eos # (Auto) Seg Neutrophils % Seg Neuts % (Manual) Lymphocytes % (Manual) Basophils % (Manual) Seg Neutrophils # Seg Neutrophils # Man Lymphocytes # (Manual) Monocytes # (Manual) Basophils # (Manual) D-Dimer ABG pH ABG pO2 ABG HCO3 ABG O2 Saturation ABG Base Excess ABG Hemoglobin Oxyhemoglobin Sodium 148 H Chloride 117.5 H Carbon Dioxide BUN 34 H Creatinine Glucose 173 H POC Glucose 180 H Hemoglobin A1c Ammonia Total Creatine Kinase C-Reactive Protein Total Protein Albumin Urine Creatinine 12/11/21 12/11/21 12/11/21 04:10 13:29 17:33 WBC RBC Hgb Hct Plt Count Lymph % (Auto) Eos % (Auto) [place] # (Auto) Eos # (Auto) Seg Neutrophils % Seg Neuts % (Manual) Lymphocytes % (Manual) Basophils % (Manual) Seg Neutrophils # Seg Neutrophils # Man Lymphocytes # (Manual) Monocytes # (Manual) Basophils # (Manual) D-Dimer ABG pH ABG pO2 117.4 H ABG HCO3 ABG O2 Saturation ABG Base Excess -3.9 L ABG Hemoglobin 9.0 L Oxyhemoglobin Sodium Chloride Carbon Dioxide BUN Creatinine Glucose POC Glucose 124 H 163 H Hemoglobin A1c Ammonia Total Creatine Kinase C-Reactive Protein Total Protein Albumin Urine Creatinine 12/11/21 12/12/21 12/12/21 23:46 03:40 05:13 WBC RBC 3.56 L Hgb 10.0 L Hct Plt Count Lymph % (Auto) 12.9 L Eos % (Auto) 7.9 H [place] # (Auto) Eos # (Auto) 0.8 H Seg Neutrophils % 72.7 H Seg Neuts % (Manual) Lymphocytes % (Manual) Basophils % (Manual) Seg Neutrophils # Seg Neutrophils # Man Lymphocytes # (Manual) Monocytes # (Manual) Basophils # (Manual) D-Dimer ABG pH ABG pO2 134.8 H ABG HCO3 ABG O2 Saturation ABG Base Excess -2.2 L ABG Hemoglobin 9.6 L Oxyhemoglobin Sodium Chloride Carbon Dioxide BUN Creatinine Glucose POC Glucose 150 H Hemoglobin A1c Ammonia Total Creatine Kinase C-Reactive Protein Total Protein Albumin Urine Creatinine 12/12/21 12/12/21 12/12/21 05:13 11:45 21:28 WBC RBC Hgb Hct Plt Count Lymph % (Auto) Eos % (Auto) [place] # (Auto) Eos # (Auto) Seg Neutrophils % Seg Neuts % (Manual) Lymphocytes % (Manual) Basophils % (Manual) Seg Neutrophils # Seg Neutrophils # Man Lymphocytes # (Manual) Monocytes # (Manual) Basophils # (Manual) D-Dimer ABG pH ABG pO2 ABG HCO3 ABG O2 Saturation ABG Base Excess -2.6 L ABG Hemoglobin 9.8 L Oxyhemoglobin Sodium 146 H Chloride 113.9 H Carbon Dioxide 21 L BUN 27 H Creatinine 1.3 H Glucose 135 H POC Glucose 132 H Hemoglobin A1c Ammonia Total Creatine Kinase C-Reactive Protein Total Protein Albumin 2.9 L Urine Creatinine 12/12/21 12/13/21 12/13/21 23:13 04:05 04:12 WBC 11.2 H RBC 3.47 L Hgb 9.6 L Hct 29.9 L Plt Count Lymph % (Auto) Eos % (Auto) [place] # (Auto) Eos # (Auto) Seg Neutrophils % Seg Neuts % (Manual) Lymphocytes % (Manual) Basophils % (Manual) Seg Neutrophils # Seg Neutrophils # Man Lymphocytes # (Manual) Monocytes # (Manual) Basophils # (Manual) D-Dimer ABG pH ABG pO2 96.2 H ABG HCO3 ABG O2 Saturation ABG Base Excess -3.1 L ABG Hemoglobin 9.7 L Oxyhemoglobin Sodium Chloride Carbon Dioxide BUN Creatinine Glucose POC Glucose Hemoglobin A1c Ammonia 20.0 L Total Creatine Kinase C-Reactive Protein Total Protein Albumin Urine Creatinine 12/13/21 12/13/21 04:12 17:29 WBC RBC Hgb Hct Plt Count Lymph % (Auto) Eos % (Auto) [place] # (Auto) Eos # (Auto) Seg Neutrophils % Seg Neuts % (Manual) Lymphocytes % (Manual) Basophils % (Manual) Seg Neutrophils # Seg Neutrophils # Man Lymphocytes # (Manual) Monocytes # (Manual) Basophils # (Manual) D-Dimer ABG pH ABG pO2 ABG HCO3 ABG O2 Saturation ABG Base Excess ABG Hemoglobin Oxyhemoglobin Sodium Chloride 108.8 H Carbon Dioxide 19 L BUN 26 H Creatinine Glucose 169 H POC Glucose 158 H Hemoglobin A1c Ammonia Total Creatine Kinase C-Reactive Protein Total Protein 5.8 L Albumin 2.9 L Urine Creatinine Allied health notes reviewed: RT
--- NOTE | 2021-12-13 19:01 | XRay Report ---
CHEST 1 VIEW INDICATION / CLINICAL INFORMATION: follow up respiratory failure. FINDINGS: SUPPORT DEVICES: No significant change in position. HEART / MEDIASTINUM: The cardiomediastinal silhouette has not significantly changed in the interim. LUNGS / PLEURA: No change in faint bibasilar opacities. Signer Name: Eddie Hong MD Signed: 12/13/2021 6:57 PM Workstation Name: [email or web address]
[2021-12-13] MEDS: INSULIN GLARGINE 100 UNITS/ML SUB-Q SCH (22:16)
[2021-12-14] MEDS: INSULIN REGULAR, HUMAN 100 UNITS/1 ML SUB-Q SCH ×4 (00:22→18:16)
--- NOTE | 2021-12-14 03:52 | XRay Report ---
CHEST 1 VIEW 12/14/2021 2:40 AM INDICATION / CLINICAL INFORMATION: follow up respiratory failure. COMPARISON: Previous day. FINDINGS: SUPPORT DEVICES: Unchanged. HEART / MEDIASTINUM: No significant abnormality. LUNGS / PLEURA: No significant pulmonary or pleural abnormality. No pneumothorax. ADDITIONAL FINDINGS: No significant additional findings. IMPRESSION: Lines and tubes in satisfactory position. Signer Name: Gus Almodovar MD Signed: 12/14/2021 3:48 AM Workstation Name: [id number]
[2021-12-14 05:54] LABS: Basophils # (Auto) 0.1 K/mm3 (0.0-0.1); Basophils % (Auto) 0.8 % (0.0-1.8); Eosinophils # (Auto) 0.6 K/mm3 (0.0-0.4); Eosinophils % (Auto) 6.4 % (0.0-4.3); Hematocrit 29.3 % (30.3-42.9); Hemoglobin 9.5 gm/dl (10.1-14.3); Lymphocytes # (Auto) 1.4 K/mm3 (1.2-5.4); Lymphocytes % (Auto) 15.8 % (13.4-35.0); Mean Corpuscular HGB Conc 33 % (30-34); Mean Corpuscular Volume 85 fl (79-97); Monocytes # (Auto) 0.6 K/mm3 (0.0-0.8); Monocytes % (Auto) 6.6 % (0.0-7.3); Platelet Count 305 K/mm3 (140-440); Red Blood Count 3.46 M/mm3 (3.65-5.03); Red Cell Distribution Width 14.2 % (13.2-15.2)
[2021-12-14 06:15] LABS: Albumin 2.7 g/dL (3.9-5); Calcium 9.3 mg/dL (8.4-10.2)
[2021-12-14] MEDS: HEPARIN 5,000 UNIT/1 ML VIAL SUB-Q SCH ×3 (06:33→21:48)
[2021-12-14] MEDS: LANSOPRAZOLE 30 MG SOLUTAB FEEDTUBE SCH (09:21)
[2021-12-14] MEDS: amLODIPine 5 MG TAB FEEDTUBE SCH (09:21)
[2021-12-14] MEDS: levETIRAcetam 500 MG/5 ML ORAL LIQD FEEDTUBE SCH ×2 (09:21→21:50)
[2021-12-14] MEDS: SENNOSIDES/DOCUSATE SODIUM 8.6/50 MG TAB FEEDTUBE SCH ×2 (09:22→21:49)
[2021-12-14] MEDS: hydrALAZINE 100 MG TAB FEEDTUBE SCH ×3 (09:22→21:50)
--- NOTE | 2021-12-14 09:57 | Progress Note ---
Assessment and Plan Acute Hypoxic Respiratory Failure on MVS intubated 12/07 Community Acquied Pneumonia(CAP) Sepsis/Leukocytosis Acute Metabolic Encephalopathy Acute kidney injury (MAYRA) probably Vasomotor Nephropathy Hypernatremia h/o Hypertension h/o Hyperlipidemia h/o Type 2 Diabetes Mellitus with Hyperglycemia - family contemplating withdrawal - scopolamine re: secretions - Free water flushes for hypernatremia - continue Daily SAT and SBT assessment as tolerated - continue accuchecks with glycemic control per SSI (While critically ill target blood glucose of 140-180 mg/dL; avoid hypoglycemia) - sedation prn for target RASS 0 to -1 - continue to wean supplemental oxygen for target O2 sat's > 90% acutely - VAP bundle addressed - continue lung protective strategies - continue bronchodilators with pulmonary hygiene per RT - wean per pulmonary driven protocols otherwise - avoid nephrotoxins, renally dose all medications - continue to avoid benzodiazepine's, reduce the possibility of delirium - AB's per ID rec's - prn analgesia per CPOT score - Maintenance of sleep-wake cycle, avoid delirium - continue enteral nutritional support at goal rate as tolerated - G.I. & VTE prophylaxis - PT/OT/ROM exercises - continue mobility protocols for pressure ulcer prophylaxis - Monitor hemodynamics closely - continue other care per attending / other consultants - discharge planning ongoing concurrently COVID SPECIFIC INTERVENTIONS - COVID-19 test negative .... Re-evaluate in am & prn CONDITION: CRITICAL PROGNOSIS: GUARDED CODE STATUS: FULL CODE The high probability of a clinically significant, sudden or life-threatening deterioration of the [respiratory, cardiovascular, GI & neurologic] system(s) required my full and direct attention, intervention and personal management. The aggregate critical care time was [34] minutes without overlap. Time includes spent on; [x] Data Review and interpretation [x] Patient assessment and monitoring of vital signs [x] Documentation [x] Medication orders and management Subjective Date of service: 12/14/21 Principal diagnosis: Acute Hypoxic Respiratory Failure; CAP; Sepsis; AMS; MAYRA; HTN; DM II Interval history: Patient is seen today for: Acute Hypoxic Respiratory Failure; CAP; Sepsis; AMS; MAYRA; Hypernatremia; DM II Seen and examined at bedside; 24hour events reviewed; nursing and respiratory care staff consulted; no adverse overnight events reported to me; resting in bed; AMS is persistent; she is tolerating a SBT via PSV with p-supp@ 12 cm H2O; no emesis or overt aspiration; MRI consistent with severe anoxic encephalopathy; no high grade fevers Objective Vital Signs - 12hr 12/13/21 12/13/21 12/14/21 22:00 23:00 00:00 Temperature 99.3 F Pulse Rate 81 89 86 Pulse Rate [ 86 From Monitor] Respiratory 16 17 16 Rate Blood Pressure 109/59 135/67 134/63 O2 Sat by Pulse 98 98 98 Oximetry 12/14/21 12/14/21 12/14/21 00:10 01:00 02:00 Temperature Pulse Rate 83 87 80 Pulse Rate [ From Monitor] Respiratory 15 16 Rate Blood Pressure 134/63 135/69 133/70 O2 Sat by Pulse 100 97 99 Oximetry 12/14/21 12/14/21 12/14/21 03:00 04:00 05:00 Temperature 99.1 F Pulse Rate 88 86 89 Pulse Rate [ 81 From Monitor] Respiratory 21 16 18 Rate Blood Pressure 148/69 140/71 135/69 O2 Sat by Pulse 98 100 99 Oximetry 12/14/21 12/14/21 12/14/21 05:42 06:00 07:00 Temperature Pulse Rate 83 88 88 Pulse Rate [ From Monitor] Respiratory 17 17 Rate Blood Pressure 124/62 169/75 178/73 O2 Sat by Pulse 100 97 97 Oximetry 12/14/21 12/14/21 12/14/21 08:00 08:35 09:00 Temperature Pulse Rate 93 H 93 H 97 H Pulse Rate [ From Monitor] Respiratory 19 26 H 16 Rate Blood Pressure 182/76 182/76 183/85 O2 Sat by Pulse 98 99 98 Oximetry 12/14/21 09:21 Temperature Pulse Rate 95 H Pulse Rate [ From Monitor] Respiratory Rate Blood Pressure 183/85 O2 Sat by Pulse Oximetry Constitutional: appears uncomfortable, other (elderly obese female with mildly increased respiratory effort at rest on MVS) Eyes: non-icteric ENT: oropharynx moist, oropharyngeal exudate pre, other (ETT 24 cm CECI) Neck: supple, no lymphadenopathy, no JVD Effort: mildly labored Ascultation: Bilateral: diminished breath sounds, rhonchi Percussion: Bilateral: not dull Cardiovascular: regular rate and rhythm Gastrointestinal: normoactive bowel sounds, soft, non-tender, non-distended (protuberant) Integumentary: rash Extremities: no cyanosis, pulses normal, no ischemia or petechiae, edema Neurologic: pupils equal and round, unable to assess Psychiatric: other (unable to assess re: AMS) CBC and BMP: 12/14/21 05:27 12/14/21 05:27 ABG, PT/INR, D-dimer: ABG ABG pH 7.432 pH Units (7.350-7.450) 12/13/21 04:05 ABG pCO2 31.5 mm Hg 12/13/21 04:05 ABG pO2 96.2 mm Hg (80.0-90.0) H 12/13/21 04:05 ABG O2 Saturation 97.6 % (95.0-99.0) 12/13/21 04:05 PT/INR, D-dimer PT 13.7 Sec. (12.2-14.9) 12/11/21 09:32 INR 0.95 (0.87-1.13) 12/11/21 09:32 D-Dimer 3277.12 ng/mlDDU (0-234) H 12/08/21 08:21 Abnormal lab findings: Abnormal Labs 12/07/21 12/07/21 12/07/21 14:21 15:55 15:55 WBC 16.9 H RBC 5.04 H Hgb Hct 43.8 H Plt Count 459 H Lymph % (Auto) 9.3 L Eos % (Auto) [place] # (Auto) 0.9 H Eos # (Auto) Seg Neutrophils % 84.6 H Seg Neuts % (Manual) Lymphocytes % (Manual) Basophils % (Manual) Seg Neutrophils # 14.3 H Seg Neutrophils # Man Lymphocytes # (Manual) Monocytes # (Manual) Basophils # (Manual) D-Dimer ABG pH ABG pO2 ABG HCO3 ABG O2 Saturation ABG Base Excess ABG Hemoglobin Oxyhemoglobin Sodium Chloride 107.2 H Carbon Dioxide 18 L BUN 34 H Creatinine 1.7 H Glucose 224 H POC Glucose 174 H Hemoglobin A1c Ammonia Total Creatine Kinase C-Reactive Protein Total Protein Albumin Urine Creatinine 12/07/21 12/07/21 12/07/21 15:55 15:55 15:55 WBC RBC Hgb Hct Plt Count Lymph % (Auto) Eos % (Auto) [place] # (Auto) Eos # (Auto) Seg Neutrophils % Seg Neuts % (Manual) Lymphocytes % (Manual) Basophils % (Manual) Seg Neutrophils # Seg Neutrophils # Man Lymphocytes # (Manual) Monocytes # (Manual) Basophils # (Manual) D-Dimer ABG pH 7.260 L ABG pO2 229.7 H ABG HCO3 19.8 L ABG O2 Saturation 99.3 H ABG Base Excess -7.1 L ABG Hemoglobin Oxyhemoglobin Sodium Chloride Carbon Dioxide BUN Creatinine Glucose POC Glucose Hemoglobin A1c Ammonia 23.0 L Total Creatine Kinase 498 H C-Reactive Protein Total Protein Albumin Urine Creatinine 12/07/21 12/08/21 12/08/21 21:45 00:18 04:00 WBC 20.4 H RBC Hgb Hct Plt Count Lymph % (Auto) Eos % (Auto) [place] # (Auto) Eos # (Auto) Seg Neutrophils % Seg Neuts % (Manual) 92.0 H Lymphocytes % (Manual) 1.0 L Basophils % (Manual) 2.0 H Seg Neutrophils # Seg Neutrophils # Man 18.8 H Lymphocytes # (Manual) 0.2 L Monocytes # (Manual) 1.0 H Basophils # (Manual) 0.4 H D-Dimer ABG pH ABG pO2 170.3 H ABG HCO3 18.8 L ABG O2 Saturation 99.1 H ABG Base Excess -5.5 L ABG Hemoglobin 11.9 L Oxyhemoglobin Sodium Chloride Carbon Dioxide BUN Creatinine Glucose POC Glucose 276 H Hemoglobin A1c Ammonia Total Creatine Kinase C-Reactive Protein Total Protein Albumin Urine Creatinine 12/08/21 12/08/21 12/08/21 04:00 04:10 05:42 WBC RBC Hgb Hct Plt Count Lymph % (Auto) Eos % (Auto) [place] # (Auto) Eos # (Auto) Seg Neutrophils % Seg Neuts % (Manual) Lymphocytes % (Manual) Basophils % (Manual) Seg Neutrophils # Seg Neutrophils # Man Lymphocytes # (Manual) Monocytes # (Manual) Basophils # (Manual) D-Dimer ABG pH ABG pO2 65.1 L ABG HCO3 17.6 L ABG O2 Saturation 94.5 L ABG Base Excess -5.4 L ABG Hemoglobin Oxyhemoglobin 92.9 L Sodium 146 H Chloride 112.2 H Carbon Dioxide 17 L BUN 38 H Creatinine 1.8 H Glucose 329 H POC Glucose 315 H Hemoglobin A1c Ammonia Total Creatine Kinase 287 H C-Reactive Protein Total Protein Albumin 3.5 L Urine Creatinine 12/08/21 12/08/21 12/08/21 07:29 08:21 08:21 WBC RBC Hgb Hct Plt Count Lymph % (Auto) Eos % (Auto) [place] # (Auto) Eos # (Auto) Seg Neutrophils % Seg Neuts % (Manual) Lymphocytes % (Manual) Basophils % (Manual) Seg Neutrophils # Seg Neutrophils # Man Lymphocytes # (Manual) Monocytes # (Manual) Basophils # (Manual) D-Dimer 3277.12 H ABG pH ABG pO2 ABG HCO3 ABG O2 Saturation ABG Base Excess ABG Hemoglobin Oxyhemoglobin Sodium Chloride Carbon Dioxide BUN Creatinine Glucose POC Glucose 330 H Hemoglobin A1c Ammonia Total Creatine Kinase C-Reactive Protein 6.20 H Total Protein Albumin Urine Creatinine 12/08/21 12/08/21 12/09/21 11:15 21:04 04:25 WBC RBC Hgb Hct Plt Count Lymph % (Auto) Eos % (Auto) [place] # (Auto) Eos # (Auto) Seg Neutrophils % Seg Neuts % (Manual) Lymphocytes % (Manual) Basophils % (Manual) Seg Neutrophils # Seg Neutrophils # Man Lymphocytes # (Manual) Monocytes # (Manual) Basophils # (Manual) D-Dimer ABG pH ABG pO2 136.8 H ABG HCO3 18.7 L ABG O2 Saturation ABG Base Excess -5.7 L ABG Hemoglobin 11.2 L Oxyhemoglobin Sodium Chloride Carbon Dioxide BUN Creatinine Glucose POC Glucose 302 H 122 H Hemoglobin A1c Ammonia Total Creatine Kinase C-Reactive Protein Total Protein Albumin Urine Creatinine 12/09/21 12/09/21 12/09/21 04:32 04:32 04:32 WBC 16.7 H RBC Hgb Hct Plt Count Lymph % (Auto) Eos % (Auto) [place] # (Auto) Eos # (Auto) Seg Neutrophils % Seg Neuts % (Manual) Lymphocytes % (Manual) Basophils % (Manual) Seg Neutrophils # Seg Neutrophils # Man Lymphocytes # (Manual) Monocytes # (Manual) Basophils # (Manual) D-Dimer ABG pH ABG pO2 ABG HCO3 ABG O2 Saturation ABG Base Excess ABG Hemoglobin Oxyhemoglobin Sodium 146 H Chloride 116.8 H Carbon Dioxide 18 L BUN 38 H Creatinine 1.7 H Glucose 193 H POC Glucose Hemoglobin A1c 6.2 H Ammonia Total Creatine Kinase C-Reactive Protein Total Protein Albumin 3.3 L Urine Creatinine 12/09/21 12/10/21 12/10/21 Unknown 00:18 04:20 WBC RBC Hgb Hct Plt Count Lymph % (Auto) Eos % (Auto) [place] # (Auto) Eos # (Auto) Seg Neutrophils % Seg Neuts % (Manual) Lymphocytes % (Manual) Basophils % (Manual) Seg Neutrophils # Seg Neutrophils # Man Lymphocytes # (Manual) Monocytes # (Manual) Basophils # (Manual) D-Dimer ABG pH ABG pO2 136.4 H ABG HCO3 19.3 L ABG O2 Saturation ABG Base Excess -4.7 L ABG Hemoglobin 10.1 L Oxyhemoglobin Sodium Chloride Carbon Dioxide BUN Creatinine Glucose POC Glucose 186 H Hemoglobin A1c Ammonia Total Creatine Kinase C-Reactive Protein Total Protein Albumin Urine Creatinine 167.0 H 12/10/21 12/10/21 12/10/21 05:49 06:03 12:11 WBC 13.0 H RBC Hgb Hct Plt Count Lymph % (Auto) Eos % (Auto) [place] # (Auto) Eos # (Auto) Seg Neutrophils % Seg Neuts % (Manual) Lymphocytes % (Manual) Basophils % (Manual) Seg Neutrophils # Seg Neutrophils # Man Lymphocytes # (Manual) Monocytes # (Manual) Basophils # (Manual) D-Dimer ABG pH ABG pO2 ABG HCO3 ABG O2 Saturation ABG Base Excess ABG Hemoglobin Oxyhemoglobin Sodium 147 H Chloride 118.1 H Carbon Dioxide 18 L BUN 37 H Creatinine 1.5 H Glucose 229 H POC Glucose 195 H Hemoglobin A1c Ammonia Total Creatine Kinase C-Reactive Protein Total Protein Albumin Urine Creatinine 12/10/21 12/11/21 12/11/21 16:36 04:00 04:00 WBC RBC 3.40 L Hgb 9.6 L Hct 29.2 L Plt Count Lymph % (Auto) Eos % (Auto) [place] # (Auto) Eos # (Auto) Seg Neutrophils % Seg Neuts % (Manual) Lymphocytes % (Manual) Basophils % (Manual) Seg Neutrophils # Seg Neutrophils # Man Lymphocytes # (Manual) Monocytes # (Manual) Basophils # (Manual) D-Dimer ABG pH ABG pO2 ABG HCO3 ABG O2 Saturation ABG Base Excess ABG Hemoglobin Oxyhemoglobin Sodium 148 H Chloride 117.5 H Carbon Dioxide BUN 34 H Creatinine Glucose 173 H POC Glucose 180 H Hemoglobin A1c Ammonia Total Creatine Kinase C-Reactive Protein Total Protein Albumin Urine Creatinine 12/11/21 12/11/21 12/11/21 04:10 13:29 17:33 WBC RBC Hgb Hct Plt Count Lymph % (Auto) Eos % (Auto) [place] # (Auto) Eos # (Auto) Seg Neutrophils % Seg Neuts % (Manual) Lymphocytes % (Manual) Basophils % (Manual) Seg Neutrophils # Seg Neutrophils # Man Lymphocytes # (Manual) Monocytes # (Manual) Basophils # (Manual) D-Dimer ABG pH ABG pO2 117.4 H ABG HCO3 ABG O2 Saturation ABG Base Excess -3.9 L ABG Hemoglobin 9.0 L Oxyhemoglobin Sodium Chloride Carbon Dioxide BUN Creatinine Glucose POC Glucose 124 H 163 H Hemoglobin A1c Ammonia Total Creatine Kinase C-Reactive Protein Total Protein Albumin Urine Creatinine 12/11/21 12/12/21 12/12/21 23:46 03:40 05:13 WBC RBC 3.56 L Hgb 10.0 L Hct Plt Count Lymph % (Auto) 12.9 L Eos % (Auto) 7.9 H [place] # (Auto) Eos # (Auto) 0.8 H Seg Neutrophils % 72.7 H Seg Neuts % (Manual) Lymphocytes % (Manual) Basophils % (Manual) Seg Neutrophils # Seg Neutrophils # Man Lymphocytes # (Manual) Monocytes # (Manual) Basophils # (Manual) D-Dimer ABG pH ABG pO2 134.8 H ABG HCO3 ABG O2 Saturation ABG Base Excess -2.2 L ABG Hemoglobin 9.6 L Oxyhemoglobin Sodium Chloride Carbon Dioxide BUN Creatinine Glucose POC Glucose 150 H Hemoglobin A1c Ammonia Total Creatine Kinase C-Reactive Protein Total Protein Albumin Urine Creatinine 12/12/21 12/12/21 12/12/21 05:13 11:45 21:28 WBC RBC Hgb Hct Plt Count Lymph % (Auto) Eos % (Auto) [place] # (Auto) Eos # (Auto) Seg Neutrophils % Seg Neuts % (Manual) Lymphocytes % (Manual) Basophils % (Manual) Seg Neutrophils # Seg Neutrophils # Man Lymphocytes # (Manual) Monocytes # (Manual) Basophils # (Manual) D-Dimer ABG pH ABG pO2 ABG HCO3 ABG O2 Saturation ABG Base Excess -2.6 L ABG Hemoglobin 9.8 L Oxyhemoglobin Sodium 146 H Chloride 113.9 H Carbon Dioxide 21 L BUN 27 H Creatinine 1.3 H Glucose 135 H POC Glucose 132 H Hemoglobin A1c Ammonia Total Creatine Kinase C-Reactive Protein Total Protein Albumin 2.9 L Urine Creatinine 12/12/21 12/13/21 12/13/21 23:13 04:05 04:12 WBC 11.2 H RBC 3.47 L Hgb 9.6 L Hct 29.9 L Plt Count Lymph % (Auto) Eos % (Auto) [place] # (Auto) Eos # (Auto) Seg Neutrophils % Seg Neuts % (Manual) Lymphocytes % (Manual) Basophils % (Manual) Seg Neutrophils # Seg Neutrophils # Man Lymphocytes # (Manual) Monocytes # (Manual) Basophils # (Manual) D-Dimer ABG pH ABG pO2 96.2 H ABG HCO3 ABG O2 Saturation ABG Base Excess -3.1 L ABG Hemoglobin 9.7 L Oxyhemoglobin Sodium Chloride Carbon Dioxide BUN Creatinine Glucose POC Glucose Hemoglobin A1c Ammonia 20.0 L Total Creatine Kinase C-Reactive Protein Total Protein Albumin Urine Creatinine 12/13/21 12/13/21 12/14/21 04:12 17:29 00:18 WBC RBC Hgb Hct Plt Count Lymph % (Auto) Eos % (Auto) [place] # (Auto) Eos # (Auto) Seg Neutrophils % Seg Neuts % (Manual) Lymphocytes % (Manual) Basophils % (Manual) Seg Neutrophils # Seg Neutrophils # Man Lymphocytes # (Manual) Monocytes # (Manual) Basophils # (Manual) D-Dimer ABG pH ABG pO2 ABG HCO3 ABG O2 Saturation ABG Base Excess ABG Hemoglobin Oxyhemoglobin Sodium Chloride 108.8 H Carbon Dioxide 19 L BUN 26 H Creatinine Glucose 169 H POC Glucose 158 H 189 H Hemoglobin A1c Ammonia Total Creatine Kinase C-Reactive Protein Total Protein 5.8 L Albumin 2.9 L Urine Creatinine 12/14/21 12/14/21 12/14/21 05:27 05:27 06:29 WBC RBC 3.46 L Hgb 9.5 L Hct 29.3 L Plt Count Lymph % (Auto) Eos % (Auto) 6.4 H [place] # (Auto) Eos # (Auto) 0.6 H Seg Neutrophils % 70.4 H Seg Neuts % (Manual) Lymphocytes % (Manual) Basophils % (Manual) Seg Neutrophils # Seg Neutrophils # Man Lymphocytes # (Manual) Monocytes # (Manual) Basophils # (Manual) D-Dimer ABG pH ABG pO2 ABG HCO3 ABG O2 Saturation ABG Base Excess ABG Hemoglobin Oxyhemoglobin Sodium 136 L Chloride Carbon Dioxide 21 L BUN 25 H Creatinine Glucose 198 H POC Glucose 189 H Hemoglobin A1c Ammonia Total Creatine Kinase C-Reactive Protein Total Protein Albumin 2.7 L Urine Creatinine Chest x-ray: image reviewed (tubes and lines in good positions) Allied health notes reviewed: nursing
[2021-12-14] MEDS ORDERED: SCOPOLAMINE TRANSDERMAL PATCH 72 HR TD SCH (11:00)
--- NOTE | 2021-12-14 11:48 | Progress Note ---
Assessment and Plan MAYRA - Resolved prerenal azotemia, f/u BUN/Cr off IVF Vitals - Adjust BP meds for better control Lytes - Resolved HyperNa, F/u labs off IVF Resp Failure - Mx per Pulm Subjective Date of service: 12/14/21 Interval history: No change, on vent via ETT Objective - Vital Signs Vital signs: Vital Signs - 12hr 12/14/21 12/14/21 12/14/21 00:00 00:10 01:00 Temperature 99.3 F Pulse Rate 86 83 87 Pulse Rate [ 86 From Monitor] Respiratory 16 15 Rate Blood Pressure 134/63 134/63 135/69 O2 Sat by Pulse 98 100 97 Oximetry 12/14/21 12/14/21 12/14/21 02:00 03:00 04:00 Temperature 99.1 F Pulse Rate 80 88 86 Pulse Rate [ 81 From Monitor] Respiratory 16 21 16 Rate Blood Pressure 133/70 148/69 140/71 O2 Sat by Pulse 99 98 100 Oximetry 12/14/21 12/14/21 12/14/21 05:00 05:42 06:00 Temperature Pulse Rate 89 83 88 Pulse Rate [ From Monitor] Respiratory 18 17 Rate Blood Pressure 135/69 124/62 169/75 O2 Sat by Pulse 99 100 97 Oximetry 12/14/21 12/14/21 12/14/21 07:00 08:00 08:35 Temperature Pulse Rate 88 93 H 93 H Pulse Rate [ From Monitor] Respiratory 17 19 26 H Rate Blood Pressure 178/73 182/76 182/76 O2 Sat by Pulse 97 98 99 Oximetry 12/14/21 12/14/21 09:00 09:21 Temperature Pulse Rate 97 H 95 H Pulse Rate [ From Monitor] Respiratory 16 Rate Blood Pressure 183/85 183/85 O2 Sat by Pulse 98 Oximetry - General Appearance General appearance: sedated on ventilator, intubated Neck: no JVD Respiratory: Present: Other (Air entry per vent) Cardiology: regular, S1S2 Gastrointestinal: other (Soft) Neurologic: other (Sedated) - Lab 12/14/21 05:27 12/14/21 05:27 Most recent lab results ABG pH 7.432 pH Units (7.350-7.450) 12/13/21 04:05 ABG pCO2 31.5 mm Hg 12/13/21 04:05 ABG pO2 96.2 mm Hg (80.0-90.0) H 12/13/21 04:05 ABG HCO3 20.6 mmol/L (20.0-26.0) 12/13/21 04:05 ABG O2 Saturation 97.6 % (95.0-99.0) 12/13/21 04:05 Calcium 9.3 mg/dL (8.4-10.2) 12/14/21 05:27 Phosphorus 3.70 mg/dL (2.5-4.5) 12/14/21 05:27 Magnesium 2.20 mg/dL (1.7-2.3) 12/14/21 05:27 Urine Creatinine 167.0 mg/dL (0.1-20.0) H 12/09/21 Unknown Urine Sodium 10 mmol/L 12/09/21 Unknown Medications & Allergies - Medications Allergies/Adverse Reactions: Allergies No Known Allergies Allergy (Verified 12/07/21 15:05) Home Medications: Home Medications Medication Instructions Recorded Confirmed Last Taken Type AtorvaSTATin [Lipitor] 10 mg PO QHS 12/07/21 12/07/21 Unknown History Furosemide [Lasix] 40 mg PO BID 12/07/21 12/07/21 Unknown History Gabapentin [Neurontin] 300 mg PO BID 12/07/21 12/07/21 Unknown History Loratadine 10 mg PO QDAY 12/07/21 12/07/21 Unknown History Omeprazole 20 mg PO QDAY 12/07/21 12/07/21 Unknown History PARoxetine [Paxil] 20 mg PO DAILY 12/07/21 12/07/21 Unknown History Sitagliptin Phosphate [Januvia] 50 mg PO QDAY 12/07/21 12/07/21 Unknown History amLODIPine [Norvasc] 10 mg PO DAILY 12/07/21 12/07/21 Unknown History hydrALAZINE [Apresoline TAB] 100 mg PO TID 12/07/21 12/07/21 Unknown History lisinopriL [Zestril TAB] 40 mg PO QDAY 12/07/21 12/07/21 Unknown History Active Medications: Generic Name Dose Route Start Last Admin Trade Name Freq PRN Reason Stop Dose Admin Acetaminophen 650 mg 12/07/21 19:17 Acetaminophen 325 Mg Tab PO Q6H PRN Pain MILD(1-3)/Fever >100.5/[place] Albuterol 2.5 mg 12/07/21 19:13 12/10/21 23:44 Albuterol 2.5 Mg/3 Ml Nebu IH 2.5 mg Q3HRT PRN Administration Shortness Of Breath Amlodipine Besylate 10 mg 12/12/21 15:33 12/14/21 09:21 Amlodipine 5 Mg Tab FEEDTUBE 10 mg DAILY [place] Administration Atorvastatin Calcium 10 mg 12/12/21 22:00 12/13/21 22:16 Atorvastatin 10 Mg Tab FEEDTUBE 10 mg QHS [place] Administration Dextrose 0 ml 12/07/21 19:55 Dextrose 50% In Water (25gm) 50 Ml Syringe IV Q30MIN PRN Hypoglycemia Protocol Heparin Sodium (Porcine) 5,000 unit 12/08/21 14:00 12/14/21 06:33 Heparin 5,000 Unit/1 Ml Vial SUB-Q 5,000 unit Q8HR [place] Administration Hydralazine HCl 50 mg 12/12/21 09:00 12/14/21 09:22 Hydralazine 100 Mg Tab FEEDTUBE 50 mg TID [place] Administration Hydrophilic Ointment 1 applic 12/08/21 10:00 Lip Therapy Vaseline TP Q2HR PRN Dry Lips Vancomycin HCl 1,250 mg/ 275 mls @ 166.667 mls/hr 12/10/21 12:00 12/13/21 13:33 Sodium Chloride IV 166.667 mls/hr Q24H [place] Administration Insulin Glargine 20 units 12/10/21 07:52 12/13/21 22:16 Insulin Glargine 100 Units/Ml SUB-Q 20 units QHS [place] Administration Insulin Human Regular 0 units 12/09/21 12:00 12/14/21 06:32 Insulin Regular, Human 100 Units/1 Ml SUB-Q 3 units Q6H [place] Administration Protocol Lansoprazole 30 mg 12/08/21 10:00 12/14/21 09:21 Lansoprazole 30 Mg Solutab FEEDTUBE 30 mg QDAY [place] Administration Levetiracetam 500 mg 12/13/21 10:00 12/14/21 09:21 Levetiracetam 500 Mg/5 Ml Oral Liqd FEEDTUBE 500 mg BID [place] Administration Multi-Ingred Cream/Lotion/Oil/Oint 1 applic 12/08/21 10:00 12/11/21 20:52 Mineral Oil/Petrolatum, White Ophth Oint 3.5 Gm OU 1 applic Q4HR PRN Administration Dry Eye(s) Scopolamine 1 each 12/14/21 11:00 Scopolamine Transdermal Patch 72 Hr TD Q3D [place] Senna/Docusate Sodium 1 tab 12/08/21 10:00 12/14/21 09:22 Sennosides/Docusate Sodium 8.6/50 Mg Tab FEEDTUBE 1 tab BID [place] Administration Sodium Chloride 10 ml 12/07/21 22:00 12/13/21 22:15 Sodium Chloride 0.9% 10 Ml Flush Syringe IV 10 ml BID [place] Administration Sodium Chloride 10 ml 12/07/21 19:17 12/09/21 05:54 Sodium Chloride 0.9% 10 Ml Flush Syringe IV 10 ml PRN PRN Administration LINE FLUSH
--- NOTE | 2021-12-14 12:38 | Progress Note ---
Assessment and Plan Cultures: 12/07/2021 blood culture: Coagulase-negative staph in 1 of 4 bottles, Staph aureus in 1 of 4 bottles. 12/10/2021 blood culture: no growth so far COVID-19 PCR: negative 12/11/2021 CSF: WBC 0, RBC 12,100, glucose 96, total protein 33 12/11/2021 CSF culture: No growth so far. Gram stain with no PMN, no organisms s een A/P: 65-year-old female with morbid obesity, hypertension, diabetes, hyperlipidemia, CHF was brought into the emergency room in an unresponsive state: #Severe sepsis, probably secondary to pneumonia: CXR with improvement. CT chest without any mass. #GPC bacteremia: Source unclear. TTE without any obvious valvular vegetations but technically difficult study. Coagulase-negative staph in 1 of 4 bottles, Staph aureus in 1 of 4 bottles. Possibility of contaminant exists but typically Staph aureus not considered a contaminant. #Acute encephalopathy: CT head with no acute findings. LP not consistent with meningitis. MRI revealed diffuse anoxic brain injury. #Acute hypoxic respiratory failure: on the vent. #MAYRA: better #Diabetes mellitus #Morbid obesity Recs: -continue with IV vancomycin for now pending Staph aureus susceptibilities -poor prognosis due to anoxic brain injury, if comfort care is opted for, d/c abx Laura Ruiz MD, [facility] O: [phone] F: [phone] C: [phone] Subjective Date of service: 12/14/21 Interval history: Afebrile. Remains unresponsive, off sedation. Remains on the vent. Objective - Exam Narrative Exam: Physical Exam: Constitutional: unresponsive, intubated, on the vent. Morbidly obese Head, Ears, Nose: Normocephalic, atraumatic. External ears, nose normal Eyes: Conjunctivae/corneas clear. No icterus. No ptosis. Neck: intubated Oral: intubated Cardiovascular: S1, S2 + Respiratory: AE fair bilaterally and equal GI: Soft, bowel sounds + Musculoskeletal: No pedal edema, no cyanosis. Morbidly obese Skin: No rash or abscess Hem/Lymphatic: No palpable cervical or supraclavicular nodes. No lymphangitis Psych: no agitation Neurological: unresponsive, intubated, on the vent, exam limited - Constitutional Vitals: Vital Signs Temp Pulse Resp BP Pulse Ox 99.1 F 102 H 30 H 135/61 98 12/14/21 04:00 12/14/21 11:00 12/14/21 11:00 12/14/21 11:00 12/14/21 09:00 Temperature -Last 24 Hours Temperature 99.1 F Temperature 99.3 F Temperature 99.1 F Temperature 98.8 F - Labs CBC & Chem 7: 12/14/21 05:27 12/14/21 05:27 Labs: Abnormal lab results 12/13/21 12/14/21 12/14/21 Range/Units 17:29 00:18 05:27 RBC 3.46 L (3.65-5.03) M/mm3 Hgb 9.5 L (10.1-14.3) gm/dl Hct 29.3 L (30.3-42.9) % Eos % (Auto) 6.4 H (0.0-4.3) % Eos # (Auto) 0.6 H (0.0-0.4) K/mm3 Seg Neutrophils % 70.4 H (40.0-70.0) % Sodium (137-145) mmol/L Carbon Dioxide (22-30) mmol/L BUN (7-17) mg/dL Glucose (65-100) mg/dL POC Glucose 158 H 189 H (70-105) mg/dL Albumin (3.9-5) g/dL 12/14/21 12/14/21 Range/Units 05:27 06:29 RBC (3.65-5.03) M/mm3 Hgb (10.1-14.3) gm/dl Hct (30.3-42.9) % Eos % (Auto) (0.0-4.3) % Eos # (Auto) (0.0-0.4) K/mm3 Seg Neutrophils % (40.0-70.0) % Sodium 136 L (137-145) mmol/L Carbon Dioxide 21 L (22-30) mmol/L BUN 25 H (7-17) mg/dL Glucose 198 H (65-100) mg/dL POC Glucose 189 H (70-105) mg/dL Albumin 2.7 L (3.9-5) g/dL
--- NOTE | 2021-12-14 13:22 | Progress Note ---
Assessment and Plan Assessment and plan: This is a 65 year old female with OHS, HTN, DM c/b neuropathy, GERD, MDD, iron deficiency anemia and HLD admitted with acute hypoxic respiratory failure secondary to pneumonia Neuro: Diffuse anoxic brain injury, acute metabolic encephalopathy -Neurology consulted, appreciate recommendations -Reorientation as needed -Maintain sleep-wake cycle -UDS negative -Keppra -EEG completed, see report for details -12/07 CT head without significant abnormality -12/11 CT head shows no focal mass, hemorrhage, hydrocephalus or acute or large territorial infarct -12/11 LP completed, see chart for details -CT C-spine shows mild degenerative disc disease at C5-7, sinus disease -12/12 MRI brain shows findings suggest presence of diffuse anoxic brain injury Cardiac: h/o HTN, HLD -Blood pressure monitoring per protocol -Hypertensive regimen with Norvasc and hydralazine -As needed hydralazine for SBP greater than 160 -Continue home statin Respiratory: Acute hypoxic respiratory failure -CCM consulted, appreciate recommendations -Intubated on 12/07 with 7.00 ETT at 23 at the lips -A.m. vent settings: CPAP 05/08 -See RT notes for titration -A.m. ABG and CXR noted -VAP bundle -SPO2 monitoring -12/09 CT chest with no superhilar mass or other acute findings GI: Moderate protein calorie malnutrition, h/o obesity -24 hours + 565 mL -PPI -NTR consulted for tube feedings -BR: Senokot S : Metabolic acidosis, acute kidney injury secondary to vasomotor nephropathy (resolved) -Nephrology consulted, appreciate recommendations -Record intake and output -Marcelino catheter discontinued 12/11 -Bladder scan nightly -Renally dose medications -Avoid nephrotoxic medications -Trend BMP ID: Severe Sepsis possibly secondary to pneumonia, GPC Bacteremia -Infectious disease consulted, appreciate recommendation -Antibiotic therapy with vancomycin -DC today d/t family decision to pursue in patient hospice -COVID-19 PCR negative -f/u blood culture -12/07 blood cultures with Staph aureus 1/4 bottles, coag negative staphlococcus 1/4 bottles -TTE without any obvious valvular vegetations but technically difficult study -Monitor WBC and temperature curve Endo: h/o DM -Avoid hypoglycemia -SSI -Accu-Cheks q. 6 hr -Long-acting insulin, titrate as needed Heme: Leukocytosis -Trend CBC -Transfuse hemoglobin less than 7 -SCDs to BLE while in bed Advance care planning -12/08: - Disease education data, care plan, diagnoses, and prognosis were discussed with patient's son via phone. Patient is full code. Patient family acknowledged understanding and agreement with current care plan. -12/09: - Disease education data, care plan, diagnoses, and prognosis were discussed with patient's son, Hira Garcia, at the bedside by EMRE Bañuelos. All questions and concerns were addressed at this time. Patient is a FULL code. Patient's acknowledged understanding and agreement with current care plan. -12/12: EMRE Gonzales had extenisve conversation with shayy Iniguez, this AM -- he states his mom would not want life support, he did realize she was on life support; we discussed DNR/CPR and he states his mom would not want this He is going to discuss with other children and is suppose to get back with us on DNR status -12/13: EMRE Donovan had extensive conversation with shayy Iniguez this afternoon regarding MRI results and next steps to care. He requested case management to discuss options. He did also state that his mother had wanted a DNR CODE STATUS however was unable to complete paperwork -CM set up DC in AM to hospice The high probability of a clinically significant, sudden or life threatening deterioration of the [multiple] system(s) required my full and direct attention, intervention and personal management. The aggregate critical care time was [60] minutes. This time is in addition to time spent performing reported procedures but includes the following: [x] Data Review and interpretation [x] Patient assessment and monitoring of vital signs [x] Documentation [x] Medication orders and management Disposition Plan: icu Total Time Spent with Patient (Minutes): 60 History Interval history: This is a 65-year-old female with OHS, HTN, DM complicated by neuropathy, GERD, MDD, iron deficiency anemia, HLD, CHF who presented to the emergency department on 12/07 after being found by family and unresponsive in her home via EMS. Last known well time was 12/05. Work-up in the emergency department clued a CXR which revealed pneumonia complicated by sepsis and acute hypoxic respiratory failure, lab work showed lactic acidosis, leukocytosis, metabolic acidosis, toxic metabolic encephalopathy, rhabdomyolysis and acute kidney injury. Patient was admitted to the hospital service with consults to CCM to the ICU and initiated sepsis and pneumonia protocol. Hospital course to date: 12/08: Intubated and unresponsive, not on any sedation. Patient remains febrile with worsen leukocytosis this am, repeat CXR noted with significant improvement. COVID PCR and cultures pending, continue current epiric IV Abx, ID consulted. Continue gentle IVF hydration for MAYRA and Nephro is consulted. SSI adjusted and Lantus added for hyperglycemia. 12/09: Patient remains unresponsive on the vent. VSS. Will check a UDS and EEG. Neurology consulted. Remains with low grade fevers, Leukocytosis improvimg, B.cultures pending. Continue current IV Abx per ID, orders also placed for LP r/o meningitis, and Ampicillin added . FWF added for Hypernatremia, continue to monitor renal function, Nephrology is also following 12/10: Remains unresponsive. UDS negative. EEG and Neurology consult pending. D/w CCM, prophylaxis treatment for seizures initiated- IV Ativan and IV Keppra. Preliminary Blood culture result is positive GPC with clusters in 2 out 4 bottles. 2D echo noted with no evidence of vegetation. Repeat B.cultures ordered, continue current IV ABx. ID is also following. Possible LP tomorrow. FWF increased for hypernatremia. Continue to monitor electrolytes. 12/11: CT and LP 12/12: MRI and EEG completed 12/13: Dr. Cabrales re MRI results, NM brain flow study ordered to tomorrow. I u pdated patient's son regarding MRI results. Patient son requested to speak to case management. Case management aware. 12/14: Patient had nuclear brain flow study done today however questionable dye uptake, per CM note patient has been referred to hospice with transfer set up for tomorrow. Hospitalist Physical - Constitutional Vitals: Temp Pulse Resp BP Pulse Ox 99.1 F 104 H 30 H 135/61 97 12/14/21 04:00 12/14/21 12:43 12/14/21 12:43 12/14/21 12:43 12/14/21 12:43 General appearance: Present: no acute distress, obese, other (Intubated and unresponsive, not on any sedation) - EENT Eyes: Present: PERRL - Neck Neck: Absent: masses or JVD, cervical LAD - Respiratory Respiratory effort: normal Respiratory: bilateral: CTA - Cardiovascular Rhythm: regular Heart Sounds: Present: S1 & S2. Absent: systolic murmur, diastolic murmur - Extremities Extremities: no ischemia, pulses intact, pulses symmetrical, normal temperature, normal color Peripheral Pulses: within normal limits - Abdominal General gastrointestinal: soft, non-tender, non-distended, normal bowel sounds - Integumentary Integumentary: Present: warm, dry - Psychiatric Psychiatric: other - Neurologic Neurologic: other (no response to painful stimuli, weak cough/gag, pupils sluggish) Results - Labs CBC & Chem 7: 12/14/21 05:27 12/14/21 05:27 Labs: Laboratory Last Values WBC 8.8 K/mm3 (4.5-11.0) 12/14/21 05:27 RBC 3.46 M/mm3 (3.65-5.03) L 12/14/21 05:27 Hgb 9.5 gm/dl (10.1-14.3) L 12/14/21 05:27 Hct 29.3 % (30.3-42.9) L 12/14/21 05:27 MCV 85 fl (79-97) 12/14/21 05:27 MCH 28 pg (28-32) 12/14/21 05:27 MCHC 33 % (30-34) 12/14/21 05:27 RDW 14.2 % (13.2-15.2) 12/14/21 05:27 Plt Count 305 K/mm3 (140-440) 12/14/21 05:27 Lymph % (Auto) 15.8 % (13.4-35.0) 12/14/21 05:27 [place] % (Auto) 6.6 % (0.0-7.3) 12/14/21 05:27 Eos % (Auto) 6.4 % (0.0-4.3) H 12/14/21 05:27 Baso % (Auto) 0.8 % (0.0-1.8) 12/14/21 05:27 Lymph # (Auto) 1.4 K/mm3 (1.2-5.4) 12/14/21 05:27 [place] # (Auto) 0.6 K/mm3 (0.0-0.8) 12/14/21 05:27 Eos # (Auto) 0.6 K/mm3 (0.0-0.4) H 12/14/21 05:27 Baso # (Auto) 0.1 K/mm3 (0.0-0.1) 12/14/21 05:27 Add Manual Diff Complete 12/08/21 04:00 Total Counted 100 12/08/21 04:00 Seg Neutrophils % 70.4 % (40.0-70.0) H 12/14/21 05:27 Seg Neuts % (Manual) 92.0 % (40.0-70.0) H 12/08/21 04:00 Band Neutrophils % 0 % 12/08/21 04:00 Lymphocytes % (Manual) 1.0 % (13.4-35.0) L 12/08/21 04:00 Reactive Lymphs % (Man) 0 % 12/08/21 04:00 Monocytes % (Manual) 5.0 % (0.0-7.3) 12/08/21 04:00 Eosinophils % (Manual) 0 % (0.0-4.3) 12/08/21 04:00 Basophils % (Manual) 2.0 % (0.0-1.8) H 12/08/21 04:00 Metamyelocytes % 0 % 12/08/21 04:00 Myelocytes % 0 % 12/08/21 04:00 Promyelocytes % 0 % 12/08/21 04:00 Blast Cells % 0 % 12/08/21 04:00 Nucleated RBC % Not Reportable 12/08/21 04:00 Seg Neutrophils # 6.2 K/mm3 (1.8-7.7) 12/14/21 05:27 Seg Neutrophils # Man 18.8 K/mm3 (1.8-7.7) H 12/08/21 04:00 Band Neutrophils # 0.0 K/mm3 12/08/21 04:00 Lymphocytes # (Manual) 0.2 K/mm3 (1.2-5.4) L 12/08/21 04:00 Abs React Lymphs (Man) 0.0 K/mm3 12/08/21 04:00 Monocytes # (Manual) 1.0 K/mm3 (0.0-0.8) H 12/08/21 04:00 Eosinophils # (Manual) 0.0 K/mm3 (0.0-0.4) 12/08/21 04:00 Basophils # (Manual) 0.4 K/mm3 (0.0-0.1) H 12/08/21 04:00 Metamyelocytes # 0.0 K/mm3 12/08/21 04:00 Myelocytes # 0.0 K/mm3 12/08/21 04:00 Promyelocytes # 0.0 K/mm3 12/08/21 04:00 Blast Cells # 0.0 K/mm3 12/08/21 04:00 WBC Morphology Not Reportable 12/08/21 04:00 Hypersegmented Neuts Not Reportable 12/08/21 04:00 Hyposegmented Neuts Not Reportable 12/08/21 04:00 Hypogranular Neuts Not Reportable 12/08/21 04:00 Smudge Cells Not Reportable 12/08/21 04:00 Toxic Granulation Not Reportable 12/08/21 04:00 Toxic Vacuolation Not Reportable 12/08/21 04:00 Dohle Bodies Not Reportable 12/08/21 04:00 Pelger-Huet Anomaly Not Reportable 12/08/21 04:00 Ulises Rods Not Reportable 12/08/21 04:00 Platelet Estimate Consistent w auto 12/08/21 04:00 Clumped Platelets Not Reportable 12/08/21 04:00 Plt Clumps, EDTA Not Reportable 12/08/21 04:00 Large Platelets Not Reportable 12/08/21 04:00 Giant Platelets Not Reportable 12/08/21 04:00 Platelet Satelliting Not Reportable 12/08/21 04:00 Plt Morphology Comment Not Reportable 12/08/21 04:00 RBC Morphology Normal 12/08/21 04:00 Dimorphic RBCs Not Reportable 12/08/21 04:00 Polychromasia Not Reportable 12/08/21 04:00 Hypochromasia Not Reportable 12/08/21 04:00 Poikilocytosis Not Reportable 12/08/21 04:00 Anisocytosis Not Reportable 12/08/21 04:00 Microcytosis Not Reportable 12/08/21 04:00 Macrocytosis Not Reportable 12/08/21 04:00 Spherocytes Not Reportable 12/08/21 04:00 Pappenheimer Bodies Not Reportable 12/08/21 04:00 Sickle Cells Not Reportable 12/08/21 04:00 Target Cells Not Reportable 12/08/21 04:00 Tear Drop Cells Not Reportable 12/08/21 04:00 Ovalocytes Not Reportable 12/08/21 04:00 Helmet Cells Not Reportable 12/08/21 04:00 [place] Bodies Not Reportable 12/08/21 04:00 Kiefer Rings Not Reportable 12/08/21 04:00 Many Cells Not Reportable 12/08/21 04:00 Bite Cells Not Reportable 12/08/21 04:00 Crenated Cell Not Reportable 12/08/21 04:00 Elliptocytes Not Reportable 12/08/21 04:00 Acanthocytes (Spur) Not Reportable 12/08/21 04:00 Rouleaux Not Reportable 12/08/21 04:00 Hemoglobin C Crystals Not Reportable 12/08/21 04:00 Schistocytes Not Reportable 12/08/21 04:00 Malaria parasites Not Reportable 12/08/21 04:00 [place] Bodies Not Reportable 12/08/21 04:00 Hem Pathologist Commnt No 12/08/21 04:00 PT 13.7 Sec. (12.2-14.9) 12/11/21 09:32 INR 0.95 (0.87-1.13) 12/11/21 09:32 D-Dimer 3277.12 ng/mlDDU (0-234) H 12/08/21 08:21 ABG pH 7.432 pH Units (7.350-7.450) 12/13/21 04:05 ABG pCO2 31.5 mm Hg 12/13/21 04:05 ABG pO2 96.2 mm Hg (80.0-90.0) H 12/13/21 04:05 ABG HCO3 20.6 mmol/L (20.0-26.0) 12/13/21 04:05 ABG O2 Saturation 97.6 % (95.0-99.0) 12/13/21 04:05 ABG O2 Content 13.2 (0.0-44) 12/13/21 04:05 ABG Base Excess -3.1 mmol/L (-2.0-3.0) L 12/13/21 04:05 ABG Hemoglobin 9.7 gm/dl (12.0-16.0) L 12/13/21 04:05 ABG Carboxyhemoglobin 1.0 % (0.0-5.0) 12/13/21 04:05 ABG Methemoglobin 0.5 % (0.0-1.5) 12/13/21 04:05 Oxyhemoglobin 96.0 % (95.0-99.0) 12/13/21 04:05 FiO2 25 % 12/13/21 04:05 Sodium 136 mmol/L (137-145) L 12/14/21 05:27 Potassium 4.4 mmol/L (3.6-5.0) 12/14/21 05:27 Chloride 104.5 mmol/L (98-107) 12/14/21 05:27 Carbon Dioxide 21 mmol/L (22-30) L 12/14/21 05:27 Anion Gap 15 mmol/L 12/14/21 05:27 BUN 25 mg/dL (7-17) H 12/14/21 05:27 Creatinine 1.2 mg/dL (0.6-1.2) 12/14/21 05:27 Estimated GFR 45 ml/min 12/14/21 05:27 BUN/Creatinine Ratio 21 % 12/14/21 05:27 Glucose 198 mg/dL (65-100) H 12/14/21 05:27 POC Glucose 173 mg/dL (70-105) H 12/14/21 12:58 Hemoglobin A1c 6.2 % (4-6) H 12/09/21 04:32 Lactic Acid 1.70 mmol/L (0.7-2.0) 12/08/21 Unknown Calcium 9.3 mg/dL (8.4-10.2) 12/14/21 05:27 Phosphorus 3.70 mg/dL (2.5-4.5) 12/14/21 05:27 Magnesium 2.20 mg/dL (1.7-2.3) 12/14/21 05:27 Ferritin 162.1 ng/mL (10.0-200.0) 12/08/21 08:21 Total Bilirubin 0.20 mg/dL (0.1-1.2) 12/14/21 05:27 AST 31 units/L (5-40) 12/14/21 05:27 ALT 16 units/L (7-56) 12/14/21 05:27 Alkaline Phosphatase 72 units/L (35-129) 12/14/21 05:27 Ammonia 20.0 umol/L (25-60) L 12/12/21 23:13 Lactate Dehydrogenase 129 units/L (91-180) 12/08/21 08:21 Total Creatine Kinase 287 units/L (30-135) H 12/08/21 04:00 C-Reactive Protein 6.20 mg/dL (0.00-1.30) H 12/08/21 08:21 Total Protein 6.3 g/dL (6.3-8.2) 12/14/21 05:27 Albumin 2.7 g/dL (3.9-5) L 12/14/21 05:27 Albumin/Globulin Ratio 0.8 % 12/14/21 05:27 Procalcitonin 0.09 ng/mL (<0.15) 12/08/21 08:21 PTH Intact 41.40 pg/mL (15-65) 12/10/21 05:49 Urine Color Yellow (Yellow) 12/07/21 17:21 Urine Turbidity Clear (Clear) 12/07/21 17:21 Urine pH 6.0 (5.0-7.0) 12/07/21 17:21 Ur Specific [place] 1.015 (1.003-1.030) 12/07/21 17:21 Urine Protein 30 mg/dl mg/dL (Negative) 12/07/21 17:21 Urine Glucose (UA) Negative mg/dL (Negative) 12/07/21 17:21 Urine Ketones 40 mg/dL (Negative) 12/07/21 17:21 Urine Blood Negative (Negative) 12/07/21 17:21 Urine Nitrite Negative (Negative) 12/07/21 17:21 Ur Reducing Substances Not Reportable 12/07/21 17:21 Urine Bilirubin Moderate (Negative) 12/07/21 17:21 Urine Ictotest Negative (Negative) 12/07/21 17:21 Urine Urobilinogen 0.0 mg/dL (<2.0) 12/07/21 17:21 Ur Leukocyte Esterase Negative (Negative) 12/07/21 17:21 Urine WBC (Auto) 1.0 /HPF (0.0-6.0) 12/07/21 17:21 Urine RBC (Auto) 1.0 /HPF (0.0-6.0) 12/07/21 17:21 U Epithel Cells (Auto) 4.0 /HPF (0-13.0) 12/07/21 17:21 Hyaline Casts 4 /LPF 12/07/21 17:21 Urine Mucus Few /HPF 12/07/21 17:21 Urine Creatinine 167.0 mg/dL (0.1-20.0) H 12/09/21 Unknown Urine Sodium 10 mmol/L 12/09/21 Unknown CSF Appearance Clear 12/11/21 13:15 CSF Color Colorless 12/11/21 13:15 CSF WBC 0 /mm3 (1-10) 12/11/21 13:15 CSF RBC 98388 /mm3 (0-0) 12/11/21 13:15 CSF Seg Neutrophils Not Reportable 12/11/21 13:15 CSF Lymphocytes % Not Reportable 12/11/21 13:15 CSF Reactive Lymphs Not Reportable 12/11/21 13:15 CSF Monocytes % Not Reportable 12/11/21 13:15 CSF Eosinophils % Not Reportable 12/11/21 13:15 CSF Basophils Not Reportable 12/11/21 13:15 CSF Pathologist Review C 12/11/21 13:15 CSF Glucose 96 mg/dL 12/11/21 13:15 CSF Total Protein 33 mg/dL 12/11/21 13:15 Nasal Screen MRSA (PCR) Positive (Negative) 12/08/21 12:30 Vancomycin Trough 11.4 ug/mL (5.0-20.0) 12/10/21 05:49 Urine Opiates Screen Negative 12/09/21 Unknown Urine Methadone Screen Negative 12/09/21 Unknown Ur Barbiturates Screen Negative 12/09/21 Unknown Ur Phencyclidine Scrn Negative 12/09/21 Unknown Ur Amphetamines Screen Negative 12/09/21 Unknown U Benzodiazepines Scrn Negative 12/09/21 Unknown Urine Cocaine Screen Negative 12/09/21 Unknown U Marijuana (THC) Screen Negative 12/09/21 Unknown Drugs of Abuse Note Disclamer 12/09/21 Unknown Plasma/Serum Alcohol < 0.01 % (0-0.07) 12/07/21 19:03 Coronavirus (PCR) Negative (Negative) 12/08/21 08:11 Blood Type AB POSITIVE 12/07/21 22:45 Antibody Screen Negative 12/07/21 22:45 Microbiology: Microbiology 12/07/21 22:45 Peripheral/Venous Blood Culture - Preliminary Methicillin Resist S. Aureus 12/10/21 15:02 Peripheral/Venous Blood Culture - Preliminary NO GROWTH AFTER 72 HOURS 12/10/21 15:02 Peripheral/Venous Blood Culture - Preliminary NO GROWTH AFTER 72 HOURS Marcelino/IV: Voiding Method External Female Catheter Active Medications - Current Medications Current Medications: Generic Name Dose Route Start Last Admin Trade Name Freq PRN Reason Stop Dose Admin Acetaminophen 650 mg 12/07/21 19:17 Acetaminophen 325 Mg Tab PO Q6H PRN Pain MILD(1-3)/Fever >100.5/COTTON Albuterol 2.5 mg 12/07/21 19:13 12/10/21 23:44 Albuterol 2.5 Mg/3 Ml Nebu IH 2.5 mg Q3HRT PRN Administration Shortness Of Breath Amlodipine Besylate 10 mg 12/12/21 15:33 12/14/21 09:21 Amlodipine 5 Mg Tab FEEDTUBE 10 mg DAILY [place] Administration Atorvastatin Calcium 10 mg 12/12/21 22:00 12/13/21 22:16 Atorvastatin 10 Mg Tab FEEDTUBE 10 mg QHS [place] Administration Carvedilol 12.5 mg 12/14/21 22:00 Carvedilol 12.5 Mg Tab FEEDTUBE BID [place] Dextrose 0 ml 12/07/21 19:55 Dextrose 50% In Water (25gm) 50 Ml Syringe IV Q30MIN PRN Hypoglycemia Protocol Heparin Sodium (Porcine) 5,000 unit 12/08/21 14:00 12/14/21 06:33 Heparin 5,000 Unit/1 Ml Vial SUB-Q 5,000 unit Q8HR [place] Administration Hydralazine HCl 50 mg 12/12/21 09:00 12/14/21 09:22 Hydralazine 100 Mg Tab FEEDTUBE 50 mg TID [place] Administration Hydrophilic Ointment 1 applic 12/08/21 10:00 Lip Therapy Vaseline TP Q2HR PRN Dry Lips Vancomycin HCl 1,250 mg/ 275 mls @ 166.667 mls/hr 12/10/21 12:00 12/13/21 13:33 Sodium Chloride IV 166.667 mls/hr Q24H [place] Administration Insulin Glargine 20 units 12/10/21 07:52 12/13/21 22:16 Insulin Glargine 100 Units/Ml SUB-Q 20 units QHS [place] Administration Insulin Human Regular 0 units 12/09/21 12:00 12/14/21 06:32 Insulin Regular, Human 100 Units/1 Ml SUB-Q 3 units Q6H [place] Administration Protocol Lansoprazole 30 mg 12/08/21 10:00 12/14/21 09:21 Lansoprazole 30 Mg Solutab FEEDTUBE 30 mg QDAY [place] Administration Levetiracetam 500 mg 12/13/21 10:00 12/14/21 09:21 Levetiracetam 500 Mg/5 Ml Oral Liqd FEEDTUBE 500 mg BID [place] Administration Multi-Ingred Cream/Lotion/Oil/Oint 1 applic 12/08/21 10:00 12/11/21 20:52 Mineral Oil/Petrolatum, White Ophth Oint 3.5 Gm OU 1 applic Q4HR PRN Administration Dry Eye(s) Scopolamine 1 each 12/14/21 11:00 Scopolamine Transdermal Patch 72 Hr TD Q3D [place] Senna/Docusate Sodium 1 tab 12/08/21 10:00 12/14/21 09:22 Sennosides/Docusate Sodium 8.6/50 Mg Tab FEEDTUBE 1 tab BID [place] Administration Sodium Chloride 10 ml 12/07/21 22:00 12/13/21 22:15 Sodium Chloride 0.9% 10 Ml Flush Syringe IV 10 ml BID [place] Administration Sodium Chloride 10 ml 12/07/21 19:17 12/09/21 05:54 Sodium Chloride 0.9% 10 Ml Flush Syringe IV 10 ml PRN PRN Administration LINE FLUSH Nutrition/Malnutrition Assess - Dietary Evaluation Nutrition/Malnutrition Findings: Nutrition Notes Start: 12/08/21 11:03 Freq: Status: Active Protocol: Document 12/11/21 18:01 TUCKER (Rec: 12/11/21 18:04 TUCKER [id number]) Nutrition Notes Initial or Follow up Reassessment Current Diagnosis Acute Kidney Injury,Diabetes, Sepsis,Hypertension,Heart Failure,Respiratory Failure, Hyperlipidemia Other Pertinent Diagnosis Pneu, toxic metabolic encephalopathy, rhabdomyolysis , GERD, MDD, anemia Current Diet Glucerna 1.2 at 45ml/hr Labs/Tests Na 148 BUN 34 BG 173 Pertinent Medications D5W at 75ml/hr Height 5 ft 2 in Weight 98.1 kg [place] Body Weight (kg) 50.00 BMI 39.5 Weight Status Obese Subjective/Other Information Observed TF infusing at goal rate. Pt remains on vent support. Percent of energy/protein needs met: 73% energy 100% pro Burn Absent Trauma Absent #1 Nutrition Diagnosis Inadequate oral intake Diagnosis Progress(for reassessment Continues documentation) Is patient on ventilator? Yes Is Patient Ambulatory and/or Out of Bed No REE-([facility]-confined to bed) 1786.068 Kcal/Kg value to use for calculation 13 Approximate Energy Requirements Using 1275 kcal/Kg Calculation Used for Recommendations Kcal/kg Additional Notes Pro needs 0.8-1.2g/kg adjBW: 59-89g/day Fluid needs 1ml/kcal Nutrition Intervention Nutrition Support: Glucerna 1.2 at 45ml/hr with 150ml water flush q4h (per MD order). Kcal 1,296 Protein (gm) 65 Carbohydrates (gm) 124 Fat (gm) 65 Fluid (mL) 869 Fiber (gm) 17 Goal #1 TF tolerance Goal #2 TF to meet 65-70% of energy and at least 75% pro needs Follow-Up By: 12/18/21 Additional Comments F/U: stable TF, vent status, Na lab/water flush
[2021-12-14] MEDS: VANCOMYCIN 1,250 MG in SODIUM CHLORIDE 0.9% 250ML 250 ML IV SCH (13:27)
--- NOTE | 2021-12-14 14:44 | Discharge Summary ---
Providers - Providers Date of Admission: 12/07/21 19:17 Date of discharge: 12/14/21 Attending physician: JODIE TOLENTINO MD 12/07/21 19:57 Consult to Physician [CONS] Routine Comment: Consulting Provider: SYED MANDEL Physician Instructions: Reason For Exam: rhabdo/MAYRA 12/08/21 08:10 Consult to Physician [CONS] Routine Comment: Consulting Provider: ERNESTO SANDERS Physician Instructions: Reason For Exam: CCM- Sepsis 12/08/21 08:11 Consult to Physician [CONS] Routine Comment: Consulting Provider: ANEL BARILLAS Physician Instructions: Reason For Exam: Sepsis- CAP 12/08/21 08:18 Consult to Dietitian/Nutrition [CONS] Routine Physician Instructions: Reason For Exam: Reason for Consult: Write/Manage Tube Feeding 12/09/21 12:40 Consult to Physician [CONS] Routine Comment: Consulting Provider: JEMAL WARNER Physician Instructions: Reason For Exam: Acute Encephalopathy Primary care physician: TABLE MAKER Hospitalization Condition: Stable Hospital course: This is a 65-year-old female with OHS, HTN, DM complicated by neuropathy, GERD, MDD, iron deficiency anemia, HLD, CHF who presented to the emergency department on 12/07 after being found by family and unresponsive in her home via EMS. Last known well time was 12/05. Work-up in the emergency department clued a CXR which revealed pneumonia complicated by sepsis and acute hypoxic respiratory failure, lab work showed lactic acidosis, leukocytosis, metabolic acidosis, toxic metabolic encephalopathy, rhabdomyolysis and acute kidney injury. Patient was intubated in the ED and admitted to the hospital service with consults to CCM to the ICU and initiated sepsis and pneumonia protocol. On 12/08 nephrology was consulted for acute kidney injury and Lantus is added for hyperglycemia. On 12/19 patient had EEG and neurology was consulted, patient had an LP to rule out meningitis and ampicillin was added to antibiotic regimen. Water flushes were started for hypernatremia. On 12/10 EEG and neurology consult were still pending patient was initiated on Keppra and Ativan as needed, blood culture grew gram- positive cocci in clusters in 2/4 bottles and 2D echo showed no evidence of vegetation. On 12/[address] head and lumbar puncture completed. On 12/12 patient had an MRI which showed evidence of anoxic brain injury and EEG was completed. On 12/13 patient family was updated on results of MRI. On 12/14 patient had nuclear brain flow study however there is questionable dye uptake. Family has decided to pursue inpatient hospice and has been set up for 12/15 for case management. Patient will be discharged to inpatient hospice facility. Assessment and plan: Neuro: Diffuse anoxic brain injury, acute metabolic encephalopathy -Neurology consulted, appreciate recommendations -Reorientation as needed -Maintain sleep-wake cycle -UDS negative -Keppra -EEG completed, see report for details -12/07 CT head without significant abnormality -12/11 CT head shows no focal mass, hemorrhage, hydrocephalus or acute or large territorial infarct -12/11 LP completed, see chart for details -CT C-spine shows mild degenerative disc disease at C5-7, sinus disease -12/12 MRI brain shows findings suggest presence of diffuse anoxic brain injury Cardiac: h/o HTN, HLD -Blood pressure monitoring per protocol -Hypertensive regimen with Norvasc and hydralazine -As needed hydralazine for SBP greater than 160 -Continue home statin Respiratory: Acute hypoxic respiratory failure -CCM consulted, appreciate recommendations -Intubated on 12/07 with 7.00 ETT at 23 at the lips -A.m. vent settings: CPAP 05/08 -See RT notes for titration -A.m. ABG and CXR noted -VAP bundle -SPO2 monitoring -12/09 CT chest with no superhilar mass or other acute findings GI: Moderate protein calorie malnutrition, h/o obesity -24 hours + 565 mL -PPI -NTR consulted for tube feedings -BR: Senokot S : Metabolic acidosis, acute kidney injury secondary to vasomotor nephropathy (resolved) -Nephrology consulted, appreciate recommendations -Record intake and output -Marcelino catheter discontinued 12/11 -Bladder scan nightly -Renally dose medications -Avoid nephrotoxic medications -Trend BMP ID: Severe Sepsis possibly secondary to pneumonia, GPC Bacteremia -Infectious disease consulted, appreciate recommendation -Antibiotic therapy with vancomycin -COVID-19 PCR negative -f/u blood culture -12/07 blood cultures with Staph aureus 1/4 bottles, coag negative staphlococcus 1/4 bottles -TTE without any obvious valvular vegetations but technically difficult study -Monitor WBC and temperature curve Endo: h/o DM -Avoid hypoglycemia -SSI -Accu-Cheks q. 6 hr -Long-acting insulin, titrate as needed Heme: Leukocytosis -Trend CBC -Transfuse hemoglobin less than 7 -SCDs to BLE while in bed Advance care planning -12/08: - Disease education data, care plan, diagnoses, and prognosis were discussed with patient's son via phone. Patient is full code. Patient family acknowledged understanding and agreement with current care plan. -12/09: - Disease education data, care plan, diagnoses, and prognosis were discussed with patient's son, Hira Garcia, at the bedside by EMRE Bañuelos. All questions and concerns were addressed at this time. Patient is a FULL code. Patient's acknowledged understanding and agreement with current care plan. -12/12: EMRE Gonzales had extenisve conversation with shayy Iniguez, this AM -- he states his mom would not want life support, he did realize she was on life support; we discussed DNR/CPR and he states his mom would not want this He is going to discuss with other children and is suppose to get back with us on DNR status -12/13: EMRE Donovan had extensive conversation with shayy Iniguez this afternoon regarding MRI results and next steps to care. He requested case management to discuss options. He did also state that his mother had wanted a DNR CODE STATUS however was unable to complete paperwork -12/14: TINY set up DC in AM to hospice Disposition: 50 HOSPICE/HOME Final Discharge Diagnosis (Prints w/discharge instructions): Diffuse anoxic brain injury, acute metabolic encephalopathy, Acute hypoxic respiratory failure, Moderate protein calorie malnutrition, Metabolic acidosis, acute kidney injury secondary to vasomotor nephropathy (resolved), Severe Sepsis possibly secondary to pneumonia, GPC Bacteremia, Leukocytosis. h/o HTN, HLD, obesity, DM Time spent for discharge: 60 Core Measure Documentation - Palliative Care Palliative Care/ Comfort Measures: Hospice Care - Core Measures Any of the following diagnoses?: none Exam - Constitutional Vitals: Temp Pulse Resp BP Pulse Ox 98 F 105 H 27 H 133/64 97 12/14/21 12:00 12/14/21 14:00 12/14/21 14:00 12/14/21 14:00 12/14/21 13:00 Plan Follow up with: KELVIN TOUSSAINT MD [Primary Care Provider] - 3-5 Days
[2021-12-14] MEDS: INSULIN GLARGINE 100 UNITS/ML SUB-Q SCH (21:47)
[2021-12-14] MEDS: carvediloL 12.5 MG TAB FEEDTUBE SCH (21:50)
[2021-12-15] MEDS: INSULIN REGULAR, HUMAN 100 UNITS/1 ML SUB-Q SCH ×2 (01:37→05:58)
[2021-12-15] MEDS: HEPARIN 5,000 UNIT/1 ML VIAL SUB-Q SCH (05:57)
[2021-12-15] MEDS: carvediloL 12.5 MG TAB FEEDTUBE SCH (09:22)
[2021-12-15] MEDS: SENNOSIDES/DOCUSATE SODIUM 8.6/50 MG TAB FEEDTUBE SCH (09:22)
[2021-12-15] MEDS: amLODIPine 5 MG TAB FEEDTUBE SCH (09:22)
[2021-12-15] MEDS: levETIRAcetam 500 MG/5 ML ORAL LIQD FEEDTUBE SCH (09:22)
[2021-12-15] MEDS: hydrALAZINE 100 MG TAB FEEDTUBE SCH (09:23)
[2021-12-15] MEDS: LANSOPRAZOLE 30 MG SOLUTAB FEEDTUBE SCH (09:24)
--- NOTE | 2021-12-15 10:11 | Progress Note ---
Assessment and Plan Acute Hypoxic Respiratory Failure on MVS intubated 12/07 Community Acquied Pneumonia(CAP) Sepsis/Leukocytosis Acute Metabolic Encephalopathy Acute kidney injury (MAYRA) probably Vasomotor Nephropathy Hypernatremia h/o Hypertension h/o Hyperlipidemia h/o Type 2 Diabetes Mellitus with Hyperglycemia - tentatively to transfer to hospice today - continue care as below otherwise; - scopolamine re: secretions - Free water flushes for hypernatremia - continue Daily SAT and SBT assessment as tolerated - continue accuchecks with glycemic control per SSI (While critically ill target blood glucose of 140-180 mg/dL; avoid hypoglycemia) - sedation prn for target RASS 0 to -1 - continue to wean supplemental oxygen for target O2 sat's > 90% acutely - VAP bundle addressed - continue lung protective strategies - continue bronchodilators with pulmonary hygiene per RT - wean per pulmonary driven protocols otherwise - avoid nephrotoxins, renally dose all medications - continue to avoid benzodiazepine's, reduce the possibility of delirium - AB's per ID rec's - prn analgesia per CPOT score - Maintenance of sleep-wake cycle, avoid delirium - continue enteral nutritional support at goal rate as tolerated - G.I. & VTE prophylaxis - PT/OT/ROM exercises - continue mobility protocols for pressure ulcer prophylaxis - Monitor hemodynamics closely - continue other care per attending / other consultants - discharge planning ongoing concurrently COVID SPECIFIC INTERVENTIONS - COVID-19 test negative .... Re-evaluate in am & prn CONDITION: CRITICAL PROGNOSIS: GUARDED CODE STATUS: FULL CODE The high probability of a clinically significant, sudden or life-threatening deterioration of the [respiratory, cardiovascular, GI & neurologic] system(s) required my full and direct attention, intervention and personal management. The aggregate critical care time was [32] minutes without overlap. Time includes spent on; [x] Data Review and interpretation [x] Patient assessment and monitoring of vital signs [x] Documentation [x] Medication orders and management Subjective Date of service: 12/15/21 Principal diagnosis: Acute Hypoxic Respiratory Failure; CAP; Sepsis; AMS; MAYRA; HTN; DM II Interval history: Patient is seen today for: Acute Hypoxic Respiratory Failure; CAP; Sepsis; AMS; MAYRA; Hypernatremia; DM II Seen and examined at bedside; 24hour events reviewed; nursing and respiratory care staff consulted; no adverse overnight events reported to me; resting in bed; AMS is persistent; tentatively to transfer to inpatient hospice today; no new issues otherwise but remains on MVS Objective Vital Signs - 12hr 12/14/21 12/14/21 12/15/21 23:00 23:28 00:00 Temperature 100.2 F H Pulse Rate 80 74 77 Pulse Rate [ 80 From Monitor] Respiratory 19 16 19 Rate Blood Pressure 116/59 116/59 123/62 O2 Sat by Pulse 96 96 97 Oximetry 12/15/21 12/15/21 12/15/21 00:15 01:00 02:00 Temperature Pulse Rate 78 78 79 Pulse Rate [ From Monitor] Respiratory 20 18 Rate Blood Pressure 123/62 125/63 127/69 O2 Sat by Pulse 98 95 95 Oximetry 12/15/21 12/15/21 12/15/21 03:00 04:00 04:24 Temperature 99.4 F Pulse Rate 73 80 72 Pulse Rate [ 73 From Monitor] Respiratory 16 15 Rate Blood Pressure 113/63 123/67 123/67 O2 Sat by Pulse 97 96 98 Oximetry 12/15/21 12/15/21 12/15/21 05:00 06:00 07:00 Temperature Pulse Rate 75 75 Pulse Rate [ From Monitor] Respiratory 17 16 Rate Blood Pressure 130/63 135/70 114/53 O2 Sat by Pulse 97 100 95 Oximetry 12/15/21 12/15/21 12/15/21 08:00 08:10 08:11 Temperature Pulse Rate 75 78 Pulse Rate [ From Monitor] Respiratory 17 Rate Blood Pressure 120/56 120/56 O2 Sat by Pulse 98 98 98 Oximetry 12/15/21 09:22 Temperature Pulse Rate 67 Pulse Rate [ From Monitor] Respiratory Rate Blood Pressure 124/52 O2 Sat by Pulse Oximetry Constitutional: appears uncomfortable, other (elderly obese female with mildly increased respiratory effort at rest on MVS) Eyes: non-icteric ENT: oropharynx moist, oropharyngeal exudate pre, other (ETT 24 cm CECI) Neck: supple, no lymphadenopathy, no JVD Effort: mildly labored Ascultation: Bilateral: diminished breath sounds, rhonchi Percussion: Bilateral: not dull Cardiovascular: regular rate and rhythm Gastrointestinal: normoactive bowel sounds, soft, non-tender, non-distended (protuberant) Integumentary: rash Extremities: no cyanosis, pulses normal, no ischemia or petechiae, edema Neurologic: pupils equal and round, unable to assess Psychiatric: other (unable to assess re: AMS) CBC and BMP: 12/14/21 05:27 12/14/21 05:27 ABG, PT/INR, D-dimer: ABG ABG pH 7.432 pH Units (7.350-7.450) 12/13/21 04:05 ABG pCO2 31.5 mm Hg 12/13/21 04:05 ABG pO2 96.2 mm Hg (80.0-90.0) H 12/13/21 04:05 ABG O2 Saturation 97.6 % (95.0-99.0) 12/13/21 04:05 PT/INR, D-dimer PT 13.7 Sec. (12.2-14.9) 12/11/21 09:32 INR 0.95 (0.87-1.13) 12/11/21 09:32 D-Dimer 3277.12 ng/mlDDU (0-234) H 12/08/21 08:21 Abnormal lab findings: Abnormal Labs 12/07/21 12/07/21 12/07/21 14:21 15:55 15:55 WBC 16.9 H RBC 5.04 H Hgb Hct 43.8 H Plt Count 459 H Lymph % (Auto) 9.3 L Eos % (Auto) Prentiss # (Auto) 0.9 H Eos # (Auto) Seg Neutrophils % 84.6 H Seg Neuts % (Manual) Lymphocytes % (Manual) Basophils % (Manual) Seg Neutrophils # 14.3 H Seg Neutrophils # Man Lymphocytes # (Manual) Monocytes # (Manual) Basophils # (Manual) D-Dimer ABG pH ABG pO2 ABG HCO3 ABG O2 Saturation ABG Base Excess ABG Hemoglobin Oxyhemoglobin Sodium Chloride 107.2 H Carbon Dioxide 18 L BUN 34 H Creatinine 1.7 H Glucose 224 H POC Glucose 174 H Hemoglobin A1c Ammonia Total Creatine Kinase C-Reactive Protein Total Protein Albumin Urine Creatinine 12/07/21 12/07/21 12/07/21 15:55 15:55 15:55 WBC RBC Hgb Hct Plt Count Lymph % (Auto) Eos % (Auto) Prentiss # (Auto) Eos # (Auto) Seg Neutrophils % Seg Neuts % (Manual) Lymphocytes % (Manual) Basophils % (Manual) Seg Neutrophils # Seg Neutrophils # Man Lymphocytes # (Manual) Monocytes # (Manual) Basophils # (Manual) D-Dimer ABG pH 7.260 L ABG pO2 229.7 H ABG HCO3 19.8 L ABG O2 Saturation 99.3 H ABG Base Excess -7.1 L ABG Hemoglobin Oxyhemoglobin Sodium Chloride Carbon Dioxide BUN Creatinine Glucose POC Glucose Hemoglobin A1c Ammonia 23.0 L Total Creatine Kinase 498 H C-Reactive Protein Total Protein Albumin Urine Creatinine 12/07/21 12/08/21 12/08/21 21:45 00:18 04:00 WBC 20.4 H RBC Hgb Hct Plt Count Lymph % (Auto) Eos % (Auto) Prentiss # (Auto) Eos # (Auto) Seg Neutrophils % Seg Neuts % (Manual) 92.0 H Lymphocytes % (Manual) 1.0 L Basophils % (Manual) 2.0 H Seg Neutrophils # Seg Neutrophils # Man 18.8 H Lymphocytes # (Manual) 0.2 L Monocytes # (Manual) 1.0 H Basophils # (Manual) 0.4 H D-Dimer ABG pH ABG pO2 170.3 H ABG HCO3 18.8 L ABG O2 Saturation 99.1 H ABG Base Excess -5.5 L ABG Hemoglobin 11.9 L Oxyhemoglobin Sodium Chloride Carbon Dioxide BUN Creatinine Glucose POC Glucose 276 H Hemoglobin A1c Ammonia Total Creatine Kinase C-Reactive Protein Total Protein Albumin Urine Creatinine 12/08/21 12/08/21 12/08/21 04:00 04:10 05:42 WBC RBC Hgb Hct Plt Count Lymph % (Auto) Eos % (Auto) Prentiss # (Auto) Eos # (Auto) Seg Neutrophils % Seg Neuts % (Manual) Lymphocytes % (Manual) Basophils % (Manual) Seg Neutrophils # Seg Neutrophils # Man Lymphocytes # (Manual) Monocytes # (Manual) Basophils # (Manual) D-Dimer ABG pH ABG pO2 65.1 L ABG HCO3 17.6 L ABG O2 Saturation 94.5 L ABG Base Excess -5.4 L ABG Hemoglobin Oxyhemoglobin 92.9 L Sodium 146 H Chloride 112.2 H Carbon Dioxide 17 L BUN 38 H Creatinine 1.8 H Glucose 329 H POC Glucose 315 H Hemoglobin A1c Ammonia Total Creatine Kinase 287 H C-Reactive Protein Total Protein Albumin 3.5 L Urine Creatinine 12/08/21 12/08/21 12/08/21 07:29 08:21 08:21 WBC RBC Hgb Hct Plt Count Lymph % (Auto) Eos % (Auto) Prentiss # (Auto) Eos # (Auto) Seg Neutrophils % Seg Neuts % (Manual) Lymphocytes % (Manual) Basophils % (Manual) Seg Neutrophils # Seg Neutrophils # Man Lymphocytes # (Manual) Monocytes # (Manual) Basophils # (Manual) D-Dimer 3277.12 H ABG pH ABG pO2 ABG HCO3 ABG O2 Saturation ABG Base Excess ABG Hemoglobin Oxyhemoglobin Sodium Chloride Carbon Dioxide BUN Creatinine Glucose POC Glucose 330 H Hemoglobin A1c Ammonia Total Creatine Kinase C-Reactive Protein 6.20 H Total Protein Albumin Urine Creatinine 12/08/21 12/08/21 12/09/21 11:15 21:04 04:25 WBC RBC Hgb Hct Plt Count Lymph % (Auto) Eos % (Auto) P[place]iss # (Auto) Eos # (Auto) Seg Neutrophils % Seg Neuts % (Manual) Lymphocytes % (Manual) Basophils % (Manual) Seg Neutrophils # Seg Neutrophils # Man Lymphocytes # (Manual) Monocytes # (Manual) Basophils # (Manual) D-Dimer ABG pH ABG pO2 136.8 H ABG HCO3 18.7 L ABG O2 Saturation ABG Base Excess -5.7 L ABG Hemoglobin 11.2 L Oxyhemoglobin Sodium Chloride Carbon Dioxide BUN Creatinine Glucose POC Glucose 302 H 122 H Hemoglobin A1c Ammonia Total Creatine Kinase C-Reactive Protein Total Protein Albumin Urine Creatinine 12/09/21 12/09/21 12/09/21 04:32 04:32 04:32 WBC 16.7 H RBC Hgb Hct Plt Count Lymph % (Auto) Eos % (Auto) P[place]iss # (Auto) Eos # (Auto) Seg Neutrophils % Seg Neuts % (Manual) Lymphocytes % (Manual) Basophils % (Manual) Seg Neutrophils # Seg Neutrophils # Man Lymphocytes # (Manual) Monocytes # (Manual) Basophils # (Manual) D-Dimer ABG pH ABG pO2 ABG HCO3 ABG O2 Saturation ABG Base Excess ABG Hemoglobin Oxyhemoglobin Sodium 146 H Chloride 116.8 H Carbon Dioxide 18 L BUN 38 H Creatinine 1.7 H Glucose 193 H POC Glucose Hemoglobin A1c 6.2 H Ammonia Total Creatine Kinase C-Reactive Protein Total Protein Albumin 3.3 L Urine Creatinine 12/09/21 12/10/21 12/10/21 Unknown 00:18 04:20 WBC RBC Hgb Hct Plt Count Lymph % (Auto) Eos % (Auto) P[place] # (Auto) Eos # (Auto) Seg Neutrophils % Seg Neuts % (Manual) Lymphocytes % (Manual) Basophils % (Manual) Seg Neutrophils # Seg Neutrophils # Man Lymphocytes # (Manual) Monocytes # (Manual) Basophils # (Manual) D-Dimer ABG pH ABG pO2 136.4 H ABG HCO3 19.3 L ABG O2 Saturation ABG Base Excess -4.7 L ABG Hemoglobin 10.1 L Oxyhemoglobin Sodium Chloride Carbon Dioxide BUN Creatinine Glucose POC Glucose 186 H Hemoglobin A1c Ammonia Total Creatine Kinase C-Reactive Protein Total Protein Albumin Urine Creatinine 167.0 H 12/10/21 12/10/21 12/10/21 05:49 06:03 12:11 WBC 13.0 H RBC Hgb Hct Plt Count Lymph % (Auto) Eos % (Auto) P[place]iss # (Auto) Eos # (Auto) Seg Neutrophils % Seg Neuts % (Manual) Lymphocytes % (Manual) Basophils % (Manual) Seg Neutrophils # Seg Neutrophils # Man Lymphocytes # (Manual) Monocytes # (Manual) Basophils # (Manual) D-Dimer ABG pH ABG pO2 ABG HCO3 ABG O2 Saturation ABG Base Excess ABG Hemoglobin Oxyhemoglobin Sodium 147 H Chloride 118.1 H Carbon Dioxide 18 L BUN 37 H Creatinine 1.5 H Glucose 229 H POC Glucose 195 H Hemoglobin A1c Ammonia Total Creatine Kinase C-Reactive Protein Total Protein Albumin Urine Creatinine 12/10/21 12/11/21 12/11/21 16:36 04:00 04:00 WBC RBC 3.40 L Hgb 9.6 L Hct 29.2 L Plt Count Lymph % (Auto) Eos % (Auto) P[place]iss # (Auto) Eos # (Auto) Seg Neutrophils % Seg Neuts % (Manual) Lymphocytes % (Manual) Basophils % (Manual) Seg Neutrophils # Seg Neutrophils # Man Lymphocytes # (Manual) Monocytes # (Manual) Basophils # (Manual) D-Dimer ABG pH ABG pO2 ABG HCO3 ABG O2 Saturation ABG Base Excess ABG Hemoglobin Oxyhemoglobin Sodium 148 H Chloride 117.5 H Carbon Dioxide BUN 34 H Creatinine Glucose 173 H POC Glucose 180 H Hemoglobin A1c Ammonia Total Creatine Kinase C-Reactive Protein Total Protein Albumin Urine Creatinine 12/11/21 12/11/21 12/11/21 04:10 13:29 17:33 WBC RBC Hgb Hct Plt Count Lymph % (Auto) Eos % (Auto) [place] # (Auto) Eos # (Auto) Seg Neutrophils % Seg Neuts % (Manual) Lymphocytes % (Manual) Basophils % (Manual) Seg Neutrophils # Seg Neutrophils # Man Lymphocytes # (Manual) Monocytes # (Manual) Basophils # (Manual) D-Dimer ABG pH ABG pO2 117.4 H ABG HCO3 ABG O2 Saturation ABG Base Excess -3.9 L ABG Hemoglobin 9.0 L Oxyhemoglobin Sodium Chloride Carbon Dioxide BUN Creatinine Glucose POC Glucose 124 H 163 H Hemoglobin A1c Ammonia Total Creatine Kinase C-Reactive Protein Total Protein Albumin Urine Creatinine 12/11/21 12/12/21 12/12/21 23:46 03:40 05:13 WBC RBC 3.56 L Hgb 10.0 L Hct Plt Count Lymph % (Auto) 12.9 L Eos % (Auto) 7.9 H P[place] # (Auto) Eos # (Auto) 0.8 H Seg Neutrophils % 72.7 H Seg Neuts % (Manual) Lymphocytes % (Manual) Basophils % (Manual) Seg Neutrophils # Seg Neutrophils # Man Lymphocytes # (Manual) Monocytes # (Manual) Basophils # (Manual) D-Dimer ABG pH ABG pO2 134.8 H ABG HCO3 ABG O2 Saturation ABG Base Excess -2.2 L ABG Hemoglobin 9.6 L Oxyhemoglobin Sodium Chloride Carbon Dioxide BUN Creatinine Glucose POC Glucose 150 H Hemoglobin A1c Ammonia Total Creatine Kinase C-Reactive Protein Total Protein Albumin Urine Creatinine 12/12/21 12/12/21 12/12/21 05:13 11:45 21:28 WBC RBC Hgb Hct Plt Count Lymph % (Auto) Eos % (Auto) P[place] # (Auto) Eos # (Auto) Seg Neutrophils % Seg Neuts % (Manual) Lymphocytes % (Manual) Basophils % (Manual) Seg Neutrophils # Seg Neutrophils # Man Lymphocytes # (Manual) Monocytes # (Manual) Basophils # (Manual) D-Dimer ABG pH ABG pO2 ABG HCO3 ABG O2 Saturation ABG Base Excess -2.6 L ABG Hemoglobin 9.8 L Oxyhemoglobin Sodium 146 H Chloride 113.9 H Carbon Dioxide 21 L BUN 27 H Creatinine 1.3 H Glucose 135 H POC Glucose 132 H Hemoglobin A1c Ammonia Total Creatine Kinase C-Reactive Protein Total Protein Albumin 2.9 L Urine Creatinine 12/12/21 12/13/21 12/13/21 23:13 04:05 04:12 WBC 11.2 H RBC 3.47 L Hgb 9.6 L Hct 29.9 L Plt Count Lymph % (Auto) Eos % (Auto) P[place]iss # (Auto) Eos # (Auto) Seg Neutrophils % Seg Neuts % (Manual) Lymphocytes % (Manual) Basophils % (Manual) Seg Neutrophils # Seg Neutrophils # Man Lymphocytes # (Manual) Monocytes # (Manual) Basophils # (Manual) D-Dimer ABG pH ABG pO2 96.2 H ABG HCO3 ABG O2 Saturation ABG Base Excess -3.1 L ABG Hemoglobin 9.7 L Oxyhemoglobin Sodium Chloride Carbon Dioxide BUN Creatinine Glucose POC Glucose Hemoglobin A1c Ammonia 20.0 L Total Creatine Kinase C-Reactive Protein Total Protein Albumin Urine Creatinine 12/13/21 12/13/21 12/14/21 04:12 17:29 00:18 WBC RBC Hgb Hct Plt Count Lymph % (Auto) Eos % (Auto) [place] # (Auto) Eos # (Auto) Seg Neutrophils % Seg Neuts % (Manual) Lymphocytes % (Manual) Basophils % (Manual) Seg Neutrophils # Seg Neutrophils # Man Lymphocytes # (Manual) Monocytes # (Manual) Basophils # (Manual) D-Dimer ABG pH ABG pO2 ABG HCO3 ABG O2 Saturation ABG Base Excess ABG Hemoglobin Oxyhemoglobin Sodium Chloride 108.8 H Carbon Dioxide 19 L BUN 26 H Creatinine Glucose 169 H POC Glucose 158 H 189 H Hemoglobin A1c Ammonia Total Creatine Kinase C-Reactive Protein Total Protein 5.8 L Albumin 2.9 L Urine Creatinine 12/14/21 12/14/21 12/14/21 05:27 05:27 06:29 WBC RBC 3.46 L Hgb 9.5 L Hct 29.3 L Plt Count Lymph % (Auto) Eos % (Auto) 6.4 H [place] # (Auto) Eos # (Auto) 0.6 H Seg Neutrophils % 70.4 H Seg Neuts % (Manual) Lymphocytes % (Manual) Basophils % (Manual) Seg Neutrophils # Seg Neutrophils # Man Lymphocytes # (Manual) Monocytes # (Manual) Basophils # (Manual) D-Dimer ABG pH ABG pO2 ABG HCO3 ABG O2 Saturation ABG Base Excess ABG Hemoglobin Oxyhemoglobin Sodium 136 L Chloride Carbon Dioxide 21 L BUN 25 H Creatinine Glucose 198 H POC Glucose 189 H Hemoglobin A1c Ammonia Total Creatine Kinase C-Reactive Protein Total Protein Albumin 2.7 L Urine Creatinine 07/12/14/21 12/14/21 12:58 21:36 23:54 WBC RBC Hgb Hct Plt Count Lymph % (Auto) Eos % (Auto) [place] # (Auto) Eos # (Auto) Seg Neutrophils % Seg Neuts % (Manual) Lymphocytes % (Manual) Basophils % (Manual) Seg Neutrophils # Seg Neutrophils # Man Lymphocytes # (Manual) Monocytes # (Manual) Basophils # (Manual) D-Dimer ABG pH ABG pO2 ABG HCO3 ABG O2 Saturation ABG Base Excess ABG Hemoglobin Oxyhemoglobin Sodium Chloride Carbon Dioxide BUN Creatinine Glucose POC Glucose 173 H 175 H 231 H Hemoglobin A1c Ammonia Total Creatine Kinase C-Reactive Protein Total Protein Albumin Urine Creatinine 12/15/21 05:05 WBC RBC Hgb Hct Plt Count Lymph % (Auto) Eos % (Auto) [place] # (Auto) Eos # (Auto) Seg Neutrophils % Seg Neuts % (Manual) Lymphocytes % (Manual) Basophils % (Manual) Seg Neutrophils # Seg Neutrophils # Man Lymphocytes # (Manual) Monocytes # (Manual) Basophils # (Manual) D-Dimer ABG pH ABG pO2 ABG HCO3 ABG O2 Saturation ABG Base Excess ABG Hemoglobin Oxyhemoglobin Sodium Chloride Carbon Dioxide BUN Creatinine Glucose POC Glucose 232 H Hemoglobin A1c Ammonia Total Creatine Kinase C-Reactive Protein Total Protein Albumin Urine Creatinine Allied health notes reviewed: nursing
--- NOTE | 2021-12-15 10:56 | Progress Note ---
Assessment and Plan Cultures: 12/07/2021 blood culture: Coagulase-negative staph in 1 of 4 bottles, MRSA in 1 of 4 bottles. 12/10/2021 blood culture: no growth so far COVID-19 PCR: negative 12/11/2021 CSF: WBC 0, RBC 12,100, glucose 96, total protein 33 12/11/2021 CSF culture: No growth so far. Gram stain with no PMN, no organisms seen A/P: 65-year-old female with morbid obesity, hypertension, diabetes, hyperlipidemia, CHF was brought into the emergency room in an unresponsive state: #Severe sepsis, probably secondary to pneumonia: CXR with improvement. CT chest without any mass. #GPC bacteremia: Source unclear. TTE without any obvious valvular vegetations but technically difficult study. Coagulase-negative staph in 1 of 4 bottles, Staph aureus in 1 of 4 bottles. Possibility of contaminant exists but typically Staph aureus not considered a contaminant. #Acute encephalopathy: CT head with no acute findings. LP not consistent with meningitis. MRI revealed diffuse anoxic brain injury. #Acute hypoxic respiratory failure: on the vent. #MAYRA: better #Diabetes mellitus #Morbid obesity Recs: -noted plans for discharge on hospice, agree. Vancomycin discontinued Will sign off. Laura Ruiz MD, FACP, [facility] ([facility]) O: [phone] F: [phone] C: [phone] Subjective Date of service: 12/15/21 Principal diagnosis: Acute Hypoxic Respiratory Failure; CAP; Sepsis; AMS; MAYRA; HTN; DM II Interval history: Remains unresponsive, off sedation. Remains on the vent. Objective - Exam Narrative Exam: Physical Exam: Constitutional: unresponsive, intubated, on the vent. Morbidly obese Head, Ears, Nose: Normocephalic, atraumatic. External ears, nose normal Eyes: Conjunctivae/corneas clear. No icterus. No ptosis. Neck: intubated Oral: intubated Cardiovascular: S1, S2 + Respiratory: AE fair bilaterally and equal GI: Soft, bowel sounds + Musculoskeletal: No pedal edema, no cyanosis. Morbidly obese Skin: No rash or abscess Hem/Lymphatic: No palpable cervical or supraclavicular nodes. No lymphangitis Psych: no agitation Neurological: unresponsive, intubated, on the vent, exam limited - Constitutional Vitals: Vital Signs Temp Pulse Resp BP Pulse Ox 99.4 F 67 17 124/52 98 12/15/21 04:00 12/15/21 09:22 12/15/21 08:00 12/15/21 09:22 12/15/21 08:11 Temperature -Last 24 Hours Temperature 99.4 F Temperature 100.2 F Temperature 98.8 F Temperature 98.2 F Temperature 98 F - Labs CBC & Chem 7: 12/14/21 05:27 12/14/21 05:27 Labs: Abnormal lab results 12/14/21 12/14/21 12/14/21 Range/Units 12:58 21:36 23:54 POC Glucose 173 H 175 H 231 H (70-105) mg/dL 12/15/21 Range/Units 05:05 POC Glucose 232 H (70-105) mg/dL
[2021-12-15 11:21] VITALS: BP 132/65
== END 2021-12-15 11:45 | disposition hospice, inpatient (51) | DRG 870 ==
LOC: ED 13:49 → CC1 19:17
PROVIDERS: ADMIT Internal Medicine; ATTEND Internal Medicine
PROC: 5A1955Z Respiratory Ventilation, Greater than 96 Consecutive Hours (ICD-10-PCS; principal; 2021-12-07)
PROC: 0BH17EZ Insertion of Endotracheal Airway into Trachea, Via Natural or Artificial Opening (ICD-10-PCS; 2021-12-07)
PROC: 05HM33Z Insertion of Infusion Device into Right Internal Jugular Vein, Percutaneous Approach (ICD-10-PCS; 2021-12-07)
PROC: B543ZZA Ultrasonography of Right Jugular Veins, Guidance (ICD-10-PCS; 2021-12-07)
PROC: 4A033R1 Measurement of Arterial Saturation, Peripheral, Percutaneous Approach (ICD-10-PCS; 2021-12-07)
PROC: 009U3ZX Drainage of Spinal Canal, Percutaneous Approach, Diagnostic (ICD-10-PCS; 2021-12-11)
PROC: B01B1ZZ Fluoroscopy of Spinal Cord using Low Osmolar Contrast (ICD-10-PCS; 2021-12-11)
DX: A41.9 Sepsis, unspecified organism (principal); J96.01 Acute respiratory failure with hypoxia; G92.8 Other toxic encephalopathy; N17.0 Acute kidney failure with tubular necrosis; J18.9 Pneumonia, unspecified organism; M62.82 Rhabdomyolysis; E87.2 Acidosis; E66.2 Morbid (severe) obesity with alveolar hypoventilation; E87.0 Hyperosmolality and hypernatremia; E44.0 Moderate protein-calorie malnutrition; G93.1 Anoxic brain damage, not elsewhere classified; Z68.39 Body mass index [BMI] 39.0-39.9, adult; E88.81 Metabolic syndrome and other insulin resistance; M19.90 Unspecified osteoarthritis, unspecified site; E11.9 Type 2 diabetes mellitus without complications; K21.9 Gastro-esophageal reflux disease without esophagitis; E78.5 Hyperlipidemia, unspecified; I50.9 Heart failure, unspecified; I11.0 Hypertensive heart disease with heart failure; Z83.3 Family history of diabetes mellitus; Z82.49 Family history of ischemic heart disease and other diseases of the circulatory system; E11.65 Type 2 diabetes mellitus with hyperglycemia; R65.20 Severe sepsis without septic shock; Z20.822 Contact with and (suspected) exposure to COVID-19; Z66 Do not resuscitate
CPT/HCPCS: 36415; 36600; 62270; 62328; 70450; 70553; 71045; 71250; 72125; 76770; 80048; 80053; 80202; 80307; 80320; 81001; 82140; 82550; 82570; 82728; 82803; 82947; 82962; 83036; 83615; 83735; 83970; 84100; 84145; 84160; 84300; 85007; 85025; 85027; 85379; 85610; 86140; 86850; 86900; 86901; 87040; 87076; 87116; 87186; 87641; 89051; 93005; 93306; 94002; 94003; 94640; 94644; 95819; G0378; J3490; J7060; Q9967; A9575; C8929; G0480; J0290; J0360; J0456; J0692; J0696; J1644; J1815; J1953; J2060; J3370; J7030; J7040; J7050; U0003